=== PATIENT | female | born 1930 | race Caucasian/White ===

== ENCOUNTER → 2016-08-28 | Outpatient (CLI) | payer MEDICARE ==
[~2016-08-28] MED LIST: CPR500T PO; HYDR1TAB66 PO; KETO-22 PO; METR500T PO; NF-ROPIN4T PO; RPN.25T PO
--- OUTSIDE RECORDS SUMMARY | 2016-08-28 10:22 | XMS REPORT | Continuity of Care Document ---
Author Author [facility] Organization [facility] Address Unknown Phone Unavailable Care Team Providers Care Slot Service Specialist Name Role Phone AALIYAH CHILDS DO PCP Insurance Providers Payer Name Policy Number Subscriber Name Relationship Wps Medicare [id number] Rebeca Ocampo 17 Self / Same As Patient Blue Cross Mcr Supp [id number] Rebeca Ocampo 17 Self / Same As Patient Advance Directives Directive Response Recorded Date/Time Advance Directives Yes 11/09/12 5:46pm Health Care Power of Transit Authority Police Officer Yes 11/09/12 5:46pm Organ Donor No 11/09/12 5:46pm Problems No problem information available. Medications Current Home Medications Medication Dose Units Route Directions Days/Qty Instructions Start Date Ropinirole Hcl 4 Mg 4 Mg Oral Bedtime 11/09/12 Hydrocodone Bit/Acetaminophen 1 Each 0.5 Tab Oral Bedtime TAKES 1/2 TAB OF 5-500 MG AT BEDTIME 11/09/12 Ciprofloxacin 500 Mg 500 Tab Oral Twice A Day 10 11/12/12 Metronidazole 500 Mg 500 Mg Oral Three Times A Day 15 take until gone Past Home Medications Medication Directions Ordered Status Ropinirole Hcl 0.25 Mg Tab, 4 Mg Oral Daily 02/18/11 Discontinued Ketorolac Tromethamine 10 Mg Tablet, 10 Mg Oral Every 8HRS as needed Discontinued Social History Social History Problem Response Recorded Date/Time Alcohol Use Denies Use 11/09/2012 5:47pm Recreational Drug Use No 11/09/2012 5:47pm Recent Foreign Travel No 12/05/2015 2:34pm Hospital Discharge Instructions No hospital discharge instructions. Plan of Care Prescriptions See Medication Section Functional Status No functional status results. Allergies, Adverse Reactions, Alerts Allergen Type Severity Reaction Status Last Updated Lansoprazole Allergy Intermediate HIVES Active 05/31/12 Immunizations Name Given Type Date of Pneumonia Vaccine 05/31/08 Historical Vital Signs No known vital signs results. Results No known relevant diagnostic tests, laboratory data and/or discharge summary. Procedures No known history of procedures. Encounters Encounter Location Arrival/Admit Date Discharge/Depart Date Attending Provider Discharged Recurring [facility] 12/21/15 2:12pm 4:38pm AALIYAH CHILDS DO
--- NOTE | 2016-08-28 12:15 | Diagnostic Imaging Report ---
PA and lateral views of the chest. INDICATION: Fall. FINDINGS: The lungs are hyperinflated with no focal infiltrate. The heart size is normal. No effusion or pneumothorax. The mediastinum and saray appear unremarkable. IMPRESSION: COPD. Dictated by: Dictated on workstation # [id number]
--- NOTE | 2016-08-28 12:17 | Diagnostic Imaging Report ---
3 views of the right ribs. INDICATION: Fell last night. History of shortness of air and right rib pain. FINDINGS: No rib fracture seen. Prior anchors for rotator cuff surgery placed in the right humeral head. The right lung demonstrates no focal consolidation. IMPRESSION: No rib fracture identified. Dictated by: Dictated on workstation # [id number]
== END ==
LOC: RAD 10:17
PROVIDERS: ATTEND Family Medicine
DX: J44.9 Chronic obstructive pulmonary disease, unspecified (principal); S29.9XXA Unspecified injury of thorax, initial encounter; W19.XXXA Unspecified fall, initial encounter; Y99.8 Other external cause status
CPT/HCPCS: 71020; 71100

== ENCOUNTER → 2016-09-19 | Outpatient (CLI) | payer MEDICARE | LOC: LAB 09:45 | PROVIDERS: ATTEND Family Medicine | DX: B35.3 Tinea pedis (principal) | CPT/HCPCS: 87070; 87077; 87186; 87205; 87220 ==

== ENCOUNTER → 2016-11-12 | Outpatient (CLI) | payer MEDICARE ==
[~2016-11-12] MED LIST changes: +BETA15CR37 TP; +CURAMED PC; +HYDR-3820 PO; +ROPI4TAB3 PO
--- NOTE | 2016-11-12 11:32 | Diagnostic Imaging Report ---
INDICATION: Head injury from a fall Portable chest 11:20 AM There appears to be old healed rib fractures in the right anterior thoracic cage. Heart size and pulmonary vascularity are normal. Lungs are clear. There are no effusions or pneumothoraces. IMPRESSION: No acute abnormalities in the chest Dictated by: Dictated on workstation # [id number]
--- NOTE | 2016-11-12 11:37 | Diagnostic Imaging Report ---
INDICATION: Right shoulder injury from a fall. There are postop changes from tendon repair of the right shoulder. There are degenerative changes of the acromioclavicular joint. There is narrowing of the acromiohumeral space. There is slight superior subluxation of the humerus which appears chronic. There is no acute fracture seen. IMPRESSION: Postsurgical and degenerative changes of the right shoulder. No acute abnormality seen. Dictated by: Dictated on workstation # [id number]
--- NOTE | 2016-11-12 11:38 | Diagnostic Imaging Report ---
INDICATION: Low back pain. Lumbar spine. AP and lateral views of the lumbar spine show normal vertebral body height and alignment. There is disc space narrowing of L1-L2, L2-L3, L3-L4, and L4-L5. No compression fractures in the lumbar spine. IMPRESSION: Degenerative disc changes in the lumbar spine. There are no acute abnormalities seen. Dictated by: Dictated on workstation # [id number]
--- NOTE | 2016-11-12 11:39 | Diagnostic Imaging Report ---
INDICATION: Back injury from a fall. FINDINGS: AP and lateral views of the thoracic spine show a compression fracture of the T11 vertebral body. This is new since 08/28/2016. IMPRESSION: Acute compression fracture in the lower thoracic spine. This appears to be T11. Dictated by: Dictated on workstation # [id number]
--- NOTE | 2016-11-12 11:42 | Diagnostic Imaging Report ---
EXAMINATION: Bilateral rib radiographs. INDICATION: Fall. Multiple areas of rib pain. FINDINGS: There are minimally displaced rib fractures involving the anterolateral aspect of the right fifth through seventh ribs. There is callus formation seen suggestive of subacute fractures. The left ribs demonstrate no fracture. Heart size is normal. No effusion or pneumothorax and no focal pulmonary infiltrate is seen. Evidence of prior right shoulder surgery is seen with anchors at the humeral head noted. Impression: Minimally displaced subacute fractures of the anterolateral aspect of the right fifth to seventh ribs. Dictated by: Dictated on workstation # [id number]
[2016-11-12 11:43] LABS: MEAN PLATELET VOLUME 9.5 FL (7.4-10.4); RED BLOOD COUNT 4.99 10^6/uL (4.35-5.85); RED CELL DISTRIBUTION WIDTH 14.3 % (10.0-14.5); WHITE BLOOD COUNT 7.3 10^3/uL (4.3-11.0)
[2016-11-12 12:08] LABS: ANION GAP 7 MMOL/L (5-14); BLOOD UREA NITROGEN 19 MG/DL (7-18); BUN/CREATININE RATIO 28; CALCIUM 9.9 MG/DL (8.5-10.1); CARBON DIOXIDE 29 MMOL/L (21-32); CHLORIDE 105 MMOL/L (98-107); CREATININE SERUM 0.69 MG/DL (0.60-1.30); GFR ESTIMATED > 60; GLUCOSE 97 MG/DL (70-105); POTASSIUM 4.5 MMOL/L (3.6-5.0); SODIUM 141 MMOL/L (135-145)
== END ==
LOC: RAD 10:53
PROVIDERS: ATTEND Family Medicine
DX: M19.011 Primary osteoarthritis, right shoulder (principal); M47.816 Spondylosis without myelopathy or radiculopathy, lumbar region; S22.41XA Multiple fractures of ribs, right side, initial encounter for closed fracture; S22.089A Unspecified fracture of T11-T12 vertebra, initial encounter for closed fracture; W19.XXXA Unspecified fall, initial encounter; Y99.8 Other external cause status
CPT/HCPCS: 36415; 71010; 71110; 72072; 72100; 73030; 80048; 85027

== ENCOUNTER 2016-11-14 10:31 | Day surgery (SDC) | payer MEDICARE ==
[2016-11-14] VITALS (8 sets, daily range): BP systolic 115–138; BP diastolic 65–86
[~2016-11-14] VITALS: Ht 152.4 cm; Wt 53.5 kg
[~2016-11-14 10:31] MED LIST changes: -BETA15CR37 TP; -CURAMED PC; -HYDR-3820 PO; -ROPI4TAB3 PO
[2016-11-14] MEDS ORDERED: HYDR-3820 PO (10:46)
[2016-11-14] MEDS ORDERED: fentaNYL INJECTION 100 MCG/2 ML AMP ONE ×3 (10:52→14:49)
[2016-11-14] MEDS ORDERED: NS IV 500 ML 500 ML IV ONE (11:04)
--- NOTE | 2016-11-14 11:05 | ED Back Pain ---
General Chief Complaint: Back Problems Stated Complaint: FALL,PAIN ALL OVER Nursing Triage Note: PT ARRIVED PER EMS, PT CO OF BACK PAIN, PT HAD FALL ON FRIDAY AND WAS SEEN IN ED ON FRIDAY, CO OF MIDDLE AND LOW BACK PAIN RATES PAIN, 04/08 Nursing Sepsis Screen: No Definite Risk Source of Information: Patient, EMS Exam Limitations: No Limitations History of Present Illness Time Seen by Provider: 10:35 Initial Comments Here with report of pain that is from her back to her pelvis and through to the abdomen. This is in the level of the low chest to really just above the pelvis. Denies otherwise chest pain or nausea or vomiting. Does have history of a fall a few days ago. She is known to have at least 3 right rib fractures in the area of the fifth through the seventh as well as a T11 compression fracture based on x-ray results from 2 days ago. She is on pain medicines but those are only just taking the edge off barely. Denies head injury for neck pain. She was apparently assisting a person down a ramp with a walker when they got too fast and she slipped down and hit the ground on her back and bottom as well as on her right side. She had several x-rays done via primary care. Denies loss of consciousness with the injury. This occurred Friday night and evaluation by primary care was done on Friday. Timing/Duration: 2-3 Days, Getting Worse Severity: Moderate Pain/Injury Location: Back Associated Symptoms: muscle spasms, No fever, No weakness, No numbness in legs/ feet, No tingling in legs/feet, No sensory/motor loss, lower back pain, No loss of bladder control, No loss of bowel control Allergies and Home Medications Allergies Coded Allergies: lansoprazole (Verified Allergy, Intermediate, HIVES, 05/31/12) Home Medications Hydrocodone/Acetaminophen 1 Each Tablet, #80 (Reported) Ropinirole Hcl 4 Mg Tablet, 4 MG PO HS, (Reported) Constitutional: see HPI, No chills, No fever EENTM: no symptoms reported Respiratory: no symptoms reported Cardiovascular: no symptoms reported Gastrointestinal: abdominal pain (diffuse), No nausea, No vomiting Genitourinary: no symptoms reported Musculoskeletal: see HPI, back pain, muscle pain Psychiatric/Neurological: No Symptoms Reported All Other Systems Reviewed Negative Unless Noted: Yes Past Ttmbdsb-Qtmatt-Pdfdqt Hx Patient Social History Alcohol Use: Denies Use Recreational Drug Use: No Smoking Status: Never a Smoker Recent Foreign Travel: No Contact w/Someone Who Travel: No Recent Infectious Disease Expo: No Recent Hopitalizations: No Immunizations Up To Date Tetanus Booster (TDap): Less than 5yrs Date of Pneumonia Vaccine: May 31, 2008 Seasonal Allergies Seasonal Allergies: No Respiratory Hx Respiratory Disorders: No Cardiovascular Hx Cardiac Disorders: No Neurological Hx Neurological Disorders: Yes (RESTLESS LEG SYNDROME) Genitourinary Hx Genitourinary Disorders: No Gastrointestinal Hx Gastrointestinal Disorders: Yes (DIVERTICULITIS) Gastrointestinal Disorders: Diverticulosis Musculoskeletal Hx Musculoskeletal Disorders: No Endocrine Hx Endocrine Disorders: No HEENT HX ENT Disorders: No 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) Psychosocial Hx Psychiatric Problems: No Blood Transfusions Hx Blood Disorders: No Reviewed Nursing Assessment Reviewed/Agree w Nursing PMH: Yes Family Medical History Significant Family History: No Pertinent Family Hx Physical Exam Vital Signs Vital Sign - Last 12Hours 11/14/16 10:38 Temp 98.1 Pulse 69 Resp 18 B/P (MAP) 138/67 Pulse Ox 95 O2 Delivery Room Air Capillary Refill : Less Than 3 Seconds General Appearance: Mild Distress (pain), Thin HEENT: PERRL/EOMI, Pharynx Normal Neck: Full Range of Motion, Normal Inspection, Non Tender, Supple Cardiovascular: Regular Rate, Rhythm, No Murmur Respiratory: Lungs Clear, Normal Breath Sounds Gastrointestinal: Soft, Tenderness (mild diffuse) Back: Muscle Spasm, Other (paraspinous tenderness bilateral from the low thoracic and throughout the lumbar spine.) Extremity: Pelvis Stable, Other (mild tenderness to left hip.) Neurologic/Psychiatric: Alert, Oriented x3 Skin: Normal Color, Warm/Dry Progress/Results/Core Measures Results/Orders Lab Results Laboratory Tests Test 11/14/16 10:50 11/14/16 11:25 Range/Units White Blood Count 6.8 4.3-11.0 10^3/uL Red Blood Count 4.55 4.35-5.85 10^6/uL Hemoglobin 12.9 11.5-16.0 G/DL Hematocrit 40 35-52 % Mean Corpuscular Volume 89 80-99 FL Mean Corpuscular Hemoglobin 28 25-34 PG Mean Corpuscular Hemoglobin Concent 32 32-36 G/DL Red Cell Distribution Width 14.0 10.0-14.5 % Platelet Count 169 130-400 10^3/uL Mean Platelet Volume 9.6 7.4-10.4 FL Neutrophils (%) (Auto) 71 42-75 % Lymphocytes (%) (Auto) 17 12-44 % Monocytes (%) (Auto) 10 0-12 % Eosinophils (%) (Auto) 1 0-10 % Basophils (%) (Auto) 0 0-10 % Neutrophils # (Auto) 4.9 1.8-7.8 X 10^3 Lymphocytes # (Auto) 1.2 1.0-4.0 X 10^3 Monocytes # (Auto) 0.7 0.0-1.0 X 10^3 Eosinophils # (Auto) 0.1 0.0-0.3 10^3/uL Basophils # (Auto) 0.0 0.0-0.1 10^3/uL Sodium Level 137 135-145 MMOL/L Potassium Level 4.0 3.6-5.0 MMOL/L Chloride Level 104 98-107 MMOL/L Carbon Dioxide Level 28 21-32 MMOL/L Anion Gap 5 5-14 MMOL/L Blood Urea Nitrogen 18 7-18 MG/DL Creatinine 0.70 0.60-1.30 MG/DL Estimat Glomerular Filtration Rate > 60 BUN/Creatinine Ratio 26 Glucose Level 90 70-105 MG/DL Calcium Level 9.4 8.5-10.1 MG/DL Total Bilirubin 0.4 0.1-1.0 MG/DL Aspartate Amino Transf (AST/SGOT) 16 5-34 U/L Alanine Aminotransferase (ALT/SGPT) 11 0-55 U/L Alkaline Phosphatase 67 40-136 U/L Total Protein 6.1 L 6.4-8.2 G/DL Albumin 4.0 3.2-4.5 G/DL Amylase Level 51 25-125 U/L Lipase 11 8-78 U/L Urine Color YELLOW Urine Clarity CLEAR Urine pH 6 5-9 Urine Specific [place] 1.010 L 1.016-1.022 Urine Protein NEGATIVE NEGATIVE Urine Glucose (UA) NEGATIVE NEGATIVE Urine Ketones NEGATIVE NEGATIVE Urine Nitrite NEGATIVE NEGATIVE Urine Bilirubin NEGATIVE NEGATIVE Urine Urobilinogen NORMAL NORMAL MG/DL Urine Leukocyte Esterase NEGATIVE NEGATIVE Urine RBC (Auto) NEGATIVE NEGATIVE Urine RBC NONE /HPF Urine WBC NONE /HPF Urine Crystals NONE /LPF Urine Bacteria NEGATIVE /HPF Urine Casts NONE /LPF Urine Mucus NEGATIVE /LPF Urine Culture Indicated NO My Orders Orders - CHAUNCEY MONTANA MD Fentanyl Injection (Sublimaze Injection (11/14/16 10:52) Amylase (11/14/16 11:04) Cbc With Automated Diff (11/14/16 11:04) Comprehensive Metabolic Panel (11/14/16 11:04) Lipase (11/14/16 11:04) Saline Lock/Iv-Start (11/14/16 11:04) Ns Iv 500 Ml (Sodium Chloride 0.9%) (11/14/16 11:04) Ct Chest/Abdomen/Pelvis W (11/14/16 11:04) Iohexol Injection (Omnipaque 350 Mg/Ml 1 (11/14/16 11:15) Sodium Chloride Flush (Catheter Flush Sy (11/14/16 11:15) Ns (Ivpb) (Sodium Chloride 0.9% Ivpb Bag (11/14/16 11:15) Ua Culture If Indicated (11/14/16 12:29) Fentanyl Injection (Sublimaze Injection (11/14/16 13:38) Fentanyl Injection (Sublimaze Injection (11/14/16 13:38) Medications Given in ED Current Medications Medications Dose Ordered Sig/Dionna Route Start Time Stop Time Status Last Admin Dose Admin Fentanyl Citrate 100 mcg STK-MED ONCE .ROUTE 11/14/16 10:52 11/14/16 10:57 DC 11/14/16 10:58 50 MCG Iohexol 100 ml ONCE ONCE IV 11/14/16 11:15 11/14/16 11:21 DC 11/14/16 11:38 100 ML Sodium Chloride 10 ml NEEDED PRN IV 11/14/16 11:15 11/14/16 11:38 10 ML Sodium Chloride 100 ml ONCE ONCE IV 11/14/16 11:15 11/14/16 11:21 DC 11/14/16 11:38 80 ML Sodium Chloride 500 ml @ 0 mls/hr Q0M ONCE IV 11/14/16 11:04 11/14/16 11:06 DC 11/14/16 11:22 500 MLS/HR Vital Signs/I&O Vital Sign - Last 12Hours 11/14/16 10:38 Temp 98.1 Pulse 69 Resp 18 B/P (MAP) 138/67 Pulse Ox 95 O2 Delivery Room Air Blood Pressure Mean: 90 Progress Note : Progress Note Seen and evaluated. IV, labs, normal saline [address] chest, abdomen and pelvis. Fentanyl 50 g IV ordered. Monitor patient. 1340: Repeat fentanyl 50 g IV. T11 compression fracture noted on CT. Patient is having intractable pain. I have discussed the case with Dr. Childs and he will admit patient with the idea of kyphoplasty via interventional radiology. I discussed the case with Dr. Alberts, and he will evaluate for kyphoplasty. Patient is willing to do kyphoplasty, especially if it will help her pain. Patient and family agree to admission. Admit, observation status. We will continue fentanyl dosing inpatient and initiate end-tidal CO2 monitoring due to her narcotic dosing required for pain relief. Admit to primary care physician. Trauma consult not indicated at this time. No findings of rib fractures noted on CT which is different than x-ray findings from 2 days ago. Diagnostic Imaging Diagonstic Imaging: CT Plain Films/CT/US/NM/MRI: chest, abdomen, pelvis Comments [facility] [place], [place] NAME: REBECA OCAMPO [facility] REC#: [id number] PT STATUS: REG ER : [id number] PHYSICIAN: CHAUNCEY MONTANA MD ADMIT DATE: 11/14/16/ER Draft Date of Exam:11/14/16 CT CHEST/ABDOMEN/PELVIS W PROCEDURE: CT chest, abdomen, and pelvis with contrast. TECHNIQUE: Multiple contiguous axial images were obtained through the chest, abdomen, and pelvis after the administration of intravenous contrast. INDICATION: Chest and lower abdominal pain after fall. COMPARISONS: CT abdomen and pelvis from 12/07/2014. CT CHEST FINDINGS: Visualized thyroid is normal. No supraclavicular or axillary lymphadenopathy. There are multiple conspicuous but nonenlarged mediastinal lymph nodes, which are likely reactive in nature. No evidence of mediastinal hemorrhage. Thoracic aorta is normal in caliber without evidence of dissection or pseudoaneurysm. Normal heart size without pericardial effusion. Airway is intact. No pleural effusion or pneumothorax. No pulmonic opacities to indicate laceration or contusion. No suspicious pulmonary mass or nodule on either side. No acute rib fracture. Clavicles are intact. There are old healed fracture deformities of the anterior mid to lower right ribs. There is an acute compression fracture of the superior endplate of T11 which has approximately 20% of height loss. There is minimal retropulsion of the endplate into the spinal canal, but this does not result in significant spinal stenosis or apparent mass effect on the spinal cord at this level. No paravertebral hematoma. IMPRESSION: 1. No evidence of intrathoracic acute traumatic injury. 2. Acute superior endplate compression fracture of T11 with approximately 20% of height loss. The superior endplate is minimally retropulsed into the spinal canal but does not result in significant spinal stenosis. CT ABDOMEN AND PELVIS FINDINGS: No free intraperitoneal air or fluid. Liver and spleen enhance normally without evidence of subcapsular hematomas or laceration. Gallbladder is distended without radiopaque gallstones. The pancreas and adrenals are normal. Kidneys enhance symmetrically without evidence of traumatic injury. Ureters are intact without injury. Urinary bladder is partially distended with fluid and contrast material. There is no evidence of extravasation. A Knight catheter is in place. No bowel obstruction. Colonic diverticulosis without evidence of acute/active diverticulitis. Normal-caliber abdominal aorta without retroperitoneal hemorrhage. No abdominal or pelvic lymphadenopathy. No acute fracture of the pelvis or proximal femurs. No compression fracture of the lumbar spine. Heterotopic ossification along the anterior margin of the left greater trochanter is compatible with remote injury of the left gluteus minimus. There is associated moderate atrophy of the gluteus minimus as well, indicative of chronic injury. IMPRESSION: 1. No evidence of acute traumatic injury in the abdomen. 2. No acute fracture in the pelvis or proximal femurs. 3. No compression fracture of the lumbar spine. Dictated on workstation # [id number] Dict: 11/14/16 1205 Trans: 11/14/16 1235 BRYON [id number] Interpreted by: ROLANDO CUEVA MD Electronically signed by: Departure Communication Time/Spoke to Admitting Phy: 13:38 Impression Impression: Primary Impression: Compression fracture of thoracic vertebra Qualified Codes: S22.000A - Wedge compression fracture of unspecified thoracic vertebra, initial encounter for closed fracture Disposition: ADMITTED INPATIENT Condition: Stable Decision to Admit Reason: Admit from ER (General) Decision to Admit/Date: November 14, 2016 Time/Decision to Admit Time: 13:55 Departure-Patient Inst. Referrals: AALIYAH CHILDS DO (PCP/Family) Primary Care Physician CHAUNCEY MONTANA MD November 14, 2016 11:05
[2016-11-14 11:10] LABS: BASOPHILS % (AUTO) 0 % (0-10); EOSINOPHILS # (AUTO) 0.1 10^3/uL (0.0-0.3); EOSINOPHILS % (AUTO) 1 % (0-10); LYMPHOCYTES # (AUTO) 1.2 X 10^3 (1.0-4.0); LYMPHOCYTES % (AUTO) 17 % (12-44); MEAN CORPUSCULAR HEMOGLOBIN 28 PG (25-34); MEAN CORPUSCULAR HGB CONC 32 G/DL (32-36); MEAN CORPUSCULAR VOLUME 89 FL (80-99); MEAN PLATELET VOLUME 9.6 FL (7.4-10.4); MONOCYTES # (AUTO) 0.7 X 10^3 (0.0-1.0); MONOCYTES % (AUTO) 10 % (0-12); NEUTROPHILS # (AUTO) 4.9 X 10^3 (1.8-7.8); NEUTROPHILS % (AUTO) 71 % (42-75); PLATELET COUNT 169 10^3/uL (130-400); RED BLOOD COUNT 4.55 10^6/uL (4.35-5.85); WHITE BLOOD COUNT 6.8 10^3/uL (4.3-11.0)
[2016-11-14] MEDS ORDERED: IOHEXOL 350 MG/ML 100 ML (OMNIPAQUE 350) VIAL IV ONE ×2 (11:15→11:30)
[2016-11-14] MEDS ORDERED: NS 100 ML (IVPB) BAG IV ONE ×2 (11:15→11:30)
[2016-11-14] MEDS ORDERED: CATHETER FLUSH 10 ML SYR IV PRN ×3 (11:15→15:30)
[2016-11-14 11:25] LABS: ALANINE AMINOTRANSFERASE 11 U/L (0-55); AMYLASE 51 U/L (25-125); ANION GAP 5 MMOL/L (5-14); ASPARTATE AMINO TRANSFERASE 16 U/L (5-34); BILIRUBIN,TOTAL 0.4 MG/DL (0.1-1.0); BLOOD UREA NITROGEN 18 MG/DL (7-18); BUN/CREATININE RATIO 26; CALCIUM 9.4 MG/DL (8.5-10.1); CARBON DIOXIDE 28 MMOL/L (21-32); CHLORIDE 104 MMOL/L (98-107); GFR ESTIMATED > 60; GLUCOSE 90 MG/DL (70-105); LIPASE 11 U/L (8-78); SODIUM 137 MMOL/L (135-145); TOTAL PROTEIN 6.1 G/DL (6.4-8.2)
--- NOTE | 2016-11-14 12:36 | Diagnostic Imaging Report ---
PROCEDURE: CT chest, abdomen, and pelvis with contrast. TECHNIQUE: Multiple contiguous axial images were obtained through the chest, abdomen, and pelvis after the administration of intravenous contrast. INDICATION: Chest and lower abdominal pain after fall. COMPARISONS: CT abdomen and pelvis from 12/07/2014. CT CHEST FINDINGS: Visualized thyroid is normal. No supraclavicular or axillary lymphadenopathy. There are multiple conspicuous but nonenlarged mediastinal lymph nodes, which are likely reactive in nature. No evidence of mediastinal hemorrhage. Thoracic aorta is normal in caliber without evidence of dissection or pseudoaneurysm. Normal heart size without pericardial effusion. Airway is intact. No pleural effusion or pneumothorax. No pulmonic opacities to indicate laceration or contusion. No suspicious pulmonary mass or nodule on either side. No acute rib fracture. Clavicles are intact. There are old healed fracture deformities of the anterior mid to lower right ribs. There is an acute compression fracture of the superior endplate of T11 which has approximately 20% of height loss. There is minimal retropulsion of the endplate into the spinal canal, but this does not result in significant spinal stenosis or apparent mass effect on the spinal cord at this level. No paravertebral hematoma. IMPRESSION: 1. No evidence of intrathoracic acute traumatic injury. 2. Acute superior endplate compression fracture of T11 with approximately 20% of height loss. The superior endplate is minimally retropulsed into the spinal canal but does not result in significant spinal stenosis. CT ABDOMEN AND PELVIS FINDINGS: No free intraperitoneal air or fluid. Liver and spleen enhance normally without evidence of subcapsular hematomas or laceration. Gallbladder is distended without radiopaque gallstones. The pancreas and adrenals are normal. Kidneys enhance symmetrically without evidence of traumatic injury. Ureters are intact without injury. Urinary bladder is partially distended with fluid and contrast material. There is no evidence of extravasation. A Knight catheter is in place. No bowel obstruction. Colonic diverticulosis without evidence of acute/active diverticulitis. Normal-caliber abdominal aorta without retroperitoneal hemorrhage. No abdominal or pelvic lymphadenopathy. No acute fracture of the pelvis or proximal femurs. No compression fracture of the lumbar spine. Heterotopic ossification along the anterior margin of the left greater trochanter is compatible with remote injury of the left gluteus minimus. There is associated moderate atrophy of the gluteus minimus as well, indicative of chronic injury. IMPRESSION: 1. No evidence of acute traumatic injury in the abdomen. 2. No acute fracture in the pelvis or proximal femurs. 3. No compression fracture of the lumbar spine. Dictated by: Dictated on workstation # [id number]
[2016-11-14 12:43] LABS: BILIRUBIN,URINE NEGATIVE (NEGATIVE); KETONES,URINE NEGATIVE (NEGATIVE); LEUKOCYTE ESTERASE ,URINE NEGATIVE (NEGATIVE); NITRITE,URINE NEGATIVE (NEGATIVE); PH,URINE 6 (5-9); PROTEIN,URINE NEGATIVE (NEGATIVE); UROBILINOGEN,URINE NORMAL (NORMAL)
[2016-11-14] MEDS ORDERED: fentaNYL INJECTION 100 MCG/2 ML AMP IVP STA (13:38)
[2016-11-14] MEDS ORDERED: LACTATED RINGERS 1,000 ML IV PRN ×2 (14:23→17:08)
[2016-11-14 15:20] LABS: PROTHROMBIN TIME PATIENT 12.6 SEC (12.2-14.7)
[2016-11-14] MEDS ORDERED: fentaNYL INJECTION 100 MCG/2 ML AMP IV PRN (15:30)
[2016-11-14] MEDS ORDERED: LIDOCAINE 1% INJ 20 ML (XYLOCAINE) VIAL ONE (15:37)
[2016-11-14] MEDS: NS IV 1000 ML 1,000 ML IV SCH ×2 (15:56→21:57)
[2016-11-14] MEDS ORDERED: morphine INJ 10 MG/ML 1ML (SYR OR VIAL) ONE (15:58)
[2016-11-14] MEDS ORDERED: BETA15CR37 TP (16:10)
[2016-11-14] MEDS ORDERED: CURAMED PC (16:10)
[2016-11-14] MEDS ORDERED: ROPI4TAB3 PO (16:10)
[2016-11-14] MEDS ORDERED: RT-ALBUTEROL SULF 2.5 MG/3 ML PRE-MIX VIAL IH PRN (16:45)
[2016-11-14] MEDS ORDERED: ceFAZolin 1,000 MG (ANCEF) VIAL ONE (16:54)
--- NOTE | 2016-11-14 17:02 | Progress Note-Pre Operative ---
Pre-Operative Progress Note H&P Reviewed The H&P was reviewed, patient examined and no changes noted. Date H&P Reviewed: November 14, 2016 Time H&P Reviewed: 15:00 Pre-Operative Diagnosis: T11 painful compression fracture PHAN GARCIA MD November 14, 2016 17:02
[2016-11-14] MEDS ORDERED: LACTATED RINGERS 1,000 ML IV ONE (17:14)
[2016-11-14] MEDS ORDERED: PROPOFOL INJECTION 50 ML IV ONE (17:14)
[2016-11-14] MEDS ORDERED: HYDROmorphone (DILAUDID) 2 MG/ML VIAL IVP PRN (17:15)
[2016-11-14] MEDS ORDERED: ONDANSETRON 4 MG/2 ML (SDV) Z0FRAN IVP PRN ×2 (17:15)
[2016-11-14] MEDS ORDERED: CATHETER FLUSH 10 ML SYR IV ONE (17:15)
[2016-11-14] MEDS ORDERED: MEPERIDINE (DEMEROL) INJ 50 MG/ML ONE (17:58)
--- NOTE | 2016-11-14 18:06 | Radiology Progress Note ---
Progress Note-Radiology Progress Note s/p T11 kyphoplasty without immediate complications. full report will be dictated under imaging. PHAN GARCIA MD November 14, 2016 18:06
--- NOTE | 2016-11-14 19:14 | History & Physicial ---
History of Present Illness History of Present Illness Reason for visit/HPI Patient failed outpatient treatment severe back pain. Patient fell when pushing 's wheelchair. Patient had x-ray showing T11 compression fracture. Patient refused at that time to go to the hospital. Patient got worse today and unable to walk. Patient went to the emergency room by ambulance. Patient admitted with pains all over especially to the lower back. Date of Admission November 14, 2016 at 13:44 I consulted on this patient on 11/14/16 19:10 Attending Physician Jax Childs DO Admitting Physician Jax Childs DO Consult Allergies and Home Medications Allergies Coded Allergies: lansoprazole (Verified Allergy, Intermediate, HIVES, 05/31/12) Home Medications Betamethasone/Propylene Glyc 15 Gm Cream..g., TP BID PRN for ITCHING, (Reported) Hydrocodone/Acetaminophen 1 Each Tablet, 1 TAB PO QID, (Reported) Ropinirole HCl 4 Mg Tablet, 4 MG PO HS, (Reported) [Curamed] , 1 CAP PC BID, (Reported) Past Muoudmg-Hroryi-Wgpzmo Hx Patient Social History Marrital Status: 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: employed Alcohol Use: Denies Use Recreational Drug Use: No Smoking Status: Never a Smoker Physical Abuse Screen: No Sexual Abuse: No Recent Foreign Travel: No Contact w/other who traveled: No Recent Hopitalizations: No Recent Infectious Disease Expo: No Immunizations Up To Date Tetanus Booster (TDap): Less than 5yrs Date of Pneumonia Vaccine: May 31, 2008 Seasonal Allergies Seasonal Allergies: No Surgeries Surgeries: Orthopedic Respiratory Hx Respiratory Disorders: No Cardiovascular Hx Cardiovascular Disorders: No Neurological Hx Neurological Disorders: Yes (RESTLESS LEG SYNDROME) 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 System : No Genitourinary Hx Genitourinary Disorders: No Gastrointestinal Hx Gastrointestinal Disorders: Yes (DIVERTICULITIS) Gastrointestinal Disorders: Diverticulosis Musculoskeletal Hx Musculoskeletal Disorders: No Endocrine Hx Endocrine Disorders: No HEENT HX ENT Disorders: No 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) Psychosocial Hx Psychiatric Problems: No Blood Transfusions Hx Blood Disorders: No Reviewed Nursing Assessment Reviewed/Agree w Nursing PMH: Yes Family Medical History Significant Family History: No Pertinent Family Hx Constitutional: weakness, other (Severe pain) EENTM: no symptoms reported Respiratory: no symptoms reported Cardiovascular: no symptoms reported Gastrointestinal: no symptoms reported Genitourinary: no symptoms reported Physical Exam Vital Signs Vital Sign - Last 12Hours 11/14/16 11/14/16 10:38 14:10 Temp 98.1 Pulse 69 Resp 18 B/P (MAP) 138/67 Pulse Ox 95 O2 Delivery Room Air O2 Flow Rate 2.00 Capillary Refill : Less Than 3 SecondsLess Than 3 Seconds General Appearance: WD/WN, Thin Eyes: Bilateral Eye Normal Inspection HEENT: TMs Normal, Normal ENT Inspection Neck: Normal Inspection Respiratory: Chest Non Tender, Lungs Clear, Normal Breath Sounds, No Accessory Muscle Use, No Respiratory Distress Cardiovascular: Regular Rate, Rhythm Gastrointestinal: Non Tender, Soft Assessment/Plan Assessment and Plan Severe back pain area T11 compression fracture Problems: Clinical Quality Measures DVT/VTE Risk/Contraindication: Risk Factor Score Per Nursin RFS Level Per Nursing on Admit: 4+=Very High JAX CHILDS DO November 14, 2016 19:14
[2016-11-14] MEDS: HYDROcodone/APAP 5 MG/325 MG (LORTAB) TAB PO PRN (23:30)
[2016-11-15 00:40] VITALS: BP_SYST 118; BP_SYST 162; BP_DIAS 56; BP_DIAS 84
[2016-11-15] MEDS: HYDROcodone/APAP 5 MG/325 MG (LORTAB) TAB PO PRN ×2 (03:36→10:51)
[2016-11-15 04:16] VITALS: BP 114/61
[2016-11-15 06:05] LABS: BASOPHILS % (AUTO) 0 % (0-10); EOSINOPHILS # (AUTO) 0.2 10^3/uL (0.0-0.3); EOSINOPHILS % (AUTO) 3 % (0-10); LYMPHOCYTES # (AUTO) 1.2 X 10^3 (1.0-4.0); LYMPHOCYTES % (AUTO) 24 % (12-44); MEAN CORPUSCULAR HEMOGLOBIN 28 PG (25-34); MEAN CORPUSCULAR HGB CONC 32 G/DL (32-36); MEAN CORPUSCULAR VOLUME 90 FL (80-99); MEAN PLATELET VOLUME 9.7 FL (7.4-10.4); MONOCYTES # (AUTO) 0.5 X 10^3 (0.0-1.0); MONOCYTES % (AUTO) 11 % (0-12); NEUTROPHILS % (AUTO) 62 % (42-75); PLATELET COUNT 147 10^3/uL (130-400); RED BLOOD COUNT 4.14 10^6/uL (4.35-5.85); RED CELL DISTRIBUTION WIDTH 13.8 % (10.0-14.5); WHITE BLOOD COUNT 4.9 10^3/uL (4.3-11.0)
[2016-11-15 06:28] LABS: ALANINE AMINOTRANSFERASE 8 U/L (0-55); ALBUMIN 3.4 G/DL (3.2-4.5); ANION GAP 8 MMOL/L (5-14); ASPARTATE AMINO TRANSFERASE 15 U/L (5-34); BILIRUBIN,TOTAL 0.4 MG/DL (0.1-1.0); BLOOD UREA NITROGEN 12 MG/DL (7-18); BUN/CREATININE RATIO 19; CALCIUM 8.6 MG/DL (8.5-10.1); CARBON DIOXIDE 23 MMOL/L (21-32); CHLORIDE 108 MMOL/L (98-107); CREATININE SERUM 0.63 MG/DL (0.60-1.30); GFR ESTIMATED > 60; GLUCOSE 90 MG/DL (70-105); POTASSIUM 3.8 MMOL/L (3.6-5.0); SODIUM 139 MMOL/L (135-145); TOTAL PROTEIN 5.3 G/DL (6.4-8.2)
--- NOTE | 2016-11-15 07:50 | Diagnostic Imaging Report ---
EXAMINATION: Kyphoplasty with fluoroscopy guidance. T11 vertebral body biopsy. INDICATION: 86-year-old female patient with severe back pain diagnosed with T11 compression fracture. The patient had markedly severe pain intractable despite the oral pain medications given and the degree of pain was limiting the patient's mobility. She was admitted to the hospital due to uncontrolled pain. CONSENT: Informed consent was obtained from the patient. The risks, benefits, potential complications and alternatives were reviewed and all questions answered to the patient's satisfaction. The patient's vital signs, cardiac rhythm, and pulse oximetry were observed throughout the procedure by qualified nursing personnel. ANESTHESIA: See anesthesia note. FLUOROSCOPY TIME: 2 minutes and 34 seconds. Medications: Ancef 1 g IV preoperatively. Estimated blood loss: Less than 20 mL. PROCEDURE: Maximal sterile barrier preparation and draping is performed to the back with the patient prone on the operative table, including sterile covering of the fluoroscopy machine. The T11 vertebral level is localized with anterior and lateral fluoroscopic visualization. Appropriate orientation and angle was marked and a transpedicular approach was deemed appropriate. A left paramedian skin incision is made and cannula with distal half size of 12-gauge is advanced under fluoroscopic guidance in both projections. This is advanced through the pedicle under fluoroscopic guidance and the tip of the cannula was placed along the posterior one-third of the vertebral body. This is followed by right paramedian skin incision and the steps repeated with transpedicular cannula placed similarly with the tip at the posterior third of the vertebral body. Once the bone access needle was in place, vertebral body biopsy was obtained through the left transpedicular needle. Subsequently, a manual drill is utilized under fluoroscopic guidance to create a tract was performed to near the anterior border of the vertebral body. Subsequently bilateral 15/2 balloons are advanced into the vertebral body and inflated with rated pressure, upto 250 PSI. Considerable reduction of the compression fracture is achieved with balloon inflation. Subsequently cement injection after appropriate mixing and maturation is performed alternatively in both cannulas until filling into the posterior third of the vertebral body is achieved. Total of 3 cc of cement introduced. Cement introduction was performed under imaging guidance. No extravasation of cement into the spinal canal is seen. Both cannulas were removed with the stylet in place, after cement introduction. No immediate complications. IMPRESSION: Successful T11 kyphoplasty via fluoroscopy-guided bilateral transpedicular approach. Dictated by: Dictated on workstation # [id number]
[2016-11-15 08:00] VITALS: BP 139/84
--- NOTE | 2016-11-15 08:29 | Progress Note (SOAP) ---
Subjective Subjective/Events-last exam Fall. Intractable pain. Patient had kyphoplasty yesterday. Patient feeling better. Patient not in pain. Patient walking around. Patient wants to go home. Plan to discharge patient Objective Exam Vital Signs Date Time Temp Pulse Resp B/P (MAP) Pulse Ox O2 Delivery O2 Flow Rate FiO2 11/15/16 06:27 99 4.00 11/15/16 04:16 98.9 85 18 114/61 95 3.00 11/15/16 02:14 96 4.00 11/15/16 00:40 98.7 79 16 118/56 95 4.00 11/14/16 21:57 95 4.00 11/14/16 21:00 99.4 83 22 134/73 97 4.00 11/14/16 21:00 97 3.00 11/14/16 20:30 74 134/81 97 4.00 11/14/16 20:00 78 135/76 97 4.00 11/14/16 19:45 75 138/81 97 4.00 11/14/16 19:30 72 135/77 97 4.00 11/14/16 19:20 100 4.00 11/14/16 19:15 71 136/72 99 4.00 11/14/16 19:00 98.5 72 18 138/86 92 4.00 11/14/16 15:45 2.00 11/14/16 15:25 98.5 69 20 115/65 97 3.00 11/14/16 14:59 69 18 96 2.00 11/14/16 14:10 96 2.00 11/14/16 14:10 96 11/14/16 10:38 98.1 69 18 138/67 95 Room Air I & O 11/15/16 07:00 Intake Total 1350 ml Output Total 775 ml Balance 575 ml Capillary Refill : Less Than 3 SecondsLess Than 3 Seconds General Appearance: No Apparent Distress, WD/WN HEENT: Normal ENT Inspection Neck: Normal Inspection Results Lab Laboratory Tests 11/14/16 10:50 11/15/16 05:43 Laboratory Tests 11/14/16 10:50: White Blood Count 6.8, Red Blood Count 4.55, Hemoglobin 12.9, Hematocrit 40, Mean Corpuscular Volume 89, Mean Corpuscular Hemoglobin 28, Mean Corpuscular Hemoglobin Concent 32, Red Cell Distribution Width 14.0, Platelet Count 169, Mean Platelet Volume 9.6, Neutrophils (%) (Auto) 71, Lymphocytes (%) (Auto) 17, Monocytes (%) (Auto) 10, Eosinophils (%) (Auto) 1, Basophils (%) (Auto) 0, Neutrophils # (Auto) 4.9, Lymphocytes # (Auto) 1.2, Monocytes # (Auto) 0.7, Eosinophils # (Auto) 0.1, Basophils # (Auto) 0.0, Prothrombin Time 12.6, INR Comment 1.0, Activated Partial Thromboplast Time 37H, Sodium Level 137, Potassium Level 4.0, Chloride Level 104, Carbon Dioxide Level 28, Anion Gap 5, Blood Urea Nitrogen 18, Creatinine 0.70, Estimat Glomerular Filtration Rate > 60 , BUN/Creatinine Ratio 26, Glucose Level 90, Calcium Level 9.4, Total Bilirubin 0.4, Aspartate Amino Transf (AST/SGOT) 16, Alanine Aminotransferase (ALT/SGPT) 11, Alkaline Phosphatase 67, Total Protein 6.1L, Albumin 4.0, Amylase Level 51, Lipase 11 11/14/16 11:25: Urine Color YELLOW, Urine Clarity CLEAR, Urine pH 6, Urine Specific [place] 1.010L, Urine Protein NEGATIVE, Urine Glucose (UA) NEGATIVE, Urine Ketones NEGATIVE, Urine Nitrite NEGATIVE, Urine Bilirubin NEGATIVE, Urine Urobilinogen NORMAL, Urine Leukocyte Esterase NEGATIVE, Urine RBC (Auto) NEGATIVE, Urine RBC NONE, Urine WBC NONE, Urine Crystals NONE, Urine Bacteria NEGATIVE, Urine Casts NONE, Urine Mucus NEGATIVE, Urine Culture Indicated NO 11/15/16 05:43: White Blood Count 4.9, Red Blood Count 4.14L, Hemoglobin 11.7, Hematocrit 37, Mean Corpuscular Volume 90, Mean Corpuscular Hemoglobin 28, Mean Corpuscular Hemoglobin Concent 32, Red Cell Distribution Width 13.8, Platelet Count 147, Mean Platelet Volume 9.7, Neutrophils (%) (Auto) 62, Lymphocytes (%) (Auto) 24, Monocytes (%) (Auto) 11, Eosinophils (%) (Auto) 3, Basophils (%) (Auto) 0, Neutrophils # (Auto) 3.0, Lymphocytes # (Auto) 1.2, Monocytes # (Auto) 0.5, Eosinophils # (Auto) 0.2, Basophils # (Auto) 0.0, Sodium Level 139, Potassium Level 3.8, Chloride Level 108H, Carbon Dioxide Level 23, Anion Gap 8, Blood Urea Nitrogen 12, Creatinine 0.63, Estimat Glomerular Filtration Rate > 60, BUN/ Creatinine Ratio 19, Glucose Level 90, Calcium Level 8.6, Total Bilirubin 0.4, Aspartate Amino Transf (AST/SGOT) 15, Alanine Aminotransferase (ALT/SGPT) 8, Alkaline Phosphatase 68, Total Protein 5.3L, Albumin 3.4 Assessment/Plan Assessment/Plan Assess & Plan/Chief Complaint T11 compression fracture. Patient had kyphoplasty for this. Patient feeling much better today. Patient not in any pain. Patient walking around. Plan to discharge patient today at 11 a.m. Clinical Quality Measures DVT/VTE Risk/Contraindication: Risk Factor Score Per Nursin RFS Level Per Nursing on Admit: 4+=Very High Contraindications-Pharm: Other *list below* AALIYAH CHILDS DO November 15, 2016 08:29
[2016-11-15] MEDS: NS IV 1000 ML 1,000 ML IV SCH (13:08)
[2016-11-15 13:17] VITALS: BP 139/84
--- NOTE | 2016-11-16 07:41 | Clinic Account Progress/Dx ---
Clinic Account Progress/Dx DIAGNOSIS: Diagnosis Intractable severe pack pain. T11 compression fracture AALIYAH CHILDS DO November 16, 2016 07:40
== END 2016-11-15 13:39 | disposition home or self-care (01) ==
LOC: EDUNIT# 10:31 → ER 10:34 → 4TH 13:44 → UNDOADMOB 13:44 → SDC 13:44 → 4TH 13:44 → UNDODISOB 11-15 13:39 → SDC 11-15 13:39
PROVIDERS: ATTEND Family Medicine
DX: S22.000A Wedge compression fracture of unspecified thoracic vertebra, initial encounter for closed fracture (principal); G25.81 Restless legs syndrome; W18.00XA Striking against unspecified object with subsequent fall, initial encounter
CPT/HCPCS: 36415; 51702; 71260; 74177; 80053; 81000; 82150; 83690; 85025; 85610; 85730; 94664; 94760; 96361; 96374; 96376

== ENCOUNTER 2017-08-05 22:35 | Emergency (ER) | payer MEDICARE ==
[~2017-08-05] VITALS: Ht 152.4 cm; Wt 49.9 kg
[~2017-08-05 22:35] MED LIST changes: +BETA15CR37 TP; +CURAMED PC; +HYDR-3820 PO; +ROPI4TAB3 PO
[2017-08-05] MEDS ORDERED: HYDROcodone/APAP 7.5 MG/325 MG (LORTAB, LORCET PLUS) TABLET PO STA (23:57)
--- NOTE | 2017-08-06 00:29 | ED Fall/Injury ---
General Chief Complaint: Trauma-Non Activation Stated Complaint: FALL Nursing Triage Note: pt presents to er with complaint of fall. pt does not remember what happened or how she fell. she is having trouble remembering things, does not know the date or year. pt is complaining of headache. and report large bump on head. Source: patient Exam Limitations: no limitations History of Present Illness Date Seen by Provider: Aug 06, 2017 Time Seen by Provider: 23:30 Initial Comments Here with report of fall. She is unsure how it happened but thinks she may slipped on the ice on the ramp. She has a large bump on the back of her head and complains of pain to her bottom. Probable loss of consciousness but is unsure. Did have some memory just said at around the time of the injury. Location Injury Occurred: home Occurred: this evening (approximately one hour ago) Severity: moderate Injuries/Pain Location: head, pelvis Context: slipped Loss of Consciousness: unsure Modifying Factors: Worse With Movement Associated Symptoms (Fall): Confusion, Headache, No Lightheadedness, No Muscle Spasms, No Neck Pain Allergies and Home Medications Allergies Coded Allergies: lansoprazole (Verified Allergy, Intermediate, HIVES, 05/31/12) Home Medications Betamethasone/Propylene Glyc 15 Gm Cream..g., TP BID PRN for ITCHING, (Reported) Hydrocodone Bit/Acetaminophen 1 Tab Tab, 1-2 EACH PO Q6H PRN for PAIN-MODERATE, #15 Ref 0 Prescribed by: CHAUNCEY MONTANA on 08/06/17 0034 Hydrocodone/Acetaminophen 1 Each Tablet, 1 TAB PO QID, (Reported) Ropinirole HCl 4 Mg Tablet, 4 MG PO HS, (Reported) [Curamed] , 1 CAP PC BID, (Reported) Constitutional: see HPI, No chills, No fever Eyes: No Symptoms Reported, Denies Decreased Acuity, Denies Pain Ears, Nose, Mouth, Throat: no symptoms reported Respiratory: no symptoms reported Cardiovascular: no symptoms reported Gastrointestinal: no symptoms reported, No nausea, No vomiting Musculoskeletal: see HPI, back pain (chronic), joint pain, No neck pain, other (pelvic pain along the sacrum and coccyx) Skin: change in color, No lesions Psychiatric/Neurological: Headache, Denies Weakness Past Yfpwqbp-Tqbrof-Qehrys Hx Patient Social History Alcohol Use: Denies Use Recreational Drug Use: No Smoking Status: Never a Smoker Recent Foreign Travel: No Contact w/Someone Who Travel: No Recent Infectious Disease Expo: No Recent Hopitalizations: No Physical Abuse: No Sexual Abuse: No Immunizations Up To Date Tetanus Booster (TDap): Less than 5yrs Date of Pneumonia Vaccine: May 31, 2008 Seasonal Allergies Seasonal Allergies: No Surgeries History of Surgeries: Yes Surgeries: Orthopedic Respiratory History of Respiratory Disorde: No Cardiovascular History of Cardiac Disorders: No Neurological History of Neurological Disord: Yes (RESTLESS LEG SYNDROME) 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 System 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 Genitourinary History of Genitourinary Disor: No Gastrointestinal History of Gastrointestinal Di: Yes (DIVERTICULITIS) Gastrointestinal Disorders: Diverticulosis Musculoskeletal History of Musculoskeletal Dis: No Endocrine History of Endocrine Disorders: No HEENT History of HEENT Disorders: No Cancer History of Cancer: Yes (PRE-CANCEROUS BREAST BIOPSIES) Psychosocial History of Psychiatric Problem: No Suicide Risk Score: 0 Integumentary History of Skin or Integumenta: No Blood Transfusions History of Blood Disorders: No Reviewed Nursing Assessment Reviewed/Agree w Nursing PMH: Yes Family Medical History Significant Family History: No Pertinent Family Hx Physical Exam Vital Signs Vital Signs - First Documented 08/05/17 23:00 Temp 97.6 Pulse 85 Resp 20 B/P (MAP) 164/91 (115) Pulse Ox 88 O2 Delivery Room Air Capillary Refill : Less Than 3 Seconds General Appearance: WD/WN, mild distress HEENT: PERRL/EOMI, TMs normal, pharynx normal Neck: non-tender, full range of motion, supple Cardiovascular: regular rate, rhythm, no murmur Respiratory: lungs clear, normal breath sounds Gastrointestinal: non tender, soft Back: normal inspection, no vertebral tenderness Extremities: normal range of motion, non-tender, normal inspection, other ( tenderness along the sacrum and coccyx area but not lateral in the hips.) Neurologic/Psychiatric: alert, oriented x 3 Skin: warm/dry, ecchymosis (large hematoma posterior scalp) Armando Coma Score Best Eye Response: (4) Open Spontaneously Best Verbal Response: (5) Oriented Best Motor Response: (6) Obeys Commands Progress/Results/Core Measures Results/Orders My Orders Orders - CHAUNCEY MONTANA MD Ct Head/Cervical Spine Wo (08/05/17 23:11) Pelvis (08/05/17 23:11) Hydrocodone/Apap 7.5/325 Tab (Lortab 7. (08/05/17 23:57) Sacrum And Coccyx (08/06/17 ) Vital Signs/I&O Vital Sign - Last 12Hours 08/05/17 08/05/17 23:00 23:00 Temp 97.6 97.6 Pulse 85 85 Resp 20 20 B/P (MAP) 164/91 (115) 164/91 (115) Pulse Ox 88 88 O2 Delivery Room Air Blood Pressure Mean: 115 Progress Note : Progress Note Seen and evaluated. CT head and neck ordered. Patient was placed in c-collar on arrival but cannot tolerate it so that was removed by her. Pelvic x-ray ordered. Due to complaints of the sacrum and coccyx pain, x-ray to this area was added. Hydrocodone 7.5 one tab by mouth given. Monitor patient. 0020: CT head and neck do not show any acute findings. Pelvic x-ray does not show any acute findings. Patient does have family member who will stay with her. Discharged home with return precautions. Patient family verbalized understanding instructions and agreement with plan. Diagnostic Imaging Diagonstic Imaging: CT Plain Films/CT/US/NM/MRI: c-spine, head Comments No acute intracranial hemorrhage or skull fracture noted. No acute cervical spine fracture noted. Reviewed: Reviewed Night Sacha Study, Reviewed by Me Diagonstic Imaging: Xray Plain Films/CT/US/NM/MRI: pelvis Comments No acute fracture. Reviewed: Reviewed by Me Diagonstic Imaging: Xray Plain Films/CT/US/NM/MRI: other (sacrum and coccyx) Comments No acute fracture identified. Reviewed: Reviewed by Me Departure Impression Impression: Primary Impression: Scalp hematoma Qualified Codes: S00.03XA - Contusion of scalp, initial encounter Additional Impressions: Concussion Qualified Codes: S06.0X1A - Concussion with loss of consciousness of 30 minutes or less, initial encounter Sacral contusion Qualified Codes: S30.0XXA - Contusion of lower back and pelvis, initial encounter Disposition: 01 HOME, SELF-CARE Condition: Stable Departure-Patient Inst. Decision time for Depature: 00:30 Referrals: AALIYAH CHILDS DO (PCP) Primary Care Physician Patient Instructions: Closed Head Injury (DC), Concussion, Adult (DC), Contusion (DC) Add. Discharge Instructions: All discharge instructions reviewed with patient and/or family. Voiced understanding. Take medications as directed. Follow-up with your Dr. in a few days for recheck. Return for worse pain, fever, vomiting, weakness, breathing problems or other concerns as needed. You should have somebody stay with you tonight to help you given that you had fairly significant head injury today. Scripts Hydrocodone Bit/Acetaminophen (Hydrocodone/Acetaminophen 5/325mg Tablet) 1 Tab Tab 1-2 EACH PO Q6H Y for PAIN-MODERATE, #15 TAB 0 Refills Prov: CHAUNCEY MONTANA MD 08/06/17 Copy Copies To 1: AALIYAH CHILDS TIMOTHY D MD Aug 06, 2017 00:29
[2017-08-06] MEDS ORDERED: ACHD5005 PO (00:34)
[2017-08-06 00:58] VITALS: BP 162/86
--- NOTE | 2017-08-06 06:36 | Diagnostic Imaging Report ---
INDICATION: Fall. Tailbone pain. FINDINGS: AP pelvis. Femoral head is in normal articulation bilaterally. Mild degenerative changes are present. SI joints are symmetrical with mild degenerative change. Pubic symphysis in good alignment. There are no fractures demonstrated. IMPRESSION: Degenerative joint disease with no acute findings. Dictated by: Dictated on workstation # [id number]
--- NOTE | 2017-08-06 06:37 | Diagnostic Imaging Report ---
INDICATION: Fall. Tailbone pain. FINDINGS: AP and lateral view does show generalized osteoporosis. No fractures are demonstrated. SI joints are symmetrical with moderate sclerotic change. IMPRESSION: Moderate degenerative changes with no acute abnormalities. Dictated by: Dictated on workstation # [id number]
--- NOTE | 2017-08-06 06:48 | Diagnostic Imaging Report ---
PROCEDURE: CT head and CT cervical spine without contrast. TECHNIQUE: Multiple contiguous axial images were obtained through the brain and cervical spine without the use of intravenous contrast. Sagittal and coronal reformations through the cervical spine were then performed. INDICATION: Patient found down on floor. Patient does not remember anything. FINDINGS: CT head without: There is no evidence of intracranial hemorrhage. There is rather diffuse cortical atrophy. Periventricular white matter changes are present. Ventricles are not dilated. There is no shift of midline. Basal cisterns are clear. Mastoid air cells are well-aerated. No calvarial fractures. There is noted scalp hematoma in the occipital region. IMPRESSION: 1. Cephalohematoma left occipital region. No calvarial fracture. 2. Rather marked diffuse cortical atrophy and white matter changes consistent with chronic small vessel disease. CT CERVICAL SPINE: Sagittal and coronal reformatted images show straightening of the normal lordotic curve due to marked degenerative disc disease. Body height is well maintained. Facets show good alignment. Degenerative facet disease noted throughout. There is complete loss of disc space height from C4 through C7 with hypertrophic bony lipping of the endplates both anteriorly and posteriorly. There is mild spinal stenosis. There are no acute fractures. The atlantoaxial joint appears normal. IMPRESSION: Degenerative cervical disc and facet disease with no acute abnormalities. These findings are concordant with the preliminary report. Dictated by: Dictated on workstation # [id number]
--- OUTSIDE RECORDS SUMMARY | 2017-08-06 10:19 | XMS REPORT | Continuity of Care Document ---
Author Author [facility] Organization [facility] Address Unknown Phone Unavailable Allergies Active Description Code Type Severity Reaction Onset Reported/Identified Relationship to Patient Clinical Status Yes lansoprazole [id number] Drug Allergy Moderate HIVES 05/31/2012 Medications There is no data. Problems Date Dx Coded Attending Type Code Diagnosis Diagnosed By 05/29/1637 AALIYAH CHILDS DO Ot M54.5 LOW BACK PAIN 02/18/2011 Ot 831.01 02/18/2011 Ot 959.2 02/18/2011 Ot E000.8 02/18/2011 Ot E001.0 02/18/2011 Ot E849.0 02/18/2011 Ot E885.9 09/01/2011 Ot 719.41 JOINT PAIN- SHLDER 09/01/2011 Ot V57.1 PHYSICAL THERAPY NEC 09/01/2011 Ot V58.43 AFTERCARE POST SURGERY INJURY/TRAUMA 11/22/2011 Ot 719.41 JOINT PAIN- SHLDER 11/22/2011 Ot V57.1 PHYSICAL THERAPY NEC 11/22/2011 Ot V58.43 AFTERCARE POST SURGERY INJURY/TRAUMA 05/31/2012 Ot 553.20 VENTRAL HERNIA NOS 05/31/2012 Ot 562.10 DIVERTICULOSIS COLON (W/O MENT OF HEMORR 05/31/2012 Ot 789.04 ABDOMINAL PAIN, LEFT LOWER QUADRANT 11/12/2012 AALIYAH CHILDS DO Ot 562.11 DIVERTICULITIS COLON (W/O MENT OF HEMORR 01/02/2015 AALIYAH CHILDS DO Ot 562.10 01/05/2015 AALIYAH CHILDS DO Ot 562.10 02/01/2015 AALIYAH CHILDS DO Ot 783.0 02/01/2015 AALIYAH CHILDS DO Ot 783.21 02/01/2015 AALIYAH CHILDS DO Ot 787.91 02/01/2015 AALIYAH CHILDS DO Ot 789.00 02/20/2015 GELLENDER DO, AALIYAH Ackerman Ot 783.0 02/20/2015 GELLENDER DO, AALIYAH Ackerman Ot 783.21 02/20/2015 GELLENDER DO, AALIYAH Ackerman Ot 787.91 02/20/2015 GELLENDER DO, AALIYAH Ackerman Ot 789.00 10/03/2015 Ot 611.72 10/03/2015 Ot 733.90 10/03/2015 Ot V76.12 10/03/2015 Ot 611.72 10/03/2015 Ot 831.00 10/03/2015 Ot 840.3 10/03/2015 Ot 840.6 10/03/2015 Ot E000.8 10/03/2015 Ot E849.0 10/03/2015 Ot E888.9 10/03/2015 Ot 793.80 10/03/2015 Ot 610.1 10/03/2015 Ot 786.50 10/03/2015 Ot 241.0 10/03/2015 Ot 388.70 10/03/2015 Ot 723.1 10/03/2015 Ot 722.52 10/03/2015 Ot 719.41 10/03/2015 GELLENDER DO, AALIYAH Ackerman Ot 715.96 10/03/2015 GELLENDER DO, AALIYAH Ackerman Ot 719.06 10/03/2015 GELLENDER DO, AALIAYH Ackerman Ot 727.51 10/03/2015 GELLENDER DO, AALIYAH Ackerman Ot 836.0 10/03/2015 GELLENDER DO, AALIYAH Ackerman Ot E000.8 10/03/2015 GELLENDER DO, AALIYAH Ackerman Ot E928.9 10/03/2015 GELLENDER DO, AALIYAH Ackerman Ot 715.36 10/03/2015 GELLENDER DO, AALIYAH Acekrman Ot 729.5 10/03/2015 GELLENDER DO, AALIYAH Ackerman Ot 719.46 10/03/2015 GELLENDER DO, AALIYAH Ackerman Ot 729.5 10/03/2015 GELLENDER DO, AALIYAH Ackerman Ot 729.5 10/03/2015 GELLENDER DO, AALIYAH Ackerman Ot 715.37 10/03/2015 GELLENDER DO, AALIYAH Ackerman Ot 783.0 10/03/2015 GELLENDER DO, AALIYAH Ackerman Ot 783.21 10/03/2015 GELLENDER DO, AALIYAH Ackerman Ot 787.91 10/03/2015 GELLENDER DO, AALIYAH Ackerman Ot 789.00 10/03/2015 GELLENDER DO, AALIYAH Ackerman Ot 780.79 10/03/2015 GELLENDER DO, AALIYAH Ackerman Ot 787.91 10/03/2015 GELLENDER DO, AALIYAH Ackerman Ot 789.00 10/03/2015 GELLENDER DO, AALIYAH Ackerman Ot 562.10 10/03/2015 GELLENDER DO, AALIYAH Ackerman Ot 787.91 10/03/2015 GELLENDER DO, AALIYAH Ackerman Ot 789.00 10/18/2015 GELLENDER DO, AALIYAH Ackerman Ot M54.41 LUMBAGO WITH SCIATICA, RIGHT SIDE 10/24/2015 GELSATISHDER DO, AALIYAH Ackerman Ot M25.551 PAIN IN RIGHT HIP 10/30/2015 ELISE NOGUERA, LIBAN V Ot M48.06 SPINAL STENOSIS, LUMBAR REGION 10/30/2015 ELISE NOGUERA, LIBAN V Ot 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 11/01/2015 AMADEO LEE, AALIYAH Ackerman Ot M25.551 PAIN IN RIGHT HIP 11/07/2015 [facility], AALIYAH Ackerman Ot M54.41 LUMBAGO WITH SCIATICA, RIGHT SIDE 11/16/2015 ELISE NOGUERA, LIBAN V Ot M48.06 SPINAL STENOSIS, LUMBAR REGION 11/16/2015 ELISE NOGUERA, LIBAN V Ot 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 11/23/2015 GAURANGLENDER DO, AALIYAH Ackerman Ot M54.41 LUMBAGO WITH SCIATICA, RIGHT SIDE 11/24/2015 ELISE NOGUERA, LIBAN V Ot M48.06 SPINAL STENOSIS, LUMBAR REGION 11/24/2015 ELISE NOGUERA, LIBAN V Ot 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 12/21/2015 NAYELIDER DO, AALIYAH Ackerman Ot M54.5 LOW BACK PAIN 03/07/2016 GELLENDER DO, AALIYAH Ackermna Ot M54.31 SCIATICA, RIGHT SIDE 03/27/2016 GELLENDER DO, AALIYAH Ackerman Ot M54.31 SCIATICA, RIGHT SIDE 04/02/2016 GELLENDER DO, AALIYAH Ackerman Ot M54.31 SCIATICA, RIGHT SIDE 08/28/2016 Ot 831.00 DISLOC SHOULDER NOS-CLOS 08/28/2016 Ot 840.3 SPRAIN INFRASPINATUS 08/28/2016 Ot 840.6 SPRAIN SUPRASPINATUS 08/28/2016 Ot E000.8 OTHER EXTERNAL CAUSE STATUS 08/28/2016 Ot E849.0 ACCIDENT IN HOME 08/28/2016 Ot E888.9 FALL NOS 08/28/2016 Ot 793.80 UNSPEC ABNORMAL MAMMOGRAM 08/28/2016 Ot 610.1 DIFFUS CYSTIC MASTOPATHY 08/28/2016 Ot 786.50 CHEST PAIN NOS 08/28/2016 Ot 241.0 NONTOX UNINODULAR GOITER 08/28/2016 Ot 388.70 OTALGIA NOS 08/28/2016 Ot 723.1 CERVICALGIA 08/28/2016 Ot 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 08/28/2016 Ot 719.41 JOINT PAIN- SHLDER 08/28/2016 GELLENDER DOAALIYAH Ot 715.96 OSTEOARTHROS NOS-L/LEG 08/28/2016 GELLENDER DOAALIYAH Ot 719.06 JOINT EFFUSION-L/LEG 08/28/2016 GELLENDER DOAALIYAH Ot 727.51 POPLITEAL SYNOVIAL CYST 08/28/2016 GELLENDER DOAALIYAH Ot 836.0 TEAR MED MENISC KNEE-CUR 08/28/2016 GELLENDER DOAALIYAH Ot E000.8 OTHER EXTERNAL CAUSE STATUS 08/28/2016 NAYELIDER AALIYAH LEE Ot E928.9 ACCIDENT NOS 08/28/2016 GELLENDER DOAALIYAH Ot 715.36 LOC OSTEOARTH NOS-L/LEG 08/28/2016 GELLENDER DOAALIYAH Ot 729.5 PAIN IN LIMB 08/28/2016 GELLENDER DOAALIYAH Ot 719.46 JOINT PAIN-L/LEG 08/28/2016 GELLENDER DOAALIYAH Ot 729.5 PAIN IN LIMB 08/28/2016 GELLENDER DOAALIYAH Ot 729.5 PAIN IN LIMB 08/28/2016 GELLENDER DOAALIYAH Ot 715.37 LOC OSTEOARTH NOS-ANKLE 08/28/2016 GELLENDER DOAALIYAH Ot 783.0 ANOREXIA 08/28/2016 GELLENDER DOAALIYAH Ot 783.21 LOSS OF WEIGHT 08/28/2016 GELLENDER DOAALIYAH Ot 787.91 DIARRHEA 08/28/2016 GELLENDER DOAALIYAH Ot 789.00 ABDOMINAL PAIN, UNSPECIFIED SITE 08/28/2016 AALIYAH CHILDS DO Ot 780.79 OTH MALAISE FATIGUE 08/28/2016 AMADEO LEE, AALIYAH Ackerman Ot 787.91 DIARRHEA 08/28/2016 AMADEO LEE, AALIYAH Ackerman Ot 789.00 ABDOMINAL PAIN, UNSPECIFIED SITE 08/28/2016 AALIYAH CHILDS DO Ot 562.10 DIVERTICULOSIS COLON (W/O MENT OF HEMORR 08/28/2016 AALIYAH CHILDS DO Ot 787.91 DIARRHEA 08/28/2016 AMADEO LEE, AALIYAH Ackerman Ot 789.00 ABDOMINAL PAIN, UNSPECIFIED SITE 08/28/2016 AALIYAH CHILDS DO Ot M25.551 PAIN IN RIGHT HIP 08/28/2016 AMADEO LEE, AALIYAH Tyron Ot M54.41 LUMBAGO WITH SCIATICA, RIGHT SIDE 08/28/2016 ELISE NOGUERA, LIBAN V Ot M48.06 SPINAL STENOSIS, LUMBAR REGION 08/28/2016 ELISE NOGUERA, LIBAN V Ot 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 08/28/2016 AMADEO LEE AALIYAH Ackerman Ot M54.31 SCIATICA, RIGHT SIDE 09/19/2016 AALIYAH CHILDS DO Ot J44.9 CHRONIC OBSTRUCTIVE PULMONARY DISEASE, U 09/19/2016 AALIYAH CHILDS DO Ot S29.9XXA UNSPECIFIED INJURY OF THORAX, INITIAL EN 09/19/2016 AALIYAH CHILDS DO Ot W19.XXXA UNSPECIFIED FALL, INITIAL ENCOUNTER 09/19/2016 AALIYAH CHILDS DO Ot Y99.8 OTHER EXTERNAL CAUSE STATUS 09/19/2016 AALIYAH CHILDS DO Ot B35.3 TINEA PEDIS 09/25/2016 AMADEO LEE, AALIYAH Ackerman Ot J44.9 CHRONIC OBSTRUCTIVE PULMONARY DISEASE, U 09/25/2016 AALIYAH CHILDS DO Ot S29.9XXA UNSPECIFIED INJURY OF THORAX, INITIAL EN 09/25/2016 AALIYAH CHILDS DO Ot W19.XXXA UNSPECIFIED FALL, INITIAL ENCOUNTER 09/25/2016 AALIYAH CHILDS DO Ot Y99.8 OTHER EXTERNAL CAUSE STATUS 10/10/2016 AALIYAH CHILDS DO Ot B35.3 TINEA PEDIS 11/14/2016 AMADEO LEEAALIYAH Ot M19.011 PRIMARY OSTEOARTHRITIS, RIGHT SHOULDER 11/14/2016 [facility], AALIYAH Ackerman Ot M47.816 SPONDYLOSIS W/O MYELOPATHY OR RADICULOPA 11/14/2016 [facility], AALIYAH Ackerman Ot S22.089A UNSP FRACTURE OF T11-T12 VERTEBRA, INIT 11/14/2016 [facility], AALIYAH Ackerman Ot S22.41XA MULTIPLE FRACTURES OF RIBS, RIGHT SIDE, 11/14/2016 [facility], AALIYAH Ackerman Ot W19.XXXA UNSPECIFIED FALL, INITIAL ENCOUNTER 11/14/2016 [facility], AALIYAH Ackerman Ot Y99.8 OTHER EXTERNAL CAUSE STATUS 11/15/2016 [facility], AALIYAH Ackerman Ot G25.81 RESTLESS LEGS SYNDROME 11/15/2016 [facility], AALIYAH Ackerman Ot S22.080A WEDGE COMPRESSION FRACTURE OF T11-T12 VE 11/15/2016 [facility], AALIYAH Ackerman Ot W18.00XA STRIKING AGAINST UNSP OBJECT W SUBSEQUEN 11/19/2016 [facility], AALIYAH Ackerman Ot G25.81 RESTLESS LEGS SYNDROME 11/19/2016 [facility], AALIYAH Ackerman Ot S22.000A WEDGE COMPRESSION FRACTURE OF UNSP THORA 11/19/2016 [facility], AALIYAH Ackerman Ot W18.00XA STRIKING AGAINST UNSP OBJECT W SUBSEQUEN 11/21/2016 [facility], AALIYAH Ackerman Ot G25.81 RESTLESS LEGS SYNDROME 11/21/2016 [facility] DO, AALIYAH Ackerman Ot S22.000A WEDGE COMPRESSION FRACTURE OF UNSP THORA 11/21/2016 [facility] DO, AALIYAH Ackerman Ot W18.00XA STRIKING AGAINST UNSP OBJECT W SUBSEQUEN 11/26/2016 [facility], AALIYAH Ackerman Ot G25.81 RESTLESS LEGS SYNDROME 11/26/2016 [facility], AALIYAH Ackerman Ot S22.080A WEDGE COMPRESSION FRACTURE OF T11-T12 VE 11/26/2016 [facility] , AALIYAH Ackerman Ot W18.00XA STRIKING AGAINST UNSP OBJECT W SUBSEQUEN 11/27/2016 [facility]AL[facility] Ackerman Ot G25.81 RESTLESS LEGS SYNDROME 11/27/2016 [facility], AALIYAH Ackerman Ot S22.080A WEDGE COMPRESSION FRACTURE OF T11-T12 VE 11/27/2016 [facility] , AALIYAH Ackerman Ot W18.00XA STRIKING AGAINST UNSP OBJECT W SUBSEQUEN 11/28/2016 AM[facility]O DO, AALIYAH Ackerman Ot G25.81 RESTLESS LEGS SYNDROME 11/28/2016 [facility]AN[facility]ENDER DO, AALIYAH Ackerman Ot S22.080A WEDGE COMPRESSION FRACTURE OF T11-T12 VE 11/28/2016 [facility] DO, AALIYAH Ackerman Ot W18.00XA STRIKING AGAINST UNSP OBJECT W SUBSEQUEN 12/09/2016 AMADEO DO, AALIYAH Ackerman Ot M19.011 PRIMARY OSTEOARTHRITIS, RIGHT SHOULDER 12/09/2016 [facility]ENDER DO, AALIYAH Ackerman Ot M47.816 SPONDYLOSIS W/O MYELOPATHY OR RADICULOPA 12/09/2016 [facility]ANGLENDER DO, AALIYAH Ackerman Ot S22.089A UNSP FRACTURE OF T11-T12 VERTEBRA, INIT 12/09/2016 [facility]O DO, AALIYAH Ackerman Ot S22.41XA MULTIPLE FRACTURES OF RIBS, RIGHT SIDE, 12/09/2016 AM[facility]O DO, AALIYAH Ackerman Ot W19.XXXA UNSPECIFIED FALL, INITIAL ENCOUNTER 12/09/2016 AMADEO LEE, AALIYAH Ackerman Ot Y99.8 OTHER EXTERNAL CAUSE STATUS 12/11/2016 AMADEO DO, AALIYAH Ackerman Ot M19.011 PRIMARY OSTEOARTHRITIS, RIGHT SHOULDER 12/11/2016 [facility] Ackerman Ot M47.816 SPONDYLOSIS W/O MYELOPATHY OR RADICULOPA 12/11/2016 [facility] AALIYAH Ackerman Ot S22.089A UNSP FRACTURE OF T11-T12 VERTEBRA, INIT 12/11/2016 [facility] DO, AALIYAH Ackerman Ot S22.41XA MULTIPLE FRACTURES OF RIBS, RIGHT SIDE, 12/11/2016 AMADEO DO, AALIYAH Ackerman Ot W19.XXXA UNSPECIFIED FALL, INITIAL ENCOUNTER 12/11/2016 AMADEO LEE, AALIYAH Ackerman Ot Y99.8 OTHER EXTERNAL CAUSE STATUS 01/09/2017 NAYELIDER DO, AALIYAH Ackerman Ot G25.81 RESTLESS LEGS SYNDROME 01/09/2017 [facility] AALIYAH Ackerman Ot S22.080A WEDGE COMPRESSION FRACTURE OF T11-T12 VE 01/09/2017 NAYELIDER DO, AALIYAH Ackerman Ot W18.00XA STRIKING AGAINST UNSP OBJECT W SUBSEQUEN Procedures There is no data. Results Test Result Range Microscopic examination by CLYDE preparation - 09/19/16 10:15 CLYDE RESULT NEGATIVE; NO FUNGAL ELEMENTS OBSERVED NR Gram stain microscopy - 09/19/16 10:15 GRAM STAIN RESULT RARE GRAM POSITIVE COCCI NR Bacteria identification in wound by culture - 09/19/16 10:15 Bacteria identification in wound by culture [id number] [facility] FREE TEXT EXTERNAL SENSITIVITY REPORTED 09/21/16 8:10 NRG QUANTITY OF GROWTH Scant Growth NRG MRSA AGAR Screening test for MRSA is NEGATIVE (Final to follow) [facility] Bacterial susceptibility panel - 09/19/16 10:15 Oxacillin susceptibility test by minimum inhibitory concentration 0.5 NRG Gentamicin susceptibility test by minimum inhibitory concentration < = NRG Clindamycin susceptibility test by minimum inhibitory concentration <= NRG Erythromycin susceptibility test by minimum inhibitory concentration <= NRG Trimethoprim/sulfamethoxazole susceptibility test by minimum inhibitoryconcentration <= NRG Vancomycin susceptibility test by minimum inhibitory concentration 1 NRG Levofloxacin susceptibility test by minimum inhibitory concentration 0.25 NRG Rifampin susceptibility test by minimum inhibitory concentration <= NRG Tetracycline susceptibility test by minimum inhibitory concentration <= NRG Automated blood complete blood count (hemogram) panel - 11/12/16 11:34 Blood leukocytes automated count (number/volume) 7.3 10*3/uL 4.3-11.0 Blood erythrocytes automated count (number/volume) 4.99 10*6/uL 4.35-5.85 Venous blood hemoglobin measurement (mass/volume) 14.1 g/dL 11.5-16.0 Blood hematocrit (volume fraction) 44 % 35-52 Automated erythrocyte mean corpuscular volume 89 [foz_us] 80-99 Automated erythrocyte mean corpuscular hemoglobin (mass per erythrocyte) 28 pg 25-34 Automated erythrocyte mean corpuscular hemoglobin concentration measurement ( mass/volume) 32 g/dL 32-36 Automated erythrocyte distribution width ratio 14.3 % 10.0-14.5 Automated blood platelet count (count/volume) 186 10*3/uL 130-400 Automated blood platelet mean volume measurement 9.5 [foz_us] 7.4-10.4 Whole blood basic metabolic panel - 11/12/16 11:34 Serum or plasma sodium measurement (moles/volume) 141 mmol/L 135-145 Serum or plasma potassium measurement (moles/volume) 4.5 mmol/L 3.6-5.0 Serum or plasma chloride measurement (moles/volume) 105 mmol/L 98-107 Carbon dioxide 29 mmol/L 21-32 Serum or plasma anion gap determination (moles/volume) 7 mmol/L 5-14 Serum or plasma urea nitrogen measurement (mass/volume) 19 mg/dL 7-18 Serum or plasma creatinine measurement (mass/volume) 0.69 mg/dL 0.60-1.30 Serum or plasma urea nitrogen/creatinine mass ratio 28 NRG Serum or plasma creatinine measurement with calculation of estimated glomerular filtration rate > NRG Serum or plasma glucose measurement (mass/volume) 97 mg/dL 70-105 Serum or plasma calcium measurement (mass/volume) 9.9 mg/dL 8.5-10.1 Complete blood count (CBC) with automated white blood cell (WBC) differential - 11/14/16 10:50 Blood leukocytes automated count (number/volume) 6.8 10*3/uL 4.3-11.0 Blood erythrocytes automated count (number/volume) 4.55 10*6/uL 4.35-5.85 Venous blood hemoglobin measurement (mass/volume) 12.9 g/dL 11.5-16.0 Blood hematocrit (volume fraction) 40 % 35-52 Automated erythrocyte mean corpuscular volume 89 [foz_us] 80-99 Automated erythrocyte mean corpuscular hemoglobin (mass per erythrocyte) 28 pg 25-34 Automated erythrocyte mean corpuscular hemoglobin concentration measurement ( mass/volume) 32 g/dL 32-36 Automated erythrocyte distribution width ratio 14.0 % 10.0-14.5 Automated blood platelet count (count/volume) 169 10*3/uL 130-400 Automated blood platelet mean volume measurement 9.6 [foz_us] 7.4-10.4 Automated blood neutrophils/100 leukocytes 71 % 42-75 Automated blood lymphocytes/100 leukocytes 17 % 12-44 Blood monocytes/100 leukocytes 10 % 0-12 Automated blood eosinophils/100 leukocytes 1 % 0-10 Automated blood basophils/100 leukocytes 0 % 0-10 Blood neutrophils automated count (number/volume) 4.9 10*3 1.8-7.8 Blood lymphocytes automated count (number/volume) 1.2 10*3 1.0-4.0 Blood monocytes automated count (number/volume) 0.7 10*3 0.0-1.0 Automated eosinophil count 0.1 10*3/uL 0.0-0.3 Automated blood basophil count (count/volume) 0.0 10*3/uL 0.0-0.1 Comprehensive metabolic panel - 11/14/16 10:50 Serum or plasma sodium measurement (moles/volume) 137 mmol/L 135-145 Serum or plasma potassium measurement (moles/volume) 4.0 mmol/L 3.6-5.0 Serum or plasma chloride measurement (moles/volume) 104 mmol/L 98-107 Carbon dioxide 28 mmol/L 21-32 Serum or plasma anion gap determination (moles/volume) 5 mmol/L 5-14 Serum or plasma urea nitrogen measurement (mass/volume) 18 mg/dL 7-18 Serum or plasma creatinine measurement (mass/volume) 0.70 mg/dL 0.60-1.30 Serum or plasma urea nitrogen/creatinine mass ratio 26 NRG Serum or plasma creatinine measurement with calculation of estimated glomerular filtration rate > NRG Serum or plasma glucose measurement (mass/volume) 90 mg/dL 70-105 Serum or plasma calcium measurement (mass/volume) 9.4 mg/dL 8.5-10.1 Serum or plasma total bilirubin measurement (mass/volume) 0.4 mg/dL 0.1-1.0 Serum or plasma alkaline phosphatase measurement (enzymatic activity/volume) 67 U/L 40-136 Serum or plasma aspartate aminotransferase measurement (enzymatic activity/ volume) 16 U/L 5-34 Serum or plasma alanine aminotransferase measurement (enzymatic activity/volume ) 11 U/L 0-55 Serum or plasma protein measurement (mass/volume) 6.1 g/dL 6.4-8.2 Serum or plasma albumin measurement (mass/volume) 4.0 g/dL 3.2-4.5 Serum or plasma amylase measurement (enzymatic activity/volume) - 11/14/16 10: 50 Serum or plasma amylase measurement (enzymatic activity/volume) 51 U /L 25-125 Lipase - 11/14/16 10:50 Lipase 11 U/L 8-78 PT panel in platelet poor plasma by coagulation assay - 11/14/16 10:50 Prothrombin time (PT) in platelet poor plasma by coagulation assay 12.6 s 12.2-14.7 INR in platelet poor plasma or blood by coagulation assay 1.0 0.8-1.4 Activated partial thromboplastin time (aPTT) in platelet poor plasma bycoagulation assay - 11/14/16 10:50 Activated partial thromboplastin time (aPTT) in platelet poor plasma bycoagulation assay 37 s 24-35 Complete urinalysis with reflex to culture - 11/14/16 11:25 Urine color determination YELLOW NRG Urine clarity determination CLEAR NRG Urine pH measurement by test strip 6 5-9 Specific gravity of urine by test strip 1.010 1.016- 1.022 Urine protein assay by test strip, semi-quantitative NEGATIVE NEGATIVE Urine glucose detection by automated test strip NEGATIVE NEGATIVE Erythrocytes detection in urine sediment by light microscopy NEGATIVE NEGATIVE Urine ketones detection by automated test strip NEGATIVE NEGATIVE Urine nitrite detection by test strip NEGATIVE NEGATIVE Urine total bilirubin detection by test strip NEGATIVE NEGATIVE Urine urobilinogen measurement by automated test strip (mass/volume) NORMAL NORMAL Urine leukocyte esterase detection by dipstick NEGATIVE NEGATIVE Automated urine sediment erythrocyte count by microscopy (number/high power field) NONE NRG Automated urine sediment leukocyte count by microscopy (number/high power field ) NONE NRG Bacteria detection in urine sediment by light microscopy NEGATIVE NRG Crystals detection in urine sediment by light microscopy NONE NRG Casts detection in urine sediment by light microscopy NONE NRG Mucus detection in urine sediment by light microscopy NEGATIVE NRG Complete urinalysis with reflex to culture NO NRG Complete blood count (CBC) with automated white blood cell (WBC) differential - 11/15/16 05:43 Blood leukocytes automated count (number/volume) 4.9 10*3/uL 4.3-11.0 Blood erythrocytes automated count (number/volume) 4.14 10*6/uL 4.35-5.85 Venous blood hemoglobin measurement (mass/volume) 11.7 g/dL 11.5-16.0 Blood hematocrit (volume fraction) 37 % 35-52 Automated erythrocyte mean corpuscular volume 90 [foz_us] 80-99 Automated erythrocyte mean corpuscular hemoglobin (mass per erythrocyte) 28 pg 25-34 Automated erythrocyte mean corpuscular hemoglobin concentration measurement ( mass/volume) 32 g/dL 32-36 Automated erythrocyte distribution width ratio 13.8 % 10.0-14.5 Automated blood platelet count (count/volume) 147 10*3/uL 130-400 Automated blood platelet mean volume measurement 9.7 [foz_us] 7.4-10.4 Automated blood neutrophils/100 leukocytes 62 % 42-75 Automated blood lymphocytes/100 leukocytes 24 % 12-44 Blood monocytes/100 leukocytes 11 % 0-12 Automated blood eosinophils/100 leukocytes 3 % 0-10 Automated blood basophils/100 leukocytes 0 % 0-10 Blood neutrophils automated count (number/volume) 3.0 10*3 1.8-7.8 Blood lymphocytes automated count (number/volume) 1.2 10*3 1.0-4.0 Blood monocytes automated count (number/volume) 0.5 10*3 0.0-1.0 Automated eosinophil count 0.2 10*3/uL 0.0-0.3 Automated blood basophil count (count/volume) 0.0 10*3/uL 0.0-0.1 Comprehensive metabolic panel - 11/15/16 05:43 Serum or plasma sodium measurement (moles/volume) 139 mmol/L 135-145 Serum or plasma potassium measurement (moles/volume) 3.8 mmol/L 3.6-5.0 Serum or plasma chloride measurement (moles/volume) 108 mmol/L 98-107 Carbon dioxide 23 mmol/L 21-32 Serum or plasma anion gap determination (moles/volume) 8 mmol/L 5-14 Serum or plasma urea nitrogen measurement (mass/volume) 12 mg/dL 7-18 Serum or plasma creatinine measurement (mass/volume) 0.63 mg/dL 0.60-1.30 Serum or plasma urea nitrogen/creatinine mass ratio 19 NRG Serum or plasma creatinine measurement with calculation of estimated glomerular filtration rate > NRG Serum or plasma glucose measurement (mass/volume) 90 mg/dL 70-105 Serum or plasma calcium measurement (mass/volume) 8.6 mg/dL 8.5-10.1 Serum or plasma total bilirubin measurement (mass/volume) 0.4 mg/dL 0.1-1.0 Serum or plasma alkaline phosphatase measurement (enzymatic activity/volume) 68 U/L 40-136 Serum or plasma aspartate aminotransferase measurement (enzymatic activity/ volume) 15 U/L 5-34 Serum or plasma alanine aminotransferase measurement (enzymatic activity/volume ) 8 U/L 0-55 Serum or plasma protein measurement (mass/volume) 5.3 g/dL 6.4-8.2 Serum or plasma albumin measurement (mass/volume) 3.4 g/dL 3.2-4.5 Encounters ACCT No. Visit Date/Time Discharge Status Pt. Type Provider Facility Loc./Unit Complaint [id number] 08/05/2017 22:37:00 08/06/2017 00:58:00 DIS Emergency RUBÉN NOGUERA, CHAUNCEY Toscano [facility] ER FALL [id number] 11/14/2016 13:44:00 11/15/2016 13:39:00 DIS Outpatient AALIYAH CHILDS DO [facility] SDC FALL,PAIN ALL OVER [id number] 11/12/2016 10:53:00 11/12/2016 23:59:59 CLS Outpatient AALIYAH CHILDS DO [facility] RAD FELL LAST NIGHT AND HURT ALL OVER [id number] 09/19/2016 09:45:00 09/19/2016 23:59:59 CLS Outpatient AALIYAH CHILDS DO [facility] LAB FUNGUS OF LT TOE BETWEEN 5 4 TOE [id number] 08/28/2016 10:17:00 08/28/2016 23:59:59 CLS Outpatient AALIYAH CHILDS DO [facility] RAD FELL LAST NIGHT,SOB RT RIB PAIN [id number] 03/01/2016 09:00:00 03/01/2016 23:59:59 CLS Outpatient AALIYAH CHILDS DO [facility] RAD SEVERE BACK PAIN GETTING WORSE [id number] 12/21/2015 14:12:00 12/21/2015 16:38:00 DIS Outpatient AALIYAH CHILDS DO [facility] REHAB LOW BACK PAIN; LUMBAGO;LUMBAR STENOSIS;LUMBAR SPOND [id number] 10/26/2015 11:29:00 10/26/2015 23:59:59 CLS Outpatient ELISE NOGUERA, LIBAN Okeefe [facility] RAD LUMBAR SPONDYLOLISTHESIS, STENOSIS, PAIN IN LIMB [id number] 10/17/2015 13:12:00 10/17/2015 23:59:59 CLS Outpatient AALIYAH CHILDS DO [facility] RAD PAIN GOING DOWN RIGHT LEG,SIATICA [id number] 10/03/2015 15:22:00 10/03/2015 23:59:59 CLS Outpatient AALIYAH CHILDS DO [facility] RAD RIGHT HIP PAIN [id number] 12/14/2014 09:54:00 12/14/2014 23:59:59 CLS Outpatient GAURANGAALIYAH CHOUDHURY DO [facility] RAD ABD PAIN,DIARRHEA [id number] 12/09/2014 08:07:00 12/09/2014 23:59:59 CLS Outpatient GAURANGAALIYAH CHOUDHURY DO [facility] RAD LOWER ABDOMINAL PAIN DIARRHEA [id number] 12/07/2014 14:22:00 12/07/2014 23:59:59 CLS Outpatient AALIYAH CHILDS DO [facility] RAD DIARRHEA ABOMINAL PAIN [id number] 12/07/2014 10:55:00 12/07/2014 23:59:59 [facility] Outpatient AALIYAH CHILDS DO [facility] LAB ABD PAIN, [id number] 02/02/2014 10:00:00 02/02/2014 23:59:59 [facility] Outpatient AALIYAH CHILDS DO [facility] RAD PAIN IN RIGHT FOOT [id number] 12/08/2013 15:13:00 12/08/2013 23:59:59 [facility] Outpatient GAURANGAALIYAH CHOUDHURY DO [facility] RAD PAIN IN 5TH METATARSAL [id number] 11/16/2013 12:29:00 11/16/2013 23:59:59 [facility] Outpatient NAYELIAALIYAH REDMAN DO [facility] [facility] RAD RT CALF AND KNEE SEVERE PAIN [id number] 11/15/2013 13:31:00 11/15/2013 23:59:59 [facility] Outpatient GAURANGAALIYAH CHOUDHURY DO [facility] RAD FALL R LEG/KNEE PAIN [id number] 08/09/2013 12:50:00 08/09/2013 23:59:59 [facility] Outpatient GAURANGAALIYAH CHOUDHURY DO [facility] RAD SEVERE PAIN LEFT KNEE [id number] 11/09/2012 17:17:00 11/12/2012 14:35:00 [facility] Inpatient GAURANGAALIYAH CHOUDHURY DO [facility] 4TH DIVERTICULITIS [id number] 08/13/2017 11:38:00 PEN Preadmit MARRY LOWE ([place]) [facility] REHAB R HIP PAIN;LUMBAR STENOSIS; NEUROGENIC CLAUDICATION [id number] 10/21/2012 13:50:00 Document Registration [id number] 05/31/2012 20:53:00 Document Registration [id number] 05/25/2012 13:25:00 Document Registration [id number] 02/24/2012 09:04:00 Document Registration [id number] 02/03/2012 14:06:00 Document Registration [id number] 11/22/2011 08:44:00 Document Registration [id number] 09/11/2011 09:44:00 Document Registration [id number] 09/04/2011 13:34:00 Document Registration [id number] 08/29/2011 10:04:00 Document Registration [id number] 04/10/2011 14:25:00 Document Registration [id number] 02/18/2011 14:04:00 Document Registration [id number] 12/12/2010 09:56:00 Document Registration [id number] 11/29/2010 09:50:00 Document Registration
== END 2017-08-06 00:58 | disposition home or self-care (01) ==
LOC: EDUNIT# 22:35 → ER 22:37
DX: S00.03XA Contusion of scalp, initial encounter (principal); S06.0X0A Concussion without loss of consciousness, initial encounter; S30.0XXA Contusion of lower back and pelvis, initial encounter; R40.2142 Coma scale, eyes open, spontaneous, at arrival to emergency department; R40.2252 Coma scale, best verbal response, oriented, at arrival to emergency department; R40.2362 Coma scale, best motor response, obeys commands, at arrival to emergency department; G25.81 Restless legs syndrome; Z90.710 Acquired absence of both cervix and uterus; Z85.3 Personal history of malignant neoplasm of breast; Z88.8 Allergy status to other drugs, medicaments and biological substances; W00.0XXA Fall on same level due to ice and snow, initial encounter
CPT/HCPCS: 70450; 72125; 72170; 72220; 99283

== ENCOUNTER 2017-09-24 09:31 | Outpatient (RCR) | payer MEDICARE ==
[~2017-09-24 09:31] MED LIST changes: +ACHD5005 PO; -CURAMED PC; +CURAMED PO; +DEXAMETHASONE 4 MG/ML SYR (FOR IONTOPHORESIS) TOP SCH
[2017-10-02] MEDS ORDERED: HYDR-34 PO (09:17)
[2017-10-02] MEDS ORDERED: GABA-488 PO (09:17)
[2017-10-02] MEDS ORDERED: AZIT250T12 PO (09:38)
[2017-10-02] MEDS ORDERED: DICY10CA12 PO (09:38)
[2017-10-02] MEDS ORDERED: CODE118S2 PO (09:38)
[2017-10-02] MEDS ORDERED: RT-ALBUINH IH (09:38)
[2017-10-09] MEDS ORDERED: CEFD300C3 PO (12:28)
== END 2017-11-11 | disposition home or self-care (01) ==
PROVIDERS: ATTEND Nurse Practitioner
DX: M25.551 Pain in right hip (principal); M48.062 Spinal stenosis, lumbar region with neurogenic claudication

== ENCOUNTER 2017-10-01 11:50 | Inpatient (IN) | payer MEDICARE ==
[~2017-10-01] VITALS: Ht 152.4 cm; Wt 49.9 kg
[~2017-10-01 11:50] MED LIST changes: -DEXAMETHASONE 4 MG/ML SYR (FOR IONTOPHORESIS) TOP SCH
--- OUTSIDE RECORDS SUMMARY | 2017-10-01 11:56 | XMS REPORT | Continuity of Care Document ---
Author Author [facility] Organization [facility] Address Unknown Phone Unavailable Allergies Active Description Code Type Severity Reaction Onset Reported/Identified Relationship to Patient Clinical Status Yes lansoprazole [id number] Drug Allergy Moderate HIVES 05/31/2012 Medications There [...] AALIYAH Ackerman Ot 719.06 10/03/2015 [facility] DO, AALIYAH Ackerman Ot 727.51 10/03/2015 [facility] DO, AALIYAH Ackerman Ot 836.0 10/03/2015 [facility] DO, AALIYAH Ackerman Ot E000.8 10/03/2015 [facility] DO, AALIYAH Ackerman Ot E928.9 10/03/2015 [facility] DO, AALIYAH Ackerman Ot 715.36 10/03/2015 [facility] DO, AALIYAH Ackerman Ot 729.5 [...] Ot M25.551 PAIN IN RIGHT HIP 11/07/2015 [facility] AALIYAH Ackerman Ot M54.41 LUMBAGO WITH [...] LOW BACK PAIN 03/07/2016 [facility] DO, AALIYAH Ackerman Ot M54.31 SCIATICA, RIGHT SIDE 03/27/2016 [facility] [...] Ot M19.011 PRIMARY OSTEOARTHRITIS, RIGHT SHOULDER 11/14/2016 [facility], AALIYAH Ackerman Ot M47.816 SPONDYLOSIS W/O MYELOPATHY OR RADICULOPA 11/14/2016 [facility], AALIYAH Ackerman Ot S22.089A UNSP FRACTURE OF T11-T12 VERTEBRA, INIT 11/14/2016 [facility], AALIYAH Ackerman Ot S22.41XA MULTIPLE FRACTURES OF RIBS, RIGHT SIDE, 11/14/2016 [facility], AALIYAH Ackerman Ot W19.XXXA UNSPECIFIED FALL, INITIAL ENCOUNTER 11/14/2016 [facility], AALIYAH Ackerman Ot Y99.8 OTHER EXTERNAL CAUSE STATUS 11/15/2016 [facility], AALIYAH Ackerman Ot G25.81 RESTLESS LEGS SYNDROME 11/15/2016 [facility], AALIYAH Ackerman Ot S22.080A WEDGE COMPRESSION FRACTURE OF T11-T12 VE 11/15/2016 [facility], AALIYAH Ackerman Ot W18.00XA STRIKING AGAINST UNSP OBJECT W SUBSEQUEN 11/19/2016 [facility], AALIYAH Ackerman Ot G25.81 RESTLESS LEGS SYNDROME 11/19/2016 [facility], AALIYAH Ackerman Ot S22.000A WEDGE COMPRESSION FRACTURE OF UNSP THORA 11/19/2016 [facility], AALIYAH Ackerman Ot W18.00XA STRIKING AGAINST UNSP OBJECT W SUBSEQUEN 11/21/2016 [facility], AALIYAH Ackerman Ot G25.81 RESTLESS LEGS SYNDROME 11/21/2016 [facility], AALIYAH Ackerman Ot S22.000A WEDGE COMPRESSION FRACTURE OF UNSP THORA 11/21/2016 [facility], AALIYAH Ackerman Ot W18.00XA STRIKING AGAINST UNSP OBJECT W SUBSEQUEN 11/26/2016 [facility], AALIYAH Ackerman Ot G25.81 RESTLESS LEGS SYNDROME 11/26/2016 [facility], AALIYAH Ackerman Ot S22.080A WEDGE COMPRESSION FRACTURE OF T11-T12 VE 11/26/2016 [facility] , AALIYAH Ackerman Ot W18.00XA STRIKING AGAINST UNSP OBJECT W SUBSEQUEN 11/27/2016 [facility] AALI[facility] Ackerman Ot G25.81 RESTLESS LEGS SYNDROME 11/27/2016 [facility], AALIYAH Ackerman Ot S22.080A WEDGE COMPRESSION FRACTURE OF T11-T12 VE 11/27/2016 [facility] , AALIYAH Ackerman Ot W18.00XA STRIKING AGAINST UNSP OBJECT W SUBSEQUEN 11/28/2016 [facility] AAL[facility] Ackerman Ot G25.81 RESTLESS LEGS SYNDROME 11/28/2016 [facility], AALIYAH Ackerman Ot S22.080A WEDGE COMPRESSION FRACTURE OF T11-T12 VE 11/28/2016 [facility], AALIYAH Ackerman Ot W18.00XA STRIKING AGAINST UNSP OBJECT W SUBSEQUEN 12/09/2016 [facility], AALIYAH Ackerman Ot M19.011 PRIMARY OSTEOARTHRITIS, RIGHT SHOULDER 12/09/2016 [facility] AALIYAH Ackerman Ot M47.816 SPONDYLOSIS W/O MYELOPATHY OR RADICULOPA 12/09/2016 [facility], AALIYAH Ackerman Ot S22.089A UNSP FRACTURE OF T11-T12 VERTEBRA, INIT 12/09/2016 [facility], AALIYAH Ackerman Ot S22.41XA MULTIPLE FRACTURES OF RIBS, RIGHT SIDE, 12/09/2016 [facility], AALIYAH Ackerman Ot W19.XXXA UNSPECIFIED FALL, INITIAL ENCOUNTER 12/09/2016 [facility] DO, AALIYAH Ackerman Ot Y99.8 OTHER EXTERNAL CAUSE STATUS 12/11/2016 [facility], AALIYAH Ackerman Ot M19.011 PRIMARY OSTEOARTHRITIS, RIGHT SHOULDER 12/11/2016 [facility], AALIYAH Ackerman Ot M47.816 SPONDYLOSIS W/O MYELOPATHY OR RADICULOPA 12/11/2016 [facility], AALIYAH Ackerman Ot S22.089A UNSP FRACTURE OF T11-T12 VERTEBRA, INIT 12/11/2016 [facility] DO, AALIYAH Ackerman Ot S22.41XA MULTIPLE FRACTURES OF RIBS, RIGHT SIDE, 12/11/2016 [facility] DO, AALIYAH Ackerman Ot W19.XXXA UNSPECIFIED FALL, INITIAL ENCOUNTER 12/11/2016 [facility] DO, AALIYAH Ackerman Ot Y99.8 OTHER EXTERNAL CAUSE STATUS 01/09/2017 [facility] AALIYAH Ackerman Ot G25.81 RESTLESS LEGS SYNDROME 01/09/2017 [facility], AALIYAH Ackerman Ot S22.080A WEDGE COMPRESSION FRACTURE OF T11-T12 VE 01/09/2017 [facility], AALIYAH Ackerman Ot W18.00XA STRIKING AGAINST UNSP OBJECT W SUBSEQUEN 08/06/2017 RUBÉN NOGUERA, CHAUNCEY Toscano Ot G25.81 RESTLESS LEGS SYNDROME 08/06/2017 KOTZEBUECHAUNCEY TINSLEY MD, Ot R40.2142 COMA SCALE, EYES OPEN, SPONTANEOUS, EMR 08/06/2017 CHAUNCEY MONTANA MD, Ot R40.2252 COMA SCALE, BEST VERBAL RESPONSE, ORIENT 08/06/2017 CHAUNCEY MONTANA MD, Ot R40.2362 COMA SCALE, BEST MOTOR RESPONSE, OBEYS C 08/06/2017 CHAUNCEY MONTANA MD Ot S00.03XA CONTUSION OF SCALP, INITIAL ENCOUNTER 08/06/2017 CHAUNCEY MONTANA MD, Ot S06.0X0A CONCUSSION WITHOUT LOSS OF CONSCIOUSNESS 08/06/2017 CHAUNCEY MONTANA MD, Ot S30.0XXA CONTUSION OF LOWER BACK AND PELVIS, INIT 08/06/2017 CHAUNCEY MONTANA MD, Ot W00.0XXA FALL ON SAME LEVEL DUE TO ICE AND SNOW, 08/06/2017 CHAUNCEY MONTANA MD, Ot Z85.3 PERSONAL HISTORY OF MALIGNANT NEOPLASM O 08/06/2017 CHAUNCEY MONTANA MD, Ot Z88.8 ALLERGY STATUS TO OTH DRUG/MEDS/BIOL SUB 08/06/2017 CHAUNCEY MONTANA MD, Ot Z90.710 ACQUIRED ABSENCE OF BOTH CERVIX AND UTER 08/07/2017 CHAUNCEY MONTANA MD Ot G25.81 RESTLESS LEGS SYNDROME 08/07/2017 CHAUNCEY MONTANA MD, Ot R40.2142 COMA SCALE, EYES OPEN, SPONTANEOUS, EMR 08/07/2017 CHAUNCEY MONTANA MD, Ot R40.2252 COMA SCALE, BEST VERBAL RESPONSE, ORIENT 08/07/2017 CHAUNCEY MONTANA MD, Ot R40.2362 COMA SCALE, BEST MOTOR RESPONSE, OBEYS C 08/07/2017 CHAUNCEY MONTANA MD, Ot S00.03XA CONTUSION OF SCALP, INITIAL ENCOUNTER 08/07/2017 CHAUNCEY MONTANA MD, Ot S06.0X0A CONCUSSION WITHOUT LOSS OF CONSCIOUSNESS 08/07/2017 CHAUNCEY MONTANA MD, Ot S30.0XXA CONTUSION OF LOWER BACK AND PELVIS, INIT 08/07/2017 CHAUNCEY MONTANA MD, Ot W00.0XXA FALL ON SAME LEVEL DUE TO ICE AND SNOW, 08/07/2017 CHAUNCEY MONTANA MD, Ot Z85.3 PERSONAL HISTORY OF MALIGNANT NEOPLASM O 08/07/2017 RUBÉN NOGUERA, CHAUNCEY Toscano Ot Z88.8 ALLERGY STATUS TO [facility] DRUG/MEDS/BIOL SUB 08/07/2017 RUBÉN NOGUERA, CHAUNCEY Toscano Ot Z90.710 ACQUIRED ABSENCE OF BOTH CERVIX AND UTER 09/17/2017 CHRISSY (GIOVANNI), MARRY Quintana Ot M25.551 PAIN IN RIGHT HIP 09/17/2017 CHRISSY (GIOVANNI), MARRY Quintana Ot M48.062 SPINAL STENOSIS, LUMBAR REGION WITH NEUR 09/24/2017 CHRISSY (GIOVANNI), MARRY Quintana Ot M25.551 PAIN IN RIGHT HIP 09/24/2017 CHRISSY (GIOVANNI), MARRY Quintana Ot M48.062 SPINAL STENOSIS, LUMBAR REGION WITH NEUR Procedures There is no data. Results Test Result Range Microscopic examination by CLYDE preparation - 09/19/16 10:15 CLYDE RESULT NEGATIVE; NO FUNGAL ELEMENTS OBSERVED NRG Gram stain microscopy - 09/19/16 10:15 GRAM STAIN RESULT RARE GRAM POSITIVE COCCI NRG Bacteria identification in wound by culture - 09/19/16 10:15 Bacteria identification in wound by culture [id number] NRG FREE TEXT EXTERNAL SENSITIVITY REPORTED 09/21/16 8:10 NRG QUANTITY OF GROWTH Scant Growth NRG MRSA AGAR Screening test for MRSA is NEGATIVE (Final to follow) NR Bacterial susceptibility panel - 09/19/16 10:15 Oxacillin [...] Status Pt. Type Provider Facility Loc./Unit Complaint [id number] 09/24/2017 09:31:00 09/24/2017 23:59:59 [facility] Outpatient MARRY LOWE ([place]) [facility] REHAB R HIP PAIN; LUMBAR STENOSIS;NEUROGENIC CLAUDICATION [id number] 08/05/2017 22:37:00 08/06/2017 00:58:00 DIS Emergency CHAUNCEY MONTANA MD [facility] ER FALL [id number] 11/14/2016 13:44:00 11/15/2016 13:39:00 DIS Outpatient AALIYAH CHILDS DO [facility] SDC FALL,PAIN ALL OVER [id number] 11/12/2016 10:53:00 11/12/2016 23:59:59 [facility] Outpatient AALIYAH CHILDS DO [facility] RAD FELL LAST NIGHT AND HURT ALL OVER [id number] 09/19/2016 09:45:00 09/19/2016 23:59:59 [facility] Outpatient AALIYAH CHILDS DO [facility] LAB FUNGUS OF LT TOE BETWEEN 5 4 TOE [id number] 08/28/2016 10:17:00 08/28/2016 23:59:59 [facility] Outpatient AALIYAH CHILDS DO [facility] RAD FELL LAST NIGHT,SOB RT RIB PAIN [id number] 03/01/2016 09:00:00 03/01/2016 23:59:59 [facility] Outpatient GAURANGAALIYAH CHOUDHURY DO [facility] RAD SEVERE BACK PAIN GETTING WORSE [id number] 12/21/2015 14:12:00 12/21/2015 16:38:00 DIS Outpatient AALIYAH CHILDS DO [facility] REHAB LOW BACK PAIN; LUMBAGO;LUMBAR STENOSIS;LUMBAR SPOND [id number] 10/26/2015 11:29:00 10/26/2015 23:59:59 C[facility] Outpatient ELISE NOGUERA, LIBAN Okeefe [facility] RAD LUMBAR SPONDYLOLISTHESIS, STENOSIS, PAIN IN LIMB [id number] 10/17/2015 13:12:00 10/17/2015 23:59:59 [facility] Outpatient AALIYAH CHILDS DO [facility] RAD PAIN GOING DOWN RIGHT LEG,SIATICA [id number] 10/03/2015 15:22:00 10/03/2015 23:59:59 [facility] Outpatient AALIYAH CHILDS DO [facility] RAD RIGHT HIP PAIN [id number] 12/14/2014 09:54:00 12/14/2014 23:59:59 [facility] Outpatient AALIYAH CHILDS DO [facility] RAD ABD PAIN,DIARRHEA [id number] 12/09/2014 08:07:00 12/09/2014 23:59:59 [facility] Outpatient AALIYAH CHILDS DO [facility] RAD LOWER ABDOMINAL PAIN DIARRHEA [id number] 12/07/2014 14:22:00 12/07/2014 23:59:59 [facility] Outpatient AALIYAH CHILDS DO [facility] RAD DIARRHEA ABOMINAL PAIN [id number] 12/07/2014 10:55:00 12/07/2014 23:59:59 [facility] Outpatient AALIYAH CHILDS DO [facility] LAB ABD PAIN, [id number] 02/02/2014 10:00:00 02/02/2014 23:59:59 [facility] Outpatient AALIYAH CHILDS DO [facility] RAD PAIN IN RIGHT FOOT [id number] 12/08/2013 15:13:00 12/08/2013 23:59:59 [facility] Outpatient AALIYAH CHILDS DO [facility] RAD PAIN IN 5TH METATARSAL [id number] 11/16/2013 12:29:00 11/16/2013 23:59:59 [facility] Outpatient AALIYAH CHILDS DO [facility] RAD RT CALF AND KNEE SEVERE PAIN [id number] 11/15/2013 13:31:00 11/15/2013 23:59:59 [facility] Outpatient AALIYAH CHILDS DO [facility] RAD FALL R LEG/KNEE PAIN [id number] 08/09/2013 12:50:00 08/09/2013 23:59:59 [facility] Outpatient AALIYAH CHILDS DO [facility] RAD SEVERE PAIN LEFT KNEE [id number] 11/09/2012 17:17:00 11/12/2012 14:35:00 DIS Inpatient AALIYAH CHILDS DO [facility] 4TH DIVERTICULITIS [id number] 10/21/2012 13:50:00 Document Registration [id number] 05/31/2012 20:53:00 Document Registration [id number] 05/25/2012 13:25:00 Document Registration [id number] 02/24/2012 09:04:00 Document Registration [id number] 02/03/2012 14:06:00 Document Registration [id number] 11/22/2011 08:44:00 Document Registration [id number] 09/11/2011 09:44:00 Document Registration [id number] 09/04/2011 13:34:00 Document Registration [id number] 08/29/2011 10:04:00 Document Registration [id number] 04/10/2011 14:25:00 Document Registration [id number] 02/18/2011 14:04:00 Document Registration [id number] 12/12/2010 09:56:00 Document Registration [id number] 11/29/2010 09:50:00 Document Registration
--- NOTE | 2017-10-01 12:26 | ED Cough/URI ---
General Chief Complaint: Cough/Cold/Flu Symptoms Stated Complaint: POSS PNA,FEVER Nursing Triage Note: DAUGHTERS STATE PT HAS HAD A COUGH FOR A FEW DAYS AND HAD A FEVER THIS A.M. TYLENOL GIVEN AT 1000, 98.5 AT TRIAGE. Source: patient, family Exam Limitations: no limitations History of Present Illness Date Seen by Provider: Oct 01, 2017 Time Seen by Provider: 12:22 Initial Comments The patient is an 87-year-old white female brought here by her daughters. She has had a cough and cold symptoms for several days now. This morning the daughter states that she went from 99 to 102.5 in the time frame of one half hour. She has had a harsh cough which has been largely non- productive. She does not relate to dyspnea. Timing/Duration: week Severity/Quality: severe, dry cough Allergies and Home Medications Allergies Coded Allergies: lansoprazole (Verified Allergy, Intermediate, HIVES, 05/31/12) Home Medications Betamethasone/Propylene Glyc 15 Gm Cream..g., TP BID PRN for ITCHING, (Reported) Hydrocodone Bit/Acetaminophen 1 Tab Tab, 1-2 EACH PO Q6H PRN for PAIN-MODERATE Prescribed by: CHAUNCEY MONTANA on 08/06/17 0034 Hydrocodone/Acetaminophen 1 Each Tablet, 1 TAB PO QID, (Reported) Ropinirole HCl 4 Mg Tablet, 4 MG PO HS, (Reported) [Curamed] , 1 CAP PC BID, (Reported) Patient Home Medication List Home Medication List Reviewed: Yes Constitutional: see HPI EENTM: no symptoms reported Respiratory: cough Cardiovascular: no symptoms reported Gastrointestinal: no symptoms reported Genitourinary: no symptoms reported Musculoskeletal: no symptoms reported Skin: no symptoms reported Psychiatric/Neurological: No Symptoms Reported Hematologic/Lymphatic: No Symptoms Reported Immunological/Allergic: no symptoms reported Past Mgwpczz-Azeuwn-Brxfvq Hx Patient Social History Alcohol Use: Denies Use Recreational Drug Use: No Smoking Status: Never a Smoker Recent Foreign Travel: No Contact w/Someone Who Travel: No Recent Infectious Disease Expo: No Recent Hopitalizations: No Immunizations Up To Date Tetanus Booster (TDap): Less than 5yrs Date of Pneumonia Vaccine: May 31, 2008 Date of Influenza Vaccine: Apr 02, 2017 Seasonal Allergies Seasonal Allergies: No Surgeries History of Surgeries: Yes (BACK X'3, BI LAT SHOULDER, BI LAT KNEE SCOPES) Surgeries: Appendectomy, Orthopedic Respiratory History of Respiratory Disorde: No Cardiovascular History of Cardiac Disorders: No Neurological History of Neurological Disord: Yes (RESTLESS LEG SYNDROME) 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 Genitourinary History of Genitourinary Disor: No Gastrointestinal History of Gastrointestinal Di: Yes (DIVERTICULITIS) Gastrointestinal Disorders: Diverticulosis Musculoskeletal History of Musculoskeletal Dis: No Endocrine History of Endocrine Disorders: No HEENT History of HEENT Disorders: No Cancer History of Cancer: Yes (PRE-CANCEROUS BREAST BIOPSIES) Psychosocial History of Psychiatric Problem: No Integumentary History of Skin or Integumenta: No Blood Transfusions History of Blood Disorders: No Family Medical History Significant Family History: No Pertinent Family Hx Physical Exam Vital Signs Vital Signs - First Documented 10/01/17 12:07 Temp 98.5 Pulse 95 Resp 22 B/P (MAP) 110/61 (77) Pulse Ox 90 O2 Delivery Room Air Capillary Refill : Less Than 3 Seconds General Appearance: mild distress Eyes: Bilateral Eye Normal Inspection HEENT: normal ENT inspection Neck: full range of motion Respiratory: decreased breath sounds (distant but clear) Cardiovascular: normal peripheral pulses, regular rate, rhythm, no edema, no gallop, no JVD, no murmur Gastrointestinal: normal bowel sounds, non tender, soft, no organomegaly, no pulsatile mass Extremities: normal range of motion, non-tender, normal inspection, no pedal edema, no calf tenderness, normal capillary refill, pelvis stable 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, no motor/sensory deficits, alert, normal mood/affect, oriented x 3 Skin: normal color, warm/dry, cyanosis, cool, diaphoresis, damp Lymphatic: no adenopathy Progress/Results/Core Measures Suspected Sepsis Recent Fever Within 48 Hours: Yes Infection Criteria Present: Suspected New Infection New/Unexplained Altered Menta: No Sepsis Screen: Possible Sepsis Risk Sepsis Diagnosis: SIRS Temperature:98.5 Pulse: 95 Respiratory Rate: 22 Laboratory Tests 10/01/17 12:30: White Blood Count 7.3 Blood Pressure 110 /61 Mean: 77 Laboratory Tests 10/01/17 12:30: Creatinine 0.68, Platelet Count 133, Total Bilirubin 0.6 Results/Orders Lab Results Laboratory Tests Test 10/01/17 12:30 10/01/17 12:40 Range/Units White Blood Count 7.3 4.3-11.0 10^3/uL Red Blood Count 4.15 L 4.35-5.85 10^6/uL Hemoglobin 12.0 11.5-16.0 G/DL Hematocrit 36 35-52 % Mean Corpuscular Volume 88 80-99 FL Mean Corpuscular Hemoglobin 29 25-34 PG Mean Corpuscular Hemoglobin Concent 33 32-36 G/DL Red Cell Distribution Width 15.2 H 10.0-14.5 % Platelet Count 133 130-400 10^3/uL Mean Platelet Volume 9.7 7.4-10.4 FL Neutrophils (%) (Auto) 80 H 42-75 % Lymphocytes (%) (Auto) 11 L 12-44 % Monocytes (%) (Auto) 8 0-12 % Eosinophils (%) (Auto) 1 0-10 % Basophils (%) (Auto) 0 0-10 % Neutrophils # (Auto) 5.8 1.8-7.8 X 10^3 Lymphocytes # (Auto) 0.8 L 1.0-4.0 X 10^3 Monocytes # (Auto) 0.6 0.0-1.0 X 10^3 Eosinophils # (Auto) 0.1 0.0-0.3 10^3/uL Basophils # (Auto) 0.0 0.0-0.1 10^3/uL Sodium Level 136 135-145 MMOL/L Potassium Level 3.9 3.6-5.0 MMOL/L Chloride Level 105 98-107 MMOL/L Carbon Dioxide Level 23 21-32 MMOL/L Anion Gap 8 5-14 MMOL/L Blood Urea Nitrogen 21 H 7-18 MG/DL Creatinine 0.68 0.60-1.30 MG/DL Estimat Glomerular Filtration Rate > 60 BUN/Creatinine Ratio 31 Glucose Level 91 70-105 MG/DL Calcium Level 8.4 L 8.5-10.1 MG/DL Total Bilirubin 0.6 0.1-1.0 MG/DL Aspartate Amino Transf (AST/SGOT) 17 5-34 U/L Alanine Aminotransferase (ALT/SGPT) 13 0-55 U/L Alkaline Phosphatase 86 40-136 U/L Total Protein 5.5 L 6.4-8.2 GM/DL Albumin 3.6 3.2-4.5 GM/DL Urine Color YELLOW Urine Clarity CLEAR Urine pH 6 5-9 Urine Specific [place] 1.010 L 1.016-1.022 Urine Protein 1+ H NEGATIVE Urine Glucose (UA) 1+ H NEGATIVE Urine Ketones NEGATIVE NEGATIVE Urine Nitrite NEGATIVE NEGATIVE Urine Bilirubin NEGATIVE NEGATIVE Urine Urobilinogen 1 NORMAL MG/DL Urine Leukocyte Esterase 1+ H NEGATIVE Urine RBC (Auto) NEGATIVE NEGATIVE Urine RBC NONE /HPF Urine WBC 0-2 /HPF Urine Squamous Epithelial Cells 0-2 /HPF Urine Crystals NONE /LPF Urine Bacteria TRACE /HPF Urine Casts NONE /LPF Urine Mucus NEGATIVE /LPF Urine Culture Indicated NO My Orders Orders - OSMAR HOFF MD Cbc With Automated Diff (10/01/17 12:03) Comprehensive Metabolic Panel (10/01/17 12:03) Ua Culture If Indicated (10/01/17 12:03) Chest 1 View, Ap/Pa Only (10/01/17 12:03) Vital Signs/I&O Vital Sign - Last 12Hours 10/01/17 10/01/17 12:07 12:43 Temp 98.5 Pulse 95 Resp 22 B/P (MAP) 110/61 (77) Pulse Ox 90 O2 Delivery Room Air Room Air Capillary Refill : Less Than 3 Seconds Blood Pressure Mean: 77 Departure Communication (Admissions) Progress Notes Chest x-ray as interpreted by me showed bilateral infiltrates. This was discussed with Dr. Burrell radiology at 1347 and he agrees that this is consistent with a bilateral pneumonia. Impression Impression: Primary Impression: Pneumonia Disposition: 09 ADMITTED INPATIENT Condition: Stable/Unchanged Admissions Decision to Admit Reason: Admit from ER (General) Decision to Admit/Date: Oct 01, 2017 Time/Decision to Admit Time: 13:50 Departure-Patient Inst. Referrals: AALIYAH CHILDS DO (PCP/Family) Primary Care Physician OSMAR HOFF MD Oct 01, 2017 12:26
[2017-10-01 12:42] LABS: BASOPHILS % (AUTO) 0 % (0-10); EOSINOPHILS # (AUTO) 0.1 10^3/uL (0.0-0.3); EOSINOPHILS % (AUTO) 1 % (0-10); HEMATOCRIT 36 % (35-52); LYMPHOCYTES # (AUTO) 0.8 X 10^3 (1.0-4.0); LYMPHOCYTES % (AUTO) 11 % (12-44); MEAN CORPUSCULAR HEMOGLOBIN 29 PG (25-34); MEAN CORPUSCULAR HGB CONC 33 G/DL (32-36); MEAN CORPUSCULAR VOLUME 88 FL (80-99); MEAN PLATELET VOLUME 9.7 FL (7.4-10.4); MONOCYTES # (AUTO) 0.6 X 10^3 (0.0-1.0); MONOCYTES % (AUTO) 8 % (0-12); NEUTROPHILS # (AUTO) 5.8 X 10^3 (1.8-7.8); NEUTROPHILS % (AUTO) 80 % (42-75); PLATELET COUNT 133 10^3/uL (130-400); RED BLOOD COUNT 4.15 10^6/uL (4.35-5.85); RED CELL DISTRIBUTION WIDTH 15.2 % (10.0-14.5); WHITE BLOOD COUNT 7.3 10^3/uL (4.3-11.0)
[2017-10-01 12:45] LABS: BILIRUBIN,URINE NEGATIVE (NEGATIVE); CLARITY,URINE CLEAR; COLOR,URINE YELLOW; GLUCOSE, URINE (UA) 1+ (NEGATIVE); KETONES,URINE NEGATIVE (NEGATIVE); LEUKOCYTE ESTERASE ,URINE 1+ (NEGATIVE); NITRITE,URINE NEGATIVE (NEGATIVE); PH,URINE 6 (5-9); PROTEIN,URINE 1+ (NEGATIVE); UROBILINOGEN,URINE 1 MG/DL (NORMAL)
[2017-10-01 13:03] LABS: BACTERIA,URINE TRACE /HPF; SQUAMOUS EPITHELIAL CELL,UR 0-2 /HPF; WBC,URINE 0-2 /HPF
[2017-10-01 13:08] LABS: ALANINE AMINOTRANSFERASE 13 U/L (0-55); ALBUMIN 3.6 GM/DL (3.2-4.5); ALKALINE PHOSPHATASE 86 U/L (40-136); BILIRUBIN,TOTAL 0.6 MG/DL (0.1-1.0); BUN/CREATININE RATIO 31; CALCIUM 8.4 MG/DL (8.5-10.1); CARBON DIOXIDE 23 MMOL/L (21-32); CHLORIDE 105 MMOL/L (98-107); CREATININE SERUM 0.68 MG/DL (0.60-1.30); GFR ESTIMATED > 60; GLUCOSE 91 MG/DL (70-105); POTASSIUM 3.9 MMOL/L (3.6-5.0); SODIUM 136 MMOL/L (135-145); TOTAL PROTEIN 5.5 GM/DL (6.4-8.2)
[2017-10-01] MEDS ORDERED: cefTRIAXone INJECTION 1,000 MG in NS (IVPB) 100 ML IV ONE (14:00)
[2017-10-01 14:13] LABS: PROTHROMBIN TIME PATIENT 13.6 SEC (12.2-14.7)
--- NOTE | 2017-10-01 14:46 | Diagnostic Imaging Report ---
Procedure: Portable erect AP chest at 12:34. Indication: Cough. Findings: The heart size is within normal limits and stable when compared to 11/12/2016. In the interval since the prestudy exam however dense alveolar/interstitial infiltrates have developed in the left perihilar region and to a lesser extent the right upper lobe. These findings are most likely due to pneumonia/atelectasis. There is no evidence for a mass to suggest malignant process. Two metallic studs are again seen overlying the right humeral head. Also, in the interval since the prior exam, the patient has undergone a kyphoplasty procedure of T11. Impression: 1. The appearance of the chest has worsened since the prior exam as bilateral pneumonia has developed. 2. There is no evidence for malignancy although a followup exam would be recommended to assure complete clearing of both lungs does occur. Dictated by: Dictated on workstation # [id number]
[2017-10-01 16:11] VITALS: BP 134/63
[2017-10-01] MEDS ORDERED: AZITHROMYCIN 500 MG/NS 250 ML IVPB IV NR ×2 (16:22)
[2017-10-01] MEDS ORDERED: CATHETER FLUSH 10 ML SYR IV PRN (16:30)
[2017-10-01 16:33] VITALS: BP 110/61
[2017-10-01] MEDS: NS IV 1000 ML 1,000 ML IV SCH (16:53)
--- NOTE | 2017-10-01 18:50 | History & Physicial ---
History of Present Illness History of Present Illness Reason for visit/HPI Patient's daughter brought mother to the emergency room. Patient coughing and running a temperature of 102.5. Chest x-ray shows bilateral pneumonia. Patient vomiting at this time. Back surgery. Admits to headaches. Family history denies asthma, TB, diabetes, heart disease, lung disease, and cancer Date of Admission Oct 01, 2017 at 13:57 Time Seen by Provider: 18:45 I consulted on this patient on 10/01/17 18:39 Attending Physician Jax Childs DO Admitting Physician Jax Childs DO Consult Allergies and Home Medications Allergies Coded Allergies: lansoprazole (Verified Allergy, Intermediate, HIVES, 05/31/12) Home Medications Betamethasone/Propylene Glyc 15 Gm Cream..g., TP BID PRN for ITCHING, (Reported) Hydrocodone Bit/Acetaminophen 1 Tab Tab, 1-2 EACH PO Q6H PRN for PAIN-MODERATE Prescribed by: CHAUNCEY MONTANA on 08/06/17 0034 Hydrocodone/Acetaminophen 1 Each Tablet, 1 TAB PO QID, (Reported) Ropinirole HCl 4 Mg Tablet, 4 MG PO HS, (Reported) [Curamed] , 1 CAP PC BID, (Reported) Patient Home Medication List Home Medication List Reviewed: No Past Teehqmi-Nrsyza-Amzuyj Hx Patient Social History Marrital Status: 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: employed Alcohol Use: Denies Use Recreational Drug Use: No Smoking Status: Never a Smoker Physical Abuse Screen: No Sexual Abuse: No Recent Foreign Travel: No Contact w/other who traveled: No Recent Hopitalizations: No Recent Infectious Disease Expo: No Immunizations Up To Date Tetanus Booster (TDap): Less than 5yrs Date of Pneumonia Vaccine: May 30, 2016 Date of Influenza Vaccine: Apr 02, 2017 Seasonal Allergies Seasonal Allergies: No Surgeries Yes (BACK X'3, BI LAT SHOULDER, BI LAT KNEE SCOPES) Appendectomy, Orthopedic Respiratory No Cardiovascular No Neurological Yes (RESTLESS LEG SYNDROME) 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 System : 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 Genitourinary No Gastrointestinal Yes (DIVERTICULITIS) Diverticulosis Musculoskeletal No Chronic Back Pain Endocrine History of Endocrine Disorders: No HEENT History of HEENT Disorders: No Cancer Yes (PRE-CANCEROUS BREAST BIOPSIES) Psychosocial History of Psychiatric Problem: No Integumentary History of Skin or Integumenta: No Blood Transfusions History of Blood Disorders: No Family Medical History Significant Family History: No Pertinent Family Hx Constitutional: malaise, weakness EENTM: no symptoms reported Respiratory: cough, other (Pneumonia) Cardiovascular: no symptoms reported Gastrointestinal: vomiting Genitourinary: no symptoms reported Physical Exam Vital Signs Vital Signs - First Documented 10/01/17 10/01/17 10/01/17 12:07 15:53 16:33 Temp 98.5 Pulse 95 Resp 22 B/P (MAP) 110/61 (77) Pulse Ox 90 O2 Delivery Room Air O2 Flow Rate 2.00 FiO2 28 Capillary Refill : Less Than 3 SecondsLess Than 3 Seconds General Appearance: No Apparent Distress, Thin Eyes: Bilateral Eye Normal Inspection HEENT: Normal ENT Inspection Neck: Normal Inspection, Non Tender Respiratory: No Accessory Muscle Use, No Respiratory Distress, Decreased Breath Sounds Cardiovascular: Regular Rate, Rhythm, No Murmur Gastrointestinal: Non Tender, Soft Assessment/Plan Assessment and Plan Bilateral pneumonia. Febrile. Vomiting Problems: Admission Diagnosis Admission Status: Inpatient Order (span 2 midnights) Reason for Inpatient Admission: Bilateral pneumonia. Pneumonia. Vomiting Clinical Quality Measures DVT/VTE Risk/Contraindication: Risk Factor Score Per Nursin RFS Level Per Nursing on Admit: 3=High JAX CHILDS DO Oct 01, 2017 18:50
[2017-10-01] MEDS: ONDANSETRON 4 MG (ZOFRAN) ORAL DISSOLVE TAB PO PRN (18:58)
[2017-10-01] MEDS: RT-ALBUTEROL/IPRATROPIUM 3 ML (DUONEB) VIAL INH SCH (20:08)
[2017-10-01 20:28] VITALS: BP 107/53
[2017-10-01] MEDS: ENOXAPARIN 30 MG/0.3 ML (LOVENOX) SYR SC SCH (20:41)
[2017-10-01] MEDS: BENZONATATE 100 MG (TESSALON) CAPSULE PO PRN (21:36)
[2017-10-02] VITALS: BP 113/54
[2017-10-02] MEDS: RT-ALBUTEROL/IPRATROPIUM 3 ML (DUONEB) VIAL INH SCH ×4 (03:44→22:07)
[2017-10-02 04:00] VITALS: BP 114/56
[2017-10-02 06:45] LABS: HEMOGLOBIN 10.8 G/DL (11.5-16.0); RED BLOOD COUNT 3.76 10^6/uL (4.35-5.85); RED CELL DISTRIBUTION WIDTH 15.3 % (10.0-14.5); WHITE BLOOD COUNT 7.6 10^3/uL (4.3-11.0)
[2017-10-02] MEDS: BENZONATATE 100 MG (TESSALON) CAPSULE PO PRN ×2 (06:59→22:20)
[2017-10-02 07:17] LABS: BUN/CREATININE RATIO 20; CALCIUM 8.7 MG/DL (8.5-10.1); CARBON DIOXIDE 22 MMOL/L (21-32); CHLORIDE 104 MMOL/L (98-107); CREATININE SERUM 0.59 MG/DL (0.60-1.30); GFR ESTIMATED > 60; GLUCOSE 101 MG/DL (70-105); POTASSIUM 3.7 MMOL/L (3.6-5.0); SODIUM 137 MMOL/L (135-145)
--- NOTE | 2017-10-02 07:38 | Progress Note (SOAP) ---
Subjective Time Seen by Provider: 07:35 Subjective/Events-last exam Bilateral pneumonia. Vomiting resolved. Patient states she is feeling better Focused Exam Evaluation Lactate Level Laboratory Tests 10/01/17 14:40: Lactic Acid Level 1.23 Objective Exam Vital Signs Date Time Temp Pulse Resp B/P (MAP) Pulse Ox O2 Delivery O2 Flow Rate FiO2 10/02/17 04:00 99.2 95 18 114/56 (75) 91 Nasal Cannula 2.00 10/02/17 03:44 88 Nasal Cannula 2.00 10/02/17 00:00 99.1 92 19 113/54 (73) 92 Nasal Cannula 2.00 10/01/17 20:28 98.5 96 18 107/53 (71) 91 Nasal Cannula 1.50 10/01/17 20:08 94 Nasal Cannula 2.00 10/01/17 16:33 93 Nasal Cannula 2.00 10/01/17 16:33 111 93 28 10/01/17 16:11 Nasal Cannula 2.00 10/01/17 16:11 99.7 105 18 134/63 (86) 91 Nasal Cannula 1.50 10/01/17 15:53 100.7 101 18 118/72 (77) 94 Nasal Cannula 2.00 10/01/17 12:43 Room Air 10/01/17 12:07 98.5 95 22 110/61 (77) 90 Room Air I & O 10/02/17 07:00 Intake Total 350 ml Balance 350 ml Capillary Refill : Less Than 3 SecondsLess Than 3 Seconds General Appearance: No Apparent Distress, Thin HEENT: Normal ENT Inspection Neck: Full Range of Motion, Normal Inspection Respiratory: No Accessory Muscle Use, No Respiratory Distress, Decreased Breath Sounds Cardiovascular: Regular Rate, Rhythm, No Murmur Gastrointestinal: non tender, soft Results Lab Laboratory Tests 10/01/17 12:30 10/02/17 05:36 Laboratory Tests 10/01/17 12:30: White Blood Count 7.3, Red Blood Count 4.15L, Hemoglobin 12.0, Hematocrit 36, Mean Corpuscular Volume 88, Mean Corpuscular Hemoglobin 29, Mean Corpuscular Hemoglobin Concent 33, Red Cell Distribution Width 15.2H, Platelet Count 133, Mean Platelet Volume 9.7, Neutrophils (%) (Auto) 80H, Lymphocytes (%) (Auto) 11L , Monocytes (%) (Auto) 8, Eosinophils (%) (Auto) 1, Basophils (%) (Auto) 0, Neutrophils # (Auto) 5.8, Lymphocytes # (Auto) 0.8L, Monocytes # (Auto) 0.6, Eosinophils # (Auto) 0.1, Basophils # (Auto) 0.0, Prothrombin Time 13.6, INR Comment 1.0, Activated Partial Thromboplast Time 39H, Sodium Level 136, Potassium Level 3.9, Chloride Level 105, Carbon Dioxide Level 23, Anion Gap 8, Blood Urea Nitrogen 21H, Creatinine 0.68, Estimat Glomerular Filtration Rate > 60, BUN/Creatinine Ratio 31, Glucose Level 91, Calcium Level 8.4L, Total Bilirubin 0.6, Aspartate Amino Transf (AST/SGOT) 17, Alanine Aminotransferase ( ALT/SGPT) 13, Alkaline Phosphatase 86, Total Protein 5.5L, Albumin 3.6 10/01/17 12:40: Urine Color YELLOW, Urine Clarity CLEAR, Urine pH 6, Urine Specific [place] 1.010L, Urine Protein 1+H, Urine Glucose (UA) 1+H, Urine Ketones NEGATIVE, Urine Nitrite NEGATIVE, Urine Bilirubin NEGATIVE, Urine Urobilinogen 1, Urine Leukocyte Esterase 1+H, Urine RBC (Auto) NEGATIVE, Urine RBC NONE, Urine WBC 0-2 , Urine Squamous Epithelial Cells 0-2, Urine Crystals NONE, Urine Bacteria TRACE , Urine Casts NONE, Urine Mucus NEGATIVE, Urine Culture Indicated NO 10/01/17 14:40: Lactic Acid Level 1.23 10/02/17 05:36: White Blood Count 7.6, Red Blood Count 3.76L, Hemoglobin 10.8L, Hematocrit 33L, Mean Corpuscular Volume 88, Mean Corpuscular Hemoglobin 29, Mean Corpuscular Hemoglobin Concent 33, Red Cell Distribution Width 15.3H, Platelet Count 143, Mean Platelet Volume 10.0, Sodium Level 137, Potassium Level 3.7, Chloride Level 104, Carbon Dioxide Level 22, Anion Gap 11, Blood Urea Nitrogen 12, Creatinine 0.59L, Estimat Glomerular Filtration Rate > 60, BUN/Creatinine Ratio 20, Glucose Level 101, Calcium Level 8.7 Assessment/Plan Assessment/Plan Assess & Plan/Chief Complaint Bilateral pneumonia. Vomiting Clinical Quality Measures Admission Status Admission Dx Bilateral pneumonia. Febrile. Vomiting DVT/VTE Risk/Contraindication: Risk Factor Score Per Nursin RFS Level Per Nursing on Admit: 3=High AALIYAH CHILDS DO Oct 02, 2017 07:38
[2017-10-02 08:00] VITALS: BP 137/64
[2017-10-02] MEDS: cefTRIAXone 1 GM/NS 100 ML IVPB IV SCH ×2 (09:16)
[2017-10-02] MEDS: AZITHROMYCIN 250 MG TAB (ZITHROMAX) PO SCH (09:16)
[2017-10-02] MEDS: NS IV 1000 ML 1,000 ML IV SCH ×2 (09:17→22:37)
[2017-10-02] MEDS ORDERED: HYDR-34 PO (09:17)
[2017-10-02] MEDS ORDERED: GABA-488 PO (09:17)
[2017-10-02] MEDS ORDERED: CODE118S2 PO (09:38)
[2017-10-02] MEDS ORDERED: DICY10CA12 PO (09:38)
[2017-10-02] MEDS ORDERED: RT-ALBUINH IH (09:38)
[2017-10-02] MEDS ORDERED: AZIT250T12 PO (09:38)
--- NOTE | 2017-10-02 10:07 | Diagnostic Imaging Report ---
INDICATION: Pneumonia. COMPARISON: 10/01/2017. FINDINGS: The heart size is normal. There are bilateral perihilar infiltrates. There is no pleural effusion or pneumothorax. The mediastinum is unremarkable. IMPRESSION: Persistent bilateral perihilar infiltrates, suspect for pneumonia. Some underlying central pulmonary venous congestion cannot be excluded. Dictated by: Dictated on workstation # [id number]
[2017-10-02 12:00] VITALS: BP 125/60
[2017-10-02] MEDS: ONDANSETRON 4 MG (ZOFRAN) ORAL DISSOLVE TAB PO PRN (14:50)
[2017-10-02] MEDS: ACETAMINOPHEN 325 MG TABLET/CAPLET (TYLENOL) PO PRN (15:42)
[2017-10-02 16:00] VITALS: BP 120/60
[2017-10-02] MEDS: ENOXAPARIN 30 MG/0.3 ML (LOVENOX) SYR SC SCH (18:16)
[2017-10-02 20:00] VITALS: BP 126/62
[2017-10-02] MEDS: HYDROcodone/APAP 7.5 MG/325 MG (LORTAB, LORCET PLUS) TABLET PO PRN (22:19)
[2017-10-02] MEDS: rOPINIRole 1 MG (REQUIP) TABLET PO SCH (22:20)
[2017-10-03 00:08] VITALS: BP 112/56
[2017-10-03] MEDS: RT-ALBUTEROL/IPRATROPIUM 3 ML (DUONEB) VIAL INH SCH ×4 (03:11→20:40)
[2017-10-03 04:38] VITALS: BP 110/57
[2017-10-03 06:22] LABS: HEMOGLOBIN 9.8 G/DL (11.5-16.0); MEAN PLATELET VOLUME 9.8 FL (7.4-10.4); RED BLOOD COUNT 3.38 10^6/uL (4.35-5.85); RED CELL DISTRIBUTION WIDTH 14.9 % (10.0-14.5); WHITE BLOOD COUNT 7.7 10^3/uL (4.3-11.0)
[2017-10-03 06:43] LABS: BUN/CREATININE RATIO 16; CALCIUM 8.5 MG/DL (8.5-10.1); CARBON DIOXIDE 25 MMOL/L (21-32); CHLORIDE 104 MMOL/L (98-107); CREATININE SERUM 0.51 MG/DL (0.60-1.30); GFR ESTIMATED > 60; GLUCOSE 93 MG/DL (70-105); POTASSIUM 3.6 MMOL/L (3.6-5.0); SODIUM 136 MMOL/L (135-145)
--- NOTE | 2017-10-03 07:20 | Progress Note (SOAP) ---
Subjective Time Seen by Provider: 07:15 Subjective/Events-last exam Patient still not feeling good. Patient coughing and congested. Patient has a headache. Patient still eating less and still nauseous. Waiting for chest x-ray report. Patient still a work in progress Focused Exam Lactate Level Laboratory Tests 10/01/17 14:40: Lactic Acid Level 1.23 Objective Exam Vital Signs Date Time Temp Pulse Resp B/P (MAP) Pulse Ox O2 Delivery O2 Flow Rate FiO2 10/03/17 04:38 98.7 88 16 110/57 (74) 94 Nasal Cannula 2.00 10/03/17 03:11 90 Nasal Cannula 2.00 10/03/17 00:08 99.4 98 17 112/56 (74) 93 Nasal Cannula 2.00 10/02/17 22:08 88 Nasal Cannula 2.00 10/02/17 20:00 99.5 94 16 126/62 (83) 96 Nasal Cannula 2.00 10/02/17 16:12 99.7 10/02/17 16:00 99.6 105 18 120/60 (80) 95 Nasal Cannula 2.00 10/02/17 14:37 93 Nasal Cannula 2.00 10/02/17 12:00 99.7 98 18 125/60 (81) 95 Nasal Cannula 2.00 10/02/17 09:04 94 Nasal Cannula 2.00 10/02/17 09:00 Nasal Cannula 2.00 10/02/17 08:00 99.9 103 18 137/64 (88) 93 Nasal Cannula 2.00 I & O 10/03/17 07:00 Intake Total 1232 ml Balance 1232 ml Capillary Refill : Less Than 3 SecondsLess Than 3 Seconds General Appearance: No Apparent Distress, Thin Neck: Normal Inspection Respiratory: Decreased Breath Sounds, Other (Coarse sounding) Cardiovascular: Regular Rate, Rhythm, No Murmur Gastrointestinal: non tender, soft Results Lab Laboratory Tests 10/03/17 05:56 Laboratory Tests 10/03/17 05:56: White Blood Count 7.7, Red Blood Count 3.38L, Hemoglobin 9.8L, Hematocrit 30L, Mean Corpuscular Volume 88, Mean Corpuscular Hemoglobin 29, Mean Corpuscular Hemoglobin Concent 33, Red Cell Distribution Width 14.9H, Platelet Count 146, Mean Platelet Volume 9.8, Sodium Level 136, Potassium Level 3.6, Chloride Level 104, Carbon Dioxide Level 25, Anion Gap 7, Blood Urea Nitrogen 8, Creatinine 0.51L, Estimat Glomerular Filtration Rate > 60, BUN/Creatinine Ratio 16, Glucose Level 93, Calcium Level 8.5 Microbiology 10/01/17 Blood Culture - Preliminary, Resulted No growth Assessment/Plan Assessment/Plan Assess & Plan/Chief Complaint Bilateral pneumonia. Vomiting. . 10/03/17.. Bilateral pneumonia. Nauseous. Headache. Patient still not feeling well. Clinical Quality Measures Admission Status Admission Dx Bilateral pneumonia. Febrile. Vomiting DVT/VTE Risk/Contraindication: Risk Factor Score Per Nursin RFS Level Per Nursing on Admit: 3=High AALIYAH CHILDS DO Oct 03, 2017 07:20
--- NOTE | 2017-10-03 07:33 | Diagnostic Imaging Report ---
INDICATION: Pneumonia. COMPARISON: 10/02/2017 FINDINGS: Frontal and lateral radiographic views of the chest were obtained and again show large areas of consolidation within the bilateral upper lung barger. There has been some interval progression since prior exams. There is no large effusion or pneumothorax. Cardiac silhouette and pulmonary vasculature within normal limits. Bony structures show no gross acute abnormalities. IMPRESSION: 1. Slight interval progression of bilateral infiltrates. Continued followup is recommended. Dictated by: Dictated on workstation # [id number]
[2017-10-03 08:29] VITALS: BP 128/60
[2017-10-03] MEDS: BENZONATATE 100 MG (TESSALON) CAPSULE PO PRN ×2 (09:32→17:53)
[2017-10-03] MEDS: PROMETHAZINE/ CODEINE SYRUP 5 ML UDC PO PRN ×2 (09:32→17:46)
[2017-10-03] MEDS: ONDANSETRON 4 MG (ZOFRAN) ORAL DISSOLVE TAB PO PRN (09:33)
[2017-10-03] MEDS: AZITHROMYCIN 250 MG TAB (ZITHROMAX) PO SCH (09:33)
[2017-10-03] MEDS: HYDROcodone/APAP 7.5 MG/325 MG (LORTAB, LORCET PLUS) TABLET PO PRN ×2 (09:34→17:46)
[2017-10-03] MEDS: cefTRIAXone 1 GM/NS 100 ML IVPB IV SCH ×2 (09:34)
[2017-10-03] MEDS: NS IV 1000 ML 1,000 ML IV SCH (09:43)
[2017-10-03 12:30] VITALS: BP 119/57
[2017-10-03] MEDS: LACTOBACILLUS Acidoph/Bulgar (LACTINEX/FLORANEX) TAB PO SCH (16:33)
[2017-10-03 16:43] VITALS: BP 130/59
[2017-10-03] MEDS ORDERED: LEVOFLOXACIN 500 MG/100 ML IV 100 ML IV SCH (17:00)
[2017-10-03] MEDS: RT-ALBUTEROL/IPRATROPIUM 3 ML (DUONEB) VIAL INH PRN (17:07)
[2017-10-03] MEDS: LEVOFLOXACIN 750 MG/150 ML IV 150 ML IV SCH (17:46)
[2017-10-03] MEDS: ENOXAPARIN 30 MG/0.3 ML (LOVENOX) SYR SC SCH (17:54)
[2017-10-03 20:06] VITALS: BP 125/59
[2017-10-03] MEDS: rOPINIRole 1 MG (REQUIP) TABLET PO SCH (20:56)
[2017-10-04] VITALS: BP 123/59
[2017-10-04] MEDS: RT-ALBUTEROL/IPRATROPIUM 3 ML (DUONEB) VIAL INH SCH ×4 (02:04→21:00)
[2017-10-04] MEDS: HYDROcodone/APAP 7.5 MG/325 MG (LORTAB, LORCET PLUS) TABLET PO PRN ×2 (02:18→21:37)
[2017-10-04] MEDS: BENZONATATE 100 MG (TESSALON) CAPSULE PO PRN ×3 (02:18→21:38)
[2017-10-04 04:24] VITALS: BP 107/56
[2017-10-04 04:59] LABS: BASOPHILS % (AUTO) 0 % (0-10); EOSINOPHILS # (AUTO) 0.1 10^3/uL (0.0-0.3); EOSINOPHILS % (AUTO) 1 % (0-10); HEMATOCRIT 30 % (35-52); HEMOGLOBIN 9.6 G/DL (11.5-16.0); LYMPHOCYTES # (AUTO) 0.7 X 10^3 (1.0-4.0); LYMPHOCYTES % (AUTO) 9 % (12-44); MEAN CORPUSCULAR HEMOGLOBIN 29 PG (25-34); MEAN CORPUSCULAR HGB CONC 32 G/DL (32-36); MEAN CORPUSCULAR VOLUME 88 FL (80-99); MEAN PLATELET VOLUME 9.3 FL (7.4-10.4); MONOCYTES # (AUTO) 1.1 X 10^3 (0.0-1.0); MONOCYTES % (AUTO) 15 % (0-12); NEUTROPHILS # (AUTO) 5.7 X 10^3 (1.8-7.8); NEUTROPHILS % (AUTO) 75 % (42-75); PLATELET COUNT 144 10^3/uL (130-400); RED BLOOD COUNT 3.37 10^6/uL (4.35-5.85); RED CELL DISTRIBUTION WIDTH 15.2 % (10.0-14.5); WHITE BLOOD COUNT 7.7 10^3/uL (4.3-11.0)
[2017-10-04 05:34] LABS: BUN/CREATININE RATIO 13; CALCIUM 8.5 MG/DL (8.5-10.1); CARBON DIOXIDE 24 MMOL/L (21-32); CHLORIDE 104 MMOL/L (98-107); CREATININE SERUM 0.52 MG/DL (0.60-1.30); GFR ESTIMATED > 60; GLUCOSE 95 MG/DL (70-105); POTASSIUM 3.2 MMOL/L (3.6-5.0); SODIUM 137 MMOL/L (135-145)
[2017-10-04] MEDS: LACTOBACILLUS Acidoph/Bulgar (LACTINEX/FLORANEX) TAB PO SCH ×3 (05:50→17:58)
[2017-10-04] MEDS: NS IV 1000 ML 1,000 ML IV SCH ×2 (05:53→12:17)
[2017-10-04] MEDS: AZITHROMYCIN 250 MG TAB (ZITHROMAX) PO SCH (08:25)
[2017-10-04] MEDS: cefTRIAXone 1 GM/NS 100 ML IVPB IV SCH ×2 (08:26)
[2017-10-04 08:30] VITALS: BP 117/56
--- NOTE | 2017-10-04 09:54 | Diagnostic Imaging Report ---
INDICATION: Pneumonia. TECHNIQUE: Two view chest 9:21 AM CORRELATION STUDY: 10/03/2017 FINDINGS: Rather large area of consolidation over the left mid lung and right mid upper lung field is again demonstrated, overall appears increased in severity. There is also increasing infiltrate-like density about the right lung base. Heart size enlarged. There are thoracic kyphoplasty changes as well as prior right rotator cuff surgery. IMPRESSION: 1. Progressive bilateral dense consolidation within left mid and right upper lung field with new or increasing infiltrate of the right lung base as well. Features favor worsening multilobar pneumonia and continued followup imaging to resolution recommended. Underlying mass lesion is difficult to exclude. Dictated by: Dictated on workstation # [id number]
--- NOTE | 2017-10-04 11:18 | Progress Note-Hospitalist ---
Subjective HPI/CC On Admission Date Seen by Provider: Oct 04, 2017 Time Seen by Provider: 10:15 Subjective/Events-last exam Patient doing about the same with deep cough that is slightly productive Chest x-ray reviewed showing progression of the multi lobar pneumonia but patient is clinically stable and not requiring any increased oxygen demands Labs reviewed and all are within normal limits She is eating and drinking well Reports indigestion of which I will order Tums for her Denies any significant pain Not getting out of bed and resuming normal activity very easily Patient does have a deep cough and coughs frequently during visit Levaquin, Rocephin, Zithromax maintained Albuterol treatments are helping her she reports No fever, vital signs stable, pleasant, chronically ill, frail, deeply coughing at times Regular rate rhythm, coarse breath sounds all barger no tachypnea no use of accessory muscles No edema Laboratory Tests 10/04/17 04:45 Assessment: Severe multilobar pneumonia 18 on Rocephin, Levaquin and Zithromax and nebulizer treatments Acute indigestion Tums ordered Debility Hypokalemia Minimal ambulation on Lovenox for DVT prophylaxis Plan: Maintain broad-spectrum antibiotics Nebulized treatments Ambulate Check chest x-ray and labs in morning Tums for indigestion Review of Systems Pulmonary: Cough Focused Exam Lactate Level Objective Exam Vital Signs Vital Signs Date Time Temp Pulse Resp B/P (MAP) Pulse Ox O2 Delivery O2 Flow Rate FiO2 10/01/17 12:07 98.5 95 22 110/61 (77) 90 Room Air 10/01/17 15:53 2.00 10/01/17 16:33 28 Capillary Refill : Less Than 3 SecondsLess Than 3 Seconds General Appearance: No Apparent Distress, WD/WN Respiratory: Crackles, Decreased Breath Sounds, Rhonci, Wheezing Neurologic/Psychiatric: Depressed Affect Results/Procedures Lab Laboratory Tests 10/04/17 04:45 Patient resulted labs reviewed. Assessment/Plan Assessment and Plan Assess & Plan/Chief Complaint Severe and multilobar pneumonia with progression on chest x-ray but clinically stable on 3 antibiotics Clinical Quality Measures DVT/VTE Risk/Contraindication: Risk Factor Score Per Nursin RFS Level Per Nursing on Admit: 3=High MARAH ABBOTT DO Oct 04, 2017 11:18
[2017-10-04] MEDS: PROMETHAZINE/ CODEINE SYRUP 5 ML UDC PO PRN (11:58)
[2017-10-04] MEDS: ONDANSETRON 4 MG (ZOFRAN) ORAL DISSOLVE TAB PO PRN (11:59)
[2017-10-04 12:30] VITALS: BP 135/78
[2017-10-04 16:00] VITALS: BP 134/63
[2017-10-04] MEDS: KCL 20 MEQ TAB (K-DUR) PO SCH (17:59)
[2017-10-04] MEDS: CALCIUM CARBONATE 500 MG (TUMS) TAB.CHEW PO PRN (18:00)
[2017-10-04] MEDS: ENOXAPARIN 30 MG/0.3 ML (LOVENOX) SYR SC SCH (18:01)
[2017-10-04 20:38] VITALS: BP 138/65
[2017-10-04] MEDS: rOPINIRole 1 MG (REQUIP) TABLET PO SCH (21:38)
[2017-10-05 00:59] VITALS: BP 112/60
[2017-10-05] MEDS: RT-ALBUTEROL/IPRATROPIUM 3 ML (DUONEB) VIAL INH SCH ×4 (01:49→20:24)
[2017-10-05 04:05] VITALS: BP 106/58
[2017-10-05 06:09] LABS: BASOPHILS % (AUTO) 0 % (0-10); EOSINOPHILS # (AUTO) 0.3 10^3/uL (0.0-0.3); EOSINOPHILS % (AUTO) 4 % (0-10); HEMATOCRIT 30 % (35-52); HEMOGLOBIN 9.7 G/DL (11.5-16.0); LYMPHOCYTES # (AUTO) 1.1 X 10^3 (1.0-4.0); LYMPHOCYTES % (AUTO) 17 % (12-44); MEAN CORPUSCULAR HEMOGLOBIN 29 PG (25-34); MEAN CORPUSCULAR HGB CONC 32 G/DL (32-36); MEAN CORPUSCULAR VOLUME 89 FL (80-99); MEAN PLATELET VOLUME 9.2 FL (7.4-10.4); MONOCYTES # (AUTO) 0.8 X 10^3 (0.0-1.0); MONOCYTES % (AUTO) 12 % (0-12); NEUTROPHILS # (AUTO) 4.6 X 10^3 (1.8-7.8); NEUTROPHILS % (AUTO) 68 % (42-75); PLATELET COUNT 198 10^3/uL (130-400); RED BLOOD COUNT 3.38 10^6/uL (4.35-5.85); RED CELL DISTRIBUTION WIDTH 15.2 % (10.0-14.5); WHITE BLOOD COUNT 6.8 10^3/uL (4.3-11.0)
[2017-10-05 06:32] LABS: ALANINE AMINOTRANSFERASE 14 U/L (0-55); ALBUMIN 2.8 GM/DL (3.2-4.5); ALKALINE PHOSPHATASE 93 U/L (40-136); BILIRUBIN,TOTAL 0.5 MG/DL (0.1-1.0); BUN/CREATININE RATIO 15; CALCIUM 8.4 MG/DL (8.5-10.1); CARBON DIOXIDE 31 MMOL/L (21-32); CHLORIDE 104 MMOL/L (98-107); CREATININE SERUM 0.53 MG/DL (0.60-1.30); GFR ESTIMATED > 60; GLUCOSE 84 MG/DL (70-105); POTASSIUM 3.2 MMOL/L (3.6-5.0); SODIUM 139 MMOL/L (135-145); TOTAL PROTEIN 5.1 GM/DL (6.4-8.2)
[2017-10-05] MEDS: KCL 20 MEQ TAB (K-DUR) PO SCH ×2 (06:43→16:39)
[2017-10-05] MEDS: LACTOBACILLUS Acidoph/Bulgar (LACTINEX/FLORANEX) TAB PO SCH ×3 (06:43→15:44)
[2017-10-05] MEDS: BENZONATATE 100 MG (TESSALON) CAPSULE PO PRN ×2 (06:44→22:22)
[2017-10-05] MEDS: NS IV 1000 ML 1,000 ML IV SCH (06:50)
[2017-10-05 08:30] VITALS: BP 134/61
[2017-10-05] MEDS: AZITHROMYCIN 250 MG TAB (ZITHROMAX) PO SCH (08:30)
[2017-10-05] MEDS: cefTRIAXone 1 GM/NS 100 ML IVPB IV SCH ×2 (08:30)
[2017-10-05] MEDS: PROMETHAZINE/ CODEINE SYRUP 5 ML UDC PO PRN ×2 (08:34→12:16)
--- NOTE | 2017-10-05 10:15 | Diagnostic Imaging Report ---
INDICATION: Cough, rales. Exam compared with study one day prior. While substantial bilateral pulmonary parenchymal opacities which remain asymmetric greater right, are present the overall severity of the disease showed a slight interval improvement and there is no substantial pleural fluid, pneumothorax or failure pattern. IMPRESSION: Bilateral pulmonary infiltrates greater right showed a very slight interval improvement from prior. Dictated by: Dictated on workstation # [id number]
--- NOTE | 2017-10-05 12:20 | Progress Note-Hospitalist ---
Subjective HPI/CC On Admission Date Seen by Provider: Oct 05, 2017 Time Seen by Provider: 11:00 Subjective/Events-last exam Patient doing a little better She is up in a chair today Cough continues but is helped by antitussives Bowels are moving Does not wear oxygen at home but I counseled her on the need for maintenance at discharge temporarily Patient may need swing bed due to the severity of the multilobar pneumonia Denies any pain Review of Systems General: Fatigue, Malaise Pulmonary: Cough Objective Exam Vital Signs Vital Signs Date Time Temp Pulse Resp B/P (MAP) Pulse Ox O2 Delivery O2 Flow Rate FiO2 10/01/17 12:07 98.5 95 22 110/61 (77) 90 Room Air 10/01/17 15:53 2.00 10/01/17 16:33 28 Capillary Refill : Less Than 3 SecondsLess Than 3 Seconds General Appearance: No Apparent Distress, WD/WN, Chronically ill, Other ( Improved) HEENT: PERRL/EOMI Neck: Full Range of Motion, Normal Inspection Respiratory: Chest Non Tender, No Accessory Muscle Use, No Respiratory Distress , Crackles, Decreased Breath Sounds, Wheezing Extremity: Normal Capillary Refill, Normal Inspection, Normal Range of Motion, Non Tender, No Calf Tenderness Neurologic/Psychiatric: Alert, Oriented x3, No Motor/Sensory Deficits, Normal 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 Assessment/Plan Assessment and Plan Assess & Plan/Chief Complaint Severe and multilobar pneumonia with progression on chest x-ray but clinically stable on 2 antibiotics Hypokalemia Plan: Maintain potassium supplementation Check labs in a.m. along with chest x-ray Swing bed evaluation Overall improved but very severe pneumonia will take time to completely recover Continue nebulizer treatments Diagnosis/Problems Diagnosis/Problems (1) Multifocal pneumonia Status: Acute (2) Cough Status: Acute (3) Hypokalemia Status: Acute Clinical Quality Measures DVT/VTE Risk/Contraindication: Risk Factor Score Per Nursin RFS Level Per Nursing on Admit: 3=High MARAH ABBOTT DO Oct 05, 2017 12:20
[2017-10-05 12:30] VITALS: BP 130/63
[2017-10-05] MEDS: HYDROcodone/APAP 7.5 MG/325 MG (LORTAB, LORCET PLUS) TABLET PO PRN (15:43)
[2017-10-05 16:30] VITALS: BP 144/62
[2017-10-05] MEDS: LEVOFLOXACIN 750 MG/150 ML IV 150 ML IV SCH (16:39)
[2017-10-05] MEDS: ENOXAPARIN 30 MG/0.3 ML (LOVENOX) SYR SC SCH (18:17)
[2017-10-05 20:00] VITALS: BP 114/66
[2017-10-05] MEDS: rOPINIRole 1 MG (REQUIP) TABLET PO SCH (22:22)
[2017-10-05] MEDS: RT-ALBUTEROL/IPRATROPIUM 3 ML (DUONEB) VIAL INH PRN (23:34)
[2017-10-06] VITALS (7 sets, daily range): BP systolic 127–144; BP diastolic 57–82
[2017-10-06] MEDS: HYDROcodone/APAP 7.5 MG/325 MG (LORTAB, LORCET PLUS) TABLET PO PRN (00:16)
[2017-10-06] MEDS: CALCIUM CARBONATE 500 MG (TUMS) TAB.CHEW PO PRN (00:20)
[2017-10-06] MEDS: RT-ALBUTEROL/IPRATROPIUM 3 ML (DUONEB) VIAL INH SCH ×4 (02:48→21:15)
[2017-10-06] MEDS: PROMETHAZINE/ CODEINE SYRUP 5 ML UDC PO PRN (04:58)
[2017-10-06] MEDS: NS IV 1000 ML 1,000 ML IV SCH (05:12)
[2017-10-06] MEDS: LACTOBACILLUS Acidoph/Bulgar (LACTINEX/FLORANEX) TAB PO SCH ×3 (06:29→18:00)
[2017-10-06] MEDS: KCL 20 MEQ TAB (K-DUR) PO SCH ×2 (06:29→18:00)
[2017-10-06] MEDS: ACETAMINOPHEN 325 MG TABLET/CAPLET (TYLENOL) PO PRN (06:30)
[2017-10-06 06:34] LABS: BASOPHILS % (AUTO) 0 % (0-10); EOSINOPHILS # (AUTO) 0.1 10^3/uL (0.0-0.3); EOSINOPHILS % (AUTO) 1 % (0-10); HEMATOCRIT 33 % (35-52); HEMOGLOBIN 10.9 G/DL (11.5-16.0); LYMPHOCYTES # (AUTO) 1.1 X 10^3 (1.0-4.0); LYMPHOCYTES % (AUTO) 15 % (12-44); MEAN CORPUSCULAR HEMOGLOBIN 29 PG (25-34); MEAN CORPUSCULAR HGB CONC 33 G/DL (32-36); MEAN CORPUSCULAR VOLUME 88 FL (80-99); MEAN PLATELET VOLUME 8.5 FL (7.4-10.4); MONOCYTES # (AUTO) 0.6 X 10^3 (0.0-1.0); MONOCYTES % (AUTO) 8 % (0-12); NEUTROPHILS # (AUTO) 5.7 X 10^3 (1.8-7.8); NEUTROPHILS % (AUTO) 75 % (42-75); PLATELET COUNT 295 10^3/uL (130-400); RED BLOOD COUNT 3.75 10^6/uL (4.35-5.85); RED CELL DISTRIBUTION WIDTH 15.1 % (10.0-14.5); WHITE BLOOD COUNT 7.6 10^3/uL (4.3-11.0)
[2017-10-06 06:52] LABS: ALANINE AMINOTRANSFERASE 18 U/L (0-55); ALBUMIN 3.2 GM/DL (3.2-4.5); ALKALINE PHOSPHATASE 103 U/L (40-136); BILIRUBIN,TOTAL 0.4 MG/DL (0.1-1.0); BUN/CREATININE RATIO 12; CALCIUM 8.9 MG/DL (8.5-10.1); CARBON DIOXIDE 31 MMOL/L (21-32); CHLORIDE 100 MMOL/L (98-107); CREATININE SERUM 0.59 MG/DL (0.60-1.30); GFR ESTIMATED > 60; GLUCOSE 107 MG/DL (70-105); POTASSIUM 3.5 MMOL/L (3.6-5.0); SODIUM 141 MMOL/L (135-145); TOTAL PROTEIN 5.5 GM/DL (6.4-8.2)
[2017-10-06] MEDS ORDERED: KCL 10 MEQ TAB (MICRO K) PO NR (08:00)
--- NOTE | 2017-10-06 08:06 | Progress Note (SOAP) ---
Subjective Time Seen by Provider: 07:55 Subjective/Events-last exam Patient has neck pain. Pneumonia bilateral. Chest x-ray yesterday shows slight improvement. Patient has redness on right shoulder. Neck pain started last night Objective Exam Vital Signs Date Time Temp Pulse Resp B/P (MAP) Pulse Ox O2 Delivery O2 Flow Rate FiO2 10/06/17 04:08 98.0 97 17 135/64 (87) 98 Nasal Cannula 2.00 10/06/17 02:48 93 Nasal Cannula 2.00 10/06/17 00:15 99.8 105 20 144/67 (92) 95 Nasal Cannula 2.00 10/05/17 23:34 92 Nasal Cannula 2.00 10/05/17 21:00 Nasal Cannula 2.00 10/05/17 20:24 95 Nasal Cannula 2.00 10/05/17 20:00 99.7 103 20 114/66 (82) 95 Nasal Cannula 2.00 10/05/17 16:30 99.6 102 20 144/62 (89) 92 Nasal Cannula 2.00 10/05/17 15:02 91 Nasal Cannula 2.00 10/05/17 12:30 99.6 99 18 130/63 (85) 94 Nasal Cannula 2.00 10/05/17 09:43 93 Nasal Cannula 2.00 10/05/17 09:00 Nasal Cannula 2.00 10/05/17 08:30 98.4 107 22 134/61 (85) 91 Nasal Cannula 2.00 I & O 10/06/17 06:59 Intake Total 2990 ml Balance 2990 ml Capillary Refill : Less Than 3 SecondsLess Than 3 Seconds General Appearance: No Apparent Distress, Thin HEENT: Normal ENT Inspection Neck: Limited Range of Motion, Other (Hurts on the left side of cervical) Respiratory: No Accessory Muscle Use, No Respiratory Distress, Decreased Breath Sounds, Other (Congestion with coughing) Cardiovascular: Regular Rate, Rhythm Gastrointestinal: non tender, soft Results Lab Laboratory Tests 10/06/17 06:25: White Blood Count 7.6, Red Blood Count 3.75L, Hemoglobin 10.9L, Hematocrit 33L, Mean Corpuscular Volume 88, Mean Corpuscular Hemoglobin 29, Mean Corpuscular Hemoglobin Concent 33, Red Cell Distribution Width 15.1H, Platelet Count 295, Mean Platelet Volume 8.5, Neutrophils (%) (Auto) 75, Lymphocytes (%) (Auto) 15, Monocytes (%) (Auto) 8, Eosinophils (%) (Auto) 1, Basophils (%) (Auto) 0, Neutrophils # (Auto) 5.7, Lymphocytes # (Auto) 1.1, Monocytes # (Auto) 0.6, Eosinophils # (Auto) 0.1, Basophils # (Auto) 0.0, Sodium Level 141, Potassium Level 3.5L, Chloride Level 100, Carbon Dioxide Level 31, Anion Gap 10, Blood Urea Nitrogen 7, Creatinine 0.59L, Estimat Glomerular Filtration Rate > 60, BUN/ Creatinine Ratio 12, Glucose Level 107H, Calcium Level 8.9, Total Bilirubin 0.4 , Aspartate Amino Transf (AST/SGOT) 24, Alanine Aminotransferase (ALT/SGPT) 18, Alkaline Phosphatase 103, Total Protein 5.5L, Albumin 3.2 Microbiology 10/01/17 Blood Culture - Preliminary, Resulted No growth Assessment/Plan Assessment/Plan Assess & Plan/Chief Complaint Bilateral pneumonia. Vomiting. . 10/03/17.. Bilateral pneumonia. Nauseous. Headache. Patient still not feeling well. . . Bilateral pneumonia. Neck pain. Dermatitis in right shoulder Clinical Quality Measures Admission Status Admission Dx Bilateral pneumonia. Febrile. Vomiting DVT/VTE Risk/Contraindication: Risk Factor Score Per Nursin RFS Level Per Nursing on Admit: 3=High AALIYAH CHILDS DO Oct 06, 2017 08:06
--- NOTE | 2017-10-06 08:06 | Diagnostic Imaging Report ---
INDICATION: Rales. Pneumonia. COMPARISON: 10/05/2017 FINDINGS: Frontal and lateral radiographic views of the chest were obtained and again demonstrate bilateral patchy and confluent infiltrates greatest within the left perihilar and right upper lobes. Overall, aeration is stable. There is no large effusion or pneumothorax. Cardiac silhouette and pulmonary vasculature stable as well. Bony structures are unchanged. IMPRESSION: 1. Stable exam of the chest showing moderate bilateral infiltrates as described above. Dictated by: Dictated on workstation # [id number]
--- NOTE | 2017-10-06 08:21 | Pulmonary Consultation ---
History of Present Illness History of Present Illness Date of Consultation 10/06/17 08:16 Time Seen by Provider: 08:16 Date of Admission History of Present Illness 87yo presented to ED secondary to nonproductive cough and worsening SOB. She was also running a fever of 102.5. Onset was about 3 days ago. Temp of 102.5. Strong nonproductive cough. SHe has had similar episodes in the past. Allergies and Home Medications Allergies Coded Allergies: lansoprazole (Verified Allergy, Intermediate, HIVES, 05/31/12) Home Medications Albuterol Sulfate 1 Puff Puff, 2 PUFF IH TID, (Reported) 1 PUFF = 90 MCG Azithromycin 250 Mg Tablet, 250 MG PO UD, (Reported) FILLED 18 TAKE 2 TABLETS ON DAY ONE THEN TAKE 1 TABLET DAILY FOR FOUR MORE DAYS Dicyclomine HCl 10 Mg Capsule, 10 MG PO DAILY, (Reported) Gabapentin 300 Mg Capsule, 300 MG PO HS, (Reported) Hydrocodone Bit/Acetaminophen 1 Ea Tablet, 1 TAB PO TID PRN for PAIN-MODERATE, ( Reported) Promethazine HCl/Codeine 118 Ml Syrup, 10 ML PO TID PRN for COUGH, (Reported) FILLED 18 Ropinirole HCl 4 Mg Tablet, 4 MG PO HS, (Reported) [Curamed] , 1 CAP PO BID, (Reported) Past Cmnatev-Wdgyhn-Seaynu Hx Patient Social History Alcohol Use: Denies Use Recreational Drug Use: No Smoking Status: Never a Smoker Recent Foreign Travel: No Contact w/Someone Who Travel: No Recent Infectious Disease Expo: No Recent Hopitalizations: No Immunizations Up To Date Tetanus Booster (TDap): Less than 5yrs Date of Pneumonia Vaccine: May 30, 2016 Date of Influenza Vaccine: Apr 02, 2017 Seasonal Allergies Seasonal Allergies: No Past Medical History Surgeries: Yes (BACK X'3, BI LAT SHOULDER, BI LAT KNEE SCOPES) Appendectomy, Orthopedic Respiratory: No Pneumonia Cardiac: No Neurological: Yes (RESTLESS LEG SYNDROME) : No 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 Genitourinary: No Gastrointestinal: Yes (DIVERTICULITIS) Diverticulosis Musculoskeletal: No Chronic Back Pain Endocrine: No HEENT: No Cancer: Yes (PRE-CANCEROUS BREAST BIOPSIES) Psychosocial: No Integumentary: No Blood Disorders: No Family Medical History No Pertinent Family Hx Review of Systems Time Seen by Provider: 06:38 Exam Exam Vital Signs Date Time Temp Pulse Resp B/P (MAP) Pulse Ox O2 Delivery O2 Flow Rate FiO2 10/06/17 04:08 98.0 97 17 135/64 (87) 98 Nasal Cannula 2.00 10/06/17 02:48 93 Nasal Cannula 2.00 10/06/17 00:15 99.8 105 20 144/67 (92) 95 Nasal Cannula 2.00 10/05/17 23:34 92 Nasal Cannula 2.00 10/05/17 21:00 Nasal Cannula 2.00 10/05/17 20:24 95 Nasal Cannula 2.00 10/05/17 20:00 99.7 103 20 114/66 (82) 95 Nasal Cannula 2.00 10/05/17 16:30 99.6 102 20 144/62 (89) 92 Nasal Cannula 2.00 10/05/17 15:02 91 Nasal Cannula 2.00 10/05/17 12:30 99.6 99 18 130/63 (85) 94 Nasal Cannula 2.00 10/05/17 09:43 93 Nasal Cannula 2.00 10/05/17 09:00 Nasal Cannula 2.00 10/05/17 08:30 98.4 107 22 134/61 (85) 91 Nasal Cannula 2.00 I & O 10/06/17 07:00 Intake Total 2990 ml Balance 2990 ml General Appearance: No Apparent Distress, Thin HEENT: Normal ENT Inspection Neck: Limited Range of Motion, Other (Hurts on the left side of cervical) Respiratory: No Accessory Muscle Use, No Respiratory Distress, Decreased Breath Sounds, Other (Congestion with coughing) Cardiovascular: Regular Rate, Rhythm Capillary Refill: Less Than 3 Seconds Gastrointestinal: non tender, soft Extremity: Normal Capillary Refill, Normal Inspection, Normal Range of Motion, Non Tender, No Calf Tenderness Neurologic/Psychiatric: Alert, Oriented x3, No Motor/Sensory Deficits, Normal 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
[2017-10-06] MEDS: cefTRIAXone 1 GM/NS 100 ML IVPB IV SCH ×2 (08:59)
--- NOTE | 2017-10-06 09:26 | Diagnostic Imaging Report ---
INDICATION: Status post fall downstairs 6 months ago with concussion. Recent episode of neck hurting when turning. TECHNIQUE: AP, lateral, and odontoid views of the cervical spine were performed. CORRELATION STUDY: Portions of the CT cervical spine dated 08/05/2017. FINDINGS: There is approximately 4 mm of anterolisthesis of C2 on C3. There is 5 mm of anterolisthesis of C7 on T1. The vertebral body heights overall are fairly well maintained. There is marked disc space narrowing at the C4-C5, C5-C6, and C6-C7 levels. There is moderate narrowing of C7 on T1. Endplate osteophyte formation and sclerosis are present. There is otherwise generalized bony demineralization. There are asymmetric areas of hypertrophic facet arthropathy. There is significant narrowing of the facet joints, particularly at the C2-C3 level which may be at least partially fused. There is additional marked narrowing of the facets at the C4-C5 and C5-C6 levels. The odontoid appears to be intact and the lateral masses of C1 and C2 are aligned. The prevertebral soft tissues appear unremarkable. IMPRESSION: There is rather markedly advanced multilevel cervical spondylosis as well as marked disc space narrowing, endplate sclerosis, and osteophyte formation. There is also rather pronounced hypertrophic facet arthropathy. Dictated by: Dictated on workstation # [id number]
[2017-10-06] MEDS: ENOXAPARIN 30 MG/0.3 ML (LOVENOX) SYR SC SCH (18:00)
[2017-10-06] MEDS: rOPINIRole 1 MG (REQUIP) TABLET PO SCH (20:55)
[2017-10-07] VITALS: BP 146/80
[2017-10-07] MEDS: NS IV 1000 ML 1,000 ML IV SCH (01:31)
[2017-10-07] MEDS: RT-ALBUTEROL/IPRATROPIUM 3 ML (DUONEB) VIAL INH SCH ×4 (03:19→21:30)
[2017-10-07 04:00] VITALS: BP 147/85
--- NOTE | 2017-10-07 05:06 | Pulmonary Progress Note ---
Subjective Time Seen by Provider: 05:07 Subjective/Events-last exam No complications noted. Pt currently sleeping. Exam Exam Vital Signs Date Time Temp Pulse Resp B/P (MAP) Pulse Ox O2 Delivery O2 Flow Rate FiO2 10/07/17 04:00 99.1 101 21 147/85 (105) 95 Nasal Cannula 2.00 10/07/17 03:19 91 Nasal Cannula 2.00 10/07/17 00:00 97.2 99 18 146/80 (102) 96 Nasal Cannula 2.00 10/06/17 21:15 94 Nasal Cannula 2.00 10/06/17 21:00 Nasal Cannula 2.00 10/06/17 20:00 99.5 104 18 129/75 (93) 96 Nasal Cannula 2.00 10/06/17 16:00 98.1 98 18 127/75 (92) 94 Nasal Cannula 2.00 10/06/17 15:23 94 Nasal Cannula 2.00 10/06/17 12:30 98.6 105 18 128/82 (97) 91 Nasal Cannula 2.00 10/06/17 09:57 93 Nasal Cannula 2.00 10/06/17 09:00 Nasal Cannula 2.00 10/06/17 08:30 96.8 74 18 129/68 (88) 95 Nasal Cannula 2.00 I & O 10/07/17 07:00 Intake Total 1380 ml Balance 1380 ml General Appearance: No Apparent Distress, Thin HEENT: Normal ENT Inspection Neck: Limited Range of Motion, Other (Hurts on the left side of cervical) Respiratory: No Accessory Muscle Use, No Respiratory Distress, Decreased Breath Sounds, Other (Congestion with coughing) Cardiovascular: Regular Rate, Rhythm Capillary Refill: Less Than 3 Seconds Gastrointestinal: non tender, soft Extremity: Normal Capillary Refill, Normal Inspection, Normal Range of Motion, Non Tender, No Calf Tenderness Neurologic/Psychiatric: Alert, Oriented x3, No Motor/Sensory Deficits, Normal Mood/Affect, broke beater II-XII Norm as Tested Skin: Normal Color, Warm/Dry Lymphatic: No Adenopathy Results Lab Laboratory Tests 10/05/17 05:57 10/06/17 06:25 Assessment/Plan Assessment/Plan Bilateral pneumonia - resolving -Currently on Rocephin - change to omnicef x 5more days then d/C -Brooks cultures -IS, SVNS, oxygen -Hep lock IVF and give lasix x 1 will give 60meq of Kdur in addition to already rx 20meq of KCL 232 ANDREW LAI DO Oct 07, 2017 05:06
[2017-10-07] MEDS ORDERED: FUROSEMIDE 40 MG/4 ML INJ (LASIX) IVP ONE (05:15)
[2017-10-07] MEDS ORDERED: KCL 20 MEQ TAB (K-DUR) PO ONE (05:15)
[2017-10-07] MEDS: LACTOBACILLUS Acidoph/Bulgar (LACTINEX/FLORANEX) TAB PO SCH ×3 (06:12→15:51)
[2017-10-07] MEDS: KCL 20 MEQ TAB (K-DUR) PO SCH ×2 (06:12→17:10)
[2017-10-07 06:34] LABS: BASOPHILS % (AUTO) 0 % (0-10); EOSINOPHILS # (AUTO) 0.3 10^3/uL (0.0-0.3); EOSINOPHILS % (AUTO) 4 % (0-10); HEMATOCRIT 33 % (35-52); HEMOGLOBIN 10.8 G/DL (11.5-16.0); LYMPHOCYTES # (AUTO) 0.9 X 10^3 (1.0-4.0); LYMPHOCYTES % (AUTO) 15 % (12-44); MEAN CORPUSCULAR HEMOGLOBIN 29 PG (25-34); MEAN CORPUSCULAR HGB CONC 33 G/DL (32-36); MEAN CORPUSCULAR VOLUME 88 FL (80-99); MEAN PLATELET VOLUME 8.6 FL (7.4-10.4); MONOCYTES # (AUTO) 0.5 X 10^3 (0.0-1.0); MONOCYTES % (AUTO) 8 % (0-12); NEUTROPHILS # (AUTO) 4.3 X 10^3 (1.8-7.8); NEUTROPHILS % (AUTO) 72 % (42-75); PLATELET COUNT 350 10^3/uL (130-400); RED BLOOD COUNT 3.78 10^6/uL (4.35-5.85); RED CELL DISTRIBUTION WIDTH 15.3 % (10.0-14.5)
[2017-10-07 06:55] LABS: BUN/CREATININE RATIO 16; CALCIUM 8.6 MG/DL (8.5-10.1); CARBON DIOXIDE 31 MMOL/L (21-32); CHLORIDE 102 MMOL/L (98-107); CREATININE SERUM 0.51 MG/DL (0.60-1.30); GFR ESTIMATED > 60; GLUCOSE 100 MG/DL (70-105); POTASSIUM 3.8 MMOL/L (3.6-5.0); SODIUM 141 MMOL/L (135-145)
--- NOTE | 2017-10-07 07:53 | Progress Note (SOAP) ---
Subjective Time Seen by Provider: 07:50 Subjective/Events-last exam Patient feeling better today and breathing better. Patient next still has some problems Objective Exam Vital Signs Date Time Temp Pulse Resp B/P (MAP) Pulse Ox O2 Delivery O2 Flow Rate FiO2 10/07/17 04:00 99.1 101 21 147/85 (105) 95 Nasal Cannula 2.00 10/07/17 03:19 91 Nasal Cannula 2.00 10/07/17 00:00 97.2 99 18 146/80 (102) 96 Nasal Cannula 2.00 10/06/17 21:15 94 Nasal Cannula 2.00 10/06/17 21:00 Nasal Cannula 2.00 10/06/17 20:00 99.5 104 18 129/75 (93) 96 Nasal Cannula 2.00 10/06/17 16:00 98.1 98 18 127/75 (92) 94 Nasal Cannula 2.00 10/06/17 15:23 94 Nasal Cannula 2.00 10/06/17 12:30 98.6 105 18 128/82 (97) 91 Nasal Cannula 2.00 10/06/17 09:57 93 Nasal Cannula 2.00 10/06/17 09:00 Nasal Cannula 2.00 10/06/17 08:30 96.8 74 18 129/68 (88) 95 Nasal Cannula 2.00 I & O 10/07/17 06:59 Intake Total 1980 ml Balance 1980 ml Capillary Refill : Less Than 3 SecondsLess Than 3 Seconds General Appearance: No Apparent Distress, Thin HEENT: Normal ENT Inspection Neck: Normal Inspection Respiratory: Normal Breath Sounds, No Accessory Muscle Use, No Respiratory Distress Cardiovascular: Regular Rate, Rhythm, No Murmur Gastrointestinal: non tender, soft Results Lab Laboratory Tests 10/07/17 06:13 Laboratory Tests 10/07/17 06:13: White Blood Count 6.0, Red Blood Count 3.78L, Hemoglobin 10.8L, Hematocrit 33L, Mean Corpuscular Volume 88, Mean Corpuscular Hemoglobin 29, Mean Corpuscular Hemoglobin Concent 33, Red Cell Distribution Width 15.3H, Platelet Count 350, Mean Platelet Volume 8.6, Neutrophils (%) (Auto) 72, Lymphocytes (%) (Auto) 15, Monocytes (%) (Auto) 8, Eosinophils (%) (Auto) 4, Basophils (%) (Auto) 0, Neutrophils # (Auto) 4.3, Lymphocytes # (Auto) 0.9L, Monocytes # (Auto) 0.5, Eosinophils # (Auto) 0.3, Basophils # (Auto) 0.0, Sodium Level 141, Potassium Level 3.8, Chloride Level 102, Carbon Dioxide Level 31, Anion Gap 8, Blood Urea Nitrogen 8, Creatinine 0.51L, Estimat Glomerular Filtration Rate > 60, BUN/ Creatinine Ratio 16, Glucose Level 100, Calcium Level 8.6 Microbiology 10/01/17 Blood Culture - Preliminary, Resulted No growth Assessment/Plan Assessment/Plan Assess & Plan/Chief Complaint Bilateral pneumonia. Vomiting. . 10/03/17.. Bilateral pneumonia. Nauseous. Headache. Patient still not feeling well. . . Bilateral pneumonia. Neck pain. Dermatitis in right shoulder. . 10/07 square-shaped pain. Bilateral pneumonia. Patient breathing better. Patient feeling better. Vomiting resolved Clinical Quality Measures Admission Status Admission Dx Bilateral pneumonia. Febrile. Vomiting DVT/VTE Risk/Contraindication: Risk Factor Score Per Nursin RFS Level Per Nursing on Admit: 3=High AALIYAH CHILDS DO Oct 07, 2017 07:53
[2017-10-07 08:00] VITALS: BP 137/71
[2017-10-07] MEDS: CEFDINIR 300 MG (OMNICEF) CAP PO SCH ×2 (09:11→20:26)
[2017-10-07 09:41] VITALS: BP 147/85
[2017-10-07] MEDS: HYDROcodone/APAP 7.5 MG/325 MG (LORTAB, LORCET PLUS) TABLET PO PRN ×2 (15:48→20:25)
[2017-10-07 16:00] VITALS: BP 120/63
[2017-10-07] MEDS: ENOXAPARIN 30 MG/0.3 ML (LOVENOX) SYR SC SCH (18:19)
[2017-10-07 19:29] VITALS: BP 107/73
[2017-10-07] MEDS: rOPINIRole 1 MG (REQUIP) TABLET PO SCH (20:26)
[2017-10-08] VITALS: BP 95/56
[2017-10-08] MEDS: RT-ALBUTEROL/IPRATROPIUM 3 ML (DUONEB) VIAL INH SCH ×2 (02:28→07:19)
--- NOTE | 2017-10-08 05:20 | Pulmonary Progress Note ---
Subjective Time Seen by Provider: 05:18 Subjective/Events-last exam Pt is doing much better. Exam Exam Vital Signs Date Time Temp Pulse Resp B/P (MAP) Pulse Ox O2 Delivery O2 Flow Rate FiO2 10/08/17 01:37 88 Nasal Cannula 2.00 10/08/17 00:00 98.3 89 18 95/56 (69) 94 Nasal Cannula 2.00 10/07/17 21:30 91 Nasal Cannula 2.00 10/07/17 21:00 95 Nasal Cannula 2.00 10/07/17 19:29 98.2 102 16 107/73 (84) 95 Nasal Cannula 2.00 10/07/17 16:00 98.5 88 18 120/63 (82) 93 Nasal Cannula 2.00 10/07/17 15:54 91 Nasal Cannula 2.00 10/07/17 11:44 99.0 10/07/17 09:41 88 93 28 10/07/17 09:36 93 Nasal Cannula 2.00 10/07/17 08:00 95 Nasal Cannula 2.00 10/07/17 08:00 97.4 95 16 137/71 (93) 92 Nasal Cannula 2.00 I & O 10/08/17 07:00 Intake Total 1787 ml Balance 1787 ml General Appearance: No Apparent Distress, Thin HEENT: Normal ENT Inspection Neck: Normal Inspection Respiratory: Normal Breath Sounds, No Accessory Muscle Use, No Respiratory Distress Cardiovascular: Regular Rate, Rhythm, No Murmur Capillary Refill: Less Than 3 Seconds Gastrointestinal: non tender, soft Extremity: Normal Capillary Refill, Normal Inspection, Normal Range of Motion, Non Tender, No Calf Tenderness Neurologic/Psychiatric: Alert, Oriented x3, No Motor/Sensory Deficits, Normal Mood/Affect, lead tank 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 232 ANDREW LAI DO Oct 08, 2017 05:20
[2017-10-08] MEDS: KCL 20 MEQ TAB (K-DUR) PO SCH (06:08)
[2017-10-08] MEDS: LACTOBACILLUS Acidoph/Bulgar (LACTINEX/FLORANEX) TAB PO SCH ×2 (06:08→12:09)
[2017-10-08 06:20] LABS: BASOPHILS % (AUTO) 0 % (0-10); EOSINOPHILS # (AUTO) 0.3 10^3/uL (0.0-0.3); EOSINOPHILS % (AUTO) 6 % (0-10); HEMATOCRIT 35 % (35-52); HEMOGLOBIN 11.2 G/DL (11.5-16.0); LYMPHOCYTES # (AUTO) 1.2 X 10^3 (1.0-4.0); LYMPHOCYTES % (AUTO) 20 % (12-44); MEAN CORPUSCULAR HEMOGLOBIN 28 PG (25-34); MEAN CORPUSCULAR HGB CONC 32 G/DL (32-36); MEAN CORPUSCULAR VOLUME 86 FL (80-99); MEAN PLATELET VOLUME 8.4 FL (7.4-10.4); MONOCYTES # (AUTO) 0.5 X 10^3 (0.0-1.0); MONOCYTES % (AUTO) 9 % (0-12); NEUTROPHILS # (AUTO) 3.8 X 10^3 (1.8-7.8); NEUTROPHILS % (AUTO) 65 % (42-75); PLATELET COUNT 416 10^3/uL (130-400); RED BLOOD COUNT 4.05 10^6/uL (4.35-5.85); RED CELL DISTRIBUTION WIDTH 15.2 % (10.0-14.5); WHITE BLOOD COUNT 5.8 10^3/uL (4.3-11.0)
[2017-10-08 06:41] LABS: BUN/CREATININE RATIO 30; CALCIUM 8.9 MG/DL (8.5-10.1); CARBON DIOXIDE 29 MMOL/L (21-32); CHLORIDE 102 MMOL/L (98-107); GFR ESTIMATED > 60; GLUCOSE 101 MG/DL (70-105); SODIUM 141 MMOL/L (135-145)
--- NOTE | 2017-10-08 07:49 | Progress Note (SOAP) ---
Subjective Time Seen by Provider: 07:45 Subjective/Events-last exam Patient feeling better today. Patient getting around. Patient will have physical therapy this morning to see had that she gets around. Patient breathing better. Waiting for chest x-ray report. Patient may be discharged today depending upon physical therapy and chest x-ray Objective Exam Vital Signs Date Time Temp Pulse Resp B/P (MAP) Pulse Ox O2 Delivery O2 Flow Rate FiO2 10/08/17 07:22 94 Nasal Cannula 2.00 10/08/17 01:37 88 Nasal Cannula 2.00 10/08/17 00:00 98.3 89 18 95/56 (69) 94 Nasal Cannula 2.00 10/07/17 21:30 91 Nasal Cannula 2.00 10/07/17 21:00 95 Nasal Cannula 2.00 10/07/17 19:29 98.2 102 16 107/73 (84) 95 Nasal Cannula 2.00 10/07/17 16:00 98.5 88 18 120/63 (82) 93 Nasal Cannula 2.00 10/07/17 15:54 91 Nasal Cannula 2.00 10/07/17 11:44 99.0 10/07/17 09:41 88 93 28 10/07/17 09:36 93 Nasal Cannula 2.00 10/07/17 08:00 95 Nasal Cannula 2.00 10/07/17 08:00 97.4 95 16 137/71 (93) 92 Nasal Cannula 2.00 I & O 10/08/17 07:00 Intake Total 2087 ml Balance 2087 ml Capillary Refill : Less Than 3 SecondsLess Than 3 Seconds General Appearance: No Apparent Distress, Thin HEENT: Normal ENT Inspection Neck: Normal Inspection Respiratory: No Accessory Muscle Use, No Respiratory Distress, Other (Lungs are clear) Cardiovascular: No Murmur Results Lab Laboratory Tests 10/08/17 06:08 Laboratory Tests 10/08/17 06:08: White Blood Count 5.8, Red Blood Count 4.05L, Hemoglobin 11.2L, Hematocrit 35, Mean Corpuscular Volume 86, Mean Corpuscular Hemoglobin 28, Mean Corpuscular Hemoglobin Concent 32, Red Cell Distribution Width 15.2H, Platelet Count 416H, Mean Platelet Volume 8.4, Neutrophils (%) (Auto) 65, Lymphocytes (%) (Auto) 20, Monocytes (%) (Auto) 9, Eosinophils (%) (Auto) 6, Basophils (%) (Auto) 0, Neutrophils # (Auto) 3.8, Lymphocytes # (Auto) 1.2, Monocytes # (Auto) 0.5, Eosinophils # (Auto) 0.3, Basophils # (Auto) 0.0, Sodium Level 141, Potassium Level 4.0, Chloride Level 102, Carbon Dioxide Level 29, Anion Gap 10, Blood Urea Nitrogen 18, Creatinine 0.60, Estimat Glomerular Filtration Rate > 60, BUN/ Creatinine Ratio 30, Glucose Level 101, Calcium Level 8.9 Microbiology 10/01/17 Blood Culture - Final, Complete No growth Assessment/Plan Assessment/Plan Assess & Plan/Chief Complaint Bilateral pneumonia. Vomiting. . 10/03/17.. Bilateral pneumonia. Nauseous. Headache. Patient still not feeling well. . . Bilateral pneumonia. Neck pain. Dermatitis in right shoulder. . 10/07 square-shaped pain. Bilateral pneumonia. Patient breathing better. Patient feeling better. Vomiting resolved. . 10/08/17. Bilateral pneumonia. Patient breathing better. Patient getting around better. To see if can get patient off oxygen today Clinical Quality Measures Admission Status Admission Dx Bilateral pneumonia. Febrile. Vomiting DVT/VTE Risk/Contraindication: Risk Factor Score Per Nursin RFS Level Per Nursing on Admit: 3=High AALIYAH CHILDS DO Oct 08, 2017 07:49
--- NOTE | 2017-10-08 07:53 | Diagnostic Imaging Report ---
INDICATION: Pneumonia. TECHNIQUE: 2 views of the chest. COMPARISON: 10/07/2017 FINDINGS: Patchy airspace opacities are seen in the lungs bilaterally, right greater than left, particularly in the right upper lobe. These appear mildly improved compared to the prior study. The cardiomediastinal silhouette appears normal in size and contour. No significant pleural effusion or pneumothorax is seen. Postsurgical changes are seen in the right humeral head and in the lumbar spine. There is diffuse osteopenia. IMPRESSION: 1. Mildly improved patchy airspace opacities in the lungs bilaterally, right greater than left. This is consistent with a history of pneumonia. Dictated by: Dictated on workstation # [id number]
[2017-10-08 08:00] VITALS: BP 126/77
[2017-10-08] MEDS: CEFDINIR 300 MG (OMNICEF) CAP PO SCH (08:35)
--- NOTE | 2017-10-08 11:58 | Physical Therapy Evaluation ---
PT Evaluation-General Medical Diagnosis Admission Date Oct 01, 2017 at 13:57 Medical Diagnosis: pneumonia Onset Date: Oct 01, 2017 Therapy Diagnosis Therapy Diagnosis: impaired mobility, endurance, strength Height/Weight Height (Feet): 5 Height (Inches): 0.00 Weight (Pounds): 110 Weight (Ounces): 0.0 Precautions Precautions/Isolations: Fall Prevention, Standard Precautions Weight Bear Status Right Lower Extremity: Right Full Weight Bearing Left Lower Extremity: Left Full Weight Bearing Referral Physician: Jax Curry DO Reason for Referral: Evaluation/Treatment Medical History Additional Medical History RLS, hysterectomy, diverticulosis, chronic back pain, breast biopsies, surg ( back, shoulder, knee) Current History Patient came to the ER with coughing and increased temp, had bilateral pneumonia Reviewed History: Yes Social History Home: Single Level Current Living Status: Alone Entry Into Home: Level Entry Patient is but her is in a usp. She states she does have workers come to her house to help. Prior/Core FIM Prior Level of Function Functional [place] Measure 0=Not Assessed/NA 4=Minimal Assistance 1=Total Assistance 5=Supervision or Setup 2=Maximal Assistance 6=Modified [place] 3=Moderate Assistance 7=Complete [place] Bed Mobility: 7 Transfers (B,C,W/C) (FIM): 7 Gait: 7 PT Evaluation-Current Subjective Patient in recliner pre tx, agrees to PT, no complaints of pain. Patient states that she needs to use the restroom and she does with SBA. Pt/Family Goals "to get stronger and go home" Objective Patient Orientation: Person, Place, Situation ROM/Strength ROM Lower Extremities WNL Strength Lower Extremities 4/5 gross bilateral lower extremities Neuromuscular (Tone, Coordination, Reflexes) NT Sensory Vision: Functional Hearing: Functional Sensation Right Lower Extremit: Intact Sensation Left Lower Extremity: Intact Transfers Functional [place] Measure 0=Not Assessed/NA 4=Minimal Assistance 1=Total Assistance 5=Supervision or Setup 2=Maximal Assistance 6=Modified [place] 3=Moderate Assistance 7=Complete [place] Transfers (B, C, W/C) (FIM): 5 Sit to/from Stand: 5 Gait Mode of Locomotion: Walk Anticipated Mode of Locomotion: Walk Gait (FIM): 5 Distance: 200' Gait Level of Assist: 5 Gait Persons Needed: 1 Gait Assistive Device: FWW Comments/Gait Description No SOB, no LOB or unsteadiness. Balance Sitting Static: Normal Sitting Dynamic: Normal Standing Static: Normal Standing Dynamic: Normal Assessment/Needs Patient has impaired endurance but no LOB or SOB during ambulation. Rehab Potential: Fair PT Short Term Goals Short Term Goals Time Frame: Oct 15, 2017 Transfers (B,C,W/C) (FIM): 7 Gait (FIM): 6 Gait Distance Comment: 300' Gait Assistive Device: FWW PT Plan Problem List Problem List: Activity Tolerance, Functional Strength, Safety, Balance, Gait, Transfer Treatment/Plan Treatment Plan: Continue Plan of Care Treatment Plan: Education, Functional Activity Janene, Functional Strength, Gait , Safety, Therapeutic Exercise, Transfers Treatment Duration: Oct 15, 2017 Frequency: 6 times per week Estimated Hrs Per Day: .25 hour per day (15-30') Patient and/or Family Agrees t: Yes Safety Risks/Education Patient Education: Gait Training, Transfer Techniques, Correct Positioning, Safety Issues Teaching Recipient: Patient Teaching Methods: Demonstration, Discussion Response to Teaching: Reinforcement Needed Discharge Recommendations Plan Patient will perform bed mobility and transfer training, balance and endurance training, functional strengthening, stair training, gait training, and education , to improve functional mobility and independence at home. Therapy D/C Recommendations: Home w/ Family Support Time/GCodes Time In: 1120 Time Out: 1137 Total Billed Treatment Time: 17 Total Billed Treatment 1 visit KALEB 17' ZAKI FLORES PT Oct 08, 2017 11:58
[2017-10-09] MEDS ORDERED: CEFD300C3 PO (12:28)
== END 2017-10-08 12:44 | disposition swing bed (61) | DRG 195 ==
LOC: EDUNIT# 11:50 → ER 11:52 → 4TH 13:57
PROVIDERS: ADMIT Family Medicine; ATTEND Family Medicine
DX: J18.9 Pneumonia, unspecified organism (principal); R11.10 Vomiting, unspecified; G25.81 Restless legs syndrome; R51 Headache; K30 Functional dyspepsia; E87.6 Hypokalemia; M54.2 Cervicalgia; L30.9 Dermatitis, unspecified; K57.90 Diverticulosis of intestine, part unspecified, without perforation or abscess without bleeding
CPT/HCPCS: 36415; 71045; 71046; 72040; 80048; 80053; 81000; 83605; 83880; 85025; 85027; 85610; 85730; 87040; 94640; 94664; 94760; 94761; 96365

== ENCOUNTER 2017-10-06 15:20 | Inpatient (IN) | payer MEDICARE ==
[~2017-10-06] VITALS: Ht 152.4 cm; Wt 49.9 kg
[~2017-10-06 15:20] MED LIST changes: +AZIT250T12 PO; +CODE118S2 PO; +DICY10CA12 PO; +GABA-488 PO; +HYDR-34 PO; +RT-ALBUINH IH
--- NOTE | 2017-10-07 08:12 | Diagnostic Imaging Report ---
INDICATION: Pulmonary rales. COMPARISON: 10/06/2017. FINDINGS: Stable right upper lobe and right basilar consolidations. Left perihilar opacities are similar. No pleural effusion or pneumothorax. Stable cardiomediastinal silhouette. IMPRESSION: No change in multifocal pneumonia, greatest in the right upper lobe. Dictated by: Dictated on workstation # [id number]
[2017-10-08] MEDS ORDERED: ACETAMINOPHEN 325 MG TABLET/CAPLET (TYLENOL) PO PRN (12:45)
[2017-10-08] MEDS ORDERED: PROMETHAZINE/ CODEINE SYRUP 5 ML UDC PO PRN (12:45)
[2017-10-08] MEDS ORDERED: RT-ALBUTEROL/IPRATROPIUM 3 ML (DUONEB) VIAL INH PRN (12:45)
[2017-10-08] MEDS ORDERED: CALCIUM CARBONATE 500 MG (TUMS) TAB.CHEW PO PRN (12:45)
[2017-10-08] MEDS ORDERED: CATHETER FLUSH 10 ML SYR IV PRN (12:45)
[2017-10-08] MEDS ORDERED: HYDROcodone/APAP 7.5 MG/325 MG (LORTAB, LORCET PLUS) TABLET PO PRN (12:45)
[2017-10-08] MEDS ORDERED: ONDANSETRON 4 MG (ZOFRAN) ORAL DISSOLVE TAB PO PRN (12:45)
[2017-10-08] MEDS ORDERED: BENZONATATE 100 MG (TESSALON) CAPSULE PO PRN (12:45)
[2017-10-08] MEDS: RT-ALBUTEROL/IPRATROPIUM 3 ML (DUONEB) VIAL INH SCH ×2 (15:00→20:34)
--- NOTE | 2017-10-08 15:09 | Occupational Ther Daily Note ---
OT Current Status-Daily Note Mental Status/Objective Functional [place] Measure 0=Not Assessed/NA 4=Minimal Assistance 1=Total Assistance 5=Supervision or Setup 2=Maximal Assistance 6=Modified [place] 3=Moderate Assistance 7=Complete [place] ADL-Treatment Functional [place] Measure 0=Not Assessed/NA 4=Minimal Assistance 1=Total Assistance 5=Supervision or Setup 2=Maximal Assistance 6=Modified [place] 3=Moderate Assistance 7=Complete IndependenceIRFPAI Quality Coding Scale 6 Independent with activity with or without an assistive device 5 Patient requires set up or clean up by helper. Patient completes activity by themselves 4 Supervision or touching assist (CGA). [place] provide cues , steadying assist 3 The helper provides less than half the effort to complete the activity 2 The helper provides more than half the effort to complete the activity 1 Dependent. The helper does all the effort to complete an activity 7 Patient refused to complete or attempt activity 9 The patient did not perform the activity before the current illness or injury 88 Not attempted due to Medical conditions or safety concerns OT Short Term Goals Short Term Goals 1=Demonstrate adherence to instructed precautions during ADL tasks. 2=Patient will verbalize/demonstrate understanding of assistive devices/ modifications for ADL. 3=Patient will improve strength/tolerance for activity to enable patient to perform ADL's. OT Lamination Assembler Goals Lamination Assembler Goals 1=Demonstrate adherence to instructed precautions during ADL tasks. 2=Patient will verbalize/demonstrate understanding of assistive devices/ modifications for ADL. 3=Patient will improve strength/tolerance for activity to enable patient to perform ADL's. OT Education/Plan Treatment Plan/Plan of Care Patient would benefit from OT for education, treatment and training to promote independence in ADL's, mobility, safety and/or upper extremity function for ADL' s. PB MANNING OT Oct 08, 2017 15:09
--- NOTE | 2017-10-08 15:17 | Occupational Therapy Eval ---
OT Evaluation-General/PLF Medical Diagnosis Admission Date Oct 08, 2017 at 12:49 Medical Diagnosis: bilateral pneumonia Onset Date: Oct 01, 2017 Therapy Diagnosis Therapy Diagnosis: decreased self care skills Height/Weight Height (Feet): 5 Height (Inches): 0.00 Weight (Pounds): 110 Weight (Ounces): 0.0 Medical History Additional Medical History back surgery x3, bilateral shoulder surgery, bilateral knee scopes, hysterectomy Reviewed History: Yes Social History Home: Single Level Current Living Status: Alone Entry Into Home: Ramp ADL-Prior Level of Function ADL PLOF Comments Pt reports being independent with self care and mobility. Pt states she has assist at home 10-5 M-F for shellfish sorter. Does not use any assistive devices for mobility. DME/Equipment Comments walk in tub Drive Self: Yes OT Current Status Subjective Pt sitting in chair, agrees to therapy. Pt has no c/o pain, just states she is tired Mental Status/Objective Patient Orientation: Person, Place, Situation Current Glasses/Contacts: Yes (reading) Hearing Aids: Yes Dentures/Partials: No Hand Dominance: Right Upper Extremity ROM Grossly WFL Upper Extremity Coordination Intact Upper Extremity Sensation Intact per pt report ADL-Treatment ADL-Current Pt participated in UE assessment while seated in chair. Pt states she is able to feed herself independently, but hasn't had much of an appetite lately. Pt demonstrates ability to doff/don socks with SBA while seated in chair. Sit to stand with supervision. Gait to restroom with SBA. Pt demonstrates ability to perform toilet transfer with SBA using grab bars for safety. Return to chair with SBA. Pt sitting in chair with needs met and RT present after session. Functional [place] Measure 0=Not Assessed/NA 4=Minimal Assistance 1=Total Assistance 5=Supervision or Setup 2=Maximal Assistance 6=Modified [place] 3=Moderate Assistance 7=Complete IndependenceIRFPAI Quality Coding Scale 6 Independent with activity with or without an assistive device 5 Patient requires set up or clean up by helper. Patient completes activity by themselves 4 Supervision or touching assist (CGA). Twining provide cues , steadying assist 3 The helper provides less than half the effort to complete the activity 2 The helper provides more than half the effort to complete the activity 1 Dependent. The helper does all the effort to complete an activity 7 Patient refused to complete or attempt activity 9 The patient did not perform the activity before the current illness or injury 88 Not attempted due to Medical conditions or safety concerns Eating (FIM): 6 (by report) Eating (QC): 6 Lower Body Dressing (FIM): 5 (socks only) Toilet/Commode Transfer (FIM): 6 Toilet Transfer (QC): 6 Education OT Patient Education: Rehab process Teaching Recipient: Patient Teaching Methods: Discussion Response to Teaching: Verbalize Understanding OT Short Term Goals Short Term Goals 1=Demonstrate adherence to instructed precautions during ADL tasks. 2=Patient will verbalize/demonstrate understanding of assistive devices/ modifications for ADL. 3=Patient will improve strength/tolerance for activity to enable patient to perform ADL's. OT Fci Goals Fci Goals Time Frame: Oct 18, 2017 Eating (FIM): 6 Eating (QC): 6 Groomin Oral Hygiene (QC): 6 Bathing(FIM): 5 Upper Body Dressing(FIM): 6 Lower Body Dressing(FIM): 6 Toileting(FIM): 6 Toileting Hygiene (QC): 6 Toilet/Commode Transfer(FIM): 6 Toilet/Commode Transfer (QC): 6 Additional Goals: 2-Verbalize Understanding, 3-ImproveStrength/Janene 1=Demonstrate adherence to instructed precautions during ADL tasks. 2=Patient will verbalize/demonstrate understanding of assistive devices/ modifications for ADL. 3=Patient will improve strength/tolerance for activity to enable patient to perform ADL's. OT Education/Plan Problem List/Assessment Assessment: Decreased Activ Tolerance, Dependent Transfers, Impaired Self-Care Skills Pt admitted to [facility] following acute hospitalization for bilateral pneumonia. Pt to benefit from skilled OT intervention for ADL training, transfers, strengthening, and home safety education to increase level of independence and allow safe discharge home. Discharge Recommendations Plan/Recommendations: Continue POC Treatment Plan/Plan of Care Treatment,Training & Education: Yes Patient would benefit from OT for education, treatment and training to promote independence in ADL's, mobility, safety and/or upper extremity function for ADL' s. Plan of Care: ADL Retraining, Functional Mobility, UE Funct Exercise/Act Treatment Duration: Oct 18, 2017 Frequency: 5 times per week Estimated Hrs Per Day: .25 hour per day Agreement: Yes Rehab Potential: Good Time/GCodes Start Time: 14:37 Stop Time: 15:00 Total Time Billed (hr/min): 23 Billed Treatment Time 1 visit, EVL(8minutes), ADL(15minutes) PB MANNING OT Oct 08, 2017 15:17
[2017-10-08] MEDS: KCL 20 MEQ TAB (K-DUR) PO SCH (16:13)
[2017-10-08] MEDS: LACTOBACILLUS Acidoph/Bulgar (LACTINEX/FLORANEX) TAB PO SCH (16:13)
[2017-10-08 17:53] VITALS: BP 129/58
[2017-10-08] MEDS ORDERED: ENOXAPARIN 30 MG/0.3 ML (LOVENOX) SYR SC SCH (19:00)
[2017-10-08] MEDS: CEFDINIR 300 MG (OMNICEF) CAP PO SCH (19:49)
[2017-10-08] MEDS ORDERED: rOPINIRole 1 MG (REQUIP) TABLET PO SCH (21:00)
[2017-10-09] MEDS: RT-ALBUTEROL/IPRATROPIUM 3 ML (DUONEB) VIAL INH SCH ×2 (01:28→09:40)
[2017-10-09 06:00] VITALS: BP 124/60
[2017-10-09] MEDS: LACTOBACILLUS Acidoph/Bulgar (LACTINEX/FLORANEX) TAB PO SCH (06:16)
[2017-10-09] MEDS: KCL 20 MEQ TAB (K-DUR) PO SCH (06:16)
[2017-10-09 07:08] LABS: HEMOGLOBIN 12.2 G/DL (11.5-16.0); MEAN PLATELET VOLUME 8.4 FL (7.4-10.4); RED BLOOD COUNT 4.32 10^6/uL (4.35-5.85); RED CELL DISTRIBUTION WIDTH 15.4 % (10.0-14.5); WHITE BLOOD COUNT 5.7 10^3/uL (4.3-11.0)
[2017-10-09 07:28] LABS: BUN/CREATININE RATIO 26; CALCIUM 9.2 MG/DL (8.5-10.1); CARBON DIOXIDE 27 MMOL/L (21-32); CHLORIDE 101 MMOL/L (98-107); CREATININE SERUM 0.58 MG/DL (0.60-1.30); GFR ESTIMATED > 60; GLUCOSE 98 MG/DL (70-105); POTASSIUM 4.5 MMOL/L (3.6-5.0); SODIUM 140 MMOL/L (135-145)
[2017-10-09] MEDS: CEFDINIR 300 MG (OMNICEF) CAP PO SCH (08:20)
--- NOTE | 2017-10-09 08:48 | Diagnostic Imaging Report ---
INDICATION: Pneumonia PA and lateral chest obtained at 846 hours am, and compared with yesterday. Heart is normal in size. Mediastinal silhouette is unremarkable. There is diffuse interstitial infiltrate with patchy alveolar infiltrate in the right upper lobe appearing similar to the prior study. There is no pneumothorax or gross pleural fluid. Patient has had previous kyphoplasty in the lower thoracic spine. IMPRESSION: Diffuse interstitial infiltrate with patchy alveolar infiltrate in right upper lobe appearing similar to the prior study. No new abnormality. Dictated by: Dictated on workstation # [id number]
--- NOTE | 2017-10-09 09:36 | Physical Therapy Evaluation ---
PT Evaluation-General Medical Diagnosis Admission Date Oct 08, 2017 at 12:49 Medical Diagnosis: bilateral pneumonia Onset Date: Oct 01, 2017 Therapy Diagnosis Therapy Diagnosis: debility Height/Weight Height (Feet): 5 Height (Inches): 0.00 Weight (Pounds): 110 Weight (Ounces): 0.0 Precautions Precautions/Isolations: Standard Precautions Weight Bear Status Right Lower Extremity: Right Full Weight Bearing Left Lower Extremity: Left Full Weight Bearing Referral Physician: Antoinette Reason for Referral: Evaluation/Treatment Medical History Additional Medical History chronic back pain Current History SWB status Reviewed History: Yes Social History Home: Single Level Current Living Status: Alone Entry Into Home: Ramp Prior/Core FIM Prior Level of Function Functional [place] Measure 0=Not Assessed/NA 4=Minimal Assistance 1=Total Assistance 5=Supervision or Setup 2=Maximal Assistance 6=Modified [place] 3=Moderate Assistance 7=Complete [place] Bed Mobility: 7 Transfers (B,C,W/C) (FIM): 7 Gait: 7 PT Evaluation-Current Subjective Patient reports she is going home today. Caregiver confirms. Pain Numeric Pain Scale: 0-No Pain Location: No Pain Reported Objective Patient Orientation: Normal For Age Problem Solving: Good ROM/Strength ROM Lower Extremities bilateral LE WNL Strenght Lower Extremities 4+5 grossly bilaterally Integumentary/Posture Integumentary refer to nursing notes. Bowel Incontinence: No Bladder Incontinence: No Posture slight kyphosis Neuromuscular (Tone, Coordination, Reflexes) grossly intact Sensory Vision: Functional Hearing: Functional Hand Dominance: Right Sensation Right Lower Extremit: Intact Sensation Left Lower Extremity: Intact Transfers Functional [place] Measure 0=Not Assessed/NA 4=Minimal Assistance 1=Total Assistance 5=Supervision or Setup 2=Maximal Assistance 6=Modified [place] 3=Moderate Assistance 7=Complete [place] Transfers (B, C, W/C) (FIM): 7 Scootin Rollin Supine to/from Sit: 7 Sit to/from Stand: 7 Sit to Lying (QC): 6 Lying to Sitting/Side of Bed(Q: 6 Sit to Stand (QC): 6 Chair/Uuy-dk-Dzqhy Xfer(QC): 6 Gait Does the Patient Walk?: Yes Mode of Locomotion: Walk Anticipated Mode of Locomotion: Walk Gait (FIM): 7 Distance (FIM): 3=150 ft Distance: 500' Walk 50 ft with 2 Turns(QC): 6 Walk 150 ft (QC): 6 Gait Level of Assist: 7 Gait Assistive Device: None Comments/Gait Description safe and functional with no deviation Balance Sitting Static: Normal Sitting Dynamic: Normal Standing Static: Normal Standing Dynamic: Normal Treatment SAO2 on RA after independent ambulation 94% with no display of SOA Assessment/Needs 87 y.o. female, is currently at independent PLOF with all gross motor skills and does not require skilled PT intervention at this time. Patient to dismiss to home on this date. Rehab Potential: Good PT Plan Treatment/Plan Treatment Plan: Discontinue PT, goals met Treatment Plan: Other Treatment Duration: Oct 09, 2017 Frequency: 1 time per week Estimated Hrs Per Day: .5 hour per day Patient and/or Family Agrees t: Yes Discharge Recommendations Therapy D/C Recommendations: Home w/ Family Support, Home Independently Time/GCodes Time In: 848 Time Out: 912 Total Billed Treatment Time: 24 Total Billed Treatment 1 visit EVModC 9 min FA 15 min ALFONSO ALVAREZ PT Oct 09, 2017 09:36
[2017-10-09] MEDS ORDERED: CEFD300C3 PO (12:28)
--- NOTE | 2017-10-09 12:31 | Discharge Inst-Simple/Standard ---
Discharge Inst-Standard Discharge Medications New, Converted or Re-Newed RX: Transmitted to Pharmacy Patient Instructions/Follow Up Plan of Care/Instructions/FU: complete cefdinir antibiotic course for your pneumonia walk for exercise. follow up with Dr. Curry in 1-2 weeks Activity as Tolerated: Yes Discharge Diet: No Restrictions [facility]: worsening respiratory status RAF WALLER MD Oct 09, 2017 12:31
--- NOTE | 2017-10-09 12:32 | Discharge Summary ---
Diagnosis/Chief Complaint Date of Admission Oct 08, 2017 at 12:49 Date of Discharge Oct 08 2017 Discharge Summary Hospital Course Labs Laboratory Tests 10/09/17 06:41: Red Blood Count 4.32L, Red Cell Distribution Width 15.4H, Platelet Count 482H, Creatinine 0.58L Procedures None. Discharge Physical Examination Allergies: Coded Allergies: lansoprazole (Verified Allergy, Intermediate, HIVES, 10/08/17) Vitals & I&Os Vital Signs Date Time Temp Pulse Resp B/P (MAP) Pulse Ox O2 Delivery O2 Flow Rate FiO2 10/09/17 11:06 91 91 21 10/09/17 09:40 Room Air 10/09/17 06:00 97.2 18 124/60 (81) 10/08/17 21:00 2.00 Discharge Home Medications Reviewed and agree with Discharge Medication list on patient's Discharge Instruction sheet Instructions to Patient/Family Please see electronic discharge instructions given to patient. RAF WALLER MD Oct 09, 2017 12:32
[2017-10-09] MEDS ORDERED: RT-ALBUTEROL/IPRATROPIUM 3 ML (DUONEB) VIAL INH SCH (14:00)
== END 2017-10-09 13:15 | disposition home or self-care (01) | DRG 195 ==
LOC: 4TH 10-08 12:49
PROVIDERS: ADMIT Family Medicine; ATTEND Family Medicine
DX: J18.9 Pneumonia, unspecified organism (principal); R11.10 Vomiting, unspecified; G25.81 Restless legs syndrome; R51 Headache; K30 Functional dyspepsia; E87.6 Hypokalemia; M54.2 Cervicalgia; L30.9 Dermatitis, unspecified; K57.90 Diverticulosis of intestine, part unspecified, without perforation or abscess without bleeding
CPT/HCPCS: 36415; 71046; 80048; 85027; 94640; 94760

== ENCOUNTER → 2017-10-17 | Outpatient (CLI) | payer MEDICARE ==
[~2017-10-17] MED LIST changes: +CEFD300C3 PO
--- NOTE | 2017-10-17 12:50 | Diagnostic Imaging Report ---
INDICATION: Chest tightness and cough for several days. TIME OF EXAM: 1:00 p.m. COMPARISON: Correlation is made with prior chest radiograph from 10/09/2017. FINDINGS: Heart size is normal. Right upper lobe pneumonia persists and may be minimally improved and less consolidated. The remainder of the lung barger are clear. No effusion is seen. There is no pneumothorax. IMPRESSION: Slight improvement in right upper lobe pneumonia when compared with examination from eight days earlier. Dictated by: Dictated on workstation # [id number]
== END ==
LOC: RAD 12:12
PROVIDERS: ATTEND Family Medicine
DX: J18.1 Lobar pneumonia, unspecified organism (principal)
CPT/HCPCS: 71046

== ENCOUNTER → 2017-10-24 | Outpatient (CLI) | payer MEDICARE ==
--- NOTE | 2017-10-24 08:15 | Diagnostic Imaging Report ---
INDICATION: Pneumonia, followup. Time of exam: 8:17 AM Correlation is made with prior study from 10/17/2017. The heart size is stable. Right upper lobe infiltrate does show minimal improvement. No new infiltrate is seen. No effusion or pneumothorax is identified. Kyphoplasty changes in the lower thoracic spine are noted. IMPRESSION: Mild improvement in right upper lobe infiltrate when compared with study 7 days earlier. Mild infiltrate remains and continued followup is recommended. Dictated by: Dictated on workstation # [id number]
== END ==
LOC: RAD 07:47
PROVIDERS: ATTEND Family Medicine
DX: J18.1 Lobar pneumonia, unspecified organism (principal)
CPT/HCPCS: 71046

== ENCOUNTER → 2017-10-31 | Outpatient (CLI) | payer MEDICARE ==
--- NOTE | 2017-10-31 08:46 | Diagnostic Imaging Report ---
INDICATION: Followup pneumonia. TIME OF EXAM: 8:42 AM Correlation is made with prior study from 10/24/2017. FINDINGS: The heart size is stable. Pneumonia in the right upper lobe has significantly improved. Only very mild residual infiltrate remains. No new parenchymal opacity is seen. No effusion is detected. There is no pneumothorax. Kyphoplasty changes lower thoracic spine are noted. IMPRESSION: Improving right upper lobe infiltrate when compared with examination from 10/24/2017. Dictated by: Dictated on workstation # [id number]
== END ==
LOC: RAD 07:55
PROVIDERS: ATTEND Family Medicine
DX: R91.8 Other nonspecific abnormal finding of lung field (principal); J18.9 Pneumonia, unspecified organism
CPT/HCPCS: 71046

== ENCOUNTER 2017-12-11 13:42 | Outpatient (RCR) | payer MEDICARE ==
[~2017-12-11 13:42] MED LIST changes: -CODE118S2 PO; +CODE118S4 PO
== END 2018-01-19 14:46 | disposition home or self-care (01) ==
PROVIDERS: ATTEND Nurse Practitioner
DX: M25.551 Pain in right hip (principal); M48.062 Spinal stenosis, lumbar region with neurogenic claudication

== ENCOUNTER → 2018-07-15 | Outpatient (CLI) | payer MEDICARE ==
[~2018-07-15] MED LIST changes: -ROPI4TAB3 PO; +ROPI4TAB5 PO
[2018-07-15 09:11] LABS: BASOPHILS % (AUTO) 1 % (0-10); EOSINOPHILS # (AUTO) 0.2 10^3/uL (0.0-0.3); EOSINOPHILS % (AUTO) 3 % (0-10); HEMATOCRIT 43 % (35-52); HEMOGLOBIN 14.1 G/DL (11.5-16.0); LYMPHOCYTES # (AUTO) 1.3 X 10^3 (1.0-4.0); LYMPHOCYTES % (AUTO) 29 % (12-44); MEAN CORPUSCULAR HEMOGLOBIN 28 PG (25-34); MEAN CORPUSCULAR HGB CONC 33 G/DL (32-36); MEAN CORPUSCULAR VOLUME 87 FL (80-99); MEAN PLATELET VOLUME 9.3 FL (7.4-10.4); MONOCYTES # (AUTO) 0.5 X 10^3 (0.0-1.0); MONOCYTES % (AUTO) 11 % (0-12); NEUTROPHILS # (AUTO) 2.4 X 10^3 (1.8-7.8); NEUTROPHILS % (AUTO) 56 % (42-75); PLATELET COUNT 195 10^3/uL (130-400); RED BLOOD COUNT 4.98 10^6/uL (4.35-5.85); RED CELL DISTRIBUTION WIDTH 14.2 % (10.0-14.5); WHITE BLOOD COUNT 4.4 10^3/uL (4.3-11.0)
[2018-07-15 09:33] LABS: ALANINE AMINOTRANSFERASE 12 U/L (0-55); ALBUMIN 4.3 GM/DL (3.2-4.5); ALKALINE PHOSPHATASE 82 U/L (40-136); BILIRUBIN,TOTAL 0.6 MG/DL (0.1-1.0); BUN/CREATININE RATIO 23; CALCIUM 9.8 MG/DL (8.5-10.1); CARBON DIOXIDE 26 MMOL/L (21-32); CHLORIDE 106 MMOL/L (98-107); CREATININE SERUM 0.71 MG/DL (0.60-1.30); GFR ESTIMATED > 60; GLUCOSE 91 MG/DL (70-105); POTASSIUM 4.1 MMOL/L (3.6-5.0); SODIUM 143 MMOL/L (135-145); TOTAL PROTEIN 7.1 GM/DL (6.4-8.2)
[2018-07-15 09:57] LABS: FREE T4 (FREE THYROXINE) 1.06 NG/DL (0.70-1.48)
[2018-07-21 15:43] LABS: IMMUNOFIX PATH REPORT NUMBER Complete (Complete)
== END ==
LOC: LAB 08:42
PROVIDERS: ATTEND Psychiatry & Neurology Neurology
DX: G60.3 Idiopathic progressive neuropathy (principal); R27.0 Ataxia, unspecified; R42 Dizziness and giddiness; M62.81 Muscle weakness (generalized); G25.81 Restless legs syndrome
CPT/HCPCS: 36415; 80053; 82607; 84155; 84165; 84425; 84439; 84443; 85025; 86334

== ENCOUNTER → 2018-08-11 | Outpatient (CLI) | payer MEDICARE ==
--- NOTE | 2018-08-11 15:35 | Diagnostic Imaging Report ---
INDICATION: Monoclonal gammopathy. TECHNIQUE: Serum blood glucose level at the time of injection was 93 mg/dL. Patient was administered 13 mCi of F-18 FDG intravenously, and whole-body PET imaging was performed. In addition, noncontrast CT was performed for attenuation correction and anatomic correlation. COMPARISON: No prior PET study is available for comparison. FINDINGS: Symmetric activity in the brain is identified. Soft tissues of the neck are unremarkable. There is a lymph node in the mediastinum in a precarinal location but does show some hypermetabolism. This does demonstrate an SUV maximum of approximately 5.2. This correlates with a lymph node with a short axis measurement of approximately 15 mm. No hilar hypermetabolism is seen. Pulmonary parenchyma is unremarkable. There is physiologic activity in the GI and tracts in the abdomen and pelvis. No suspicious hypermetabolism is identified. Lower extremities are unremarkable apart from some mild muscular uptake. IMPRESSION: Unremarkable whole body PET scan apart from mild hypermetabolism involving a precarinal lymph node, nonspecific. Conventional CT chest with contrast may be useful for further evaluation. Dictated by: Dictated on workstation # [id number]
== END ==
LOC: RAD 08:58
PROVIDERS: ATTEND Internal Medicine Hematology & Oncology
DX: D47.2 Monoclonal gammopathy (principal); R52 Pain, unspecified

== ENCOUNTER 2018-08-17 07:54 | Day surgery (SDC) | payer MEDICARE ==
[~2018-08-17] VITALS: Ht 152.4 cm; Wt 52.6 kg
[2018-08-17] VITALS (13 sets, daily range): BP systolic 103–144; BP diastolic 55–85
--- OUTSIDE RECORDS SUMMARY | 2018-08-17 08:00 | XMS REPORT | Continuity of Care Document ---
Author Author [facility] Organization [facility] Address Unknown Phone Unavailable Allergies Active Description Code Type Severity Reaction Onset Reported/Identified Relationship to Patient Clinical Status Yes lansoprazole [id number] Drug Allergy Moderate HIVES 10/08/2017 Medications There is no data. Problems Date Dx Coded Attending Type Code Diagnosis Diagnosed By 05/29/1445 CHRISSY (GIOVANNI)MARRY Ot M25.551 PAIN IN RIGHT HIP 05/29/1445 CHRISSY PIERRE)MARRY Ot M48.062 SPINAL STENOSIS, LUMBAR REGION WITH NEUR 05/29/1637 AALIYAH CHILDS DO Ot M54.5 LOW [...] 02/01/2015 AALIYAH CHILDS DO Ot 783.0 02/01/2015 GELLENDER DO, AALIYAH Ackerman Ot 783.21 02/01/2015 GELLENDER DO, AALIYAH Ackerman Ot 787.91 02/01/2015 GELLENDER DO, AALIYAH Ackerman Ot 789.00 02/20/2015 GELLENDER DO, AALIYAH Ackerman [...] M54.41 LUMBAGO WITH SCIATICA, RIGHT SIDE 10/24/2015 GELLENDER DO, AALIYAH Ackerman Ot M25.551 PAIN IN RIGHT HIP 10/30/2015 ELISE NOGUERA, LIBAN V Ot M48.06 SPINAL STENOSIS, LUMBAR REGION 10/30/2015 ELISE NOGUERA, LIBAN V Ot 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..] 08/28/2016 Ot 719.41 JOINT PAIN- SHLDER 08/28/2016 AALIYAH CHILDS DO Ot 715.96 OSTEOARTHROS NOS-L/LEG 08/28/2016 AALIYAH CHILDS DO Ot 719.06 JOINT EFFUSION-L/LEG 08/28/2016 [facility] LEE Ot 727.51 POPLITEAL SYNOVIAL CYST 08/28/2016 AALIYAH CHILDS DO Ot 836.0 TEAR MED MENISC KNEE-CUR 08/28/2016 AALIYAH CHILDS DO Ot E000.8 OTHER EXTERNAL CAUSE STATUS 08/28/2016 AALIYAH CHILDS DO Ot E928.9 ACCIDENT NOS 08/28/2016 AALIYAH CHILDS DO Ot 715.36 LOC OSTEOARTH NOS-L/LEG 08/28/2016 AALIYAH CHILDS DO Ot 729.5 PAIN IN LIMB 08/28/2016 AALIYAH CHILDS DO Ot 719.46 JOINT PAIN-L/LEG 08/28/2016 AALIYAH CHILDS DO Ot 729.5 PAIN IN LIMB 08/28/2016 [facility]AL[facility] LEE Ot 729.5 PAIN IN LIMB 08/28/2016 AALIYAH CHILDS DO Ot 715.37 LOC OSTEOARTH NOS-ANKLE 08/28/2016 AALIYAH CHILDS DO Ot 783.0 ANOREXIA 08/28/2016 AMADEO LEE AALIYAH Ackerman Ot 783.21 LOSS OF WEIGHT 08/28/2016 AMADEO LEE, AALIYAH Ackerman Ot 787.91 DIARRHEA 08/28/2016 AMADEO LEE, AALIYAH Ackerman Ot 789.00 ABDOMINAL PAIN, UNSPECIFIED SITE 08/28/2016 AMADEO LEE, AALIYAH Ackerman Ot 780.79 OTH MALAISE FATIGUE 08/28/2016 AMADEO LEE, AALIYAH Ackerman Ot 787.91 DIARRHEA 08/28/2016 GA[facility] , AALIYAH Ackerman Ot 789.00 ABDOMINAL PAIN, UNSPECIFIED SITE 08/28/2016 GELLENDER , AALIYAH Ackerman Ot 562.10 DIVERTICULOSIS COLON (W/O MENT OF HEMORR 08/28/2016 GELLENDER DO, AALIYAH Ackerman Ot 787.91 DIARRHEA 08/28/2016 GAURAN[facility]ENDER , AALIYAH Ackerman Ot 789.00 ABDOMINAL PAIN, UNSPECIFIED SITE 08/28/2016 AMADEO LEE, AALIYAH Ackerman Ot M25.551 PAIN IN RIGHT HIP 08/28/2016 AMADEO LEE, AALIYAH Ackerman Ot M54.41 LUMBAGO WITH SCIATICA, RIGHT SIDE 08/28/2016 ELISE NOGUERA, LIBAN V Ot M48.06 SPINAL STENOSIS, LUMBAR REGION 08/28/2016 ELISE NOGUERA, LIBAN V Ot 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 08/28/2016 AMADEO LEE, AALIYAH Ackerman Ot M54.31 SCIATICA, RIGHT SIDE 09/19/2016 AMADEO LEE, AALIYAH Ackerman Ot J44.9 CHRONIC OBSTRUCTIVE PULMONARY DISEASE, U 09/19/2016 AMADEO LEEAALIYAH Ot S29.9XXA UNSPECIFIED INJURY OF THORAX, INITIAL EN 09/19/2016 AMADEO LEEAALIYAH Ot W19.XXXA UNSPECIFIED FALL, INITIAL ENCOUNTER 09/19/2016 AMADEO LEEAALIYAH Ot Y99.8 OTHER EXTERNAL CAUSE STATUS 09/19/2016 AMADEO LEEAALIYAH Ot B35.3 TINEA PEDIS 09/25/2016 AMADEO LEEAALIYAH Ot J44.9 CHRONIC OBSTRUCTIVE PULMONARY DISEASE, U 09/25/2016 AMADEO LEEAALIYAH Ot S29.9XXA UNSPECIFIED INJURY OF THORAX, INITIAL EN 09/25/2016 AMADEO LEEAALIYAH Ot W19.XXXA UNSPECIFIED FALL, INITIAL ENCOUNTER 09/25/2016 [facility] Y99.8 OTHER EXTERNAL CAUSE STATUS 10/10/2016 [facility], AALIYAH Ackerman Ot B35.3 TINEA PEDIS 11/14/2016 [facility], AALIYAH Ackerman Ot M19.011 PRIMARY OSTEOARTHRITIS, RIGHT SHOULDER 11/14/2016 [facility], AALIYAH Ackerman Ot M47.816 SPONDYLOSIS W/O MYELOPATHY OR RADICULOPA 11/14/2016 [facility], AALIYAH Ackerman Ot S22.089A UNSP FRACTURE OF T11-T12 VERTEBRA, INIT 11/14/2016 [facility], AALIYAH Ackerman Ot S22.41XA MULTIPLE FRACTURES OF RIBS, RIGHT SIDE, 11/14/2016 [facility], AALIYAH Ackerman Ot W19.XXXA UNSPECIFIED FALL, INITIAL ENCOUNTER 11/14/2016 [facility], AALIYAH Ackerman Ot Y99.8 OTHER EXTERNAL CAUSE STATUS 11/15/2016 [facility], AALIYAH Ackerman Ot G25.81 RESTLESS LEGS SYNDROME 11/15/2016 [facility], AALIYAH Ackerman Ot S22.080A WEDGE COMPRESSION FRACTURE OF T11-T12 VE 11/15/2016 [facility], AALIYAH Ackerman Ot W18.00XA STRIKING AGAINST UNSP OBJECT W SUBSEQUEN 11/19/2016 [facility], [facility]ALIYAH Ackerman Ot G25.81 RESTLESS LEGS SYNDROME 11/19/2016 [facility], AALIYAH Ackerman Ot S22.000A WEDGE COMPRESSION FRACTURE OF UNSP THORA 11/19/2016 [facility] DO, AALIYAH Ackerman Ot W18.00XA STRIKING AGAINST UNSP OBJECT W SUBSEQUEN 11/21/2016 [facility], AALIYAH Ackerman Ot G25.81 RESTLESS LEGS SYNDROME 11/21/2016 [facility], AALIYAH Ackerman Ot S22.000A WEDGE COMPRESSION FRACTURE OF UNSP THORA 11/21/2016 [facility], AALIYAH Ackerman Ot W18.00XA STRIKING AGAINST UNSP OBJECT W SUBSEQUEN 11/26/2016 [facility], AALIYAH Ackerman Ot G25.81 RESTLESS LEGS SYNDROME 11/26/2016 [facility], AALIYAH Ackerman Ot S22.080A WEDGE COMPRESSION FRACTURE OF T11-T12 VE 11/26/2016 [facility] , AALIYAH Ackerman Ot W18.00XA STRIKING AGAINST UNSP OBJECT W SUBSEQUEN 11/27/2016 [facility], AALIYAH Ackerman Ot G25.81 RESTLESS LEGS SYNDROME 11/27/2016 GELLENDER DO, AALIYAH Ackerman Ot S22.080A WEDGE COMPRESSION FRACTURE OF T11-T12 VE 11/27/2016 GELLENDER DO, AALIYAH Ackerman Ot W18.00XA STRIKING AGAINST UNSP OBJECT W SUBSEQUEN 11/28/2016 GELLENDER DO, AALIYAH Ackerman Ot G25.81 RESTLESS LEGS SYNDROME 11/28/2016 GELLENDER DO, AALIYAH Ackerman Ot S22.080A WEDGE COMPRESSION FRACTURE OF T11-T12 VE 11/28/2016 GELLENDER DO, AALIYAH Ackerman Ot W18.00XA STRIKING AGAINST UNSP OBJECT W SUBSEQUEN 12/09/2016 GELLENDER DO, AALIYAH Ackerman Ot M19.011 PRIMARY OSTEOARTHRITIS, RIGHT SHOULDER 12/09/2016 GELLENDER DO, AALIYAH Ackerman Ot M47.816 SPONDYLOSIS W/O MYELOPATHY OR RADICULOPA 12/09/2016 GELLENDER DO, AALIYAH Ackerman Ot S22.089A UNSP FRACTURE OF T11-T12 VERTEBRA, INIT 12/09/2016 GELLENDER DO, AALIYAH Ackerman Ot S22.41XA MULTIPLE FRACTURES OF RIBS, RIGHT SIDE, 12/09/2016 GELLENDER DO, AALIYAH Ackerman Ot W19.XXXA UNSPECIFIED FALL, INITIAL ENCOUNTER 12/09/2016 GELLENDER DO, AALIYAH Ackerman Ot Y99.8 OTHER EXTERNAL CAUSE STATUS 12/11/2016 GELLENDER DO, AALIYAH Ackerman Ot M19.011 PRIMARY OSTEOARTHRITIS, RIGHT SHOULDER 12/11/2016 GELLENDER DO, AALIYAH Ackerman Ot M47.816 SPONDYLOSIS W/O MYELOPATHY OR RADICULOPA 12/11/2016 GELLENDER DO, AALIYAH Ackerman Ot S22.089A UNSP FRACTURE OF T11-T12 VERTEBRA, INIT 12/11/2016 GELLENDER DO, AALIYAH Ackerman Ot S22.41XA MULTIPLE FRACTURES OF RIBS, RIGHT SIDE, 12/11/2016 GELLENDER DO, AALIYAH Ackerman Ot W19.XXXA UNSPECIFIED FALL, INITIAL ENCOUNTER 12/11/2016 GELLENDER DO, AALIYAH Ackerman Ot Y99.8 OTHER EXTERNAL CAUSE STATUS 01/09/2017 GELLENDER DO, AALIYAH Ackerman Ot G25.81 RESTLESS LEGS SYNDROME 01/09/2017 GELLENDER DO, AALIYAH Ackerman Ot S22.080A WEDGE COMPRESSION FRACTURE OF T11-T12 VE 01/09/2017 AALIYAH CHILDS DO Ot W18.00XA STRIKING AGAINST UNSP OBJECT W SUBSEQUEN 08/06/2017 CHAUNCEY MONTANA MD, Ot G25.81 RESTLESS LEGS SYNDROME 08/06/2017 CHAUNCEY MONTANA MD, Ot R40.2142 COMA SCALE, EYES OPEN, SPONTANEOUS, EMR 08/06/2017 CHAUNCEY MONTANA MD, Ot R40.2252 COMA SCALE, BEST VERBAL RESPONSE, ORIENT 08/06/2017 CHAUNCEY MONTANA MD, Ot R40.2362 COMA SCALE, BEST MOTOR RESPONSE, OBEYS C 08/06/2017 CHAUNCEY MONTANA MD, Ot S00.03XA CONTUSION OF [...] BOTH CERVIX AND UTER 08/07/2017 CHAUNCEY MONTANA MD, Ot G25.81 RESTLESS LEGS SYNDROME 08/07/2017 CHAUNCEY [...] S06.0X0A CONCUSSION WITHOUT LOSS OF CONSCIOUSNESS 08/07/2017 RUBÉN MD, CHAUNCEY D Ot S30.0XXA CONTUSION OF LOWER BACK AND PELVIS, INIT 08/07/2017 RUBÉN NOGUERA, CHAUNCEY Toscano Ot W00.0XXA FALL ON SAME LEVEL DUE TO ICE AND SNOW, 08/07/2017 RUBÉN NOGUERA, CHAUNCEY Toscano Ot Z85.3 PERSONAL HISTORY OF MALIGNANT NEOPLASM O 08/07/2017 RUBÉN NOGUERA, CHAUNCEY Toscano Ot Z88.8 ALLERGY STATUS TO OTH DRUG/MEDS/BIOL SUB 08/07/2017 CHAUNCEY MONTANA MD Ot Z90.710 ACQUIRED ABSENCE OF BOTH CERVIX AND UTER 09/17/2017 CHRISSY (GIOVANNI), MARRY Mariano Ot M25.551 PAIN IN RIGHT HIP 09/17/2017 CHRISSY (GIOVANNI), MARRY Quintana Ot M48.062 SPINAL STENOSIS, LUMBAR REGION WITH NEUR 09/24/2017 CHRISSY (GIOVANNI), MARRY Quintana Ot M25.551 PAIN IN RIGHT HIP 09/24/2017 CHRISSY (GIOVANNI), MARRY Quintana Ot M48.062 SPINAL STENOSIS, LUMBAR REGION WITH NEUR 10/01/2017 CHRISSY (GIOVANNI), MARRY K Ot M25.551 PAIN IN RIGHT HIP 10/01/2017 CHRISSY (GIOVANNI), MARRY K Ot M48.062 SPINAL STENOSIS, LUMBAR REGION WITH NEUR 10/01/2017 CHRISSY (GIOVANNI), MARRY K Ot M25.551 PAIN IN RIGHT HIP 10/01/2017 CHRISSY (GIOVANNI), MARRY Quintana Ot M48.062 SPINAL STENOSIS, LUMBAR REGION WITH NEUR 10/06/2017 GELLENDER DO, AALIYAH Ackerman Ot G25.81 RESTLESS LEGS SYNDROME 10/06/2017 GELLENDER DO, AALIYAH Ackerman Ot J18.9 PNEUMONIA, UNSPECIFIED ORGANISM 10/06/2017 GELLENDER DO, AALIYAH Ackerman Ot M54.9 DORSALGIA, UNSPECIFIED 10/06/2017 GELLENDER DO, AALIYAH Ackerman Ot R11.10 VOMITING, UNSPECIFIED 10/06/2017 GELLENDER DO, AALIYAH Ackerman Ot Z87.19 PERSONAL HISTORY OF OTHER DISEASES OF TH 10/08/2017 GELLENDER DO, AALIYAH Ackerman Ot E87.6 HYPOKALEMIA 10/08/2017 GELLENDER DO, AALIYAH Ackerman Ot G25.81 RESTLESS LEGS SYNDROME 10/08/2017 GELLENDER DO, AALIYAH Ackerman Ot J18.9 PNEUMONIA, UNSPECIFIED ORGANISM 10/08/2017 GELLENDER DO, AALIYAH Ackerman Ot K30 FUNCTIONAL DYSPEPSIA 10/08/2017 GELLENDER DO, AALIYAH Ackerman Ot K57.90 DVRTCLOS OF INTEST, PART UNSP, W/O PERF 10/08/2017 GELLENDER DO, AALIYAH Ackerman Ot L30.9 DERMATITIS, UNSPECIFIED 10/08/2017 GELLENDER DO, AALIYAH Ackerman Ot M54.2 CERVICALGIA 10/08/2017 GELLENDER DO, AALIYAH Ackerman Ot M54.9 DORSALGIA, UNSPECIFIED 10/08/2017 GELLENDER DO, AALIYAH Ackerman Ot R11.10 VOMITING, UNSPECIFIED 10/08/2017 GELLENDER DO, AALIYAH Ackerman Ot R51 HEADACHE 10/09/2017 GELLENDER DO, AALIYAH Ackerman Ot E87.6 HYPOKALEMIA 10/09/2017 GELLENDER DO, AALIYAH Ackerman Ot G25.81 RESTLESS LEGS SYNDROME 10/09/2017 GELLENDER DO, AALIYAH Ackerman Ot J18.9 PNEUMONIA, UNSPECIFIED ORGANISM 10/09/2017 GELLENDER DO, AALIYAH Ackerman Ot K30 FUNCTIONAL DYSPEPSIA 10/09/2017 GELLENDER DO, AALIYAH Ackerman Ot K57.90 DVRTCLOS OF INTEST, PART UNSP, W/O PERF 10/09/2017 GELLENDER DO, AALIYAH Tyron Ot L30.9 DERMATITIS, UNSPECIFIED 10/09/2017 GELLENDER DO, AALIYAH Ackerman Ot M54.2 CERVICALGIA 10/09/2017 GELLENDER DO, AALIYAH Ackerman Ot R11.10 VOMITING, UNSPECIFIED 10/09/2017 GELLENDER DO, AALIYAH Ackerman Ot R51 HEADACHE 10/27/2017 GELLENDER DO, AALIYAH Ackerman Ot J18.1 LOBAR PNEUMONIA, UNSPECIFIED ORGANISM 11/03/2017 GELLENDER DO, AALIYAH Ackerman Ot J18.9 PNEUMONIA, UNSPECIFIED ORGANISM 11/03/2017 GELLENDER DO, AALIYAH Ackerman Ot R91.8 OTHER NONSPECIFIC ABNORMAL FINDING OF VARGAS 11/10/2017 GELLENDER DO, AALIYAH Ackerman Ot J18.1 LOBAR PNEUMONIA, UNSPECIFIED ORGANISM 11/11/2017 CHRISSY (GIOVANNI), MARRY Quintana Ot M25.551 PAIN IN RIGHT HIP 11/11/2017 CHRISSY (GIOVANNI), MARRY K Ot M48.062 SPINAL STENOSIS, LUMBAR REGION WITH NEUR 11/12/2017 GELLENDER DO, AALIYAH Ackerman Ot J18.1 LOBAR PNEUMONIA, UNSPECIFIED ORGANISM 11/13/2017 GELLENDER DO, AALIYAH A Ot J18.1 LOBAR PNEUMONIA, UNSPECIFIED ORGANISM 11/17/2017 CHRISSY (GIOVANNI), MARRY K Ot M25.551 PAIN IN RIGHT HIP 11/17/2017 CHRISSY (GIOVANNI), MARRY Quintana Ot M48.062 SPINAL STENOSIS, LUMBAR REGION WITH NEUR 11/20/2017 GELLENDER DO, AALIYAH Ackerman Ot J18.9 PNEUMONIA, UNSPECIFIED ORGANISM 11/20/2017 GELLENDER DO, AALIYAH Tyron Ot R91.8 OTHER NONSPECIFIC ABNORMAL FINDING OF VARGAS 11/20/2017 GELLENDER DO, AALIYAH Tyron Ot J18.1 LOBAR PNEUMONIA, UNSPECIFIED ORGANISM 11/21/2017 CHRISSY (GIOVANNI), MARRY K Ot M25.551 PAIN IN RIGHT HIP 11/21/2017 CHRISSY (GIOVANNI), MARRY Quintana Ot M48.062 SPINAL STENOSIS, LUMBAR REGION WITH NEUR 11/26/2017 GELLENDER DO, AALIYAH Ackerman Ot J18.9 PNEUMONIA, UNSPECIFIED ORGANISM 11/26/2017 GELLENDER DO, AALIYAH Tyron Ot R91.8 OTHER NONSPECIFIC ABNORMAL FINDING OF VARGAS 12/01/2017 CHRISSY (GIOVANNI), MARRY K Ot M25.551 PAIN IN RIGHT HIP 12/01/2017 CHRISSY (GIOVANNI), MARRY Quintana Ot M48.062 SPINAL STENOSIS, LUMBAR REGION WITH NEUR 12/30/2017 CHRISSY (GIOVANNI), MARRY K Ot M25.551 PAIN IN RIGHT HIP 12/30/2017 CHRISSY (GIOVANNI), MARRY K Ot M48.062 SPINAL STENOSIS, LUMBAR REGION WITH NEUR 01/01/2018 CHRISSY (GIOVANNI), MARRY K Ot M25.551 PAIN IN RIGHT HIP 01/01/2018 CHRISSY (GIOAVNNI), MARRY Quintana Ot M48.062 SPINAL STENOSIS, LUMBAR REGION WITH NEUR 01/19/2018 CHRISSY (GIOVANNI), MARRY K Ot M25.551 PAIN IN RIGHT HIP 01/19/2018 CHRISSY (GIOVANNI), MARRY K Ot M48.062 SPINAL STENOSIS, LUMBAR REGION WITH NEUR 07/15/2018 GELLENDER DO, AALIYAH Ackerman Ot 715.96 OSTEOARTHROS NOS-L/LEG 07/15/2018 GELLENDER DO, AALIYAH Ackerman Ot 719.06 JOINT EFFUSION-L/LEG 07/15/2018 GELLENDER DO, AALIYAH Ackerman Ot 727.51 POPLITEAL SYNOVIAL CYST 07/15/2018 GELLENDER DO, AALIYAH Ackerman Ot 836.0 TEAR MED MENISC KNEE-CUR 07/15/2018 GELLENDER DO, AALIYAH Ackerman Ot E000.8 OTHER EXTERNAL CAUSE STATUS 07/15/2018 GELLENDER DO, AALIYAH Ackerman Ot E928.9 ACCIDENT NOS 07/15/2018 GELLENDER DO, AALIYAH Ackerman Ot 715.36 LOC OSTEOARTH NOS-L/LEG 07/15/2018 GELLENDER DO, AALIYAH Ackerman Ot 729.5 PAIN IN LIMB 07/15/2018 GELLENDER DO, AALIYAH Ackerman Ot 719.46 JOINT PAIN-L/LEG 07/15/2018 GELLENDER DO, AALIYHA Ackerman Ot 729.5 PAIN IN LIMB 07/15/2018 GELLENDER DO, AALIYAH Ackerman Ot 729.5 PAIN IN LIMB 07/15/2018 GELLENDER DO, AALIYAH Ackerman Ot 715.37 LOC OSTEOARTH NOS-ANKLE 07/15/2018 GELLENDER DO, AALIYAH Ackerman Ot 783.0 ANOREXIA 07/15/2018 GELLENDER DO, AALIYAH Ackerman Ot 783.21 LOSS OF WEIGHT 07/15/2018 GELLENDER DO, AALIYAH Ackerman Ot 787.91 DIARRHEA 07/15/2018 GELLENDER DO, AALIYAH Ackerman Ot 789.00 ABDOMINAL PAIN, UNSPECIFIED SITE 07/15/2018 GELLENDER DO, AALIYAH Ackerman Ot 780.79 OTH MALAISE FATIGUE 07/15/2018 GELLENDER DO, AALIYAH Ackerman Ot 787.91 DIARRHEA 07/15/2018 GELLENDER DO, AALIYAH Ackerman Ot 789.00 ABDOMINAL PAIN, UNSPECIFIED SITE 07/15/2018 GELLENDER DO, AALIYAH Ackerman Ot 562.10 DIVERTICULOSIS COLON (W/O MENT OF HEMORR 07/15/2018 GELLENDER DO, AALIYAH Ackerman Ot 787.91 DIARRHEA 07/15/2018 GELLENDER DO, AALIYAH Ackerman Ot 789.00 ABDOMINAL PAIN, UNSPECIFIED SITE 07/15/2018 GELLENDER DO, AALIYAH Ackerman Ot M25.551 PAIN IN RIGHT HIP 07/15/2018 AMADEO LEE, AALIYAH Ackerman Ot M54.41 LUMBAGO WITH SCIATICA, RIGHT SIDE 07/15/2018 ELISE NOGUERA, LIBAN Okeefe Ot M48.06 SPINAL STENOSIS, LUMBAR REGION 07/15/2018 ELISE NOGUERA, LIBAN Okeefe Ot 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 07/15/2018 AMADEO LEE, AALIYAH Ackerman Ot M54.31 SCIATICA, RIGHT SIDE 07/15/2018 AMADEO LEE, AALIYAH Ackerman Ot J44.9 CHRONIC OBSTRUCTIVE PULMONARY DISEASE, U 07/15/2018 AMADEO LEE, AALIYAH Ackerman Ot S29.9XXA UNSPECIFIED INJURY OF THORAX, INITIAL EN 07/15/2018 AMADEO LEEAALIYAH Ot W19.XXXA UNSPECIFIED FALL, INITIAL ENCOUNTER 07/15/2018 AMADEO LEEAALIYAH Ot Y99.8 OTHER EXTERNAL CAUSE STATUS 07/15/2018 AMADEO LEEAALIYAH Ot B35.3 TINEA PEDIS 07/15/2018 AMADEO LEEAALIYAH Ot M19.011 PRIMARY OSTEOARTHRITIS, RIGHT SHOULDER 07/15/2018 AMADEO LEE, AALIYAH Ackerman Ot M47.816 SPONDYLOSIS W/O MYELOPATHY OR RADICULOPA 07/15/2018 AMADEO LEEAALIYAH Ot S22.089A UNSP FRACTURE OF T11-T12 VERTEBRA, INIT 07/15/2018 AMADEO LEEAALIYAH Ot S22.41XA MULTIPLE FRACTURES OF RIBS, RIGHT SIDE, 07/15/2018 AMADEO LEEAALIYAH Ot W19.XXXA UNSPECIFIED FALL, INITIAL ENCOUNTER 07/15/2018 AMADEO LEEAALIYAH Ot Y99.8 OTHER EXTERNAL CAUSE STATUS 07/15/2018 AMADEO LEEAALIYAH Ot J18.1 LOBAR PNEUMONIA, UNSPECIFIED ORGANISM 07/15/2018 AMADEO LEEAALIYAH Ot J18.1 LOBAR PNEUMONIA, UNSPECIFIED ORGANISM 07/15/2018 AMADEO LEEAALIYAH Ot J18.9 PNEUMONIA, UNSPECIFIED ORGANISM 07/15/2018 AMADEO LEEAALIYAH Ot R91.8 OTHER NONSPECIFIC ABNORMAL FINDING OF VARGAS 07/24/2018 ROBEL BEDOLLA MD Ot G25.81 RESTLESS LEGS SYNDROME 07/24/2018 ROBEL BEDOLLA MD Ot G60.3 IDIOPATHIC PROGRESSIVE NEUROPATHY 07/24/2018 ROBEL BEDOLLA MD Ot M62.81 MUSCLE WEAKNESS (GENERALIZED) 07/24/2018 ROBEL BEDOLLA MD Ot R27.0 ATAXIA, UNSPECIFIED 07/24/2018 ROBEL BEDOLLA MD Ot R42 DIZZINESS AND GIDDINESS 08/07/2018 GELLENDER DO, AALIYAH Ackerman Ot 715.96 OSTEOARTHROS NOS-L/LEG 08/07/2018 GELLENDER DO, AALIYAH Ackerman Ot 719.06 JOINT EFFUSION-L/LEG 08/07/2018 GELLENDER DO, AALIYAH Ackerman Ot 727.51 POPLITEAL SYNOVIAL CYST 08/07/2018 GELLENDER DO, AALIYAH Ackerman Ot 836.0 TEAR MED MENISC KNEE-CUR 08/07/2018 GELLENDER DO, AALIYAH Ackerman Ot E000.8 OTHER EXTERNAL CAUSE STATUS 08/07/2018 GELLENDER DO, AALIYAH Ackerman Ot E928.9 ACCIDENT NOS 08/07/2018 GELLENDER DO, AALIYAH Ackerman Ot 715.36 LOC OSTEOARTH NOS-L/LEG 08/07/2018 GELLENDER DO, AALIYAH Ackerman Ot 729.5 PAIN IN LIMB 08/07/2018 GELLENDER DO, AALIYAH Ackerman Ot 719.46 JOINT PAIN-L/LEG 08/07/2018 GELLENDER DO, AALIYAH Ackerman Ot 729.5 PAIN IN LIMB 08/07/2018 GELLENDER DO, AALIYAH Ackerman Ot 729.5 PAIN IN LIMB 08/07/2018 GELLENDER DO, AALIYAH Ackerman Ot 715.37 LOC OSTEOARTH NOS-ANKLE 08/07/2018 GELLENDER DO, AALIYAH Ackerman Ot 783.0 ANOREXIA 08/07/2018 GELLENDER DO, AALIYAH Ackerman Ot 783.21 LOSS OF WEIGHT 08/07/2018 GELLENDER DO, AALIYAH Ackerman Ot 787.91 DIARRHEA 08/07/2018 GELLENDER DO, AALIYAH Ackerman Ot 789.00 ABDOMINAL PAIN, UNSPECIFIED SITE 08/07/2018 GELLENDER DO, AALIYAH Ackerman Ot 780.79 OTH MALAISE FATIGUE 08/07/2018 GELLENDER DO, AALIYAH Ackerman Ot 787.91 DIARRHEA 08/07/2018 GELLENDER DO, AALIYAH Ackerman Ot 789.00 ABDOMINAL PAIN, UNSPECIFIED SITE 08/07/2018 GELLENDER DO, AALIYAH Ackerman Ot 562.10 DIVERTICULOSIS COLON (W/O MENT OF HEMORR 08/07/2018 [facility] AALIYAH Ackerman Ot 787.91 DIARRHEA 08/07/2018 [facility] AALIYAH Ackerman Ot 789.00 ABDOMINAL PAIN, UNSPECIFIED SITE 08/07/2018 [facility] AALIYAH Ackerman Ot M25.551 PAIN IN RIGHT HIP 08/07/2018 [facility] AALIYAH Ackerman Ot M54.41 LUMBAGO WITH SCIATICA, RIGHT SIDE 08/07/2018 ELISE NOGUERA, LIBAN Okeefe Ot M48.06 SPINAL STENOSIS, LUMBAR REGION 08/07/2018 ELISE NOGUERA, LIBAN Okeefe Ot 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 08/07/2018 [facility], AALIYAH Ackerman Ot M54.31 SCIATICA, RIGHT SIDE 08/07/2018 [facility], AALIYAH Ackerman Ot J44.9 CHRONIC OBSTRUCTIVE PULMONARY DISEASE, U 08/07/2018 [facility] AALIYAH Ackerman Ot S29.9XXA UNSPECIFIED INJURY OF THORAX, INITIAL EN 08/07/2018 [facility] AALIYAH Ackerman Ot W19.XXXA UNSPECIFIED FALL, INITIAL ENCOUNTER 08/07/2018 [facility], AALIYAH Ackerman Ot Y99.8 OTHER EXTERNAL CAUSE STATUS 08/07/2018 [facility], AALIYAH Ackerman Ot B35.3 TINEA PEDIS 08/07/2018 [facility], AALIYAH Ackerman Ot M19.011 PRIMARY OSTEOARTHRITIS, RIGHT SHOULDER 08/07/2018 [facility], AALIYAH Ackerman Ot M47.816 SPONDYLOSIS W/O MYELOPATHY OR RADICULOPA 08/07/2018 [facility], AALIYAH Ackerman Ot S22.089A UNSP FRACTURE OF T11-T12 VERTEBRA, INIT 08/07/2018 [facility], AALIYAH Ackerman Ot S22.41XA MULTIPLE FRACTURES OF RIBS, RIGHT SIDE, 08/07/2018 [facility] AALIYAH Ackerman Ot W19.XXXA UNSPECIFIED FALL, INITIAL ENCOUNTER 08/07/2018 [facility] AALIYAH LEE Ot Y99.8 OTHER EXTERNAL CAUSE STATUS 08/07/2018 [facility] AALIYAH Ackerman Ot J18.1 LOBAR PNEUMONIA, UNSPECIFIED ORGANISM 08/07/2018 [facility] J18.1 LOBAR PNEUMONIA, UNSPECIFIED ORGANISM 08/07/2018 [facility], AALIYAH Ackerman Ot J18.9 PNEUMONIA, UNSPECIFIED ORGANISM 08/07/2018 GELLENDER DO, AALIYAH Ackerman Ot R91.8 OTHER NONSPECIFIC ABNORMAL FINDING OF VARGAS 08/07/2018 ROBEL BEDOLLA MD Ot G25.81 RESTLESS LEGS SYNDROME 08/07/2018 ROBEL BEDOLLA MD Ot G60.3 IDIOPATHIC PROGRESSIVE NEUROPATHY 08/07/2018 ROBEL BEDOLLA MD Ot M62.81 MUSCLE WEAKNESS (GENERALIZED) 08/07/2018 ROBEL BEDOLLA MD Ot R27.0 ATAXIA, UNSPECIFIED 08/07/2018 ROBEL BEDOLLA MD Ot R42 DIZZINESS AND GIDDINESS 08/07/2018 GELLENDER DO, AALIYAH Ackerman Ot 715.96 OSTEOARTHROS NOS-L/LEG 08/07/2018 GELLENDER DO, AALIYAH Ackerman Ot 719.06 JOINT EFFUSION-L/LEG 08/07/2018 GELLENDER DO, AALIYAH Ackerman Ot 727.51 POPLITEAL SYNOVIAL CYST 08/07/2018 GELLENDER DO, AALIYAH Ackerman Ot 836.0 TEAR MED MENISC KNEE-CUR 08/07/2018 GELLENDER DO, AALIYAH Ackerman Ot E000.8 OTHER EXTERNAL CAUSE STATUS 08/07/2018 GELLENDER DO, AALIYAH Ackerman Ot E928.9 ACCIDENT NOS 08/07/2018 GELLENDER DO, AALIYAH Ackerman Ot 715.36 LOC OSTEOARTH NOS-L/LEG 08/07/2018 GELLENDER DO, AALIYAH Ackerman Ot 729.5 PAIN IN LIMB 08/07/2018 GELLENDER DO, AALIYAH Ackerman Ot 719.46 JOINT PAIN-L/LEG 08/07/2018 GELLENDER DO, AALIYAH Ackerman Ot 729.5 PAIN IN LIMB 08/07/2018 GELLENDER DO, AALIYAH Ackerman Ot 729.5 PAIN IN LIMB 08/07/2018 GELLENDER DO, AALIYAH Ackerman Ot 715.37 LOC OSTEOARTH NOS-ANKLE 08/07/2018 GELLENDER DO, AALIYAH Ackerman Ot 783.0 ANOREXIA 08/07/2018 GELLENDER DO, AALIYAH Ackerman Ot 783.21 LOSS OF WEIGHT 08/07/2018 GELLENDER DO, AALIYAH Ackerman Ot 787.91 DIARRHEA 08/07/2018 GELLENDER DO, AALIYAH Ackerman Ot 789.00 ABDOMINAL PAIN, UNSPECIFIED SITE 08/07/2018 GELLENDER DO, AALIYAH Ackerman Ot 780.79 OTH MALAISE FATIGUE 08/07/2018 [facility] , AALIYAH Ackerman Ot 787.91 DIARRHEA 08/07/2018 [facility] LEE, AALIYAH Ackerman Ot 789.00 ABDOMINAL PAIN, UNSPECIFIED SITE 08/07/2018 [facility] LEE, AALIYAH Ackerman Ot 562.10 DIVERTICULOSIS COLON (W/O MENT OF HEMORR 08/07/2018 [facility], AALIYAH Ackerman Ot 787.91 DIARRHEA 08/07/2018 [facility] AALIYAH Ackerman Ot 789.00 ABDOMINAL PAIN, UNSPECIFIED SITE 08/07/2018 [facility] AALIYAH Ackerman Ot M25.551 PAIN IN RIGHT HIP 08/07/2018 [facility] AALIYAH Ackerman Ot M54.41 LUMBAGO WITH SCIATICA, RIGHT SIDE 08/07/2018 ELISE NOGUERA, LIBAN Okeefe Ot M48.06 SPINAL STENOSIS, LUMBAR REGION 08/07/2018 ELISE NOGUERA, LIBAN Okeefe Ot 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 08/07/2018 [facility] AALIYAH Ackerman Ot M54.31 SCIATICA, RIGHT SIDE 08/07/2018 [facility], AALIYAH Ackerman Ot J44.9 CHRONIC OBSTRUCTIVE PULMONARY DISEASE, U 08/07/2018 [facility] AALIYAH Ackerman Ot S29.9XXA UNSPECIFIED INJURY OF THORAX, INITIAL EN 08/07/2018 [facility] LEE, AALIYAH Ackerman Ot W19.XXXA UNSPECIFIED FALL, INITIAL ENCOUNTER 08/07/2018 [facility] LEE, AALIYAH Ackerman Ot Y99.8 OTHER EXTERNAL CAUSE STATUS 08/07/2018 [facility] AALIYAH Ackerman Ot B35.3 TINEA PEDIS 08/07/2018 [facility] AALIYAH Ackerman Ot M19.011 PRIMARY OSTEOARTHRITIS, RIGHT SHOULDER 08/07/2018 [facility], AALIYAH Ackerman Ot M47.816 SPONDYLOSIS W/O MYELOPATHY OR RADICULOPA 08/07/2018 [facility] AALIYAH Ackerman Ot S22.089A UNSP FRACTURE OF T11-T12 VERTEBRA, INIT 08/07/2018 [facility] Ot S22.41XA MULTIPLE FRACTURES OF RIBS, RIGHT SIDE, 08/07/2018 AMADEO LEE, AALIYAH Ackerman Ot W19.XXXA UNSPECIFIED FALL, INITIAL ENCOUNTER 08/07/2018 AMADEO LEEAALIYAH Ot Y99.8 OTHER EXTERNAL CAUSE STATUS 08/07/2018 [facility] DO, AALIYAH Ackerman Ot J18.1 LOBAR PNEUMONIA, UNSPECIFIED ORGANISM 08/07/2018 [facility] DO, AALIYAH Ackerman Ot J18.1 LOBAR PNEUMONIA, UNSPECIFIED ORGANISM 08/07/2018 [facility]END[facility] DO, AALIYAH Ackerman Ot J18.9 PNEUMONIA, UNSPECIFIED ORGANISM 08/07/2018 [facility] DO, AALIYAH Ackerman Ot R91.8 OTHER NONSPECIFIC ABNORMAL FINDING OF VARGAS 08/07/2018 GRAEMEROBEL CORONADO MD Ot G25.81 RESTLESS LEGS SYNDROME 08/07/2018 ROBEL BEDOLLA MD Ot G60.3 IDIOPATHIC PROGRESSIVE NEUROPATHY 08/07/2018 ROBEL BEDOLLA MD Ot M62.81 MUSCLE WEAKNESS (GENERALIZED) 08/07/2018 ROBEL BEDOLLA MD Ot R27.0 ATAXIA, UNSPECIFIED 08/07/2018 ROBEL BEDOLLA MD Ot R42 DIZZINESS AND GIDDINESS 08/07/2018 [facility], AALIYAH Ackerman Ot 715.96 OSTEOARTHROS NOS-L/LEG 08/07/2018 [facility], AALIYAH Ackerman Ot 719.06 JOINT EFFUSION-L/LEG 08/07/2018 [facility] DO, AALIYAH Ackerman Ot 727.51 POPLITEAL SYNOVIAL CYST 08/07/2018 [facility] DO, AALIYAH Ackerman Ot 836.0 TEAR MED MENISC KNEE-CUR 08/07/2018 [facility] E000.8 OTHER EXTERNAL CAUSE STATUS 08/07/2018 [facility] , AALIYAH Ackerman Ot E928.9 ACCIDENT NOS 08/07/2018 [facility] Ackerman Ot 715.36 LOC OSTEOARTH NOS-L/LEG 08/07/2018 [facility] DO, AALIYAH Ackerman Ot 729.5 PAIN IN LIMB 08/07/2018 [facility] DO, AALIYAH Ackerman Ot 719.46 JOINT PAIN-L/LEG 08/07/2018 [facility] DO, AALIYAH Ackerman Ot 729.5 PAIN IN LIMB 08/07/2018 [facility] DO, AALIYAH Ackerman Ot 729.5 PAIN IN LIMB 08/07/2018 [facility] DO, AALIYAH Ackerman Ot 715.37 LOC OSTEOARTH NOS-ANKLE 08/07/2018 [facility] DO, AALIYAH Ackerman Ot 783.0 ANOREXIA 08/07/2018 [facility] DO, AALIYAH Ackerman Ot 783.21 LOSS OF WEIGHT 08/07/2018 [facility] DO, AALIYAH Ackerman Ot 787.91 DIARRHEA 08/07/2018 [facility], AALIYAH Ackerman Ot 789.00 ABDOMINAL PAIN, UNSPECIFIED SITE 08/07/2018 AMADEO DO, AALIYAH Ackerman Ot 780.79 OTH MALAISE FATIGUE 08/07/2018 AMADEO DO, AALIYAH Ackerman Ot 787.91 DIARRHEA 08/07/2018 [facility], AALIYAH Ackerman Ot 789.00 ABDOMINAL PAIN, UNSPECIFIED SITE 08/07/2018 [facility] , AALIYAH Ackerman Ot 562.10 DIVERTICULOSIS COLON (W/O MENT OF HEMORR 08/07/2018 [facility], AALIYAH Ackerman Ot 787.91 DIARRHEA 08/07/2018 [facility] DO, AALIYAH Ackerman Ot 789.00 ABDOMINAL PAIN, UNSPECIFIED SITE 08/07/2018 [facility] AALIYAH Ackerman Ot M25.551 PAIN IN RIGHT HIP 08/07/2018 [facility] AALIYAH Ackerman Ot M54.41 LUMBAGO WITH SCIATICA, RIGHT SIDE 08/07/2018 ELISE NOGUERA, LIBAN V Ot M48.06 SPINAL STENOSIS, LUMBAR REGION 08/07/2018 ELISE NOGUERA, LIBAN V Ot 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 08/07/2018 [facility], AALIYAH Ackerman Ot M54.31 SCIATICA, RIGHT SIDE 08/07/2018 [facility] AALIYAH Ackerman Ot J44.9 CHRONIC OBSTRUCTIVE PULMONARY DISEASE, U 08/07/2018 [facility], AALIYAH Ackerman Ot S29.9XXA UNSPECIFIED INJURY OF THORAX, INITIAL EN 08/07/2018 AMADEO LEEAALIYAH Ot W19.XXXA UNSPECIFIED FALL, INITIAL ENCOUNTER 08/07/2018 [facility] , AALIYAH Ackerman Ot Y99.8 OTHER EXTERNAL CAUSE STATUS 08/07/2018 [facility] AALIYAH Ackerman Ot B35.3 TINEA PEDIS 08/07/2018 [facility] AALIYAH Ackerman Ot M19.011 PRIMARY OSTEOARTHRITIS, RIGHT SHOULDER 08/07/2018 [facility], AALIYAH Ackerman Ot M47.816 SPONDYLOSIS W/O MYELOPATHY OR RADICULOPA 08/07/2018 [facility] AALIYAH Ackerman Ot S22.089A UNSP FRACTURE OF T11-T12 VERTEBRA, INIT 08/07/2018 [facility] Ot S22.41XA MULTIPLE FRACTURES OF RIBS, RIGHT SIDE, 08/07/2018 AALIYAH CHILDS DO Ot W19.XXXA UNSPECIFIED FALL, INITIAL ENCOUNTER 08/07/2018 AALIYAH CHILDS DO Ot Y99.8 OTHER EXTERNAL CAUSE STATUS 08/07/2018 AALIYAH CHILDS DO Ot J18.1 LOBAR PNEUMONIA, UNSPECIFIED ORGANISM 08/07/2018 AALIYAH CHILDS DO Ot J18.1 LOBAR PNEUMONIA, UNSPECIFIED ORGANISM 08/07/2018 AALIYAH CHILDS DO Ot J18.9 PNEUMONIA, UNSPECIFIED ORGANISM 08/07/2018 AALIYAH CHILDS DO Ot R91.8 OTHER NONSPECIFIC ABNORMAL FINDING OF VARGAS 08/07/2018 ROBEL BEDOLLA MD Ot G25.81 RESTLESS LEGS SYNDROME 08/07/2018 ROBEL BEDOLLA MD Ot 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 Results Test Result Range Microscopic examination by CLYDE preparation - 09/19/16 10:15 CLYDE RESULT NEGATIVE; NO FUNGAL ELEMENTS OBSERVED NRG Gram stain microscopy - 09/19/16 10:15 GRAM STAIN RESULT RARE GRAM POSITIVE COCCI NRG Bacteria identification in wound by culture - 09/19/16 10:15 Bacteria identification in wound by culture [id number] NR FREE TEXT EXTERNAL SENSITIVITY REPORTED 09/21/16 8:10 [...] plasma albumin measurement (mass/volume) 3.4 g/dL 3.2-4.5 Complete blood count (CBC) with automated white blood cell (WBC) differential - 10/01/17 12:30 Blood leukocytes automated count (number/volume) 7.3 10*3/uL 4.3-11.0 Blood erythrocytes automated count (number/volume) 4.15 10*6/uL 4.35-5.85 Venous blood hemoglobin measurement (mass/volume) 12.0 g/dL 11.5-16.0 Blood hematocrit (volume fraction) 36 % 35-52 Automated erythrocyte mean corpuscular volume 88 [foz_us] 80-99 Automated erythrocyte mean corpuscular hemoglobin (mass per erythrocyte) 29 pg 25-34 Automated erythrocyte mean corpuscular hemoglobin concentration measurement ( mass/volume) 33 g/dL 32-36 Automated erythrocyte distribution width ratio 15.2 % 10.0-14.5 Automated blood platelet count (count/volume) 133 10*3/uL 130-400 Automated blood platelet mean volume measurement 9.7 [foz_us] 7.4-10.4 Automated blood neutrophils/100 leukocytes 80 % 42-75 Automated blood lymphocytes/100 leukocytes 11 % 12-44 Blood monocytes/100 leukocytes 8 % 0-12 Automated blood eosinophils/100 leukocytes 1 % 0-10 Automated blood basophils/100 leukocytes 0 % 0-10 Blood neutrophils automated count (number/volume) 5.8 10*3 1.8-7.8 Blood lymphocytes automated count (number/volume) 0.8 10*3 1.0-4.0 Blood monocytes automated count (number/volume) 0.6 10*3 0.0-1.0 Automated eosinophil count 0.1 10*3/uL 0.0-0.3 Automated blood basophil count (count/volume) 0.0 10*3/uL 0.0-0.1 Comprehensive metabolic panel - 10/01/17 12:30 Serum or plasma sodium measurement (moles/volume) 136 mmol/L 135-145 Serum or plasma potassium measurement (moles/volume) 3.9 mmol/L 3.6-5.0 Serum or plasma chloride measurement (moles/volume) 105 mmol/L 98-107 Carbon dioxide 23 mmol/L 21-32 Serum or plasma anion gap determination (moles/volume) 8 mmol/L 5-14 Serum or plasma urea nitrogen measurement (mass/volume) 21 mg/dL 7-18 Serum or plasma creatinine measurement (mass/volume) 0.68 mg/dL 0.60-1.30 Serum or plasma urea nitrogen/creatinine mass ratio 31 NRG Serum or plasma creatinine measurement with calculation of estimated glomerular filtration rate > NRG Serum or plasma glucose measurement (mass/volume) 91 mg/dL 70-105 Serum or plasma calcium measurement (mass/volume) 8.4 mg/dL 8.5-10.1 Serum or plasma total bilirubin measurement (mass/volume) 0.6 mg/dL 0.1-1.0 Serum or plasma alkaline phosphatase measurement (enzymatic activity/volume) 86 U/L 40-136 Serum or plasma aspartate aminotransferase measurement (enzymatic activity/ volume) 17 U/L 5-34 Serum or plasma alanine aminotransferase measurement (enzymatic activity/volume ) 13 U/L 0-55 Serum or plasma protein measurement (mass/volume) 5.5 g/dL 6.4-8.2 Serum or plasma albumin measurement (mass/volume) 3.6 g/dL 3.2-4.5 PT panel in platelet poor plasma by coagulation assay - 10/01/17 12:30 Prothrombin time (PT) in platelet poor plasma by coagulation assay 13.6 s 12.2-14.7 INR in platelet poor plasma or blood by coagulation assay 1.0 0.8-1.4 Activated partial thromboplastin time (aPTT) in platelet poor plasma bycoagulation assay - 10/01/17 12:30 Activated partial thromboplastin time (aPTT) in platelet poor plasma bycoagulation assay 39 s 24-35 Complete urinalysis with reflex to culture - 10/01/17 12:40 Urine color determination YELLOW NRG Urine clarity determination CLEAR NRG Urine pH measurement by test strip 6 5-9 Specific gravity of urine by test strip 1.010 1.016- 1.022 Urine protein assay by test strip, semi-quantitative 1+ NEGATIVE Urine glucose detection by automated test strip 1+ NEGATIVE Erythrocytes detection in urine sediment by light microscopy NEGATIVE NEGATIVE Urine ketones detection by automated test strip NEGATIVE NEGATIVE Urine nitrite detection by test strip NEGATIVE NEGATIVE Urine total bilirubin detection by test strip NEGATIVE NEGATIVE Urine urobilinogen measurement by automated test strip (mass/volume) 1 mg/dL NORMAL Urine leukocyte esterase detection by dipstick 1+ NEGATIVE Automated urine sediment erythrocyte count by microscopy (number/high power field) NONE NRG Automated urine sediment leukocyte count by microscopy (number/high power field ) [HPF] NRG Bacteria detection in urine sediment by light microscopy TRACE NRG Squamous epithelial cells detection in urine sediment by light microscopy 0-2 NRG Crystals detection in urine sediment by light microscopy NONE NRG Casts detection in urine sediment by light microscopy NONE NRG Mucus detection in urine sediment by light microscopy NEGATIVE NRG Complete urinalysis with reflex to culture NO NRG Bacterial blood culture - 10/01/17 14:10 Bacterial blood culture NG NRG Bacterial blood culture - 10/01/17 14:11 Bacterial blood culture NG NRG Blood lactic acid measurement (moles/volume) - 10/01/17 14:40 Blood lactic acid measurement (moles/volume) 1.23 mmol/L 0.50-2.00 Automated blood complete blood count (hemogram) panel - 10/02/17 05:36 Blood leukocytes automated count (number/volume) 7.6 10*3/uL 4.3-11.0 Blood erythrocytes automated count (number/volume) 3.76 10*6/uL 4.35-5.85 Venous blood hemoglobin measurement (mass/volume) 10.8 g/dL 11.5-16.0 Blood hematocrit (volume fraction) 33 % 35-52 Automated erythrocyte mean corpuscular volume 88 [foz_us] 80-99 Automated erythrocyte mean corpuscular hemoglobin (mass per erythrocyte) 29 pg 25-34 Automated erythrocyte mean corpuscular hemoglobin concentration measurement ( mass/volume) 33 g/dL 32-36 Automated erythrocyte distribution width ratio 15.3 % 10.0-14.5 Automated blood platelet count (count/volume) 143 10*3/uL 130-400 Automated blood platelet mean volume measurement 10.0 [foz_us] 7.4-10.4 Whole blood basic metabolic panel - 10/02/17 05:36 Serum or plasma sodium measurement (moles/volume) 137 mmol/L 135-145 Serum or plasma potassium measurement (moles/volume) 3.7 mmol/L 3.6-5.0 Serum or plasma chloride measurement (moles/volume) 104 mmol/L 98-107 Carbon dioxide 22 mmol/L 21-32 Serum or plasma anion gap determination (moles/volume) 11 mmol/L 5-14 Serum or plasma urea nitrogen measurement (mass/volume) 12 mg/dL 7-18 Serum or plasma creatinine measurement (mass/volume) 0.59 mg/dL 0.60-1.30 Serum or plasma urea nitrogen/creatinine mass ratio 20 NRG Serum or plasma creatinine measurement with calculation of estimated glomerular filtration rate > NRG Serum or plasma glucose measurement (mass/volume) 101 mg/dL 70-105 Serum or plasma calcium measurement (mass/volume) 8.7 mg/dL 8.5-10.1 Automated blood complete blood count (hemogram) panel - 10/03/17 05:56 Blood leukocytes automated count (number/volume) 7.7 10*3/uL 4.3-11.0 Blood erythrocytes automated count (number/volume) 3.38 10*6/uL 4.35-5.85 Venous blood hemoglobin measurement (mass/volume) 9.8 g/dL 11.5-16.0 Blood hematocrit (volume fraction) 30 % 35-52 Automated erythrocyte mean corpuscular volume 88 [foz_us] 80-99 Automated erythrocyte mean corpuscular hemoglobin (mass per erythrocyte) 29 pg 25-34 Automated erythrocyte mean corpuscular hemoglobin concentration measurement ( mass/volume) 33 g/dL 32-36 Automated erythrocyte distribution width ratio 14.9 % 10.0-14.5 Automated blood platelet count (count/volume) 146 10*3/uL 130-400 Automated blood platelet mean volume measurement 9.8 [foz_us] 7.4-10.4 Whole blood basic metabolic panel - 10/03/17 05:56 Serum or plasma sodium measurement (moles/volume) 136 mmol/L 135-145 Serum or plasma potassium measurement (moles/volume) 3.6 mmol/L 3.6-5.0 Serum or plasma chloride measurement (moles/volume) 104 mmol/L 98-107 Carbon dioxide 25 mmol/L 21-32 Serum or plasma anion gap determination (moles/volume) 7 mmol/L 5-14 Serum or plasma urea nitrogen measurement (mass/volume) 8 mg/dL 7-18 Serum or plasma creatinine measurement (mass/volume) 0.51 mg/dL 0.60-1.30 Serum or plasma urea nitrogen/creatinine mass ratio 16 NRG Serum or plasma creatinine measurement with calculation of estimated glomerular filtration rate > NRG Serum or plasma glucose measurement (mass/volume) 93 mg/dL 70-105 Serum or plasma calcium measurement (mass/volume) 8.5 mg/dL 8.5-10.1 Complete blood count (CBC) with automated white blood cell (WBC) differential - 10/04/17 04:45 Blood leukocytes automated count (number/volume) 7.7 10*3/uL 4.3-11.0 Blood erythrocytes automated count (number/volume) 3.37 10*6/uL 4.35-5.85 Venous blood hemoglobin measurement (mass/volume) 9.6 g/dL 11.5-16.0 Blood hematocrit (volume fraction) 30 % 35-52 Automated erythrocyte mean corpuscular volume 88 [foz_us] 80-99 Automated erythrocyte mean corpuscular hemoglobin (mass per erythrocyte) 29 pg 25-34 Automated erythrocyte mean corpuscular hemoglobin concentration measurement ( mass/volume) 32 g/dL 32-36 Automated erythrocyte distribution width ratio 15.2 % 10.0-14.5 Automated blood platelet count (count/volume) 144 10*3/uL 130-400 Automated blood platelet mean volume measurement 9.3 [foz_us] 7.4-10.4 Automated blood neutrophils/100 leukocytes 75 % 42-75 Automated blood lymphocytes/100 leukocytes 9 % 12-44 Blood monocytes/100 leukocytes 15 % 0-12 Automated blood eosinophils/100 leukocytes 1 % 0-10 Automated blood basophils/100 leukocytes 0 % 0-10 Blood neutrophils automated count (number/volume) 5.7 10*3 1.8-7.8 Blood lymphocytes automated count (number/volume) 0.7 10*3 1.0-4.0 Blood monocytes automated count (number/volume) 1.1 10*3 0.0-1.0 Automated eosinophil count 0.1 10*3/uL 0.0-0.3 Automated blood basophil count (count/volume) 0.0 10*3/uL 0.0-0.1 Whole blood basic metabolic panel - 10/04/17 04:45 Serum or plasma sodium measurement (moles/volume) 137 mmol/L 135-145 Serum or plasma potassium measurement (moles/volume) 3.2 mmol/L 3.6-5.0 Serum or plasma chloride measurement (moles/volume) 104 mmol/L 98-107 Carbon dioxide 24 mmol/L 21-32 Serum or plasma anion gap determination (moles/volume) 9 mmol/L 5-14 Serum or plasma urea nitrogen measurement (mass/volume) 7 mg/dL 7-18 Serum or plasma creatinine measurement (mass/volume) 0.52 mg/dL 0.60-1.30 Serum or plasma urea nitrogen/creatinine mass ratio 13 NRG Serum or plasma creatinine measurement with calculation of estimated glomerular filtration rate > NRG Serum or plasma glucose measurement (mass/volume) 95 mg/dL 70-105 Serum or plasma calcium measurement (mass/volume) 8.5 mg/dL 8.5-10.1 Complete blood count (CBC) with automated white blood cell (WBC) differential - 10/05/17 05:57 Blood leukocytes automated count (number/volume) 6.8 10*3/uL 4.3-11.0 Blood erythrocytes automated count (number/volume) 3.38 10*6/uL 4.35-5.85 Venous blood hemoglobin measurement (mass/volume) 9.7 g/dL 11.5-16.0 Blood hematocrit (volume fraction) 30 % 35-52 Automated erythrocyte mean corpuscular volume 89 [foz_us] 80-99 Automated erythrocyte mean corpuscular hemoglobin (mass per erythrocyte) 29 pg 25-34 Automated erythrocyte mean corpuscular hemoglobin concentration measurement ( mass/volume) 32 g/dL 32-36 Automated erythrocyte distribution width ratio 15.2 % 10.0-14.5 Automated blood platelet count (count/volume) 198 10*3/uL 130-400 Automated blood platelet mean volume measurement 9.2 [foz_us] 7.4-10.4 Automated blood neutrophils/100 leukocytes 68 % 42-75 Automated blood lymphocytes/100 leukocytes 17 % 12-44 Blood monocytes/100 leukocytes 12 % 0-12 Automated blood eosinophils/100 leukocytes 4 % 0-10 Automated blood basophils/100 leukocytes 0 % 0-10 Blood neutrophils automated count (number/volume) 4.6 10*3 1.8-7.8 Blood lymphocytes automated count (number/volume) 1.1 10*3 1.0-4.0 Blood monocytes automated count (number/volume) 0.8 10*3 0.0-1.0 Automated eosinophil count 0.3 10*3/uL 0.0-0.3 Automated blood basophil count (count/volume) 0.0 10*3/uL 0.0-0.1 Comprehensive metabolic panel - 10/05/17 05:57 Serum or plasma sodium measurement (moles/volume) 139 mmol/L 135-145 Serum or plasma potassium measurement (moles/volume) 3.2 mmol/L 3.6-5.0 Serum or plasma chloride measurement (moles/volume) 104 mmol/L 98-107 Carbon dioxide 31 mmol/L 21-32 Serum or plasma anion gap determination (moles/volume) 4 mmol/L 5-14 Serum or plasma urea nitrogen measurement (mass/volume) 8 mg/dL 7-18 Serum or plasma creatinine measurement (mass/volume) 0.53 mg/dL 0.60-1.30 Serum or plasma urea nitrogen/creatinine mass ratio 15 NRG Serum or plasma creatinine measurement with calculation of estimated glomerular filtration rate > NRG Serum or plasma glucose measurement (mass/volume) 84 mg/dL 70-105 Serum or plasma calcium measurement (mass/volume) 8.4 mg/dL 8.5-10.1 Serum or plasma total bilirubin measurement (mass/volume) 0.5 mg/dL 0.1-1.0 Serum or plasma alkaline phosphatase measurement (enzymatic activity/volume) 93 U/L 40-136 Serum or plasma aspartate aminotransferase measurement (enzymatic activity/ volume) 23 U/L 5-34 Serum or plasma alanine aminotransferase measurement (enzymatic activity/volume ) 14 U/L 0-55 Serum or plasma protein measurement (mass/volume) 5.1 g/dL 6.4-8.2 Serum or plasma albumin measurement (mass/volume) 2.8 g/dL 3.2-4.5 Complete blood count (CBC) with automated white blood cell (WBC) differential - 10/06/17 06:25 Blood leukocytes automated count (number/volume) 7.6 10*3/uL 4.3-11.0 Blood erythrocytes automated count (number/volume) 3.75 10*6/uL 4.35-5.85 Venous blood hemoglobin measurement (mass/volume) 10.9 g/dL 11.5-16.0 Blood hematocrit (volume fraction) 33 % 35-52 Automated erythrocyte mean corpuscular volume 88 [foz_us] 80-99 Automated erythrocyte mean corpuscular hemoglobin (mass per erythrocyte) 29 pg 25-34 Automated erythrocyte mean corpuscular hemoglobin concentration measurement ( mass/volume) 33 g/dL 32-36 Automated erythrocyte distribution width ratio 15.1 % 10.0-14.5 Automated blood platelet count (count/volume) 295 10*3/uL 130-400 Automated blood platelet mean volume measurement 8.5 [foz_us] 7.4-10.4 Automated blood neutrophils/100 leukocytes 75 % 42-75 Automated blood lymphocytes/100 leukocytes 15 % 12-44 Blood monocytes/100 leukocytes 8 % 0-12 Automated blood eosinophils/100 leukocytes 1 % 0-10 Automated blood basophils/100 leukocytes 0 % 0-10 Blood neutrophils automated count (number/volume) 5.7 10*3 1.8-7.8 Blood lymphocytes automated count (number/volume) 1.1 10*3 1.0-4.0 Blood monocytes automated count (number/volume) 0.6 10*3 0.0-1.0 Automated eosinophil count 0.1 10*3/uL 0.0-0.3 Automated blood basophil count (count/volume) 0.0 10*3/uL 0.0-0.1 Comprehensive metabolic panel - 10/06/17 06:25 Serum or plasma sodium measurement (moles/volume) 141 mmol/L 135-145 Serum or plasma potassium measurement (moles/volume) 3.5 mmol/L 3.6-5.0 Serum or plasma chloride measurement (moles/volume) 100 mmol/L 98-107 Carbon dioxide 31 mmol/L 21-32 Serum or plasma anion gap determination (moles/volume) 10 mmol/L 5-14 Serum or plasma urea nitrogen measurement (mass/volume) 7 mg/dL 7-18 Serum or plasma creatinine measurement (mass/volume) 0.59 mg/dL 0.60-1.30 Serum or plasma urea nitrogen/creatinine mass ratio 12 NRG Serum or plasma creatinine measurement with calculation of estimated glomerular filtration rate > NRG Serum or plasma glucose measurement (mass/volume) 107 mg/dL 70-105 Serum or plasma calcium measurement (mass/volume) 8.9 mg/dL 8.5-10.1 Serum or plasma total bilirubin measurement (mass/volume) 0.4 mg/dL 0.1-1.0 Serum or plasma alkaline phosphatase measurement (enzymatic activity/volume) 103 U/L 40-136 Serum or plasma aspartate aminotransferase measurement (enzymatic activity/ volume) 24 U/L 5-34 Serum or plasma alanine aminotransferase measurement (enzymatic activity/volume ) 18 U/L 0-55 Serum or plasma protein measurement (mass/volume) 5.5 g/dL 6.4-8.2 Serum or plasma albumin measurement (mass/volume) 3.2 g/dL 3.2-4.5 Serum or plasma lithium measurement (moles/volume) - 10/06/17 06:25 BNP level 188.4 pg/mL <100.0 Complete blood count (CBC) with automated white blood cell (WBC) differential - 10/07/17 06:13 Blood leukocytes automated count (number/volume) 6.0 10*3/uL 4.3-11.0 Blood erythrocytes automated count (number/volume) 3.78 10*6/uL 4.35-5.85 Venous blood hemoglobin measurement (mass/volume) 10.8 g/dL 11.5-16.0 Blood hematocrit (volume fraction) 33 % 35-52 Automated erythrocyte mean corpuscular volume 88 [foz_us] 80-99 Automated erythrocyte mean corpuscular hemoglobin (mass per erythrocyte) 29 pg 25-34 Automated erythrocyte mean corpuscular hemoglobin concentration measurement ( mass/volume) 33 g/dL 32-36 Automated erythrocyte distribution width ratio 15.3 % 10.0-14.5 Automated blood platelet count (count/volume) 350 10*3/uL 130-400 Automated blood platelet mean volume measurement 8.6 [foz_us] 7.4-10.4 Automated blood neutrophils/100 leukocytes 72 % 42-75 Automated blood lymphocytes/100 leukocytes 15 % 12-44 Blood monocytes/100 leukocytes 8 % 0-12 Automated blood eosinophils/100 leukocytes 4 % 0-10 Automated blood basophils/100 leukocytes 0 % 0-10 Blood neutrophils automated count (number/volume) 4.3 10*3 1.8-7.8 Blood lymphocytes automated count (number/volume) 0.9 10*3 1.0-4.0 Blood monocytes automated count (number/volume) 0.5 10*3 0.0-1.0 Automated eosinophil count 0.3 10*3/uL 0.0-0.3 Automated blood basophil count (count/volume) 0.0 10*3/uL 0.0-0.1 Whole blood basic metabolic panel - 10/07/17 06:13 Serum or plasma sodium measurement (moles/volume) 141 mmol/L 135-145 Serum or plasma potassium measurement (moles/volume) 3.8 mmol/L 3.6-5.0 Serum or plasma chloride measurement (moles/volume) 102 mmol/L 98-107 Carbon dioxide 31 mmol/L 21-32 Serum or plasma anion gap determination (moles/volume) 8 mmol/L 5-14 Serum or plasma urea nitrogen measurement (mass/volume) 8 mg/dL 7-18 Serum or plasma creatinine measurement (mass/volume) 0.51 mg/dL 0.60-1.30 Serum or plasma urea nitrogen/creatinine mass ratio 16 NRG Serum or plasma creatinine measurement with calculation of estimated glomerular filtration rate > NRG Serum or plasma glucose measurement (mass/volume) 100 mg/dL 70-105 Serum or plasma calcium measurement (mass/volume) 8.6 mg/dL 8.5-10.1 Complete blood count (CBC) with automated white blood cell (WBC) differential - 10/08/17 06:08 Blood leukocytes automated count (number/volume) 5.8 10*3/uL 4.3-11.0 Blood erythrocytes automated count (number/volume) 4.05 10*6/uL 4.35-5.85 Venous blood hemoglobin measurement (mass/volume) 11.2 g/dL 11.5-16.0 Blood hematocrit (volume fraction) 35 % 35-52 Automated erythrocyte mean corpuscular volume 86 [foz_us] 80-99 Automated erythrocyte mean corpuscular hemoglobin (mass per erythrocyte) 28 pg 25-34 Automated erythrocyte mean corpuscular hemoglobin concentration measurement ( mass/volume) 32 g/dL 32-36 Automated erythrocyte distribution width ratio 15.2 % 10.0-14.5 Automated blood platelet count (count/volume) 416 10*3/uL 130-400 Automated blood platelet mean volume measurement 8.4 [foz_us] 7.4-10.4 Automated blood neutrophils/100 leukocytes 65 % 42-75 Automated blood lymphocytes/100 leukocytes 20 % 12-44 Blood monocytes/100 leukocytes 9 % 0-12 Automated blood eosinophils/100 leukocytes 6 % 0-10 Automated blood basophils/100 leukocytes 0 % 0-10 Blood neutrophils automated count (number/volume) 3.8 10*3 1.8-7.8 Blood lymphocytes automated count (number/volume) 1.2 10*3 1.0-4.0 Blood monocytes automated count (number/volume) 0.5 10*3 0.0-1.0 Automated eosinophil count 0.3 10*3/uL 0.0-0.3 Automated blood basophil count (count/volume) 0.0 10*3/uL 0.0-0.1 Whole blood basic metabolic panel - 10/08/17 06:08 Serum or plasma sodium measurement (moles/volume) 141 mmol/L 135-145 Serum or plasma potassium measurement (moles/volume) 4.0 mmol/L 3.6-5.0 Serum or plasma chloride measurement (moles/volume) 102 mmol/L 98-107 Carbon dioxide 29 mmol/L 21-32 Serum or plasma anion gap determination (moles/volume) 10 mmol/L 5-14 Serum or plasma urea nitrogen measurement (mass/volume) 18 mg/dL 7-18 Serum or plasma creatinine measurement (mass/volume) 0.60 mg/dL 0.60-1.30 Serum or plasma urea nitrogen/creatinine mass ratio 30 NRG Serum or plasma creatinine measurement with calculation of estimated glomerular filtration rate > NRG Serum or plasma glucose measurement (mass/volume) 101 mg/dL 70-105 Serum or plasma calcium measurement (mass/volume) 8.9 mg/dL 8.5-10.1 Automated blood complete blood count (hemogram) panel - 10/09/17 06:41 Blood leukocytes automated count (number/volume) 5.7 10*3/uL 4.3-11.0 Blood erythrocytes automated count (number/volume) 4.32 10*6/uL 4.35-5.85 Venous blood hemoglobin measurement (mass/volume) 12.2 g/dL 11.5-16.0 Blood hematocrit (volume fraction) 37 % 35-52 Automated erythrocyte mean corpuscular volume 86 [foz_us] 80-99 Automated erythrocyte mean corpuscular hemoglobin (mass per erythrocyte) 28 pg 25-34 Automated erythrocyte mean corpuscular hemoglobin concentration measurement ( mass/volume) 33 g/dL 32-36 Automated erythrocyte distribution width ratio 15.4 % 10.0-14.5 Automated blood platelet count (count/volume) 482 10*3/uL 130-400 Automated blood platelet mean volume measurement 8.4 [foz_us] 7.4-10.4 Whole blood basic metabolic panel - 10/09/17 06:41 Serum or plasma sodium measurement (moles/volume) 140 mmol/L 135-145 Serum or plasma potassium measurement (moles/volume) 4.5 mmol/L 3.6-5.0 Serum or plasma chloride measurement (moles/volume) 101 mmol/L 98-107 Carbon dioxide 27 mmol/L 21-32 Serum or plasma anion gap determination (moles/volume) 12 mmol/L 5-14 Serum or plasma urea nitrogen measurement (mass/volume) 15 mg/dL 7-18 Serum or plasma creatinine measurement (mass/volume) 0.58 mg/dL 0.60-1.30 Serum or plasma urea nitrogen/creatinine mass ratio 26 NRG Serum or plasma creatinine measurement with calculation of estimated glomerular filtration rate > NRG Serum or plasma glucose measurement (mass/volume) 98 mg/dL 70-105 Serum or plasma calcium measurement (mass/volume) 9.2 mg/dL 8.5-10.1 Complete blood count (CBC) with automated white blood cell (WBC) differential - 07/15/18 09:03 Blood leukocytes automated count (number/volume) 4.4 10*3/uL 4.3-11.0 Blood erythrocytes automated count (number/volume) 4.98 10*6/uL 4.35-5.85 Venous blood hemoglobin measurement (mass/volume) 14.1 g/dL 11.5-16.0 Blood hematocrit (volume fraction) 43 % 35-52 Automated erythrocyte mean corpuscular volume 87 [foz_us] 80-99 Automated erythrocyte mean corpuscular hemoglobin (mass per erythrocyte) 28 pg 25-34 Automated erythrocyte mean corpuscular hemoglobin concentration measurement ( mass/volume) 33 g/dL 32-36 Automated erythrocyte distribution width ratio 14.2 % 10.0-14.5 Automated blood platelet count (count/volume) 195 10*3/uL 130-400 Automated blood platelet mean volume measurement 9.3 [foz_us] 7.4-10.4 Automated blood neutrophils/100 leukocytes 56 % 42-75 Automated blood lymphocytes/100 leukocytes 29 % 12-44 Blood monocytes/100 leukocytes 11 % 0-12 Automated blood eosinophils/100 leukocytes 3 % 0-10 Automated blood basophils/100 leukocytes 1 % 0-10 Blood neutrophils automated count (number/volume) 2.4 10*3 1.8-7.8 Blood lymphocytes automated count (number/volume) 1.3 10*3 1.0-4.0 Blood monocytes automated count (number/volume) 0.5 10*3 0.0-1.0 Automated eosinophil count 0.2 10*3/uL 0.0-0.3 Automated blood basophil count (count/volume) 0.0 10*3/uL 0.0-0.1 Comprehensive metabolic panel - 07/15/18 09:03 Serum or plasma sodium measurement (moles/volume) 143 mmol/L 135-145 Serum or plasma potassium measurement (moles/volume) 4.1 mmol/L 3.6-5.0 Serum or plasma chloride measurement (moles/volume) 106 mmol/L 98-107 Carbon dioxide 26 mmol/L 21-32 Serum or plasma anion gap determination (moles/volume) 11 mmol/L 5-14 Serum or plasma urea nitrogen measurement (mass/volume) 16 mg/dL 7-18 Serum or plasma creatinine measurement (mass/volume) 0.71 mg/dL 0.60-1.30 Serum or plasma urea nitrogen/creatinine mass ratio 23 NRG Serum or plasma creatinine measurement with calculation of estimated glomerular filtration rate > NRG Serum or plasma glucose measurement (mass/volume) 91 mg/dL 70-105 Serum or plasma calcium measurement (mass/volume) 9.8 mg/dL 8.5-10.1 Serum or plasma total bilirubin measurement (mass/volume) 0.6 mg/dL 0.1-1.0 Serum or plasma alkaline phosphatase measurement (enzymatic activity/volume) 82 U/L 40-136 Serum or plasma aspartate aminotransferase measurement (enzymatic activity/ volume) 20 U/L 5-34 Serum or plasma alanine aminotransferase measurement (enzymatic activity/volume ) 12 U/L 0-55 Serum or plasma protein measurement (mass/volume) 7.1 g/dL 6.4-8.2 Serum or plasma albumin measurement (mass/volume) 4.3 g/dL 3.2-4.5 CALCIUM CORRECTED 9.6 mg/dL 8.5-10.1 THYROID STIMULATING HORMONE - 07/15/18 09:03 THYROID STIMULATING HORMONE 1.49 u[iU]/mL 0.35-4.94 Serum or plasma thyroxine (T4) free measurement (mass/volume) - 07/15/18 09:03 Serum or plasma thyroxine (T4) free measurement (mass/volume) 1.06 ng/dL 0.70-1.48 IMMUNOFIXATION W/INTERP, SERUM - 07/15/18 09:03 Serum or plasma nordiazepam detection Complete Complete Serum protein electrophoresis - 07/15/18 09:03 Serum or plasma protein measurement (mass/volume) 6.7 % 6.1-8.1 Pathology consultation and report SEE PATH REPORT NRG Serum or plasma thiamine measurement (mass/volume) - 07/15/18 09:03 Serum or plasma thiamine measurement (moles/volume) 119 % 70-180 Cyanocobalamin measurement - 07/15/18 09:03 Vitamin B12 389 pg/mL 190-1100 Encounters ACCT No. Visit Date/Time Discharge Status Pt. Type Provider Facility Loc./Unit Complaint [id number] 08/11/2018 08:58:00 08/11/2018 23:59:59 CLS Outpatient MARIFER GAO MD [facility] RAD PAIN,MOMOCLONAL GAMMOPHATHIES [id number] 08/07/2018 08:15:00 08/07/2018 23:59:59 CLS Outpatient MARIFER GAO MD [facility] ONC [id number] 07/15/2018 08:42:00 07/15/2018 23:59:59 CLS Outpatient ROBEL BEDOLLA MD [facility] LAB IDOPATHIC PROGRESSIVE NEUROPATHY [id number] 12/11/2017 13:42:00 01/19/2018 14:46:00 DIS Outpatient CHRISSY (GIOVANNI)MARRY [facility] REHAB R HIP PAIN; LUMBAR STENOSIS;NEUROGENIC CLAUDICATION [id number] 09/24/2017 09:31:00 11/11/2017 00:01:00 DIS Outpatient CHRISSY (GIOVANNI)MARRY [facility] REHAB R HIP PAIN; LUMBAR STENOSIS;NEUROGENIC CLAUDICATION [id number] 10/31/2017 07:55:00 10/31/2017 23:59:59 CLS Outpatient AALIYAH CHILDS DO [facility] RAD PNEUMONIA [id number] 10/24/2017 07:47:00 10/24/2017 23:59:59 CLS Outpatient AALIYAH CHILDS DO [facility] RAD PNEUMONIA RIGHT UPPER LOBE J18.9 [id number] 10/17/2017 12:12:00 10/17/2017 23:59:59 CLS Outpatient AALIYAH CHILDS DO [facility] RAD PNEUMONIA [id number] 10/08/2017 12:49:00 10/09/2017 13:15:00 DIS Inpatient AALIYAH CHILDS DO [facility] 4TH SWB,BILATERAL PNEUMONIA [id number] 10/01/2017 13:57:00 10/08/2017 12:44:00 DIS Inpatient AALIYAH CHILDS DO [facility] 4TH BILATERAL PNEUMONIA [id number] 08/05/2017 22:37:00 08/06/2017 00:58:00 DIS Emergency CHAUNCEY MONTANA MD [facility] ER FALL [id number] 11/14/2016 13:44:00 11/15/2016 13:39:00 DIS Outpatient AALIYAH CHILDS DO [facility] SDC FALL,PAIN ALL OVER [id number] 11/12/2016 10:53:00 11/12/2016 23:59:59 CLS Outpatient AMADEO DO AALIYAH Tyron [facility] RAD FELL LAST NIGHT AND HURT ALL OVER [id number] 09/19/2016 09:45:00 09/19/2016 23:59:59 CLS Outpatient GAURANGSATISHAALIYAH REDMAN DO [facility] LAB FUNGUS OF LT TOE BETWEEN 5 4 TOE [id number] 08/28/2016 10:17:00 08/28/2016 23:59:59 CLS Outpatient NAYELICARY AALIYAH Tyron [facility] RAD FELL LAST NIGHT,SOB RT RIB PAIN [id number] 03/01/2016 09:00:00 03/01/2016 23:59:59 CLS Outpatient GAURANGSATISHAALIYAH REDMAN DO [facility] RAD SEVERE BACK PAIN GETTING WORSE [id number] 12/21/2015 14:12:00 12/21/2015 16:38:00 [facility] Outpatient AALIYAH CIHLDS DO [facility] REHAB LOW BACK PAIN; LUMBAGO;LUMBAR STENOSIS;LUMBAR SPOND [id number] 10/26/2015 11:29:00 10/26/2015 23:59:59 CLS Outpatient ELISE NOGUERA, LIBAN O[place]fe [facility] RAD LUMBAR SPONDYLOLISTHESIS, STENOSIS, PAIN IN LIMB [id number] 10/17/2015 13:12:00 10/17/2015 23:59:59 CLS Outpatient NAYELIAALIYAH REDMAN DO [facility] RAD PAIN GOING DOWN RIGHT LEG,SIATICA [id number] 10/03/2015 15:22:00 10/03/2015 23:59:59 CLS Outpatient AALIYAH CHILDS DO [facility] RAD RIGHT HIP PAIN [id number] 12/14/2014 09:54:00 12/14/2014 23:59:59 CLS Outpatient AALIYAH CHILDS DO [facility] RAD ABD PAIN,DIARRHEA [id number] 12/09/2014 08:07:00 12/09/2014 23:59:59 CLS Outpatient AALIYAH CHILDS DO [facility] RAD LOWER ABDOMINAL PAIN DIARRHEA [id number] 12/07/2014 14:22:00 12/07/2014 23:59:59 CLS Outpatient AALIYAH CHILDS DO [facility] RAD DIARRHEA ABOMINAL PAIN [id number] 12/07/2014 10:55:00 12/07/2014 23:59:59 CLS Outpatient AALIYAH CHILDS DO [facility] LAB ABD PAIN, [id number] 02/02/2014 10:00:00 02/02/2014 23:59:59 CLS Outpatient AALIYAH CHILDS DO [facility] RAD PAIN IN RIGHT FOOT [id number] 12/08/2013 15:13:00 12/08/2013 23:59:59 CLS Outpatient AALIYAH CHILDS DO [facility] RAD PAIN IN 5TH METATARSAL [id number] 11/16/2013 12:29:00 11/16/2013 23:59:59 CLS Outpatient AALIYAH CHILDS DO [facility] RAD RT CALF AND KNEE SEVERE PAIN [id number] 11/15/2013 13:31:00 11/15/2013 23:59:59 CLS Outpatient AALIYAH CHILDS DO [facility] RAD FALL R LEG/KNEE PAIN [id number] 08/09/2013 12:50:00 08/09/2013 23:59:59 CLS Outpatient AALIYAH CHILDS DO [facility] RAD SEVERE PAIN LEFT KNEE [id number] 11/09/2012 17:17:00 11/12/2012 14:35:00 DIS Inpatient AALIYAH CHILDS DO [facility] 4TH DIVERTICULITIS [id number] 08/17/2018 09:15:00 MARIFER Cruz MD [facility] RAD MONOCLONAL GAMMOPATHIES [id number] 10/21/2012 13:50:00 Document Registration [id number] 05/31/2012 20:53:00 Document Registration [id number] 05/25/2012 13:25:00 Document Registration [id number] 02/24/2012 09:04:00 Document Registration [id number] 02/03/2012 14:06:00 Document Registration [id number] 11/22/2011 08:44:00 Document Registration [id number] 09/11/2011 09:44:00 Document Registration [id number] 09/04/2011 13:34:00 Document Registration [id number] 08/29/2011 10:04:00 Document Registration [id number] 04/10/2011 14:25:00 Document Registration [id number] 02/18/2011 14:04:00 Document Registration [id number] 12/12/2010 09:56:00 Document Registration [id number] 11/29/2010 09:50:00 Document Registration
[2018-08-17] MEDS ORDERED: NS IV 1000 ML 1,000 ML IV STA (08:05)
[2018-08-17] MEDS ORDERED: fentaNYL INJECTION 100 MCG/2 ML AMP IVP ONE (08:15)
[2018-08-17] MEDS ORDERED: LIDOCAINE 1% INJ 20 ML 20 ML VIAL INJ ONE (08:15)
[2018-08-17] MEDS ORDERED: MIDAZOLAM 2 MG/2 ML (VERSED) VIAL IVP ONE (08:15)
[2018-08-17 09:13] LABS: INR 0.9 (0.8-1.4)
[2018-08-17 09:15] LABS: HEMATOCRIT 43 % (35-52); HEMOGLOBIN 13.8 G/DL (11.5-16.0); MEAN CORPUSCULAR HEMOGLOBIN 29 PG (25-34); MEAN CORPUSCULAR HGB CONC 32 G/DL (32-36); MEAN CORPUSCULAR VOLUME 88 FL (80-99); MEAN PLATELET VOLUME 11.6 FL (7.4-10.4); PLATELET COUNT 92 10^3/uL (130-400); RED CELL DISTRIBUTION WIDTH 14.1 % (10.0-14.5); WHITE BLOOD COUNT 4.2 10^3/uL (4.3-11.0)
[2018-08-17 09:56] LABS: ABSOLUTE RETIC # 41 10e9/L (24-90); BASOPHILS % (AUTO) 1 % (0-10); EOSINOPHILS # (AUTO) 0.2 10^3/uL (0.0-0.3); EOSINOPHILS % (AUTO) 4 % (0-10); LYMPHOCYTES # (AUTO) 1.3 X 10^3 (1.0-4.0); LYMPHOCYTES % (AUTO) 30 % (12-44); MONOCYTES # (AUTO) 0.5 X 10^3 (0.0-1.0); MONOCYTES % (AUTO) 10 % (0-12); NEUTROPHILS # (AUTO) 2.4 X 10^3 (1.8-7.8); NEUTROPHILS % (AUTO) 56 % (42-75); RETICULOCYTE % 0.84 % (0.50-2.40)
[2018-08-17] MEDS ORDERED: HYDROcodone/APAP 5 MG/325 MG (LORTAB) TAB PO PRN (10:00)
[2018-08-17 10:28] LABS: BAND NEUTROPHILS 0 %; BASOPHILS % (MANUAL) 0 %; EOSINOPHILS % (MANUAL) 4 %; LYMPHOCYTES % (MANUAL) 25 %; MONOCYTES % (MANUAL) 13 %; NEUTROPHILS % (MANUAL) 58 %
[2018-08-17 10:29] LABS: RBC MORPH NORMAL
--- NOTE | 2018-08-17 11:04 | Diagnostic Imaging Report ---
INDICATION: Monoclonal gammopathy. PROCEDURE: Patient was brought to the CT suite and placed on the table in the prone position. Axial imaging through the pelvis was performed to evaluate appropriate entry site. Procedure was performed utilizing conscious sedation with radiology nursing and constant patient monitoring. Patient was administered 25 mcg of fentanyl and 0.5 mg of Versed intravenously. Total procedure and sedation time was 7 minutes. The right posterior low back was prepped and draped in usual sterile fashion. Small amount of 1% lidocaine was utilized for local anesthesia. Bone marrow biopsy needle was advanced and placed with its tip against the cortex of the right posterior iliac bone. Bone marrow biopsy drill was utilized to advance the needle beyond the cortex into the marrow. Two bone marrow aspirates were obtained. Next, a bone marrow core biopsy was obtained. Needle was removed and hemostasis was obtained using manual compression. Patient tolerated the procedure well and left the department in stable condition. IMPRESSION: Successful CT-guided bone marrow aspiration and biopsy, utilizing conscious sedation, as described. Dictated by: Dictated on workstation # [id number]
--- NOTE | 2018-08-17 11:20 | Pre-Op Note & Conscious Sedat ---
Pre-Operative Progress Note H&P Reviewed The H&P was reviewed, patient examined and no changes noted. Date H&P Reviewed: Aug 17, 2018 Time H&P Reviewed: 09:00 Pre-Op Diagnosis: Monoclonal gammopathy Conscious Sedation Pre-Proced Time 09:00 ASA Score 2 For ASA 3 and 4: Consider anesthesia and medical clearance. Also, for patients with a history of failed moderate sedation consider anesthesia. Airway Lungs Heart ASA score ASA 1: a normal healthy patient ASA 2: a patient with a mild systemic disease (mid diabetes, controlled hypertension, obesity ASA 3: a patient with a severe systemic disease that limits activity (angina , COPD, prior Myocardial infarction) ASA 4: a patient with an incapacitating disease that is a constant threat to life (CHF, renal failure) ASA 5: a moribund patient not expected to survive 24 hrs. (ruptured aneurysm) ASA 6: a declared brain- patient whose organs are being harvested. For emergent operations, add the letter E after the classification Mallampati Classification Grade 2 Sedation Plan Analgesia, Amnesia, Plan communicated to team members, Discussed options with patient/fam, Discussed risks with patient/fam The patient is an appropriate candidate to undergo the planned procedure, sedation, and anesthesia. The patient immediately re-assessed prior to indication. NA CALVILLO MD Aug 17, 2018 11:20
== END 2018-08-17 13:00 | disposition home or self-care (01) ==
LOC: RAD 07:54 → SDC 09:59 → RAD 13:00
PROVIDERS: ATTEND Internal Medicine Hematology & Oncology
DX: D47.2 Monoclonal gammopathy (principal)
CPT/HCPCS: 36415; 38222; 77012; 85007; 85027; 85045; 85610; 85730; 99156

== ENCOUNTER 2018-09-03 09:52 | Outpatient (RCR) | payer MEDICARE | END 2018-11-05 | disposition home or self-care (01) | LOC: ONC 09:52 | PROVIDERS: ATTEND Internal Medicine Hematology & Oncology | DX: D47.2 Monoclonal gammopathy (principal); M50.321 Other cervical disc degeneration at C4-C5 level; M48.02 Spinal stenosis, cervical region | CPT/HCPCS: 99213; 99214 ==

== ENCOUNTER → 2018-09-09 | Outpatient (CLI) | payer MEDICARE ==
[2018-09-09 12:17] LABS: BASOPHILS % (AUTO) 0 % (0-10); EOSINOPHILS # (AUTO) 0.1 10^3/uL (0.0-0.3); EOSINOPHILS % (AUTO) 1 % (0-10); HEMATOCRIT 42 % (35-52); HEMOGLOBIN 13.6 G/DL (11.5-16.0); LYMPHOCYTES # (AUTO) 1.2 X 10^3 (1.0-4.0); LYMPHOCYTES % (AUTO) 20 % (12-44); MEAN CORPUSCULAR HEMOGLOBIN 29 PG (25-34); MEAN CORPUSCULAR HGB CONC 33 G/DL (32-36); MEAN CORPUSCULAR VOLUME 88 FL (80-99); MONOCYTES # (AUTO) 0.5 X 10^3 (0.0-1.0); MONOCYTES % (AUTO) 8 % (0-12); NEUTROPHILS # (AUTO) 4.4 X 10^3 (1.8-7.8); NEUTROPHILS % (AUTO) 71 % (42-75); PLATELET COUNT 92 10^3/uL (130-400); WHITE BLOOD COUNT 6.1 10^3/uL (4.3-11.0)
--- NOTE | 2018-09-09 15:55 | Diagnostic Imaging Report ---
INDICATION: Cough, congestion, and respiratory infection. TECHNIQUE: Two-view chest at 12:22 p.m. CORRELATION STUDY: 10/31/2017. FINDINGS: Heart size and mediastinal configuration are stable. Hyperinflated lung barger with changes of COPD. No definitive consolidating infiltrate on follow-up. Post kyphoplasty changes at the T11 level. Partial visualization of lumbar spinal fixation hardware. [place]el[place] screws over the right humeral head. IMPRESSION: 1. Negative for acute abnormality of the chest. Chronic-appearing changes about the lung parenchyma. Dictated by: Dictated on workstation # [id number]
== END ==
LOC: RAD 12:00
PROVIDERS: ATTEND Family Medicine
DX: J98.8 Other specified respiratory disorders (principal); R05 Cough
CPT/HCPCS: 36415; 71046; 85025

== ENCOUNTER 2018-10-26 09:41 | Emergency (ER) | payer MEDICARE ==
[~2018-10-26] VITALS: Ht 157.5 cm; Wt 59.0 kg
--- OUTSIDE RECORDS SUMMARY | 2018-10-26 09:51 | XMS REPORT | Continuity of Care Document ---
Author Organization Unknown Address Unknown Allergies Active Description Code Type Severity Reaction Onset Reported/Identified Relationship to Patient Clinical Status Yes lansoprazole [id number] Drug Allergy Moderate HIVES 10/08/2017 Medications There is no data. Problems Date Dx Coded Attending Type Code Diagnosis Diagnosed By 05/29/1445 CHRISSY PIERRE)MARRY Ot M25.551 PAIN IN RIGHT HIP 05/29/1445 [...] Ackerman Ot 729.5 10/03/2015 GELLENDER DO, AALIYAH Ackeramn Ot 719.46 10/03/2015 GELLENDER DO, AALIYAH Ackerman [...] CHILDS DO Ot 719.06 JOINT EFFUSION-L/LEG 08/28/2016 AALIYAH CHILDS DO Ot 727.51 POPLITEAL SYNOVIAL CYST 08/28/2016 AALIYAH [...] IN LIMB 08/28/2016 AALIYAH CHILDS DO Ot 729.5 PAIN IN LIMB 08/28/2016 AALIYAH CHILDS DO Ot 715.37 LOC OSTEOARTH NOS-ANKLE 08/28/2016 AALIYAH CHILDS DO Ot 783.0 ANOREXIA 08/28/2016 AALIYAH CHILDS DO Ot 783.21 LOSS OF WEIGHT 08/28/2016 GELLENDER DO, AALIYAH Ackerman Ot 787.91 DIARRHEA 08/28/2016 GELLENDER DO, AALIYAH Ackerman Ot 789.00 ABDOMINAL PAIN, UNSPECIFIED SITE 08/28/2016 GELLENDER DO, AALIYAH Tyron Ot 780.79 OTH MALAISE FATIGUE 08/28/2016 GELLENDER DO, AALIYAH Ackerman Ot 787.91 DIARRHEA 08/28/2016 GELLENDER DO, AALIYAH Ackerman Ot 789.00 ABDOMINAL PAIN, UNSPECIFIED SITE 08/28/2016 GELLENDER DO, AALIYAH Tyron Ot 562.10 DIVERTICULOSIS COLON (W/O MENT OF HEMORR 08/28/2016 GELLENDER DO, AALIYAH Ackerman Ot 787.91 DIARRHEA 08/28/2016 GELLENDER DO, AALIYAH Tyron Ot 789.00 ABDOMINAL PAIN, UNSPECIFIED SITE 08/28/2016 GELLENDER DO, AALIYAH Tyron Ot M25.551 PAIN IN RIGHT HIP 08/28/2016 AMADEO LEE, AALIYAH Ackerman Ot M54.41 LUMBAGO WITH SCIATICA, RIGHT SIDE 08/28/2016 ELISE NOGUERA, LIBAN V Ot M48.06 SPINAL STENOSIS, LUMBAR REGION 08/28/2016 ELISE NOGUERA, LIBAN Okeefe Ot 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 08/28/2016 AMADEO LEE, AALIYAH Tyron Ot M54.31 SCIATICA, RIGHT SIDE 09/19/2016 AMADEO LEE, AALIYAH Ackerman Ot J44.9 CHRONIC OBSTRUCTIVE PULMONARY DISEASE, U 09/19/2016 AMADEO LEE, AALIYAH Ackerman Ot S29.9XXA UNSPECIFIED INJURY OF THORAX, INITIAL EN 09/19/2016 AMADEO LEE, AALIYAH Tyron Ot W19.XXXA UNSPECIFIED FALL, INITIAL ENCOUNTER 09/19/2016 AMADEO LEE, AALIYAH Ackerman Ot Y99.8 OTHER EXTERNAL CAUSE STATUS 09/19/2016 AMADEO LEE, AALIYAH Ackerman Ot B35.3 TINEA PEDIS 09/25/2016 AMADEO LEE, AALIYAH Ackerman Ot J44.9 CHRONIC OBSTRUCTIVE PULMONARY DISEASE, U 09/25/2016 AMADEO LEE, AALIYAH Tyron Ot S29.9XXA UNSPECIFIED INJURY OF THORAX, INITIAL EN 09/25/2016 AMADEO LEE, AALIYAH Ackerman Ot W19.XXXA UNSPECIFIED FALL, INITIAL ENCOUNTER 09/25/2016 AMADEO LEE, AALIYAH Ackerman Ot Y99.8 OTHER EXTERNAL CAUSE STATUS 10/10/2016 [facility], AALIYAH Tyron Ot B35.3 TINEA PEDIS 11/14/2016 [facility], AALIYAH Ackerman Ot M19.011 PRIMARY OSTEOARTHRITIS, RIGHT SHOULDER 11/14/2016 [facility], AALIYAH Ackerman Ot M47.816 SPONDYLOSIS W/O MYELOPATHY OR RADICULOPA 11/14/2016 [facility], AALIYAH Ackerman Ot S22.089A UNSP FRACTURE OF T11-T12 VERTEBRA, INIT 11/14/2016 [facility], AALIYAH Ackerman Ot S22.41XA MULTIPLE FRACTURES OF RIBS, RIGHT SIDE, 11/14/2016 [facility], AALIYAH Ackerman Ot W19.XXXA UNSPECIFIED FALL, INITIAL ENCOUNTER 11/14/2016 [facility], AALIYAH Ackerman Ot Y99.8 OTHER EXTERNAL CAUSE STATUS 11/15/2016 [facility], AALIYAH Ackerman Ot G25.81 RESTLESS LEGS SYNDROME 11/15/2016 [facility] AALIYAH Ackerman Ot S22.080A WEDGE COMPRESSION FRACTURE OF T11-T12 VE 11/15/2016 [facility] AALIYAH Ackerman Ot W18.00XA STRIKING AGAINST UNSP OBJECT W SUBSEQUEN 11/19/2016 GELLENDER DO, AALIYAH Ackerman Ot G25.81 RESTLESS LEGS SYNDROME 11/19/2016 GELLENDER DO, AALIYAH Ackerman Ot S22.000A WEDGE COMPRESSION FRACTURE OF UNSP THORA 11/19/2016 [facility] A[facility] Ackerman Ot W18.00XA STRIKING AGAINST UNSP OBJECT W SUBSEQUEN 11/21/2016 GELLENDER DO, AALIYAH Ackerman Ot G25.81 RESTLESS LEGS SYNDROME 11/21/2016 GELLENDER DO, AALIYAH Ackerman Ot S22.000A WEDGE COMPRESSION FRACTURE OF UNSP THORA 11/21/2016 GELLENDER DO, AALIYAH Ackerman Ot W18.00XA STRIKING AGAINST UNSP OBJECT W SUBSEQUEN 11/26/2016 GELLENDER DO, AALIYAH Ackerman Ot G25.81 RESTLESS LEGS SYNDROME 11/26/2016 GELLENDER DO, AALIYAH Ackerman Ot S22.080A WEDGE COMPRESSION FRACTURE OF T11-T12 VE 11/26/2016 GELLENDER DO, AALIYAH Ackerman Ot W18.00XA STRIKING AGAINST UNSP OBJECT W SUBSEQUEN 11/27/2016 GELLENDER DO, AALIYAH Ackerman Ot G25.81 RESTLESS LEGS SYNDROME 11/27/2016 GELLENDER DO, AALIYAH Tyron Ot S22.080A WEDGE COMPRESSION FRACTURE OF T11-T12 [...] Ot W19.XXXA UNSPECIFIED FALL, INITIAL ENCOUNTER 12/11/2016 [facility]UR[facility]END[facility] DO, AALIYAH Ackerman Ot Y99.8 OTHER EXTERNAL CAUSE STATUS 01/09/2017 GELLENDER DO, AALIYAH Ackerman Ot G25.81 RESTLESS LEGS SYNDROME 01/09/2017 GELLENDER DO, AALIYAH Ackerman Ot S22.080A WEDGE COMPRESSION FRACTURE OF T11-T12 VE 01/09/2017 GELLENDER DO, AALIYAH A Ot W18.00XA STRIKING AGAINST UNSP OBJECT W [...] MONTANA MD, Ot Z88.8 ALLERGY STATUS TO OT DRUG/MEDS/BIOL SUB 08/06/2017 CHAUNCEY MONTANA MD, Ot Z90.710 ACQUIRED ABSENCE OF BOTH CERVIX AND UTER 08/07/2017 CHAUNCEY MONTANA MD, Ot G25.81 RESTLESS LEGS SYNDROME 08/07/2017 CHAUNCEY MONTANA MD, Ot R40.2142 COMA SCALE, EYES OPEN, SPONTANEOUS, EMR 08/07/2017 CHAUNCEY MONTANA MD, Ot R40.2252 COMA SCALE, BEST VERBAL RESPONSE, ORIENT 08/07/2017 CHAUNECY MONTANA MD, Ot R40.2362 COMA SCALE, BEST [...] CERVIX AND UTER 09/17/2017 CHRISSY (GIOVANNI), MARRY K Ot M25.551 PAIN IN RIGHT HIP 09/17/2017 CHRISSY (GIOVANNI), MARRY K Ot M48.062 SPINAL STENOSIS, LUMBAR REGION WITH NEUR 09/24/2017 CHRISSY (GIOVANNI), MARRY K Ot M25.551 PAIN IN RIGHT HIP 09/24/2017 CHRISSY (GIOVANNI), MARRY K Ot M48.062 SPINAL [...] Ackerman Ot M54.9 DORSALGIA, UNSPECIFIED 10/06/2017 GELLENDER DOAALIYAH Ot R11.10 VOMITING, UNSPECIFIED 10/06/2017 GELLENDER DO, AALIYAH Ackerman Ot Z87.19 PERSONAL HISTORY OF OTHER DISEASES OF 10/08/2017 GELLENDER DO, AALIYAH Ackerman Ot E87.6 HYPOKALEMIA 10/08/2017 GELLENDER DOAALIYAH Ot G25.81 RESTLESS LEGS SYNDROME 10/08/2017 GELLENDER [...] IN RIGHT HIP 11/11/2017 CHRISSY (GIOVANNI), MARRY Quintana Ot M48.062 SPINAL STENOSIS, LUMBAR REGION WITH NEUR 11/12/2017 GELLENDER DO, AALIYAH Tyron Ot J18.1 LOBAR PNEUMONIA, UNSPECIFIED ORGANISM 11/13/2017 GELLENDER DO, AALIYAH A Ot J18.1 LOBAR PNEUMONIA, UNSPECIFIED ORGANISM 11/17/2017 CHRISSY (IGOVANNI), MARRY Quintana Ot M25.551 PAIN IN RIGHT HIP 11/17/2017 CHRISSY (GIOVANNI), MARRY Quintana Ot M48.062 SPINAL STENOSIS, LUMBAR REGION WITH NEUR 11/20/2017 GELLENDER DO, AALIYAH Ackerman Ot J18.9 PNEUMONIA, UNSPECIFIED ORGANISM 11/20/2017 GELLENDER DO, AALIYAH A Ot R91.8 OTHER NONSPECIFIC ABNORMAL FINDING OF VARGAS 11/20/2017 GELLENDER DO, AALIYAH A Ot J18.1 LOBAR PNEUMONIA, UNSPECIFIED ORGANISM 11/21/2017 CHRISSY (GIOVANNI), MARRY K Ot M25.551 PAIN IN RIGHT HIP 11/21/2017 CHRISSY (GIOVANNI), MARRY Quintana Ot M48.062 SPINAL STENOSIS, LUMBAR REGION WITH NEUR 11/26/2017 GELLENDER DO, AALIYAH Ackerman Ot J18.9 PNEUMONIA, UNSPECIFIED ORGANISM 11/26/2017 GELLENDER DO, AALIYAH A Ot R91.8 OTHER NONSPECIFIC ABNORMAL FINDING OF [...] M25.551 PAIN IN RIGHT HIP 01/01/2018 CHRISSY (GIOVANNI), MARRY K Ot M48.062 SPINAL STENOSIS, LUMBAR REGION WITH NEUR 01/19/2018 CHRISSY (GIOVANNI), MARRY K Ot M25.551 PAIN IN RIGHT HIP 01/19/2018 CHRISSY (GIOVANNI), MARRY Quintana Ot M48.062 SPINAL [...] Ot 719.46 JOINT PAIN-L/LEG 07/15/2018 GELLENDER DO, AALIYAH Ackerman Ot 729.5 [...] Ot M25.551 PAIN IN RIGHT HIP 07/15/2018 [facility] AALIYAH Ackerman Ot M54.41 LUMBAGO WITH SCIATICA, RIGHT SIDE 07/15/2018 ELISE NOGUERA, LIBAN Okeefe Ot M48.06 SPINAL STENOSIS, LUMBAR REGION 07/15/2018 ELISE NOGUERA, LIBAN Okeefe Ot 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 07/15/2018 [facility], AALIYAH Ackerman Ot M54.31 SCIATICA, RIGHT SIDE 07/15/2018 [facility] AALIYAH Ackerman Ot J44.9 CHRONIC OBSTRUCTIVE PULMONARY DISEASE, U 07/15/2018 [facility], AALIYAH Ackerman Ot S29.9XXA UNSPECIFIED INJURY OF THORAX, INITIAL EN 07/15/2018 AMADEO LEEAALIYAH Ot W19.XXXA UNSPECIFIED FALL, INITIAL ENCOUNTER 07/15/2018 AMADEO LEEAALIYAH Ot Y99.8 OTHER EXTERNAL CAUSE STATUS 07/15/2018 AMADEO LEEAALIYAH Ot B35.3 TINEA PEDIS 07/15/2018 [facility] AALIYAH Ot M19.011 PRIMARY OSTEOARTHRITIS, RIGHT SHOULDER 07/15/2018 [facility] M47.816 SPONDYLOSIS W/O MYELOPATHY OR RADICULOPA 07/15/2018 [facility] AALIYAH Ot S22.089A UNSP FRACTURE OF T11-T12 VERTEBRA, INIT 07/15/2018 AMADEO LEEAALIYAH Ot S22.41XA MULTIPLE FRACTURES OF RIBS, RIGHT SIDE, 07/15/2018 AMADEO LEEAALIYAH Ot W19.XXXA UNSPECIFIED FALL, INITIAL ENCOUNTER 07/15/2018 AMADEO LEEAALIYAH Ot Y99.8 OTHER EXTERNAL CAUSE STATUS 07/15/2018 [facility] Ot J18.1 LOBAR PNEUMONIA, UNSPECIFIED ORGANISM 07/15/2018 AMADEO LEEAALIYAH Ot J18.1 LOBAR PNEUMONIA, UNSPECIFIED ORGANISM 07/15/2018 [facility] J18.9 PNEUMONIA, UNSPECIFIED ORGANISM 07/15/2018 [facility] AALIYAH Ot R91.8 OTHER NONSPECIFIC ABNORMAL FINDING OF VARGAS 07/24/2018 ROBEL BEDOLLA MD Ot G25.81 RESTLESS LEGS SYNDROME 07/24/2018 ROBEL BEDOLLA MD Ot G60.3 IDIOPATHIC PROGRESSIVE NEUROPATHY 07/24/2018 GRAEME NOGUERA, ROBEL Ot M62.81 MUSCLE WEAKNESS (GENERALIZED) 07/24/2018 GRAEME NOGUERA, ROBEL Ot R27.0 ATAXIA, UNSPECIFIED 07/24/2018 GRAEME NOGUERA, ROBEL Ot R42 DIZZINESS AND GIDDINESS 08/07/2018 GELLENDER [...] DIVERTICULOSIS COLON (W/O MENT OF HEMORR 08/07/2018 AMADEO LEE, AALIYAH Ackerman Ot 787.91 DIARRHEA 08/07/2018 AMADEO LEE, AALIYAH Ackerman Ot 789.00 ABDOMINAL PAIN, UNSPECIFIED SITE 08/07/2018 AMADEO LEE, AALIYAH Ackerman Ot M25.551 PAIN IN RIGHT HIP 08/07/2018 AMADEO LEE, AALIYAH Ackerman Ot M54.41 LUMBAGO WITH SCIATICA, RIGHT SIDE 08/07/2018 ELISE NOGUERA, LIBAN Okeefe Ot M48.06 SPINAL STENOSIS, LUMBAR REGION 08/07/2018 ELISE NOGUERA, LIBAN Okeefe Ot 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 08/07/2018 AMADEO LEE, AALIYAH Ackerman Ot M54.31 SCIATICA, RIGHT SIDE 08/07/2018 AMADEO LEE, AALIYAH Ackerman Ot J44.9 CHRONIC OBSTRUCTIVE PULMONARY DISEASE, U 08/07/2018 AMADEO LEE, AALIYAH Ackerman Ot S29.9XXA UNSPECIFIED INJURY OF THORAX, INITIAL EN 08/07/2018 AMADEO LEEAALIYAH Ot W19.XXXA UNSPECIFIED FALL, INITIAL ENCOUNTER 08/07/2018 AMADEO LEE, AALIYAH Ackerman Ot Y99.8 OTHER EXTERNAL CAUSE STATUS 08/07/2018 AMADEO LEE, AALIYAH Ackerman Ot B35.3 TINEA PEDIS 08/07/2018 AMADEO LEE, AALIYAH Ackerman Ot M19.011 PRIMARY OSTEOARTHRITIS, RIGHT SHOULDER 08/07/2018 AMADEO LEE, AALIYAH Ackerman Ot M47.816 SPONDYLOSIS W/O MYELOPATHY OR RADICULOPA 08/07/2018 AMADEO LEEAALIYAH Ot S22.089A UNSP FRACTURE OF T11-T12 VERTEBRA, INIT 08/07/2018 AMADEO LEEAALIYAH Ot S22.41XA MULTIPLE FRACTURES OF RIBS, RIGHT SIDE, 08/07/2018 AMADEO LEE, AALIYAH Ackerman Ot W19.XXXA UNSPECIFIED FALL, INITIAL ENCOUNTER 08/07/2018 AMADEO LEEAALIYAH Ot Y99.8 OTHER EXTERNAL CAUSE STATUS 08/07/2018 AMADEO LEE, AALIYAH Ackerman Ot J18.1 LOBAR PNEUMONIA, UNSPECIFIED ORGANISM 08/07/2018 AMADEO LEEAALIYAH Ot J18.1 LOBAR PNEUMONIA, UNSPECIFIED ORGANISM 08/07/2018 AMADEO LEEAALIYAH Ot J18.9 PNEUMONIA, UNSPECIFIED ORGANISM 08/07/2018 GELLENDER [...] Ot 715.96 OSTEOARTHROS NOS-L/LEG 08/07/2018 GELLENDER DO, AALIAYH Ackerman Ot 719.06 JOINT EFFUSION-L/LEG 08/07/2018 GELLENDER [...] DO, AALIYAH Ackerman Ot 787.91 DIARRHEA 08/07/2018 [facility], AALIYAH Ackerman Ot 789.00 ABDOMINAL PAIN, UNSPECIFIED SITE 08/07/2018 AMADEO LEE, AALIYAH Ackerman Ot 562.10 DIVERTICULOSIS COLON (W/O MENT OF HEMORR 08/07/2018 [facility], AALIYAH Ackerman Ot 787.91 DIARRHEA 08/07/2018 [facility], AALIYAH Ackerman Ot 789.00 ABDOMINAL PAIN, UNSPECIFIED SITE 08/07/2018 [facility] , AALIYAH Ackerman Ot M25.551 PAIN IN RIGHT HIP 08/07/2018 [facility], AALIYAH Ackerman Ot M54.41 LUMBAGO WITH SCIATICA, RIGHT SIDE 08/07/2018 ELISE NOGUERA, LIBAN Okeefe Ot M48.06 SPINAL STENOSIS, LUMBAR REGION 08/07/2018 ELISE NOGUERA, LIBAN Okeefe Ot 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 AALIYAH Ackerman Ot M54.31 SCIATICA, RIGHT SIDE 08/07/2018 [facility], AALIYAH Ackerman Ot J44.9 CHRONIC OBSTRUCTIVE PULMONARY DISEASE, U 08/07/2018 [facility] , AALIYAH Ackerman Ot S29.9XXA UNSPECIFIED INJURY OF THORAX, INITIAL EN 08/07/2018 AMADEO LEEAALIYAH Ot W19.XXXA UNSPECIFIED FALL, INITIAL ENCOUNTER 08/07/2018 AMADEO LEEAALIYAH Ot Y99.8 OTHER EXTERNAL CAUSE STATUS 08/07/2018 AMADEO LEE, AALIYAH Ackerman Ot B35.3 TINEA PEDIS 08/07/2018 [facility] AALIYAH Ackerman Ot M19.011 PRIMARY OSTEOARTHRITIS, RIGHT SHOULDER 08/07/2018 [facility], AALIYAH Ackerman Ot M47.816 SPONDYLOSIS W/O MYELOPATHY OR RADICULOPA 08/07/2018 [facility], AALIYAH Ackerman Ot S22.089A UNSP FRACTURE OF T11-T12 VERTEBRA, INIT 08/07/2018 AMADEO LEEAALIYAH Ot S22.41XA MULTIPLE FRACTURES OF RIBS, RIGHT SIDE, 08/07/2018 AMADEO LEE, AALIYAH Ackerman Ot W19.XXXA UNSPECIFIED FALL, INITIAL ENCOUNTER 08/07/2018 AMADEO LEEAALIYAH Ot Y99.8 OTHER EXTERNAL CAUSE STATUS 08/07/2018 AMADEO LEEAALIYAH Ot J18.1 LOBAR PNEUMONIA, UNSPECIFIED ORGANISM 08/07/2018 [...] Ot 789.00 ABDOMINAL PAIN, UNSPECIFIED SITE 08/07/2018 [facility] , AALIYAH Ackerman Ot 780.79 OTH MALAISE FATIGUE 08/07/2018 [facility], AALIYAH Tyron Ot 787.91 DIARRHEA 08/07/2018 GELLENDER DO, AALIYAH Ackerman Ot 789.00 ABDOMINAL PAIN, UNSPECIFIED SITE 08/07/2018 [facility] , AALIYAH Ackerman Ot 562.10 DIVERTICULOSIS COLON (W/O MENT OF HEMORR 08/07/2018 [facility], AALIYAH Tyron Ot 787.91 DIARRHEA 08/07/2018 GELLENDER DO, AALIYAH Ackerman Ot 789.00 ABDOMINAL PAIN, UNSPECIFIED SITE 08/07/2018 [facility], AALIYAH Ackerman Ot M25.551 PAIN IN RIGHT HIP 08/07/2018 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, AALIYAH Ackerman Ot S29.9XXA UNSPECIFIED INJURY OF THORAX, INITIAL EN 08/07/2018 AMADEO LEEAALIYAH Ot W19.XXXA UNSPECIFIED FALL, INITIAL ENCOUNTER 08/07/2018 AMADEO LEE, AALIYAH Ackerman Ot Y99.8 OTHER EXTERNAL CAUSE STATUS 08/07/2018 [facility], AALIYAH Ackerman Ot B35.3 TINEA PEDIS 08/07/2018 [facility], AALIYAH Ackerman Ot M19.011 PRIMARY OSTEOARTHRITIS, RIGHT SHOULDER 08/07/2018 [facility], AALIYAH Ackerman Ot M47.816 SPONDYLOSIS W/O MYELOPATHY OR RADICULOPA 08/07/2018 [facility], AALIYAH Ackerman Ot S22.089A UNSP FRACTURE OF T11-T12 VERTEBRA, INIT 08/07/2018 [facility] Ot S22.41XA MULTIPLE FRACTURES OF RIBS, RIGHT SIDE, 08/07/2018 AMADEO LEE, AALIYAH Ackerman Ot W19.XXXA UNSPECIFIED FALL, INITIAL ENCOUNTER 08/07/2018 AMADEO LEE, AALIYAH Ackerman Ot Y99.8 OTHER EXTERNAL CAUSE STATUS 08/07/2018 AMADEO LEE, AALIYAH Ackerman Ot J18.1 LOBAR PNEUMONIA, UNSPECIFIED ORGANISM 08/07/2018 AMADEO LEE, AALIYAH Ackerman Ot J18.1 LOBAR PNEUMONIA, UNSPECIFIED ORGANISM 08/07/2018 AMADEO LEE, AALIYAH Ackerman Ot J18.9 PNEUMONIA, UNSPECIFIED ORGANISM 08/07/2018 [facility], AALIYAH Ackerman Ot R91.8 OTHER NONSPECIFIC ABNORMAL FINDING OF VARGAS 08/07/2018 ROBEL BEDOLLA MD, Ot G25.81 RESTLESS LEGS SYNDROME 08/07/2018 ROBEL BEDOLLA MD, Ot G60.3 IDIOPATHIC PROGRESSIVE NEUROPATHY 08/07/2018 ROBEL BEDOLLA MD, Ot M62.81 MUSCLE WEAKNESS (GENERALIZED) 08/07/2018 ROBEL BEDOLLA MD, Ot R27.0 ATAXIA, UNSPECIFIED 08/07/2018 ROBEL BEDOLLA MD, Ot R42 DIZZINESS AND GIDDINESS 08/11/2018 MARIFER GAO MD, Ot D47.2 MONOCLONAL GAMMOPATHY 08/11/2018 MARIFER GAO MD, Ot R52 PAIN, UNSPECIFIED 08/17/2018 MARIFER GAO MD, Ot D47.2 MONOCLONAL GAMMOPATHY 08/19/2018 MARIFER GAO MD, Ot D47.2 MONOCLONAL GAMMOPATHY 08/21/2018 ROBEL BEDOLLA MD, Ot G25.81 RESTLESS LEGS SYNDROME 08/21/2018 ROBEL BEDOLLA MD, Ot G60.3 IDIOPATHIC PROGRESSIVE NEUROPATHY 08/21/2018 ROBEL BEDOLLA MD, Ot M62.81 MUSCLE WEAKNESS (GENERALIZED) 08/21/2018 ROBEL BEDOLLA MD, Ot R27.0 ATAXIA, UNSPECIFIED 08/21/2018 ROBEL BEDOLLA MD, Ot R42 DIZZINESS AND GIDDINESS 09/09/2018 MARIFER GAO MD, Ot D47.2 MONOCLONAL GAMMOPATHY 09/09/2018 MARIFER GAO MD, Ot R52 PAIN, UNSPECIFIED 09/11/2018 AMADEO LEE, AALIYAH Tyron Ot J98.8 OTHER SPECIFIED RESPIRATORY DISORDERS 09/11/2018 [facility], AALIYAH Ackerman Ot R05 COUGH 09/18/2018 MARIFER GAO MD, Ot D47.2 MONOCLONAL GAMMOPATHY 09/18/2018 MURRAY NOGUERA, MARIFER Ot M48.02 SPINAL STENOSIS, CERVICAL REGION 09/18/2018 MURRAY NOGUERA, MARIFER Ot 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 Results Test Result Range Microscopic examination by CLYDE preparation - 09/19/16 10:15 CLYDE RESULT NEGATIVE; NO FUNGAL ELEMENTS OBSERVED NRG Gram stain microscopy - 09/19/16 10:15 GRAM STAIN RESULT RARE GRAM POSITIVE COCCI NRG Bacteria identification in wound by culture - 09/19/16 10:15 Bacteria identification in wound by culture [id number] NRG FREE TEXT EXTERNAL SENSITIVITY REPORTED 09/21/16 [...] 07/15/18 09:03 Vitamin B12 389 pg/mL 190-1100 PT panel in platelet poor plasma by coagulation assay - 08/17/18 08:15 Prothrombin time (PT) in platelet poor plasma by coagulation assay 12.0 s 12.2-14.7 INR in platelet poor plasma or blood by coagulation assay 0.9 0.8-1.4 Activated partial thromboplastin time (aPTT) in platelet poor plasma bycoagulation assay - 08/17/18 08:15 Activated partial thromboplastin time (aPTT) in platelet poor plasma bycoagulation assay 36 s 24-35 Blood CBC with ordered manual differential panel - 08/17/18 08:15 Blood leukocytes automated count (number/volume) 4.2 10*3/uL 4.3-11.0 Blood erythrocytes automated count (number/volume) 4.83 10*6/uL 4.35-5.85 Venous blood hemoglobin measurement (mass/volume) 13.8 g/dL 11.5-16.0 Blood hematocrit (volume fraction) 43 % 35-52 Automated erythrocyte mean corpuscular volume 88 [foz_us] 80-99 Automated erythrocyte mean corpuscular hemoglobin (mass per erythrocyte) 29 pg 25-34 Automated erythrocyte mean corpuscular hemoglobin concentration measurement ( mass/volume) 32 g/dL 32-36 Automated erythrocyte distribution width ratio 14.1 % 10.0-14.5 Automated blood platelet count (count/volume) 92 10*3/uL 130-400 Automated blood platelet mean volume measurement 11.6 [foz_us] 7.4-10.4 Automated blood neutrophils/100 leukocytes 56 % 42-75 Automated blood lymphocytes/100 leukocytes 30 % 12-44 Blood monocytes/100 leukocytes 13 % NRG Automated blood eosinophils/100 leukocytes 4 % 0-10 Automated blood basophils/100 leukocytes 1 % 0-10 Blood neutrophils automated count (number/volume) 2.4 10*3 1.8-7.8 Blood lymphocytes automated count (number/volume) 1.3 10*3 1.0-4.0 Blood monocytes automated count (number/volume) 0.5 10*3 0.0-1.0 Automated eosinophil count 0.2 10*3/uL 0.0-0.3 Automated blood basophil count (count/volume) 0.0 10*3/uL 0.0-0.1 Manual blood segmented neutrophils/100 leukocytes 58 % NRG Blood band neutrophils/100 leukocytes 0 % NRG Manual blood lymphocytes/100 leukocytes 25 % NRG Manual eosinophils/100 leukocytes in nose 4 % NRG Manual blood basophils/100 leukocytes 0 % NRG Blood erythrocyte morphology finding identification NORMAL NRG Automated reticulocyte percentage - 08/17/18 08:15 Blood reticulocytes count (number/volume) 41 10*9/L 24- 90 Blood reticulocytes/100 erythrocytes 0.84 % 0.50-2.40 Complete blood count (CBC) with automated white blood cell (WBC) differential - 09/09/18 12:08 Blood leukocytes automated count (number/volume) 6.1 10*3/uL 4.3-11.0 Blood erythrocytes automated count (number/volume) 4.72 10*6/uL 4.35-5.85 Venous blood hemoglobin measurement (mass/volume) 13.6 g/dL 11.5-16.0 Blood hematocrit (volume fraction) 42 % 35-52 Automated erythrocyte mean corpuscular volume 88 [foz_us] 80-99 Automated erythrocyte mean corpuscular hemoglobin (mass per erythrocyte) 29 pg 25-34 Automated erythrocyte mean corpuscular hemoglobin concentration measurement ( mass/volume) 33 g/dL 32-36 Automated erythrocyte distribution width ratio 14.0 % 10.0-14.5 Automated blood platelet count (count/volume) 92 10*3/uL 130-400 Automated blood platelet mean volume measurement 10.0 [foz_us] 7.4-10.4 Automated blood neutrophils/100 leukocytes 71 % 42-75 Automated blood lymphocytes/100 leukocytes 20 % 12-44 Blood monocytes/100 leukocytes 8 % 0-12 Automated blood eosinophils/100 leukocytes 1 % 0-10 Automated blood basophils/100 leukocytes 0 % 0-10 Blood neutrophils automated count (number/volume) 4.4 10*3 1.8-7.8 Blood lymphocytes automated count (number/volume) 1.2 10*3 1.0-4.0 Blood monocytes automated count (number/volume) 0.5 10*3 0.0-1.0 Automated eosinophil count 0.1 10*3/uL 0.0-0.3 Automated blood basophil count (count/volume) 0.0 10*3/uL 0.0-0.1 Encounters ACCT No. Visit Date/Time Discharge Status Pt. Type Provider Facility Loc./Unit Complaint [id number] 09/09/2018 12:00:00 09/09/2018 23:59:59 CLS Outpatient AALIYAH CHILDS DO [facility] RAD COUGH [id number] 08/17/2018 07:54:00 08/17/2018 13:00:00 DIS Outpatient MARIFER GAO MD [facility] RAD MONOCLONAL GAMMOPATHIES [id number] 08/11/2018 08:58:00 08/11/2018 23:59:59 CLS Outpatient MARIFER GAO MD [facility] RAD PAIN,MOMOCLONAL GAMMOPHATHIES [id number] 08/07/2018 08:15:00 08/07/2018 23:59:59 CLS Outpatient MARIFER GAO MD [facility] ONC [id number] 07/15/2018 08:42:00 07/15/2018 23:59:59 CLS Outpatient ROBEL BEDOLLA MD [facility] LAB IDOPATHIC PROGRESSIVE NEUROPATHY [id number] 12/11/2017 13:42:00 01/19/2018 14:46:00 DIS Outpatient CHRISSY (GIOVANNI) MARRY K [facility] REHAB R HIP PAIN; LUMBAR STENOSIS;NEUROGENIC CLAUDICATION [id number] 09/24/2017 09:31:00 11/11/2017 00:01:00 DIS Outpatient CHRISSY (GIOVANNI)MARRY [facility] REHAB R HIP PAIN; LUMBAR STENOSIS;NEUROGENIC CLAUDICATION [id number] 10/31/2017 07:55:00 10/31/2017 23:59:59 CLS Outpatient AALIYAH CHILDS DO [facility] RAD PNEUMONIA [id number] 10/24/2017 07:47:00 10/24/2017 23:59:59 CLS Outpatient AALIYAH CHILDS DO [facility] RAD PNEUMONIA RIGHT UPPER LOBE J18.9 [id number] 10/17/2017 12:12:00 10/17/2017 23:59:59 CLS Outpatient AALIYAH CHILDS DO [facility] RAD PNEUMONIA [id number] 10/08/2017 12:49:00 10/09/2017 13:15:00 DIS Inpatient AALIYAH CHILDS DO [facility] 4TH SWB,BILATERAL PNEUMONIA [id number] 10/01/2017 13:57:00 10/08/2017 12:44:00 DIS Inpatient AALIYAH CHILDS DO [facility] 4TH BILATERAL PNEUMONIA [id number] 08/05/2017 22:37:00 08/06/2017 00:58:00 DIS CHAUNCEY Vega MD [facility] ER FALL [id number] 11/14/2016 13:44:00 11/15/2016 13:39:00 DIS Outpatient AALIYAH CHILDS DO [facility] SDC FALL,PAIN ALL OVER [id number] 11/12/2016 10:53:00 11/12/2016 23:59:59 CLS Outpatient AALIYAH CHILDS DO [facility] RAD FELL LAST NIGHT AND HURT ALL OVER [id number] 09/19/2016 09:45:00 09/19/2016 23:59:59 CLS Outpatient AALIYAH CHILDS DO [facility] LAB FUNGUS OF LT TOE BETWEEN 5 4 TOE [id number] 08/28/2016 10:17:00 08/28/2016 23:59:59 CLS Outpatient AALIYAH CHILDS DO [facility] RAD FELL LAST NIGHT,SOB RT RIB PAIN [id number] 03/01/2016 09:00:00 03/01/2016 23:59:59 CLS Outpatient AALIYAH CHILDS DO [facility] RAD SEVERE BACK PAIN GETTING WORSE [id number] 12/21/2015 14:12:00 12/21/2015 16:38:00 DIS Outpatient AALIYAH CHILDS DO [facility] REHAB LOW BACK PAIN; LUMBAGO;LUMBAR STENOSIS;LUMBAR SPOND [id number] 10/26/2015 11:29:00 10/26/2015 23:59:59 CLS Outpatient LIBAN OLIVARES MD, V [facility] RAD LUMBAR SPONDYLOLISTHESIS, STENOSIS, PAIN IN LIMB [id number] 10/17/2015 13:12:00 10/17/2015 23:59:59 CLS Outpatient AALIYAH CHILDS DO [facility] RAD PAIN GOING DOWN RIGHT LEG,SIATICA [id number] 10/03/2015 15:22:00 10/03/2015 23:59:59 CLS Outpatient AALIYAH CHILDS DO [facility] RAD RIGHT HIP PAIN [id number] 12/14/2014 09:54:00 12/14/2014 23:59:59 CLS Outpatient AALIYAH CHILDS DO [facility] RAD ABD PAIN,DIARRHEA [id number] 12/09/2014 08:07:00 12/09/2014 23:59:59 CLS Outpatient AALIYAH CHILDS DO [facility] RAD LOWER ABDOMINAL PAIN DIARRHEA [id number] 12/07/2014 14:22:00 12/07/2014 23:59:59 CLS Outpatient AALIYAH CHILDS DO [facility] RAD DIARRHEA ABOMINAL PAIN [id number] 12/07/2014 10:55:00 12/07/2014 23:59:59 CLS Outpatient AALIYAH CHILDS DO [facility] LAB ABD PAIN, [id number] 02/02/2014 10:00:00 02/02/2014 23:59:59 CLS Outpatient AALIYAH CHILDS DO [facility] RAD PAIN IN RIGHT FOOT [id number] 12/08/2013 15:13:00 12/08/2013 23:59:59 CLS Outpatient AALIYAH CHILDS DO [facility] RAD PAIN IN 5TH METATARSAL [id number] 11/16/2013 12:29:00 11/16/2013 23:59:59 CLS Outpatient AALIYAH CHILDS DO [facility] RAD RT CALF AND KNEE SEVERE PAIN [id number] 11/15/2013 13:31:00 11/15/2013 23:59:59 CLS Outpatient AALIYAH CHILDS DO [facility] RAD FALL R LEG/KNEE PAIN [id number] 08/09/2013 12:50:00 08/09/2013 23:59:59 CLS Outpatient AALIYAH CHILDS DO [facility] RAD SEVERE PAIN LEFT KNEE [id number] 11/09/2012 17:17:00 11/12/2012 14:35:00 DIS Inpatient AALIYAH CHILDS DO [facility] 4TH DIVERTICULITIS [id number] 10/21/2012 13:50:00 Document Registration [id number] 05/31/2012 20:53:00 Document Registration [id number] 05/25/2012 13:25:00 Document Registration [id number] 02/24/2012 09:04:00 Document Registration [id number] 02/03/2012 14:06:00 Document Registration [id number] 11/22/2011 08:44:00 Document Registration [id number] 09/11/2011 09:44:00 Document Registration [id number] 09/04/2011 13:34:00 Document Registration [id number] 08/29/2011 10:04:00 Document Registration [id number] 04/10/2011 14:25:00 Document Registration [id number] 02/18/2011 14:04:00 Document Registration [id number] 12/12/2010 09:56:00 Document Registration [id number] 11/29/2010 09:50:00 Document Registration
[2018-10-26] MEDS ORDERED: NS IV 1000 ML 1,000 ML IV SCH (10:41)
--- NOTE | 2018-10-26 10:46 | ED Abdominal Pain ---
General Stated Complaint: RECTAL BLEEDING Nursing Triage Note: pt states rectal bleeding started yesterday, states she has had periods of bright red blood, dark blood with clots, pt states she has diverticulitus and believes that is what is happening, states the bleeding has gotten better today , was sent to ED by PCP Sepsis Screen: No Definite Risk Source of Information: Patient, Family (daughter), RN/MD (Dr. Childs) Exam Limitations: No Limitations History of Present Illness Date Seen by Provider: Oct 26, 2018 Time Seen by Provider: 10:27 Initial Comments The patient presents to ER by private conveyance with chief complaint she's having some long-standing abdominal pain but today changed because last night she started having a little bit of blood in her stool and then this morning she had some bright red blood early in the morning. Past few clots and then it's getting better she says about time she got here. She has a history of diverticulitis having required hospitalization times but no surgeries for. She' s had back surgeries before. She says she's had the low abdominal pain for a long time. She also was worked up for some protein and her blood by Dr. Hummel but they decided it was idiopathic. She'll colonoscopy 1 year ago and was told she had ulcers throughout her colon. She was put on a medicine which she took for several months but she did not feel like it helped and so she stopped taking it. She denies a history of IBS or IBD. Allergies and Home Medications Allergies Coded Allergies: lansoprazole (Verified Allergy, Intermediate, HIVES, 10/08/17) Home Medications Albuterol Sulfate 1 Puff Puff, 2 PUFF IH TID, (Reported) 1 PUFF = 90 MCG Cefdinir 300 Mg Capsule, 300 MG PO BID Prescribed by: RAF WALLER on 10/09/17 1228 Dicyclomine HCl 10 Mg Capsule, 10 MG PO DAILY, (Reported) Gabapentin 300 Mg Capsule, 300 MG PO HS, (Reported) Hydrocodone Bit/Acetaminophen 1 Ea Tablet, 1 TAB PO TID PRN for PAIN-MODERATE, ( Reported) Promethazine HCl/Codeine 118 Ml Syrup, 10 ML PO TID PRN for COUGH, (Reported) FILLED 09-29-17 Ropinirole HCl 4 Mg Tablet, 4 MG PO HS, (Reported) [Curamed] , 1 CAP PO BID, (Reported) Patient Home Medication List Home Medication List Reviewed: Yes Review of Systems Review of Systems Constitutional: No chills, No diaphoresis, No fever EENTM: No Blurred Vision, No Double Vision Respiratory: Denies Cough, Denies Shortness of Air Cardiovascular: Denies Chest Pain, Denies Edema Gastrointestinal: See HPI; Denies Abdomen Distended; Abdominal Pain; Denies Constipated, Denies Diarrhea, Denies Nausea; Rectal Bleeding Genitourinary: Denies Burning, Denies Discharge Musculoskeletal: No back pain, No joint pain Past Ukjdamv-Knvlyi-Rhohfa Hx Patient Social History Alcohol Use: Denies Use Recreational Drug Use: No Smoking Status: Never a Smoker Recent Foreign Travel: No Contact w/Someone Who Travel: No Recent Infectious Disease Expo: No Recent Hopitalizations: No Immunizations Up To Date Tetanus Booster (TDap): Less than 5yrs Date of Pneumonia Vaccine: May 30, 2016 Date of Influenza Vaccine: Apr 02, 2017 Seasonal Allergies Seasonal Allergies: No Past Medical History Surgeries: Yes (BACK X'3, BI LAT SHOULDER, BI LAT KNEE SCOPES) Appendectomy, Orthopedic Respiratory: No Pneumonia Cardiac: No Neurological: Yes (RESTLESS LEG SYNDROME) 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 0.00oz. 58.621888oz; 0.0 BMI Method:Stated General Appearance: WD/WN, no apparent distress HEENT: PERRL/EOMI, normal ENT inspection, pharynx normal Neck: non-tender, full range of motion, normal inspection Respiratory: lungs clear, normal breath sounds, no respiratory distress, no accessory muscle use Cardiovascular: normal peripheral pulses, regular rate, rhythm, no edema Peripheral Pulses: 2+ Radial Pulses (R), 2+ Radial Pulses (L) Gastrointestinal: normal bowel sounds, soft, no organomegaly, tenderness (left upper and lower quadrant), other (negative for mesenteric signs, psoas signs.) Progress/Results/Core Measures Results/Orders Lab Results Laboratory Tests Test 10/26/18 10:37 10/26/18 10:50 Range/Units White Blood Count 5.4 4.3-11.0 10^3/uL Red Blood Count 4.28 L 4.35-5.85 10^6/uL Hemoglobin 12.2 11.5-16.0 G/DL Hematocrit 39 35-52 % Mean Corpuscular Volume 90 80-99 FL Mean Corpuscular Hemoglobin 29 25-34 PG Mean Corpuscular Hemoglobin Concent 32 32-36 G/DL Red Cell Distribution Width 13.6 10.0-14.5 % Platelet Count 128 L 130-400 10^3/uL Mean Platelet Volume 9.7 7.4-10.4 FL Neutrophils (%) (Auto) 69 42-75 % Lymphocytes (%) (Auto) 18 12-44 % Monocytes (%) (Auto) 10 0-12 % Eosinophils (%) (Auto) 2 0-10 % Basophils (%) (Auto) 0 0-10 % Neutrophils # (Auto) 3.7 1.8-7.8 X 10^3 Lymphocytes # (Auto) 1.0 1.0-4.0 X 10^3 Monocytes # (Auto) 0.5 0.0-1.0 X 10^3 Eosinophils # (Auto) 0.1 0.0-0.3 10^3/uL Basophils # (Auto) 0.0 0.0-0.1 10^3/uL Sodium Level 143 135-145 MMOL/L Potassium Level 4.1 3.6-5.0 MMOL/L Chloride Level 109 H 98-107 MMOL/L Carbon Dioxide Level 25 21-32 MMOL/L Anion Gap 9 5-14 MMOL/L Blood Urea Nitrogen 18 7-18 MG/DL Creatinine 0.70 0.60-1.30 MG/DL Estimat Glomerular Filtration Rate > 60 BUN/Creatinine Ratio 26 Glucose Level 83 70-105 MG/DL Calcium Level 9.4 8.5-10.1 MG/DL Corrected Calcium 9.3 8.5-10.1 MG/DL Total Bilirubin 0.3 0.1-1.0 MG/DL Aspartate Amino Transf (AST/SGOT) 17 5-34 U/L Alanine Aminotransferase (ALT/SGPT) 12 0-55 U/L Alkaline Phosphatase 72 40-136 U/L C-Reactive Protein High Sensitivity 0.11 0.00-0.50 MG/DL Total Protein 6.2 L 6.4-8.2 GM/DL Albumin 4.1 3.2-4.5 GM/DL Lipase 12 8-78 U/L Urine Color YELLOW Urine Clarity CLEAR Urine pH 7 5-9 Urine Specific [place] 1.010 L 1.016-1.022 Urine Protein NEGATIVE NEGATIVE Urine Glucose (UA) NEGATIVE NEGATIVE Urine Ketones NEGATIVE NEGATIVE Urine Nitrite NEGATIVE NEGATIVE Urine Bilirubin NEGATIVE NEGATIVE Urine Urobilinogen NORMAL NORMAL MG/DL Urine Leukocyte Esterase 1+ H NEGATIVE Urine RBC (Auto) 1+ H NEGATIVE Urine RBC NONE /HPF Urine WBC RARE /HPF Urine Squamous Epithelial Cells 2-5 /HPF Urine Crystals NONE /LPF Urine Bacteria NEGATIVE /HPF Urine Casts NONE /LPF Urine Mucus NEGATIVE /LPF Urine Culture Indicated NO My Orders Orders - BRIDGETT MENG Ct Abdomen/Pelvis W (10/26/18 10:41) Cbc With Automated Diff (10/26/18 10:41) Comprehensive Metabolic Panel (10/26/18 10:41) Hs C Reactive Protein (10/26/18 10:41) Lipase (10/26/18 10:41) Ua Culture If Indicated (10/26/18 10:41) Ed Iv/Invasive Line Start (10/26/18 10:41) Ns Iv 1000 Ml (Sodium Chloride 0.9%) (10/26/18 10:41) Iohexol Injection (Omnipaque 350 Mg/Ml 1 (10/26/18 11:30) Received Contrast (Hold Metformin- Contr (10/26/18 11:30) Medications Given in ED Current Medications Medications Dose Ordered Sig/Dionna Route Start Time Stop Time Status Last Admin Dose Admin Iohexol 100 ml ONCE ONCE IV 10/26/18 11:30 10/26/18 11:31 DC 10/26/18 12:09 100 ML Vital Signs/I&O 10/26/18 10/26/18 10:29 10:32 Temp 97.7 97.7 Pulse 88 88 Resp 16 16 B/P (MAP) 166/84 (111) 166/84 (111) Pulse Ox 95 95 O2 Delivery Room Air Blood Pressure Mean: 111 Progress Progress Note : Time: 12:45 Progress Note She is passing some blood in her stools with a history of diverticulitis is very likely the source so we will obtain a CT which revealed diverticulitis. We will trial of outpatient antibiotics as this with the patient would prefer. Diagnostic Imaging Diagonstic Imaging: CT (contrast) Plain Films/CT/US/NM/MRI: abdomen, pelvis Comments Mild Sigmoid diverticulosis/diverticulitis without evidence of macro abscess. No free fluid. Bilateral hilar a renal tests, simple. Gallbladder is distended, septated but does not seem to be inflamed. [facility] [place], [place] NAME: REBECA OCAMPO [facility] REC#: [id number] PT STATUS: REG ER : 1930 PHYSICIAN: BRIDGETT MENG MD ADMIT DATE: 10/26/18/ER Draft Date of Exam:10/26/18 CT ABDOMEN/PELVIS W PROCEDURE: CT abdomen and pelvis with contrast. TECHNIQUE: Multiple contiguous axial images were obtained through the abdomen and pelvis after administration of intravenous contrast. Auto Exposure Controls were utilized during the CT exam to meet ALARA standards for radiation dose reduction. INDICATION: Pelvic pain with rectal bleeding and history of diverticulitis. COMPARISON: PET/CT from 08/11/2018. FINDINGS: The lung bases demonstrate chronic scarring with no focal consolidation. The heart is normal in size. There is no pericardial effusion. No hepatic lesions are seen. The spleen appears normal. The pancreas appears markedly atrophic, with no masses seen. The adrenal glands are normal. The kidneys demonstrate no focal lesions. There is a small hiatal hernia. No distended loops of small bowel are seen. There is diverticulosis throughout the colon, most pronounced distally. No definite wall thickening or significant pericolonic edema is seen. No fluid collections are identified. There is no free fluid or free air seen. No filling defects are seen in the urinary bladder. No acute osseous abnormality is seen. Fusion hardware is noted in the spine. IMPRESSION: 1. Extensive colonic diverticulosis without diverticulitis seen. No pericolonic fluid collections or free air seen. 2. Small hiatal hernia. Dictated on workstation # [id number] Dict: 10/26/18 1231 Trans: 10/26/18 1241 [id number] Interpreted by: MATTHEW AYALA MD Electronically signed by: Reviewed: Reviewed by Me Departure Communication (PCP) Discussed the case and results with primary care doctor Antoinette. Impression Primary Impression: Bright red blood per rectum Additional Impression: Diverticulosis of colon without diverticulitis Disposition: HOME, SELF-CARE Condition: Stable Departure-Patient Inst. Decision time for Depature: 13:03 Referrals: AALIYAH CHILDS DO (PCP/Family) Primary Care Physician Patient Instructions: Bloody Stools, Adult (DC) Add. Discharge Instructions: Continue to eat plenty of fiber in your diet. Follow-up with Dr. Ng to discuss the right red blood in your stool. Return to the ER if you have shortness of breath or chest pain. BRIDGETT MENG Oct 26, 2018 10:46
[2018-10-26 10:59] LABS: BASOPHILS % (AUTO) 0 % (0-10); EOSINOPHILS # (AUTO) 0.1 10^3/uL (0.0-0.3); EOSINOPHILS % (AUTO) 2 % (0-10); HEMATOCRIT 39 % (35-52); HEMOGLOBIN 12.2 G/DL (11.5-16.0); LYMPHOCYTES % (AUTO) 18 % (12-44); MEAN CORPUSCULAR HEMOGLOBIN 29 PG (25-34); MEAN CORPUSCULAR HGB CONC 32 G/DL (32-36); MEAN CORPUSCULAR VOLUME 90 FL (80-99); MEAN PLATELET VOLUME 9.7 FL (7.4-10.4); MONOCYTES # (AUTO) 0.5 X 10^3 (0.0-1.0); MONOCYTES % (AUTO) 10 % (0-12); NEUTROPHILS # (AUTO) 3.7 X 10^3 (1.8-7.8); NEUTROPHILS % (AUTO) 69 % (42-75); PLATELET COUNT 128 10^3/uL (130-400); RED CELL DISTRIBUTION WIDTH 13.6 % (10.0-14.5); WHITE BLOOD COUNT 5.4 10^3/uL (4.3-11.0)
[2018-10-26 11:01] LABS: BILIRUBIN,URINE NEGATIVE (NEGATIVE); CLARITY,URINE CLEAR; COLOR,URINE YELLOW; GLUCOSE, URINE (UA) NEGATIVE (NEGATIVE); KETONES,URINE NEGATIVE (NEGATIVE); LEUKOCYTE ESTERASE ,URINE 1+ (NEGATIVE); NITRITE,URINE NEGATIVE (NEGATIVE); PH,URINE 7 (5-9); PROTEIN,URINE NEGATIVE (NEGATIVE); UROBILINOGEN,URINE NORMAL (NORMAL)
[2018-10-26 11:12] LABS: BACTERIA,URINE NEGATIVE /HPF; WBC,URINE RARE /HPF
[2018-10-26 11:13] LABS: ALANINE AMINOTRANSFERASE 12 U/L (0-55); ALBUMIN 4.1 GM/DL (3.2-4.5); ALKALINE PHOSPHATASE 72 U/L (40-136); BILIRUBIN,TOTAL 0.3 MG/DL (0.1-1.0); BUN/CREATININE RATIO 26; CALCIUM 9.4 MG/DL (8.5-10.1); CARBON DIOXIDE 25 MMOL/L (21-32); CHLORIDE 109 MMOL/L (98-107); GFR ESTIMATED > 60; GLUCOSE 83 MG/DL (70-105); LIPASE 12 U/L (8-78); POTASSIUM 4.1 MMOL/L (3.6-5.0); SODIUM 143 MMOL/L (135-145); TOTAL PROTEIN 6.2 GM/DL (6.4-8.2)
[2018-10-26] MEDS ORDERED: IOHEXOL 350 MG/ML 100 ML (OMNIPAQUE 350) VIAL IV ONE (11:30)
[2018-10-26] MEDS ORDERED: HOLD METFORMIN - RECEIVED CONTRAST 20 ML VIAL IV SCH (11:30)
--- NOTE | 2018-10-26 12:41 | Diagnostic Imaging Report ---
PROCEDURE: CT abdomen and pelvis with contrast. TECHNIQUE: Multiple contiguous axial images were obtained through the abdomen and pelvis after administration of intravenous contrast. Auto Exposure Controls were utilized during the CT exam to meet ALARA standards for radiation dose reduction. INDICATION: Pelvic pain with rectal bleeding and history of diverticulitis. COMPARISON: PET/CT from 08/11/2018. FINDINGS: The lung bases demonstrate chronic scarring with no focal consolidation. The heart is normal in size. There is no pericardial effusion. No hepatic lesions are seen. The spleen appears normal. The pancreas appears markedly atrophic, with no masses seen. The adrenal glands are normal. The kidneys demonstrate no focal lesions. There is a small hiatal hernia. No distended loops of small bowel are seen. There is diverticulosis throughout the colon, most pronounced distally. No definite wall thickening or significant pericolonic edema is seen. No fluid collections are identified. There is no free fluid or free air seen. No filling defects are seen in the urinary bladder. No acute osseous abnormality is seen. Fusion hardware is noted in the spine. IMPRESSION: 1. Extensive colonic diverticulosis without diverticulitis seen. No pericolonic fluid collections or free air seen. 2. Small hiatal hernia. Dictated by: Dictated on workstation # [id number]
[2018-10-26 13:09] VITALS: BP 160/84
== END 2018-10-26 13:14 | disposition home or self-care (01) ==
LOC: EDUNIT# 09:41 → ER 09:41
DX: K57.32 Diverticulitis of large intestine without perforation or abscess without bleeding (principal); K62.5 Hemorrhage of anus and rectum; G25.81 Restless legs syndrome; Z88.8 Allergy status to other drugs, medicaments and biological substances; Z90.49 Acquired absence of other specified parts of digestive tract; Z98.890 Other specified postprocedural states; Z87.01 Personal history of pneumonia (recurrent); Z90.710 Acquired absence of both cervix and uterus; Z87.19 Personal history of other diseases of the digestive system
CPT/HCPCS: 36415; 74177; 80053; 81000; 83690; 85025; 86141

== ENCOUNTER 2018-12-16 10:06 | Emergency (ER) | payer MEDICARE ==
[~2018-12-16] VITALS: Ht 152.4 cm; Wt 53.5 kg
[2018-12-16] MEDS ORDERED: HYDROcodone/APAP 5 MG/325 MG (LORTAB) TAB ONE (10:47)
[2018-12-16 12:00] VITALS: BP 143/70
--- NOTE | 2018-12-16 12:20 | Diagnostic Imaging Report ---
INDICATION: Injury. FINDINGS: There are fractures obliquely oriented of the distal fibula without substantial degrees of displacement. On the lateral view, there is an anterior bony fragment measuring 9 mm in long axis. Its source bone is not clearly identified but may be off the anterior aspect of the upper talus or the anterior margin of the distal tibia. Soft tissue swelling about the ankle is present. The medial and posterior malleoli appear intact. IMPRESSION: Swelling with a distal fibular fracture. An additional bony fragment projecting anterior to the tibiotalar joint space on the lateral view is of uncertain source. Dictated by: Dictated on workstation # [id number]
[2018-12-16] MEDS ORDERED: HYDROcodone/APAP 5 MG/325 MG (LORTAB) TAB PO ONE (12:30)
--- OUTSIDE RECORDS SUMMARY | 2018-12-16 13:32 | XMS REPORT | Continuity of Care Document ---
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 08/28/2016 Ot 719.41 JOINT PAIN-SHLDER 08/28/2016 AALIYAH CHILDS DO Ot 715.96 OSTEOARTHROS [...] Ot Y99.8 OTHER EXTERNAL CAUSE STATUS 10/10/2016 [facility], AALIYAH Tyron Ot B35.3 TINEA PEDIS 11/14/2016 [facility], AALIYAH Ackerman Ot M19.011 PRIMARY OSTEOARTHRITIS, RIGHT SHOULDER 11/14/2016 [facility], AALIYAH Ackerman Ot M47.816 SPONDYLOSIS W/O MYELOPATHY OR RADICULOPA 11/14/2016 [facility], AALIYAH Ackerman Ot S22.089A UNSP FRACTURE OF T11-T12 VERTEBRA, INIT 11/14/2016 [facility], AALIYAH Ackerman Ot S22.41XA MULTIPLE FRACTURES OF RIBS, RIGHT SIDE, 11/14/2016 [facility], AALIYAH Ackerman Ot W19.XXXA UNSPECIFIED FALL, INITIAL ENCOUNTER 11/14/2016 [facility], AALIYAH Ackerman Ot Y99.8 OTHER EXTERNAL CAUSE STATUS 11/15/2016 [facility], AALIYAH Ackerman Ot G25.81 RESTLESS LEGS SYNDROME 11/15/2016 [facility] Ackerman Ot S22.080A WEDGE COMPRESSION FRACTURE OF T11-T12 VE 11/15/[facility] Ackerman Ot W18.00XA STRIKING AGAINST UNSP OBJECT W SUBSEQUEN 11/19/2016 [facility] DO, AALIYAH Ackerman Ot G25.81 RESTLESS LEGS SYNDROME 11/19/2016 [facility] DO, AALIYAH Ackerman Ot S22.000A WEDGE COMPRESSION FRACTURE OF UNSP THORA 11/19/2016 [facility] Ackerman Ot W18.00XA STRIKING [...] OF T11-T12 VE 11/27/2016 [facility] DO, AALIYAH Ackermna Ot W18.00XA STRIKING AGAINST UNSP OBJECT W [...] PERSONAL HISTORY OF MALIGNANT NEOPLASM O 08/06/2017 CHANUCEY MONTANA MD, Ot Z88.8 ALLERGY STATUS TO [...] PNEUMONIA, UNSPECIFIED ORGANISM 11/17/2017 CHRISSY (GIOVANNI), MARRY Quintana Ot M25.551 PAIN [...] Ot M25.551 PAIN IN RIGHT HIP 07/15[facility] Ackerman Ot M54.41 LUMBAGO WITH SCIATICA, RIGHT SIDE 07/15/2018 ELISE NOGUERA, LIBAN Okeefe Ot M48.06 SPINAL STENOSIS, LUMBAR REGION 07/15/2018 ELISE NOGUERA, LIBAN Okeefe Ot 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 07/15/2018 [facility] Ackerman Ot M54.31 SCIATICA, RIGHT SIDE 07/15/[facility] Ackerman Ot J44.9 CHRONIC OBSTRUCTIVE PULMONARY DISEASE, U 07/15/2018 [facility] Ackerman Ot S29.9XXA UNSPECIFIED INJURY OF THORAX, INITIAL EN 07/15/2018 AMADEO LEEAALIYAH Ot W19.XXXA UNSPECIFIED FALL, INITIAL ENCOUNTER 07/15/2018 AMADEO LEEAALIYAH Ot Y99.8 OTHER EXTERNAL CAUSE STATUS 07/15/2018 AMADEO LEEAALIYAH Ot B35.3 TINEA PEDIS 07/15/2018 [facility] AALIYAH Ot M19.011 PRIMARY OSTEOARTHRITIS, RIGHT SHOULDER 07/15/2018 [facility] Ot M47.816 SPONDYLOSIS W/O MYELOPATHY OR RADICULOPA 07/15/2018 COUNTS INCLUDE 234 BEDS AT THE [facility] AALIYAH Ot S22.089A UNSP FRACTURE OF T11-T12 VERTEBRA, INIT 07/15/2018 AMADEO LEEAALIYAH Ot S22.41XA MULTIPLE FRACTURES OF RIBS, RIGHT SIDE, 07/15/2018 AMADEO LEEAALIYAH Ot W19.XXXA UNSPECIFIED FALL, INITIAL ENCOUNTER 07/15/2018 AMADEO LEEAALIYAH Ot Y99.8 OTHER EXTERNAL CAUSE STATUS 07/15/2018 [facility] Ot J18.1 LOBAR PNEUMONIA, UNSPECIFIED ORGANISM 07/15/2018 AMADEO LEEAALIYAH Ot J18.1 LOBAR PNEUMONIA, UNSPECIFIED ORGANISM 07/15/2018 [facility] Ot J18.9 PNEUMONIA, UNSPECIFIED ORGANISM 07/15/2018 [facility] AALI[facility] Ot R91.8 OTHER NONSPECIFIC ABNORMAL FINDING [...] DO, AALIYAH Ackerman Ot 787.91 DIARRHEA 08/07/2018 [facility], AALIYAH Ackerman Ot 789.00 ABDOMINAL PAIN, UNSPECIFIED SITE 08/07/2018 AM[facility] LEE, AALIYAH Ackerman Ot 562.10 DIVERTICULOSIS COLON (W/O MENT OF HEMORR 08/07/2018 [facility], AALIYAH Ackerman Ot 787.91 DIARRHEA 08/07/2018 [facility], AALIYAH Ackerman Ot 789.00 ABDOMINAL PAIN, UNSPECIFIED SITE 08/07/2018 [facility] AALIYAH Ackerman Ot M25.551 PAIN IN RIGHT HIP 08/07/2018 [facility], AALIYAH Ackerman Ot M54.41 LUMBAGO WITH SCIATICA, RIGHT SIDE 08/07/2018 ELISE NOGUERA, LIBAN Okeefe Ot M48.06 SPINAL STENOSIS, LUMBAR REGION 08/07/2018 ELISE NOGUERA, LIBAN Okeefe Ot 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 08/07/2018 [facility] A[facility] Ackerman Ot M54.31 SCIATICA, RIGHT SIDE 08/07/2018 [facility], AALIYAH Ackerman Ot J44.9 CHRONIC OBSTRUCTIVE PULMONARY DISEASE, U 08/07/2018 [facility] AALIYAH Ackerman Ot S29.9XXA UNSPECIFIED INJURY OF THORAX, INITIAL EN 08/07/2018 AMADEO LEEAALIYAH Ot W19.XXXA UNSPECIFIED FALL, INITIAL ENCOUNTER 08/07/2018 AMADEO LEEAALIYAH Ot Y99.8 OTHER EXTERNAL CAUSE STATUS 08/07/2018 [facility] LEE, AALIYAH Ackerman Ot B35.3 TINEA PEDIS 08/07/2018 [facility]ALI[facility]AH Ackerman Ot M19.011 PRIMARY OSTEOARTHRITIS, RIGHT SHOULDER 08/07/2018 [facility], AALIYAH Ackerman Ot M47.816 SPONDYLOSIS W/O MYELOPATHY OR RADICULOPA 08/07/2018 [facility], AALIYAH Ackerman Ot S22.089A UNSP FRACTURE OF [...] Ot 789.00 ABDOMINAL PAIN, UNSPECIFIED SITE 08/07/2018 [facility] AALIYAH Ackeramn Ot 780.79 OTH MALAISE FATIGUE 08/07/2018 [facility] A[facility]AH Tyron Ot 787.91 DIARRHEA 08/07/2018 [facility], AALIYAH Ackerman Ot 789.00 ABDOMINAL PAIN, UNSPECIFIED SITE 08/07/2018 [facility] AALIYAH Ackerman Ot 562.10 DIVERTICULOSIS COLON (W/O MENT OF HEMORR 08/07/2018 [facility] AALIYAH Tyron Ot 787.91 DIARRHEA 08/07/2018 [facility], AALIYAH Ackerman Ot 789.00 ABDOMINAL PAIN, UNSPECIFIED SITE 08/07/2018 [facility], AALIYAH Ackerman Ot M25.551 PAIN IN RIGHT HIP 08/07/2018 [facility] AALIYAH Ackerman Ot M54.41 LUMBAGO WITH SCIATICA, RIGHT SIDE 08/07/2018 ELISE NOGUERA, LIBAN Okeefe Ot M48.06 SPINAL STENOSIS, LUMBAR REGION 08/07/2018 ELISE NOGUERA, LIBAN Okeefe Ot 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 08/07/2018 [facility], AALIYAH Ackerman Ot M54.31 SCIATICA, RIGHT SIDE 08/07/2018 [facility], AALIYAH Ackerman Ot J44.9 CHRONIC OBSTRUCTIVE PULMONARY DISEASE, U 08/07/2018 [facility] AALIYAH Ackerman Ot S29.9XXA UNSPECIFIED INJURY OF THORAX, INITIAL EN 08/07/2018 AMADEO LEEAALIYAH Ot W19.XXXA UNSPECIFIED FALL, INITIAL ENCOUNTER 08/07/2018 [facility] LEE, AALIYAH Ackerman Ot Y99.8 OTHER EXTERNAL CAUSE STATUS 08/07/2018 [facility], AALIYAH Ackerman Ot B35.3 TINEA PEDIS 08/07/2018 [facility], AALIYAH Ackerman Ot M19.011 PRIMARY OSTEOARTHRITIS, RIGHT SHOULDER 08/07/2018 [facility], AALIYAH Ackerman Ot M47.816 SPONDYLOSIS W/O MYELOPATHY OR RADICULOPA 08/07/2018 [facility], AALIYAH Ackerman Ot S22.089A UNSP FRACTURE OF T11-T12 VERTEBRA, INIT 08/07/2018 [facility] Ot S22.41XA MULTIPLE FRACTURES OF RIBS, RIGHT [...] Ot M48.02 SPINAL STENOSIS, CERVICAL REGION 09/18/2018 MARIFER GAO MD Ot 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 09/29/2018 [facility] DO, AALIYAH Ackerman Ot J98.8 OTHER SPECIFIED RESPIRATORY DISORDERS 09/29/2018 [facility] DO, AALIYAH A Ot R05 COUGH 10/09/2018 [facility] DO, AALIYAH Ackerman Ot J98.8 OTHER SPECIFIED RESPIRATORY DISORDERS 10/09/2018 [facility] DO, AALIYAH A Ot R05 COUGH 10/20/2018 MARIFER GAO MD Ot D47.2 MONOCLONAL GAMMOPATHY 10/20/2018 MARIFER GAO MD Ot R52 PAIN, UNSPECIFIED 10/26/2018 BRIDGETT MENG MD Ot G25.81 RESTLESS LEGS SYNDROME 10/26/2018 BRIDGETT MENG MD Ot K57.32 DVTRCLI OF LG INT W/O PERFORATION OR ABS 10/26/2018 BRIDGETT MENG MD Ot K62.5 HEMORRHAGE OF ANUS AND RECTUM 10/26/2018 BRIDGETT MENG MD Ot Z87.01 PERSONAL HISTORY OF PNEUMONIA (RECURRENT 10/26/2018 BRIDGETT MENG MD Ot Z87.19 PERSONAL HISTORY OF OTHER DISEASES OF 10/26/2018 BRIDGETT MENG MD Ot Z88.8 ALLERGY STATUS TO [facility] DRUG/MEDS/BIOL SUB 10/26/2018 BRIDGETT MENG MD Ot Z90.49 ACQUIRED ABSENCE OF OTHER SPECIFIED PART 10/26/2018 BRIDGETT MENG MD Ot Z90.710 ACQUIRED ABSENCE OF BOTH CERVIX AND UTER 10/26/2018 BRIDGETT MENG MD Ot Z98.890 OTHER SPECIFIED POSTPROCEDURAL STATES 10/29/2018 BRIDGETT MENG MD Ot G25.81 RESTLESS LEGS SYNDROME 10/29/2018 BRIDGETT MENG MD Ot K57.32 DVTRCLI OF LG INT W/O PERFORATION OR ABS 10/29/2018 BRIDGETT MENG MD Ot K62.5 HEMORRHAGE OF ANUS AND RECTUM 10/29/2018 BRIDGETT MENG MD Ot Z87.01 PERSONAL HISTORY OF PNEUMONIA (RECURRENT 10/29/2018 BRIDGETT MENG MD Ot Z87.19 PERSONAL HISTORY OF OTHER DISEASES OF 10/29/2018 BRIDGETT MENG MD, Ot Z88.8 ALLERGY STATUS TO [facility] DRUG/MEDS/BIOL SUB 10/29/2018 BRIDGETT MENG MD Ot Z90.49 ACQUIRED ABSENCE OF OTHER SPECIFIED PART 10/29/2018 BRIDGETT MENG MD Ot Z90.710 ACQUIRED ABSENCE OF BOTH CERVIX AND UTER 10/29/2018 BRIDGETT MENG MD Ot Z98.890 OTHER SPECIFIED POSTPROCEDURAL STATES 10/29/2018 MARIFER GAO MD Ot D47.2 MONOCLONAL GAMMOPATHY 10/29/2018 MARIFER GAO MD Ot M48.02 SPINAL STENOSIS, CERVICAL REGION 10/29/2018 MARIFER GAO MD Ot 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 11/05/2018 MARIFER GAO MD, Ot D47.2 MONOCLONAL GAMMOPATHY 11/05/2018 MARIFER GAO MD Ot M48.02 SPINAL STENOSIS, CERVICAL REGION 11/05/2018 MARIFER GAO MD Ot 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 11/05/2018 BRIDGETT MENG MD Ot G25.81 RESTLESS LEGS SYNDROME 11/05/2018 BRIDGETT MENG MD Ot K57.32 DVTRCLI OF LG INT W/O PERFORATION OR ABS 11/05/2018 BRIDGETT MENG MD Ot K62.5 HEMORRHAGE OF ANUS AND RECTUM 11/05/2018 BRIDGETT MENG MD Ot Z87.01 PERSONAL HISTORY OF PNEUMONIA (RECURRENT 11/05/2018 BRIDGETT MENG MD Ot Z87.19 PERSONAL HISTORY OF OTHER DISEASES OF 11/05/2018 BRIDGETT MENG MD, Ot Z88.8 ALLERGY STATUS TO OTH DRUG/MEDS/BIOL SUB 11/05/2018 BRIDGETT MENG MD, Ot Z90.49 ACQUIRED ABSENCE OF OTHER SPECIFIED PART 11/05/2018 BRIDGETT MENG MD Ot Z90.710 ACQUIRED ABSENCE OF BOTH CERVIX AND UTER 11/05/2018 BRIDGETT MENG MD Ot Z98.890 OTHER SPECIFIED POSTPROCEDURAL STATES 11/09/2018 MARIFER GAO MD Ot D47.2 MONOCLONAL GAMMOPATHY 11/09/2018 MARIFER GAO MD Ot M48.02 SPINAL STENOSIS, CERVICAL REGION 11/09/2018 MARIFER GAO MD Ot 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 Results Test Result Range Microscopic examination by CLYDE preparation - 09/19/16 10:15 CLYDE RESULT NEGATIVE; NO FUNGAL ELEMENTS OBSERVED NRG Gram stain microscopy - 09/19/16 10:15 GRAM STAIN RESULT RARE GRAM POSITIVE COCCI NRG Bacteria identification in wound by culture - 09/19/16 10:15 Bacteria identification in wound by culture [id number] NRG FREE TEXT EXTERNAL SENSITIVITY REPORTED 09/21/16 8:10 NRG QUANTITY OF GROWTH Scant Growth NRG MRSA AGAR Screening test for MRSA is NEGATIVE (Final to follow) NR Bacterial susceptibility panel - 09/19/16 10:15 Oxacillin susceptibility test by minimum inhibitory concentration 0.5 NRG Gentamicin susceptibility test by minimum inhibitory concentration <= NRG Clindamycin susceptibility test by minimum inhibitory [...] Automated erythrocyte mean corpuscular hemoglobin concentration measurement (mass/volume) 32 g/dL 32-36 Automated erythrocyte distribution width ratio 14.3 % 10.0- 14.5 Automated blood platelet count (count/volume) 186 10*3/uL [...] Automated erythrocyte mean corpuscular hemoglobin concentration measurement (mass/volume) 32 g/dL 32-36 Automated erythrocyte distribution width ratio 14.0 % 10.0- 14.5 Automated blood platelet count (count/volume) 169 10*3/uL [...] Blood monocytes automated count (number/volume) 0.7 10*3 0.0- 1.0 Automated eosinophil count 0.1 10*3/uL 0.0-0.3 Automated [...] Serum or plasma aspartate aminotransferase measurement (enzymatic activity/volume) 16 U/L 5-34 Serum or plasma alanine aminotransferase measurement (enzymatic activity/volume) 11 U/L 0-55 Serum or plasma protein measurement (mass/volume) 6.1 g/dL 6.4-8.2 Serum or plasma albumin measurement (mass/volume) 4.0 g/dL 3.2-4.5 Serum or plasma amylase measurement (enzymatic activity/volume) - 11/14/16 10:50 Serum or plasma amylase measurement (enzymatic activity/volume) 51 U/L 25-125 Lipase - 11/14/16 10:50 Lipase 11 [...] gravity of urine by test strip 1.010 1.016-1.022 Urine protein assay by test strip, semi-quantitative [...] sediment leukocyte count by microscopy (number/high power field) NONE NRG Bacteria detection in urine sediment [...] Automated erythrocyte mean corpuscular hemoglobin concentration measurement (mass/volume) 32 g/dL 32-36 Automated erythrocyte distribution width ratio 13.8 % 10.0- 14.5 Automated blood platelet count (count/volume) 147 10*3/uL [...] Blood monocytes automated count (number/volume) 0.5 10*3 0.0- 1.0 Automated eosinophil count 0.2 10*3/uL 0.0-0.3 Automated [...] Serum or plasma aspartate aminotransferase measurement (enzymatic activity/volume) 15 U/L 5-34 Serum or plasma alanine aminotransferase measurement (enzymatic activity/volume) 8 U/L 0-55 Serum or plasma protein [...] Automated erythrocyte mean corpuscular hemoglobin concentration measurement (mass/volume) 33 g/dL 32-36 Automated erythrocyte distribution width ratio 15.2 % 10.0- 14.5 Automated blood platelet count (count/volume) 133 10*3/uL [...] Blood monocytes automated count (number/volume) 0.6 10*3 0.0- 1.0 Automated eosinophil count 0.1 10*3/uL 0.0-0.3 Automated [...] Serum or plasma aspartate aminotransferase measurement (enzymatic activity/volume) 17 U/L 5-34 Serum or plasma alanine aminotransferase measurement (enzymatic activity/volume) 13 U/L 0-55 Serum or plasma protein [...] gravity of urine by test strip 1.010 1.016-1.022 Urine protein assay by test strip, semi-quantitative [...] sediment leukocyte count by microscopy (number/high power field) [HPF] NRG Bacteria detection in urine sediment [...] Blood lactic acid measurement (moles/volume) 1.23 mmol/L 0.50- 2.00 Automated blood complete blood count (hemogram) panel [...] Automated erythrocyte mean corpuscular hemoglobin concentration measurement (mass/volume) 33 g/dL 32-36 Automated erythrocyte distribution width ratio 15.3 % 10.0- 14.5 Automated blood platelet count (count/volume) 143 10*3/uL [...] Automated erythrocyte mean corpuscular hemoglobin concentration measurement (mass/volume) 33 g/dL 32-36 Automated erythrocyte distribution width ratio 14.9 % 10.0- 14.5 Automated blood platelet count (count/volume) 146 10*3/uL [...] Automated erythrocyte mean corpuscular hemoglobin concentration measurement (mass/volume) 32 g/dL 32-36 Automated erythrocyte distribution width ratio 15.2 % 10.0- 14.5 Automated blood platelet count (count/volume) 144 10*3/uL [...] Blood monocytes automated count (number/volume) 1.1 10*3 0.0- 1.0 Automated eosinophil count 0.1 10*3/uL 0.0-0.3 Automated [...] Automated erythrocyte mean corpuscular hemoglobin concentration measurement (mass/volume) 32 g/dL 32-36 Automated erythrocyte distribution width ratio 15.2 % 10.0- 14.5 Automated blood platelet count (count/volume) 198 10*3/uL [...] Blood monocytes automated count (number/volume) 0.8 10*3 0.0- 1.0 Automated eosinophil count 0.3 10*3/uL 0.0-0.3 Automated [...] Serum or plasma aspartate aminotransferase measurement (enzymatic activity/volume) 23 U/L 5-34 Serum or plasma alanine aminotransferase measurement (enzymatic activity/volume) 14 U/L 0-55 Serum or plasma protein [...] Automated erythrocyte mean corpuscular hemoglobin concentration measurement (mass/volume) 33 g/dL 32-36 Automated erythrocyte distribution width ratio 15.1 % 10.0- 14.5 Automated blood platelet count (count/volume) 295 10*3/uL [...] Blood monocytes automated count (number/volume) 0.6 10*3 0.0- 1.0 Automated eosinophil count 0.1 10*3/uL 0.0-0.3 Automated [...] Serum or plasma aspartate aminotransferase measurement (enzymatic activity/volume) 24 U/L 5-34 Serum or plasma alanine aminotransferase measurement (enzymatic activity/volume) 18 U/L 0-55 Serum or plasma protein [...] Automated erythrocyte mean corpuscular hemoglobin concentration measurement (mass/volume) 33 g/dL 32-36 Automated erythrocyte distribution width ratio 15.3 % 10.0- 14.5 Automated blood platelet count (count/volume) 350 10*3/uL [...] Blood monocytes automated count (number/volume) 0.5 10*3 0.0- 1.0 Automated eosinophil count 0.3 10*3/uL 0.0-0.3 Automated [...] Automated erythrocyte mean corpuscular hemoglobin concentration measurement (mass/volume) 32 g/dL 32-36 Automated erythrocyte distribution width ratio 15.2 % 10.0- 14.5 Automated blood platelet count (count/volume) 416 10*3/uL [...] Blood monocytes automated count (number/volume) 0.5 10*3 0.0- 1.0 Automated eosinophil count 0.3 10*3/uL 0.0-0.3 Automated [...] Automated erythrocyte mean corpuscular hemoglobin concentration measurement (mass/volume) 33 g/dL 32-36 Automated erythrocyte distribution width ratio 15.4 % 10.0- 14.5 Automated blood platelet count (count/volume) 482 10*3/uL [...] Automated erythrocyte mean corpuscular hemoglobin concentration measurement (mass/volume) 33 g/dL 32-36 Automated erythrocyte distribution width ratio 14.2 % 10.0- 14.5 Automated blood platelet count (count/volume) 195 10*3/uL [...] Blood monocytes automated count (number/volume) 0.5 10*3 0.0- 1.0 Automated eosinophil count 0.2 10*3/uL 0.0-0.3 Automated [...] Serum or plasma aspartate aminotransferase measurement (enzymatic activity/volume) 20 U/L 5-34 Serum or plasma alanine aminotransferase measurement (enzymatic activity/volume) 12 U/L 0-55 Serum or plasma protein [...] or plasma protein measurement (mass/volume) 6.7 % 6.1- 8.1 Pathology consultation and report SEE PATH REPORT [...] Automated erythrocyte mean corpuscular hemoglobin concentration measurement (mass/volume) 32 g/dL 32-36 Automated erythrocyte distribution width ratio 14.1 % 10.0- 14.5 Automated blood platelet count (count/volume) 92 10*3/uL 130- 400 Automated blood platelet mean volume measurement 11.6 [...] Blood monocytes automated count (number/volume) 0.5 10*3 0.0- 1.0 Automated eosinophil count 0.2 10*3/uL 0.0-0.3 Automated [...] 08:15 Blood reticulocytes count (number/volume) 41 10*9/L 24-90 Blood reticulocytes/100 erythrocytes 0.84 % 0.50-2.40 Complete [...] Automated erythrocyte mean corpuscular hemoglobin concentration measurement (mass/volume) 33 g/dL 32-36 Automated erythrocyte distribution width ratio 14.0 % 10.0- 14.5 Automated blood platelet count (count/volume) 92 10*3/uL 130- 400 Automated blood platelet mean volume measurement 10.0 [...] Blood monocytes automated count (number/volume) 0.5 10*3 0.0- 1.0 Automated eosinophil count 0.1 10*3/uL 0.0-0.3 Automated blood basophil count (count/volume) 0.0 10*3/uL 0.0-0.1 Complete blood count (CBC) with automated white blood cell (WBC) differential - 10/26/18 10:37 Blood leukocytes automated count (number/volume) 5.4 10*3/uL 4.3-11.0 Blood erythrocytes automated count (number/volume) 4.28 10*6/uL 4.35-5.85 Venous blood hemoglobin measurement (mass/volume) 12.2 g/dL 11.5-16.0 Blood hematocrit (volume fraction) 39 % 35-52 Automated erythrocyte mean corpuscular volume 90 [foz_us] 80-99 Automated erythrocyte mean corpuscular hemoglobin (mass per erythrocyte) 29 pg 25-34 Automated erythrocyte mean corpuscular hemoglobin concentration measurement (mass/volume) 32 g/dL 32-36 Automated erythrocyte distribution width ratio 13.6 % 10.0- 14.5 Automated blood platelet count (count/volume) 128 10*3/uL 130-400 Automated blood platelet mean volume measurement 9.7 [foz_us] 7.4-10.4 Automated blood neutrophils/100 leukocytes 69 % 42-75 Automated blood lymphocytes/100 leukocytes 18 % 12-44 Blood monocytes/100 leukocytes 10 % 0-12 Automated blood eosinophils/100 leukocytes 2 % 0-10 Automated blood basophils/100 leukocytes 0 % 0-10 Blood neutrophils automated count (number/volume) 3.7 10*3 1.8-7.8 Blood lymphocytes automated count (number/volume) 1.0 10*3 1.0-4.0 Blood monocytes automated count (number/volume) 0.5 10*3 0.0- 1.0 Automated eosinophil count 0.1 10*3/uL 0.0-0.3 Automated blood basophil count (count/volume) 0.0 10*3/uL 0.0-0.1 Comprehensive metabolic panel - 10/26/18 10:37 Serum or plasma sodium measurement (moles/volume) 143 mmol/L 135-145 Serum or plasma potassium measurement (moles/volume) 4.1 mmol/L 3.6-5.0 Serum or plasma chloride measurement (moles/volume) 109 mmol/L 98-107 Carbon dioxide 25 mmol/L 21-32 [...] NRG Serum or plasma glucose measurement (mass/volume) 83 mg/dL 70-105 Serum or plasma calcium measurement (mass/volume) 9.4 mg/dL 8.5-10.1 Serum or plasma total bilirubin measurement (mass/volume) 0.3 mg/dL 0.1-1.0 Serum or plasma alkaline phosphatase measurement (enzymatic activity/volume) 72 U/L 40-136 Serum or plasma aspartate aminotransferase measurement (enzymatic activity/volume) 17 U/L 5-34 Serum or plasma alanine aminotransferase measurement (enzymatic activity/volume) 12 U/L 0-55 Serum or plasma protein measurement (mass/volume) 6.2 g/dL 6.4-8.2 Serum or plasma albumin measurement (mass/volume) 4.1 g/dL 3.2-4.5 CALCIUM CORRECTED 9.3 mg/dL 8.5-10.1 Lipase - 10/26/18 10:37 Lipase 12 U/L 8-78 Serum or plasma C reactive protein measurement (mass/volume) - 10/26/18 10:37 Serum or plasma C reactive protein measurement (mass/volume) 0.11 mg/dL 0.00-0.50 Complete urinalysis with reflex to culture - 10/26/18 10:50 Urine color determination YELLOW NRG Urine clarity determination CLEAR NRG Urine pH measurement by test strip 7 5-9 Specific gravity of urine by test strip 1.010 1.016-1.022 Urine protein assay by test strip, semi-quantitative NEGATIVE NEGATIVE Urine glucose detection by automated test strip NEGATIVE NEGATIVE Erythrocytes detection in urine sediment by light microscopy 1+ NEGATIVE Urine ketones detection by automated test [...] sediment leukocyte count by microscopy (number/high power field) RARE NRG Bacteria detection in urine sediment by light microscopy NEGATIVE NRG Squamous epithelial cells detection in urine sediment by light microscopy 2-5 NRG Crystals detection in urine sediment by light microscopy NONE NRG Casts detection in urine sediment by light microscopy NONE NRG Mucus detection in urine sediment by light microscopy NEGATIVE NRG Complete urinalysis with reflex to culture NO NRG Encounters ACCT No. Visit Date/Time Discharge Status Pt. Type Provider Facility Loc./Unit Complaint [id number] 11/06/2018 00:14:00 11/06/2018 23:59:59 CLS Preadmit MARIFER GAO MD [facility] ONC [id number] 09/03/2018 09:52:00 11/05/2018 00:01:00 DIS Outpatient MARIFER GAO MD [facility] ONC [id number] 10/26/2018 09:41:00 10/26/2018 13:14:00 DIS Emergency BRIDGETT MENG MD [facility] ER RECTAL BLEEDING [id number] 09/09/2018 12:00:00 09/09/2018 23:59:59 CLS Outpatient AALIYAH CHILDS DO [facility] RAD COUGH [id number] 08/17/2018 07:54:00 08/17/2018 13:00:00 DIS Outpatient MARIFER GAO MD [facility] RAD MONOCLONAL GAMMOPATHIES [id number] 08/11/2018 08:58:00 08/11/2018 23:59:59 CLS Outpatient MARIFER GAO MD [facility] RAD PAIN,MOMOCLONAL GAMMOPHATHIES [id number] 07/15/2018 08:42:00 07/15/2018 23:59:59 CLS Outpatient ROBEL BEDOLLA MD [facility] LAB IDOPATHIC PROGRESSIVE NEUROPATHY [id number] 12/11/2017 13:42:00 01/19/2018 14:46:00 DIS Outpatient MARRY LOWE ([place]) [facility] REHAB R HIP PAIN;LUMBAR STENOSIS;NEUROGENIC CLAUDICATION [id number] 09/24/2017 09:31:00 11/11/2017 00:01:00 DIS Outpatient MARRY LOWE ([place]) [facility] REHAB R HIP PAIN;LUMBAR STENOSIS;NEUROGENIC CLAUDICATION [id number] 10/31/2017 07:55:00 10/31/2017 23:59:59 CLS Outpatient AALIYAH CHILDS DO [facility] RAD PNEUMONIA [id number] 10/24/2017 07:47:00 10/24/2017 23:59:59 CLS Outpatient AALIYAH CHILDS DO [facility] RAD PNEUMONIA RIGHT UPPER LOBE J18.9 [id number] 10/17/2017 12:12:00 10/17/2017 23:59:59 CLS Outpatient AALIYAH CHILDS DO [facility] RAD PNEUMONIA [id number] 10/08/2017 12:49:00 10/09/2017 13:15:00 DIS Inpatient AALIYAH CHILDS DO [facility] 4TH SWB,BILATERAL PNEUMONIA [id number] 10/01/2017 13:57:00 10/08/2017 12:44:00 DIS Inpatient AALIYAH CHILDS DO [facility] 4TH BILATERAL PNEUMONIA [id number] 08/05/2017 22:37:00 08/06/2017 00:58:00 DIS Emergency CHAUNCEY MONTANA MD [facility] ER FALL [id number] 11/14/2016 13:44:00 11/15/2016 13:39:00 DIS Outpatient AALIYAH CHILDS DO [facility] SDC FALL,PAIN ALL OVER [id number] 11/12/2016 10:53:00 11/12/2016 23:59:59 CLS Outpatient AALIYAH CHILDS DO [facility] RAD FELL LAST NIGHT AND HURT ALL OVER [id number] 09/19/2016 09:45:00 09/19/2016 23:59:59 CLS Outpatient AALIYAH CHILDS DO [facility] LAB FUNGUS OF LT TOE BETWEEN 5 4 TOE [id number] 08/28/2016 10:17:00 08/28/2016 23:59:59 CLS Outpatient AALIYAH CHILDS DO [facility] RAD FELL LAST NIGHT,SOB RT RIB PAIN [id number] 03/01/2016 09:00:00 03/01/2016 23:59:59 CLS Outpatient AALIYAH CHILDS DO [facility] RAD SEVERE BACK PAIN GETTING WORSE [id number] 12/21/2015 14:12:00 12/21/2015 16:38:00 [facility] Outpatient AALIYAH CHILDS DO [facility] REHAB LOW BACK PAIN;LUMBAGO;LUMBAR STENOSIS;LUMBAR SPOND [id number] 10/26/2015 11:29:00 10/26/2015 23:59:59 CLS Outpatient ELISE NOGUERA, LIBAN Okeefe [facility] RAD LUMBAR SPONDYLOLISTHESIS,STENOSIS, PAIN IN LIMB [id number] 10/17/2015 13:12:00 10/17/2015 23:59:59 CLS Outpatient AALIYAH CHILDS DO [facility] RAD PAIN GOING DOWN RIGHT LEG,SIATICA [id number] 10/03/2015 15:22:00 10/03/2015 23:59:59 CLS Outpatient AALIYAH CHILDS DO [facility] RAD RIGHT HIP PAIN [id number] 12/14/2014 09:54:00 12/14/2014 23:59:59 CLS Outpatient AALIYAH CHILDS DO [facility] RAD ABD PAIN,DIARRHEA [id number] 12/09/2014 08:07:00 12/09/2014 23:59:59 CLS Outpatient AALIYAH CHILDS DO [facility] RAD LOWER ABDOMINAL PAIN DIARRHEA [id number] 12/07/2014 14:22:00 12/07/2014 23:59:59 CLS Outpatient AALIYAH CHILDS DO [facility] RAD DIARRHEA ABOMINAL PAIN [id number] 12/07/2014 10:55:00 12/07/2014 23:59:59 CLS Outpatient AALIYAH CHILDS DO [facility] LAB ABD PAIN, [id number] 02/02/2014 10:00:00 02/02/2014 23:59:59 CLS Outpatient AALIYAH CHILDS DO [facility] RAD PAIN IN RIGHT FOOT [id number] 12/08/2013 15:13:00 12/08/2013 23:59:59 CLS Outpatient AALIYAH CHILDS DO [facility] RAD PAIN IN 5TH METATARSAL [id number] 11/16/2013 12:29:00 11/16/2013 23:59:59 CLS Outpatient AALIYAH CHILDS DO [facility] RAD RT CALF AND KNEE SEVERE PAIN [id number] 11/15/2013 13:31:00 11/15/2013 23:59:59 CLS Outpatient AALIYAH CHILDS DO [facility] RAD FALL R LEG/KNEE PAIN [id number] 08/09/2013 12:50:00 08/09/2013 23:59:59 CLS Outpatient AALIYAH CHILDS DO [facility] RAD SEVERE PAIN LEFT KNEE [id number] 11/09/2012 17:17:00 11/12/2012 14:35:00 [facility] Inpatient AALIYAH CHILDS DO [facility] 4TH DIVERTICULITIS [id number] 10/21/2012 13:50:00 Document Registration [id number] 05/31/2012 20:53:00 Document Registration [id number] 05/25/2012 13:25:00 Document Registration [id number] 02/24/2012 09:04:00 Document Registration [id number] 02/03/2012 14:06:00 Document Registration [id number] 11/22/2011 08:44:00 Document Registration [id number] 09/11/2011 09:44:00 Document Registration [id number] 09/04/2011 13:34:00 Document Registration [id number] 08/29/2011 10:04:00 Document Registration [id number] 04/10/2011 14:25:00 Document Registration [id number] 02/18/2011 14:04:00 Document Registration [id number] 12/12/2010 09:56:00 Document Registration [id number] 11/29/2010 09:50:00 Document Registration
--- NOTE | 2018-12-23 10:48 | ED Lower Extremity ---
General Chief Complaint: Lower Extremity Stated Complaint: FALL/FOOT PAIN Nursing Triage Note: TO ED PER W/C REPORTS THAT SHE HAS NOT BEEN FEELING WELL FELT DIZZY AND TWISTED ANKLE. ANKLE WRAPPED BY SON Nursing Sepsis Screen: No Definite Risk Source: patient, family Exam Limitations: no limitations History of Present Illness Date Seen by Provider: Dec 16, 2018 Time Seen by Provider: 00:00 Initial Comments I do not recall the time the patient was actually seen, a actively, we had computer downtime time the patient presentation and charting was done on paper which was subsequently lost. Patient presented via electric wheelchair accompanied by her daughter with reports of left ankle pain after a fall the night before. She has swelling and inability to bear weight due to pain. No other injury. Onset: yesterday Severity: moderate Pain/Injury Location: right ankle Method of Injury: fell Modifying Factors: Worse With Movement Allergies and Home Medications Allergies Coded Allergies: lansoprazole (Verified Allergy, Intermediate, HIVES, 10/08/17) Home Medications Albuterol Sulfate 1 Puff Puff, 2 PUFF IH TID, (Reported) 1 PUFF = 90 MCG Cefdinir 300 Mg Capsule, 300 MG PO BID Prescribed by: RAF WALLER on 10/09/17 1228 Dicyclomine HCl 10 Mg Capsule, 10 MG PO DAILY, (Reported) Gabapentin 300 Mg Capsule, 300 MG PO HS, (Reported) Hydrocodone Bit/Acetaminophen 1 Ea Tablet, 1 TAB PO TID PRN for PAIN-MODERATE, (Reported) Promethazine HCl/Codeine 118 Ml Syrup, 10 ML PO TID PRN for COUGH, (Reported) FILLED 18 Ropinirole HCl 4 Mg Tablet, 4 MG PO HS, (Reported) [Curamed] , 1 CAP PO BID, (Reported) Patient Home Medication List Home Medication List Reviewed: Yes Review of Systems Constitutional: see HPI EENTM: see HPI Respiratory: no symptoms reported Cardiovascular: no symptoms reported Genitourinary: no symptoms reported Musculoskeletal: see HPI Skin: no symptoms reported Psychiatric/Neurological: No Symptoms Reported Past Sjlkrjy-Rpnhkr-Mqpmju Hx Patient Social History Alcohol Use: Denies Use Recreational Drug Use: No Smoking Status: Never a Smoker 2nd Hand Smoke Exposure: No Recent Foreign Travel: No Contact w/Someone Who Travel: No Recent Infectious Disease Expo: No Recent Hopitalizations: No Immunizations Up To Date Tetanus Booster (TDap): Unknown Date of Pneumonia Vaccine: May 30, 2016 Date of Influenza Vaccine: Apr 02, 2017 Seasonal Allergies Seasonal Allergies: No Past Medical History Surgeries: Yes (BACK X'3, BI LAT SHOULDER, BI LAT KNEE SCOPES) Appendectomy, Orthopedic Respiratory: No Pneumonia Cardiac: No Neurological: Yes (RESTLESS LEG SYNDROME) 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 0.00oz. 53.022387rx; 0.0 BMI Method:Stated General Appearance: WD/WN, no apparent distress HEENT: PERRL/EOMI, normal ENT inspection Hips: bilateral hip non-tender, bilateral hip normal inspection, bilateral hip normal range of motion Legs: bilateral leg non-tender, bilateral leg normal inspection, bilateral leg normal range of motion Knees: bilateral knee non-tender, bilateral knee normal inspection, bilateral knee normal range of motion Ankles: left ankle pain, left ankle soft tissue tenderness, left ankle swelling Feet: bilateral foot non-tender, bilateral foot normal inspection, bilateral foot normal range of motion Neurologic/Psychiatric: alert, normal mood/affect, oriented x 3 Skin: normal color, warm/dry She did have a strong dorsalis pedis pulse Progress/Results/Core Measures Results/Orders Blood Pressure Mean: 94 Departure Communication (Admissions) Patient was placed in a posterior short leg splint using 4 inch Ortho-Glass. She was then given the phone number for orthopedics for follow-up. Impression Primary Impression: Fracture of ankle Qualified Codes: S82.892A - Other fracture of left lower leg, initial encounter for closed fracture Disposition: 01 HOME, SELF-CARE Condition: Improved Departure-Patient Inst. Decision time for Depature: 10:47 Referrals: AALIYAH CHILDS DO (PCP) Primary Care Physician Patient Instructions: Ankle Fracture (DC) DRE BECKMAN APRN Dec 23, 2018 10:48
== END 2018-12-16 12:00 | disposition home or self-care (01) ==
LOC: EDUNIT# 10:06 → ER 10:07
DX: S82.432A Displaced oblique fracture of shaft of left fibula, initial encounter for closed fracture (principal); Z85.3 Personal history of malignant neoplasm of breast; Z88.8 Allergy status to other drugs, medicaments and biological substances; Z90.49 Acquired absence of other specified parts of digestive tract; Z87.19 Personal history of other diseases of the digestive system; X50.1XXA Overexertion from prolonged static or awkward postures, initial encounter
CPT/HCPCS: 29515; 73610